=== PATIENT | female | born 1955 | race Caucasian/White ===

== ENCOUNTER 2021-08-26 07:04 | Outpatient (REF) | payer OTHER, SELFPAY ==
[2021-08-26 07:39] LABS: MANUAL DIFF FLAG NO
[2021-08-26 08:10] LABS: Basophils Percent Auto 0.6 % (0-2); Eosinophils Absolute Auto 0.3 X10*3/uL (0.0-0.4); Hematocrit 37.6 % (37.0-47.0); Hemoglobin 12.8 g/dl (12.0-16.0); Imm Gran Abs Auto 0.02 X10*3/uL (0.00-0.03); Imm Gran Pct Auto 0.3 % (0.0-0.4); Immature Retic Fraction 5.6 % (3.0-15.9); Lymphocytes Absolute Auto 1.2 X10*3/uL (1.2-4.9); Mean Corpuscular Hemoglobin 29.7 pg (27.0-33.0); Mean Corpuscular Volume 87.2 fL (80.0-98.0); Mean Platelet Volume 11.1 fL (9.4-12.3); Monocytes Absolute Auto 0.3 X10*3/uL (0.1-1.2); Monocytes Percent Auto 4.6 % (2-11); Neutrophils Absolute Auto 4.4 x10*3/uL (2.0-8.3); Neutrophils Percent Auto 70.5 % (45-73); Platelet Count 201 X10*3/uL (160-400); Red Blood Count 4.31 X10*6/uL (4.20-5.50); Red Cell Distribution Width 12.2 % (11.0-16.0); Retic HGB Equivalent 32.7 pg (30.0-35.0); Reticulocyte Percent 1.5 % (0.5-1.8); Reticulocytes Absolute 0.064 X10*6/uL (0.026-0.095); White Blood Count 6.3 X10*3/uL (4.8-10.8)
[2021-08-26 08:33] LABS: Estimated Average Glucose 114 mg/dL; Hemoglobin A1c % 5.6 %
[2021-08-26 08:38] LABS: Cholesterol 322 mg/dL; HDL Cholesterol 76 mg/dL; LDL Cholesterol Calculated 194 mg/dl; Triglycerides 260 mg/dL
[2021-08-26 08:41] LABS: Alanine Aminotransferase 30 U/L (0-31); Albumin Level 4.7 g/dL (3.5-5.0); Alkaline Phosphatase 90 U/L (39-117); Anion Gap 13 (12-20); Aspartate Amino Transferase 33 U/L (5-31); Blood Urea Nitrogen 13 mg/dL (9-16); Calcium 10.5 mg/dL (8.4-10.2); Carbon Dioxide 35 mmol/L (22-29); Chloride 96 mmol/L (96-108); Estimated Glomerular Filt Rate > 60; Glucose Fasting 130 mg/dL (60-99); Iron 86 mcg/dL (30-160); Percent Iron Saturation 25 % (15-50); Potassium 3.3 mmol/L (3.3-5.1); Sodium 141 mmol/L (135-145); Total Iron Binding Capacity 347 mcg/dL (228-428); Total Protein 7.6 g/dL (6.5-8.0); Unsaturated Iron Binding 261 ug/dL
[2021-08-26 09:01] LABS: TSH reflex Free T4 1.08 uIU/mL (0.32-4.0)
[2021-08-26 09:02] LABS: Ferritin 108 ng/mL (10-250); Free T4 (Free Thyroxine) 1.04 ng/dL (0.71-1.85); Thyroid Stimulating Hormone 1.06 uIU/mL (0.32-4.0); Vitamin D 25-OH Total 27.1 ng/mL (>30)
[2021-08-26 09:08] LABS: Folate 10.9 ng/mL (> or = 4.0); Vitamin B12 504 pg/mL (200-900)
[2021-08-26 14:29] LABS: Appearance Urine CLOUDY; Color Urine YELLOW; Glucose Urine UA NEG (NEG); Leukocyte Esterase Urine TRACE (NEG); Nitrite Urine NEG (NEG); PH 5.5 (5.0-8.0); Specific Gravity - Urine >= 1.030 (1.005-1.025); UACC Culture Trigger YES; Urine Blood 3+ (NEG); Urine Ketones NEG (NEG); Urine Protein 2+ MG/DL (NEG-TRACE)
[2021-08-26 14:48] LABS: RBC Urine 30-49 /HPF (0); Squamous Epithelial Cell Urine 1+ /LPF; WBC Urine 0-2 /HPF (0-4)
[2021-08-26 14:49] LABS: Bacteria Urine 1+ /LPF; Hyaline Casts Urine 0-2 /LPF
[2021-08-26 14:50] LABS: Amorphous Sediment Urine 2+ /LPF
[2021-09-05 17:11] LABS: UACC Culture Trigger NO
== END 2021-08-26 07:05 | disposition home or self-care (01) ==
LOC: HO.LAB 07:04
PROVIDERS: PCP Internal Medicine; Visit Provider Nurse Practitioner Acute Care
DX: K21.9 Gastro-esophageal reflux disease without esophagitis (principal); R73.02 Impaired glucose tolerance (oral); E78.00 Pure hypercholesterolemia, unspecified; R30.0 Dysuria
CPT/HCPCS: 36415; 80053; 80061; 81001; 82306; 82607; 82728; 82746; 83036; 83540; 84439; 84443; 85025; 85045; 87086

== ENCOUNTER 2021-09-02 08:59 | Outpatient (REF) | payer OTHER, SELFPAY ==
--- NOTE | ~2021-09-02 | CT_ITS ---
EXAMINATION: CT ABDOMEN AND PELVIS WITH CONTRAST CLINICAL INFORMATION: Diverticulosis COMPARISON: None TECHNIQUE: Multidetector volumetric images were obtained from the superior aspect of the liver through the pubic symphysis following administration 85 mL of Omnipaque 350 intravenous contrast. Sagittal and coronal reformatted images were obtained on the technologist's workstation. Oral contrast: Yes This CT examination was performed using dose optimization techniques as appropriate, variously including the following: *Automated exposure control *Adjustment of mA and/or kV according to patient size (this includes techniques or standardized protocols for targeted exams where dose is matched to indication/reason for exam; i.e. extremities or head) *Use of iterative reconstruction technique DLP: 410 mGy-cm FINDINGS: LUNG BASES: There is left pleural calcification. The lung bases are otherwise clear. LIVER, GALLBLADDER, AND BILIARY TREE: The liver is low in attenuation suggestive of fatty infiltration. No focal liver lesion. Normal gallbladder. No biliary duct dilatation. PANCREAS: Unremarkable. SPLEEN: Slightly prominent measuring 15 cm in length/AP dimension ADRENAL GLANDS: Unremarkable. KIDNEYS AND URETERS: The kidneys are normal in size, shape, and attenuation. No hydronephrosis, hydroureter, or calculi seen. No perinephric stranding. BLADDER: There is a tiny amount of air in the bladder. Bladder is otherwise unremarkable. GASTROINTESTINAL TRACT: Mild diverticulosis of the colon. No evidence of diverticulitis. Duodenal diverticulum adjacent to the head of the pancreas. The small and large bowel are otherwise unremarkable. The appendix is unremarkable. ABDOMINAL WALL: No significant hernia is appreciated. LYMPH NODES: Normal. VASCULAR: Unremarkable. PELVIC VISCERA: Left ovarian calcification measuring 1 cm. Uterus and adnexa are otherwise normal OSSEOUS STRUCTURES: There are degenerative changes of the spine. CT/CT abdomen pelvis w con IMPRESSION: Mild fatty infiltration of the liver. Prominent spleen. Diverticulosis of the colon. No evidence of diverticulitis. Tiny amount of air seen in the bladder. This may be related to recent catheterization. Clinical correlation is recommended. No evidence of colovesicular fistula is seen. Possible infection should also be considered. Fleischner guidelines were followed.
[2021-09-02] MEDS: iohexoL 350 MG/ML 100 ML INFUS..BTL IV (12:04)
[2021-09-02] MEDS: Barium Sulfate Oral (Mocha) 450 ML ORAL.SUSP 900 ML PO (12:04)
== END 2021-09-02 09:00 | disposition home or self-care (01) ==
LOC: HO.CT 08:59
PROVIDERS: PCP Internal Medicine; Visit Provider Nurse Practitioner Acute Care
DX: R10.12 Left upper quadrant pain (principal); K57.90 Diverticulosis of intestine, part unspecified, without perforation or abscess without bleeding; R19.7 Diarrhea, unspecified
CPT/HCPCS: 74177; Q9967

== ENCOUNTER 2022-01-13 08:48 | Outpatient (REF) | payer OTHER, SELFPAY ==
--- NOTE | ~2022-01-13 | MM_ITS ---
EXAMINATION: BONE DENSITOMETRY CLINICAL INDICATION: Age-related osteoporosis without current pathological fracture. COMPARISON: Previous BD dated 09/27/2018 and baseline BD dated 12/09/2007. TECHNIQUE: Using a [place] [employer] 911 DXA System (software version: 13.1) manufactured by [employer], dual-energy x-ray absorptiometry was performed of the lumbar spine and left hip. The images are of good technical quality. Summary results are attached. FINDINGS: AP SPINE L1-L4: Current: BMD 0.899 g/cm2, Z-score -1.1, T-score -2.3, osteopenia, 0.2% increase from previous, 9.6% decrease from baseline (<5% change is not significant). Prior: BMD 0.897 g/cm2. Baseline: BMD 0.994 g/cm2. LEFT FEMUR, NECK: Current: BMD 0.722 g/cm2, Z-score -1.0, T-score -2.3, osteopenia. Prior: BMD 0.774 g/cm2. Baseline: BMD 0.899 g/cm2. LEFT FEMUR, TOTAL: Current: BMD 0.819 g/cm2, Z-score -0.5, T-score -1.5, osteopenia, 1.9% decrease from previous, 17.8% decrease from baseline (<5% change is not significant). Prior: BMD 0.835 g/cm2. Baseline: BMD 0.996 g/cm2. IDENTIFIED RISK FACTORS: Menopause, history of fracture (adult), osteoporosis, thiazide. HISTORY OF FRACTURE: Elbow. MEDICATIONS: None listed. MM/XR DEXA axial skeleton IMPRESSION: 1. DIAGNOSIS: Osteopenia based on the lowest T-score value of -2.3 in the femoral neck and lumbar spine applying World Health Organization criteria. 2. 10-YEAR FRACTURE RISK PREDICTION, FRAX: Major osteoporotic fracture (clinical spine, forearm, hip or shoulder) 19.4%. Hip fracture 3.7%. 3. Treatment Recommendations: NOF guidelines recommend consideration for treatment in postmenopausal women and men age 50 and older presenting with the following: -A hip or vertebral (clinical or morphometric) fracture. -T-score less than or equal to -2.5 at the femoral neck or spine after appropriate evaluation to exclude secondary causes. -Low bone mass at the hip or spine and a 10-year fracture probability by FRAX of greater than or equal to 3% for hip fracture or greater than or equal to 20% for major osteoporotic fracture based on the [place] adapted WHO algorithm. 4. Other Recommendations: All treatment decisions require clinical judgment and consideration of individual patient factors, including patient preferences, comorbidities, previous drug use, risk factors not captured in the FRAX model (e.g. frailty, falls, vitamin D deficiency, increased bone turnover, interval significant decline in bone density) and possible under or overestimation of fracture risk by FRAX. Additional medical evaluation for secondary cause of low bone mineral density may be appropriate. FUTURE SCAN RECOMMENDATION: People with diagnosed cases of osteoporosis or at high risk for fracture should have regular bone mineral density tests. For patients eligible for Medicare, routine testing is allowed once every 2 years. The testing frequency can be increased to one year for patients who have rapidly progressing disease, those who are receiving or discontinuing medical therapy to restore bone mass, or have additional risk factors.
--- NOTE | ~2022-01-13 | MM_ITS ---
EXAMINATION: MM SCREENING DIGITAL BREAST TOMOSYNTHESIS, BILATERAL CLINICAL INFORMATION: Screening. Asymptomatic. The lifetime risk of breast cancer based on the Tyrer-Cuzick Model is 4%. COMPARISON: Mammography: 09/27/2018, 07/20/2017, 11/12/2015 TECHNIQUE: Digital breast tomosynthesis is performed in both the craniocaudal and mediolateral oblique views along with computer-aided detection (CAD). Synthesized 2D images are generated from the tomosynthesis. FINDINGS: There are scattered areas of fibroglandular density (ACR BI-RADS breast composition Category b). Parenchymal pattern is similar to prior studies. There is fibronodular parenchymal pattern is similar to prior exams. No interval dominant nodularity or significant mass. No developing density or architectural abnormality. No abnormal calcifications. The axilla and skin contours are unremarkable. MM/MM tomosynthesis screening BI IMPRESSION: No mammographic evidence of malignancy. ASSESSMENT: BI-RADS 2: Benign RECOMMENDATION: Routine annual mammography screening. This patient's information was entered into a reminder system with a target due date for their next mammogram.
== END 2022-01-13 08:49 | disposition home or self-care (01) ==
LOC: HO.MAMMO 08:48
PROVIDERS: PCP Internal Medicine; Visit Provider Internal Medicine
DX: Z12.31 Encounter for screening mammogram for malignant neoplasm of breast (principal); Z13.820 Encounter for screening for osteoporosis; M81.0 Age-related osteoporosis without current pathological fracture; Z78.0 Asymptomatic menopausal state
CPT/HCPCS: 77063; 77067; 77080

== ENCOUNTER 2022-03-14 14:15 | Outpatient (REF) | payer OTHER, SELFPAY ==
--- NOTE | ~2022-03-14 | US_ITS ---
EXAMINATION: US ABDOMEN COMPLETE CLINICAL INFORMATION: Splenomegaly. COMPARISON: CT abdomen and pelvis with contrast 09/02/2021. TECHNIQUE: Real-time imaging of the abdominal viscera. FINDINGS: PANCREAS: Normal. No abnormal mass or peripancreatic inflammatory change. ABDOMINAL AORTA: The proximal, mid, and distal segments are normal in caliber. INFERIOR VENA CAVA: Visualized portions are normal. LIVER: The liver is normal in size. The liver contour is normal. There is some homogeneous increased echo texture present consistent with fatty infiltration. No focal hepatic lesion. There is no intrahepatic biliary duct dilatation seen. GALLBLADDER: Normal. The gallbladder is physiologically distended without evidence of stones, sludge, polyps, wall thickening or pericholecystic fluid. COMMON BILE DUCT: Not identified RIGHT KIDNEY: Normal. No hydronephrosis. No renal calculi or focal parenchymal lesions. The kidney measures 10.1 cm in maximum dimension. LEFT KIDNEY: Normal. No hydronephrosis. No renal calculi or focal parenchymal lesions. The kidney measures 9.5 cm in maximum dimension. SPLEEN: Normal. The spleen measures 12.1 cm in maximum dimension. FREE FLUID: None. US/US abdomen complete IMPRESSION: Homogeneously increased echotexture to the liver consistent with fatty infiltration.
== END 2022-03-14 14:16 | disposition home or self-care (01) ==
LOC: HO.HMGCX 14:15
PROVIDERS: PCP Internal Medicine; Visit Provider Internal Medicine Medical Oncology
DX: R16.1 Splenomegaly, not elsewhere classified (principal)
CPT/HCPCS: 76700

== ENCOUNTER 2022-03-22 12:38 | Outpatient (REF) | payer OTHER, SELFPAY ==
[2022-03-22 13:14] LABS: Urine Cytology See Pathology rpt
[2022-03-22 13:45] LABS: Appearance Urine Hazy; Color Urine Yellow; Glucose Urine UA Negative (Negative); Leukocyte Esterase Urine Negative (Negative); Nitrite Urine Negative (Negative); PH 5.5 (5.0-9.0); Specific Gravity - Urine >= 1.030 (1.005-1.025); Urine Blood Negative (Negative); Urine Ketones Negative (Negative); Urine Protein Trace mg/dL (Neg-Trace)
[2022-03-22 13:54] LABS: Alanine Aminotransferase 13 U/L (0-31); Albumin Level 4.7 g/dL (3.5-5.0); Alkaline Phosphatase 84 U/L (39-117); Anion Gap 17 (12-20); Aspartate Amino Transferase 19 U/L (5-31); Bilirubin Total 0.6 mg/dL (0.0-1.0); Blood Urea Nitrogen 13 mg/dL (9-16); Calcium 9.8 mg/dL (8.4-10.2); Carbon Dioxide 29 mmol/L (22-29); Chloride 96 mmol/L (96-108); Estimated Glomerular Filt Rate > 60; Glucose Random 95 mg/dL (60-115); Potassium 3.3 mmol/L (3.3-5.1); Sodium 139 mmol/L (135-145); Total Protein 7.4 g/dL (6.5-8.0)
[2022-03-26 06:57] LABS: Urine Cytology See Pathology rpt
== END 2022-03-22 12:39 | disposition home or self-care (01) ==
LOC: HO.LAB 12:38
PROVIDERS: Visit Provider Internal Medicine
DX: R31.9 Hematuria, unspecified (principal)
CPT/HCPCS: 36415; 80053; 81003; 88112

== ENCOUNTER 2022-05-15 13:03 | Outpatient (REF) | payer OTHER, SELFPAY | END 2022-05-15 13:04 | disposition home or self-care (01) | LOC: HO.LAB 13:03 | PROVIDERS: PCP Internal Medicine; Visit Provider Urology | DX: R31.0 Gross hematuria (principal); Z79.899 Other long term (current) drug therapy | CPT/HCPCS: 51798; 88112 ==

== ENCOUNTER → 2022-06-09 11:14 | Outpatient (BNVA) | payer OTHER, SELFPAY | PROVIDERS: PCP Internal Medicine; Visit Provider Urology | DX: R31.0 Gross hematuria (principal); N30.90 Cystitis, unspecified without hematuria | CPT/HCPCS: 52000 ==

== ENCOUNTER 2023-01-05 08:20 | Outpatient (AMB) | payer MEDICARE, SELFPAY ==
[2023-01-05 08:34] VITALS: BP 140/70; RESP 78; O2SAT 97; BMI 30.7
--- NOTE | 2023-01-05 08:34 | A.OFFPC_ITS ---
Vital Signs 01/05/23 08:34 Height 5 ft 2 in Weight 168 lb BMI 30.7 BP 140/70 H Blood Pressure Location Lt brachial Position Sitting Respiration 78 H Pulse Source Pulse Oximeter Pulse Oximetry (%) 97 Oxygen Delivery Method Room Air Intake Visit Reasons: medication review Allergies bacitracin [From Neosporin ([id number])] Allergy (Unknown, Verified 01/05/23 08:43) Unknown benzocaine Allergy (Unknown, Verified 01/05/23 08:43) Unknown lisinopril Allergy (Unknown, Verified 01/05/23 08:43) Unknown neomycin [From Neosporin ([id number])] Allergy (Unknown, Verified 01/05/23 08:43) Unknown nickel Allergy (Unknown, Verified 01/05/23 08:43) Unknown polymyxin B [From Neosporin ([id number])] Allergy (Unknown, Verified 01/05/23 08:43) Unknown Medication List - Last Reconciled 01/05/23 by LORENZO Arango albuterol sulfate 90 mcg/actuation (ProAir HFA) 2 puffs PO Q4H amlodipine 10 mg PO DAILY clobetasol 0.05% 1 appl topical BID 2 weeks fluticasone furoate-vilanterol 200-25 mcg/dose (Breo Ellipta) 1 inh inhalation Q24H hydrochlorothiazide 25 mg PO DAILY loratadine 10 mg PO DAILY PRN losartan 50 mg PO DAILY omeprazole 20 mg PO DAILY sertraline 150 mg (1.5 x 100 mg) PO DAILY Tobacco use date assessed: 01/05/23 Fall risk assessment: No Falls in past year Last assessed Fall Risk: 01/05/23 Dental Screening Dental Screen Date: 01/05/23 Did you have a dental visit in the last 12 months?: Yes Did you have a dental problem in the last 6 months where you did not have access to dental care?: No Was dental information given to patient?: Patient has dentist HPI HPI Comments History of Present Illness Details 66-year-old obese female with a history of hypertension, asthma, GERD hypercholesterolemia Vela's esophagus with impaired glucose tolerance. Patient of last seen in April. Patient presents today for follow-up. Patient reports her psoriasis is flaring up on her bilateral hands, patient requesting a refill on her clobetasol ointment. Refill sent to patient's pharmacy. Patient denies any need for any other refills. Patient reminded to get previously order lab work completed. Review of the notes patient was seen by Urology in June and underwent cystoscopy which showed cystitis with no suspicious lesions. Patient was treated with antibiotics and Pyridium. Patient reports that her urinary problems have resolved following treatment. Patient reports her breathing has improved since on the Breo inhaler states that she only has to use her albuterol every couple a days versus before when she was using it multiple times per day. [facility] Medical History (Updated 01/05/23 @ 08:47 by LORENZO Arango) Adverse effect of contrast media Allergic rhinitis Anxiety and depression Asthma Vela's esophagus Breast cancer screening by mammogram Diarrhea Diverticulosis GERD (gastroesophageal reflux disease) Hypercholesterolemia Hypertension Impaired glucose tolerance Knee osteoarthritis LUQ abdominal pain Osteoporosis Psoriasis Siriasis Splenomegaly Surgical History History of arthroplasty of left knee History of arthroplasty of right knee History of eye surgery History of tonsillectomy History of tubal ligation Family History Father No problems noted. Mother Ovarian cancer Myocardial infarction Paternal Grandmother Bladder cancer Paternal Aunt Bladder cancer Paternal Uncle Bladder cancer Social History (Updated 05/05/22 @ 13:31 by Clover Jones PLASTIC WELDER) Household Members: Spouse and Children Housing: House Are you a primary care management associate to a significant other at home: No Do you presently have visiting nurse or other home services: No Alcohol intake: current Alcohol intake frequency: a few times a month Patient Tobacco Use Status: Former Tobacco user Tobacco use type: Cigarette e-Cigarette/Vaping Use: Never Used Second Hand Smoke Exposure: No Substance Use Type: Marijuana service: No Current occupational status: employed Cognitive needs: No Hearing needs: No Vision needs: No Questionnaire PHQ-9 Over the last 2 weeks, how often have you been bothered by any of the following problems? 1. Little interest or pleasure in doing things: not at all 2. Feeling down, depressed, or hopeless: not at all 3. Trouble falling or staying asleep, or sleeping too much: not at all 4. Feeling tired or having little energy: not at all 5. Poor appetite or overeating: not at all 6. Feeling bad about yourself - or that you are a failure or have let yourself or your family down: not at all 7. Trouble concentrating on things, such as reading the newspaper or watching television: not at all 8. Moving or speaking so slowly that other people could have noticed. Or the opposite - being so fidgety or restless that you have been moving around a lot more than usual: not at all 9. Thoughts that you would be better off or of hurting yourself in some way: not at all Total score: 0 Depression Screening Interpretation: Negative Source: Developed by Drs. Jorge Luis Peng, Luisa Ko, Scout Hopkins and colleagues, with an educational rosa isela from [employer]. Thrive Questionnaire Date Thrive assessed: 01/05/23 I am a: Patient What is your living situation today?: I have a steady place to live Within the past 12 months, did the food you bought not last and you didn't have the money to get more?: Never true Within the past 12 months, did you worry whether your food would run out before you got money to buy more?: Never true Do you have trouble paying for medicines?: No Do you have trouble getting transportation to medical appointments?: No Do you have trouble paying your heating and electricity bill?: No Do you have trouble taking care of your child, family member or friend?: No Do you have trouble with day-to-day activities such as bathing, preparing meals, shopping, managing finances, etc.?: No Are you currently unemployed and looking for a job?: No Are you interested in more education?: No Currently or been in a relationship where the following occur: no concerns reported AUDIT C Alcohol Use Questionnaire (AUDIT-C) 1. How often do you have a drink containing alcohol?: Never Total Score: 0 Score Reviewed/Action Taken: No LETY-7 AMB Questionnaire LETY-7 Date LETY - 7 assessed: 01/05/23 Feeling nervous, anxious, or on edge: 0 = Not at all Not being able to stop or control worryin = Not at all Worrying too much about different things: 0 = Not at all Trouble relaxin = Not at all Being so restless that it is hard to sit still: 0 = Not at all Becoming easily annoyed or irritable: 0 = Not at all Feeling afraid as if something awful might happen: 0 = Not at all Total LETY-7 score (0-4 normal; 5-9 mild; 10-14 moderate; 15-21 severe): 0 Source: Developed by Drs. Jorge Luis Peng, Luisa Ko, Scout Hopkins and colleagues, with an educational rosa isela from [employer]. Review of Systems Const Denies chills, Denies fatigue, Denies fever(s) and Denies poor appetite Eyes Denies no additional complaints ENT Reports Normal hearing present Card Denies chest pain, Denies syncope, Denies rapid heart rate and Denies dyspnea Resp Denies cough and Denies dyspnea GI Denies change in stool character, Denies constipation, Denies diarrhea, Denies nausea and Denies vomiting Denies urinary frequency, Denies dysuria and Denies urinary urgency Neuro Reports Normal hearing present, Denies confusion and Denies syncope Psych Denies confusion Endo Denies fatigue Physical exam (Primary Care) Vital Signs: Last Vital Signs Resp 78 H 01/05/23 08:34 BP 140/70 H 01/05/23 08:34 Pulse Ox 97 01/05/23 08:34 Oxygen Delivery Method Room Air 01/05/23 08:34 BMI result Body Mass Index 30.7 Tobacco/Smoking Status: Tobacco use Status Tobacco use date assessed 01/05/23 01/05/23 08:39 Patient Tobacco Use Status Former Tobacco user 01/05/23 08:39 Tobacco use type Cigarette 01/05/23 08:39 e-Cigarette/Vaping Use Never Used 01/05/23 08:39 PHQ-9: PHQ-9 Score PHQ-9: Total score 0 01/05/23 08:41 Depression Screening Interpretation: Negative Thrive Assessment: Date of Thrive Assessment Date Thrive assessed 01/05/23 01/05/23 08:39 Currently or been in a relationship where the following occur: no concerns reported Const General: No confusion Orientation/consciousness: No confusion HENMT Head: Yes normocephalic and Yes atraumatic Eyes Conjunctivae: conjunctivae normal Chest Chest palpation & inspection: normal inspection of the chest Resp Effort & Inspection: normal respiratory effort Auscultation: clear to auscultation bilaterally, no crackles, no rhonchi and no wheezes Cardio Rate: regular rate Rhythm: regular rhythm Heart sounds: S1 normal heart sound present and S2 normal heart sound present GI Inspection: Yes normal to inspection Neuro General: No confusion Cranial nerves: Yes Normal hearing present Extrem General: No edema Assessment and Plan Assessment & Plan (1) Hypertension: Code(s): I10 - Essential (primary) hypertension Qualifiers: Hypertension type: primary hypertension Qualified Code(s): I10 - Essential (primary) hypertension Plan: Continue on amlodipine and losartan. Follow low-salt diet and exercise. Blood pressure goal less than 140/90. (2) GERD (gastroesophageal reflux disease): Code(s): K21.9 - Gastro-esophageal reflux disease without esophagitis Plan: Continue on omeprazole. ?Avoid the foods that cause that, usually spicy foods, tomato products, juices, coffee, soda and foods that you're sensitive to.? After eating do not lie down, allow 3-4 hours before lying down. And keep the head of the bed above 30 degrees to avoid the acid from going up. (3) Asthma: Code(s): J45.909 - Unspecified asthma, uncomplicated Qualifiers: Asthma complication type: uncomplicated Asthma persistence: intermittent Asthma severity: mild Qualified Code(s): J45.20 - Mild intermittent asthma, uncomplicated Plan: Continue on Breo inhaler and albuterol p.r.n.. Patient denies any shortness of breath or wheezing. (4) Hypercholesterolemia: Comment: DEcline treatment 04/2022, 01/2022 Code(s): E78.00 - Pure hypercholesterolemia, unspecified Plan: Avoid fried foods, chicken skin, eggs, butter,margarine, pastries and? red meat. (5) Psoriasis: Code(s): L40.9 - Psoriasis, unspecified Plan: Clobetasol ointment sent to patient's pharmacy. Plan Follow-up with PCP in 6 months or sooner needed. Medications: New clobetasol 0.05% 1 appl topical DAILY 30 grams 0RF L40.9 - Psoriasis, unspeci fied Discontinued clobetasol 0.05% Discontinued Reason: Doctor's Order 1 appl topical BID 2 weeks 118 mL 0RF L40.9 - Psoriasis, unspecified Coding Level of Care Code Est Pt Level 4 (75592) Diagnoses Hypertension I10 Hypertension type: primary hypertension GERD (gastroesophageal reflux disease) K21.9 Asthma J45.20 Asthma complication type: uncomplicated Asthma persistence: intermittent Asthma severity: mild Hypercholesterolemia E78.00 Psoriasis L40.9 Additional Codes PHQ-9 - 40055 - PHQ-9 Billing: Y ([id number])
== END 2023-01-05 08:56 | disposition home or self-care (01) ==
PROVIDERS: PCP Internal Medicine; Visit Provider Nurse Practitioner Family
DX: I10 Essential (primary) hypertension (principal); K21.9 Gastro-esophageal reflux disease without esophagitis; J45.20 Mild intermittent asthma, uncomplicated; E78.00 Pure hypercholesterolemia, unspecified; L40.9 Psoriasis, unspecified
CPT/HCPCS: 99214

== ENCOUNTER 2023-01-19 10:03 | Outpatient (REF) | payer MEDICARE, SELFPAY ==
--- NOTE | ~2023-01-19 | MM_ITS ---
EXAMINATION: MM SCREENING DIGITAL BREAST TOMOSYNTHESIS, BILATERAL CLINICAL INFORMATION: Screening. Asymptomatic. COMPARISON: Mammography: This study is compared with prior exams dating back to 2016. TECHNIQUE: Digital breast tomosynthesis is performed in both the craniocaudal and mediolateral oblique views along with computer-aided detection (CAD). Synthesized 2D images are generated from the tomosynthesis. FINDINGS: There are scattered areas of fibroglandular density (ACR BI-RADS breast composition Category b). There is a focal asymmetry of the upper outer quadrant of the right breast at middle depth. Further mammographic imaging of this region is advised. There are no other significant findings in the remainder of the right breast. In the left breast, there are no significant masses, abnormal calcifications, or other abnormalities. MM/MM tomosynthesis screening BI IMPRESSION: Focal asymmetry of the upper outer quadrant of the right breast warrants additional mammographic imaging. ASSESSMENT: BI-RADS BI-RADS 0 - Incomplete: Needs additional Imaging. RECOMMENDATION: 1. Additional views of the right breast. .2. Targeted ultrasound if warranted after review of the additional views. 3. Radiology department staff will contact the patient for additional imaging. Additional Imaging required This examination should not preclude the clinical evaluation of a suspicious palpable abnormality. This patient's information was entered into a reminder system with a target due date for their next mammogram.
== END 2023-01-19 10:04 | disposition home or self-care (01) ==
LOC: HO.MAMMO 10:03
PROVIDERS: Visit Provider Internal Medicine
DX: Z12.31 Encounter for screening mammogram for malignant neoplasm of breast (principal)
CPT/HCPCS: 77063; 77067

== ENCOUNTER → 2023-01-19 10:15 | Outpatient (BNV) | payer MEDICARE, SELFPAY | PROVIDERS: Visit Provider Radiology Diagnostic Radiology | DX: Z12.31 Encounter for screening mammogram for malignant neoplasm of breast (principal) | CPT/HCPCS: 77063; 77067 ==

== ENCOUNTER 2023-02-16 13:47 | Outpatient (REF) | payer MEDICARE, SELFPAY ==
--- NOTE | ~2023-02-16 | MM_ITS ---
EXAMINATION: MM DIAGNOSTIC DIGITAL BREAST TOMOSYNTHESIS, RIGHT US BREAST LIMITED, RIGHT MAMMOGRAPHY: CLINICAL INFORMATION: Follow-up asymmetric density upper outer right breast. COMPARISON: Mammography: 01/19/2023, 01/13/2022, 09/27/2018, 07/20/2017. TECHNIQUE: Digital right breast tomosynthesis is performed utilizing a full-field 3-D digital right mediolateral view, as well as 3-D spot compression views in the right CC and MLO projections, Along with computer-aided detection (CAD). Synthesized 2D images are generated from the tomosynthesis. FINDINGS: There are scattered areas of fibroglandular density (ACR BI-RADS breast composition Category b). There is an intramammary lymph node in the upper outer quadrant of the right breast approximate 9:00 axis. This is unchanged. Otherwise, diagnostic views demonstrate heterogeneously dense breast parenchyma in the upper outer quadrant of the right breast without focal concerning abnormality. This will be evaluated with ultrasound as well. There are no suspicious masses, grouped calcifications, or areas of architectural distortion. ULTRASOUND: CLINICAL INFORMATION: Follow-up asymmetric density upper outer right breast. COMPARISON: 01/19/2023. TECHNIQUE: Targeted sonographic evaluation was performed using a high frequency linear transducer. Attention was focused on the upper outer quadrant right breast. Selected archived documentation. FINDINGS: RIGHT BREAST: There is a mixture of fatty and fibroglandular tissue. No suspicious mass is seen. There is no pathologic acoustic shadowing. There is no cystic abnormality. Only normal heterogeneously dense breast tissue is identified. MM/MM tomosynthesis added views R IMPRESSION: There is no mammographic or ultrasonographic evidence of malignancy in the right breast. No abnormal findings. Recommend the patient return to routine annual screening. OVERALL ASSESSMENT: Mammography: BI-RADS 2 - Benign Findings Ultrasound: BI-RADS 2 - Benign Findings RECOMMENDATION: 1 year F/U This patient's information was entered into a reminder system with a target due date for their next mammogram.
== END 2023-02-16 13:48 | disposition home or self-care (01) ==
LOC: HO.MAMMO 13:47
PROVIDERS: PCP Internal Medicine; Visit Provider Internal Medicine
DX: N64.89 Other specified disorders of breast (principal)
CPT/HCPCS: 76642; 77061; 77065

== ENCOUNTER → 2023-02-16 14:30 | Outpatient (BNV) | payer MEDICARE, SELFPAY | PROVIDERS: PCP Internal Medicine; Visit Provider Radiology Diagnostic Radiology | DX: R92.2 Inconclusive mammogram (principal) | CPT/HCPCS: 76642; 77061; 77065 ==

== ENCOUNTER 2023-02-21 10:40 | Outpatient (REF) | payer MEDICARE, SELFPAY ==
[2023-02-21 11:19] LABS: Appearance Urine Clear; Color Urine Yellow; Glucose Urine UA Negative (Negative); Leukocyte Esterase Urine Moderate (2+) (Negative); Nitrite Urine Negative (Negative); PH 5.5 (5.0-9.0); Specific Gravity - Urine 1.025 (1.005-1.025); UMIC TRIGGER UA YES; Urine Blood Negative (Negative); Urine Ketones Trace mg/dL (Negative); Urine Protein Negative (Neg-Trace)
[2023-02-21 11:29] LABS: Bacteria Urine None Seen (None Seen); Hyaline Casts Urine 0-2 /LPF (0-2); RBC Urine 0-2 /HPF (0-2); WBC Urine 0-5 /HPF (0-5)
== END 2023-02-21 10:41 | disposition home or self-care (01) ==
LOC: HO.LAB 10:40
PROVIDERS: PCP Internal Medicine; Visit Provider Internal Medicine
DX: R31.0 Gross hematuria (principal)
CPT/HCPCS: 81001

== ENCOUNTER 2023-02-26 15:15 | Outpatient (AMB) | payer MEDICARE, SELFPAY ==
[2023-02-26 15:42] VITALS: BP 132/80; PULSE 80; TEMP 36.4; O2SAT 96; BMI 31.1
--- NOTE | 2023-02-26 15:42 | AM.OFFWIN_ITS ---
Intake Vital Signs 02/26/23 15:42 Height 5 ft 2 in Weight 170 lb BMI 31.1 BP 132/80 Blood Pressure Location Rt brachial Position Sitting Pulse 80 Pulse Source Pulse Oximeter Temp 97.6 F Temp Source Temporal Artery Scan Pulse Oximetry (%) 96 Intake Visit Reasons: EP Sore throat, Chest/Head congestion/Headache Intake Note: pt is here for c/o sore throat, chest and head congestion Patient Tobacco Use Status: Former Tobacco user Allergies bacitracin [From Neosporin ([id number])] Allergy (Unknown, Verified 02/26/23 15:42) Unknown benzocaine Allergy (Unknown, Verified 02/26/23 15:42) Unknown lisinopril Allergy (Unknown, Verified 02/26/23 15:42) Unknown neomycin [From Neosporin ([id number])] Allergy (Unknown, Verified 02/26/23 15:42) Unknown nickel Allergy (Unknown, Verified 02/26/23 15:42) Unknown polymyxin B [From Neosporin ([id number])] Allergy (Unknown, Verified 02/26/23 15:42) Unknown Do you need a note to return to daycare/school/sports/work: Yes HPI EP Sore throat, Chest/Head congestion/Headache HPI Details Patient presents for a sick visit. Reporting symptoms of sinus congestion, sore throat and difficulty swallowing. Low-grade fever. No family member is sick. No recent travel. Patient reports symptoms of malaise and fatigue. [facility] Medical History (Updated 02/26/23 @ 16:34 by Kavon Good MD) Breast cancer screening by mammogram Splenomegaly Siriasis Adverse effect of contrast media Diarrhea LUQ abdominal pain Diverticulosis Impaired glucose tolerance Vela's esophagus Anxiety and depression Psoriasis Osteoporosis Hypercholesterolemia GERD (gastroesophageal reflux disease) Asthma Knee osteoarthritis Hypertension Allergic rhinitis Surgical History History of eye surgery History of tubal ligation History of tonsillectomy History of arthroplasty of right knee History of arthroplasty of left knee Family History Father No problems noted. Mother Ovarian cancer Myocardial infarction Paternal Grandmother Bladder cancer Paternal Aunt Bladder cancer Paternal Uncle Bladder cancer Social History (Updated 05/05/22 @ 13:31 by Clover Jones CMA) Household Members: Spouse and Children Housing: House Are you a primary skin care consultant to a significant other at home: No Do you presently have visiting nurse or other home services: No Alcohol intake: current Alcohol intake frequency: a few times a month Patient Tobacco Use Status: Former Tobacco user Tobacco use type: Cigarette e-Cigarette/Vaping Use: Never Used Second Hand Smoke Exposure: No Substance Use Type: Marijuana service: No Current occupational status: employed Cognitive needs: No Hearing needs: No Vision needs: No Physical Exam Vital Signs: Last Vital Signs Temp 97.6 F 02/26/23 15:42 Pulse 80 02/26/23 15:42 BP 132/80 02/26/23 15:42 Pulse Ox 96 02/26/23 15:42 BMI result Body Mass Index 31.1 Const General: cooperative and healthy appearing Nutritional Appearance: well nourished Orientation/consciousness: patient oriented x3 Limitations: no limitations HEENT Head: Yes normal to inspection Eyes General: appearance normal, both eyes and all related structures Neck Neck: Yes normal visual inspection Chest Chest palpation & inspection: normal palpation of entire chest wall Resp Effort & Inspection: normal respiratory effort Neuro General: patient oriented x3 Results AMB Rapid Strep AMB Rapid Strep Negative Last Edit by Jewel France CMA on 02/26/23 15 :56 Results Reviewed Results Reviewed: Laboratory Last Values Strep Scn Rapid Clinic Negative 02/26/23 15:55 Assessment & Plan Assessment & Plan (1) Upper respiratory tract infection: Code(s): J06.9 - Acute upper respiratory infection, unspecified Plan: Antibiotics ordered. Increase fluid intake. Tylenol for aches and pains. If symptoms worsen, follow-up here for a recheck. Orders: Orders AMB Rapid Strep Screen Today Z13.9 - Encounter for screening, unspecified Coding Level of Care Code Est Pt Level 3 (90469) Diagnoses Upper respiratory tract infection J06.9
== END 2023-02-26 16:34 | disposition home or self-care (01) ==
PROVIDERS: PCP Internal Medicine; Visit Provider Internal Medicine
DX: J02.9 Acute pharyngitis, unspecified (principal); J06.9 Acute upper respiratory infection, unspecified
CPT/HCPCS: 87880; 99213

== ENCOUNTER 2023-04-06 07:17 | Outpatient (REF) | payer MEDICARE, SELFPAY ==
[2023-04-06 07:29] LABS: MANUAL DIFF FLAG NO
[2023-04-06 08:11] LABS: Basophils Percent Auto 0.5 % (0-2); Eosinophils Absolute Auto 0.3 X10*3/uL (0.0-0.4); Eosinophils Percent Auto 5.7 % (0-4); Hemoglobin 11.4 g/dl (12.0-16.0); Imm Gran Abs Auto 0.03 X10*3/uL (0.00-0.03); Imm Gran Pct Auto 0.5 % (0.0-0.4); Lymphocytes Absolute Auto 1.1 X10*3/uL (1.2-4.9); Lymphocytes Percent Auto 18.6 % (20-40); Mean Corpuscular HGB Conc 32.6 g/dl (31.0-35.0); Mean Corpuscular Hemoglobin 28.5 pg (27.0-33.0); Mean Corpuscular Volume 87.5 fL (80.0-98.0); Mean Platelet Volume 10.5 fL (9.4-12.3); Monocytes Absolute Auto 0.3 X10*3/uL (0.1-1.2); Monocytes Percent Auto 5.3 % (2-11); Neutrophils Percent Auto 69.4 % (45-73); Platelet Count 245 X10*3/uL (160-400); Red Cell Distribution Width 12.8 % (11.0-16.0); White Blood Count 5.8 X10*3/uL (4.8-10.8)
[2023-04-06 08:39] LABS: Alanine Aminotransferase 15 U/L (0-31); Albumin Level 4.6 g/dL (3.5-5.0); Alkaline Phosphatase 85 U/L (39-117); Anion Gap 12 (12-20); Aspartate Amino Transferase 21 U/L (5-31); Bilirubin Total 0.6 mg/dL (0.0-1.0); Blood Urea Nitrogen 13 mg/dL (9-16); Calcium 9.8 mg/dL (8.4-10.2); Carbon Dioxide 29 mmol/L (22-29); Chloride 103 mmol/L (96-108); Cholesterol 286 mg/dL (<200); Estimated Glomerular Filt Rate > 60; Glucose Random 139 mg/dL (60-115); HDL Cholesterol 63 mg/dL (>40); LDL Cholesterol Calculated 194 mg/dL (<100); Potassium 3.9 mmol/L (3.3-5.1); Sodium 140 mmol/L (135-145); Total Protein 7.5 g/dL (6.5-8.0); Triglycerides 147 mg/dL (<150)
[2023-04-06 09:01] LABS: Free T4 (Free Thyroxine) 0.84 ng/dL (0.71-1.85); Thyroid Stimulating Hormone 2.21 uIU/mL (0.32-4.0)
[2023-04-06 09:02] LABS: Folate 5.6 ng/mL (> or = 4.0); Vitamin B12 528 pg/mL (200-900)
[2023-04-06 09:17] LABS: Appearance Urine Clear; Color Urine Dark Yellow; Glucose Urine UA Negative (Negative); Leukocyte Esterase Urine Small (1+) (Negative); Nitrite Urine Negative (Negative); PH 5.5 (5.0-9.0); UMIC TRIGGER UA YES; Urine Blood Negative (Negative); Urine Ketones Negative (Negative); Urine Protein Trace mg/dL (Neg-Trace)
[2023-04-06 09:45] LABS: Bacteria Urine None Seen (None Seen); RBC Urine 0-2 /HPF (0-2); WBC Urine 0-5 /HPF (0-5)
== END 2023-04-06 07:18 | disposition home or self-care (01) ==
LOC: HO.LAB 07:17
PROVIDERS: PCP Internal Medicine; Visit Provider Internal Medicine
DX: E78.00 Pure hypercholesterolemia, unspecified (principal); M81.0 Age-related osteoporosis without current pathological fracture
CPT/HCPCS: 36415; 80053; 80061; 81001; 81003; 82306; 82607; 82746; 84439; 84443; 85025

== ENCOUNTER 2023-04-09 11:32 | Outpatient (AMB) | payer MEDICARE, SELFPAY ==
--- NOTE | 2023-04-09 11:35 | A.OFFVIS_ITS ---
Intake Intake Visit Reasons: 1 [facility] follow up/ meds review Intake Note: Patient presents today for a follow-up on 1 Month Med Review: Meds- None Allergies to Antibiotic- Bacitracin & Neomycin Blood Thinner- None PVR- 0 mL Patient Transport Officer Required: No Accompanied by: Self / Same As Patient Allergies bacitracin [From Neosporin ([id number])] Allergy (Unknown, Verified 04/09/23 11:38) Unknown benzocaine Allergy (Unknown, Verified 04/09/23 11:38) Unknown lisinopril Allergy (Unknown, Verified 04/09/23 11:38) Unknown neomycin [From Neosporin ([id number])] Allergy (Unknown, Verified 04/09/23 11:38) Unknown nickel Allergy (Unknown, Verified 04/09/23 11:38) Unknown polymyxin B [From Neosporin ([id number])] Allergy (Unknown, Verified 04/09/23 11:38) Unknown HPI HPI Comments History of Present Illness Details Tiffanie is a 67-year-old female who presents today to the office for a follow-up. 04/09/23? Tiffanie has been evaluated for h/o gross hematuria, w/u consistent with cystits, She was treated with a suppressive course of antibiotics. The patient has a history of recurrent urinary tract infections. Prior cigarette use, smoked about 23 years, and discontinued in 1994. Patient states that he had a family hi story of bladder cancer, her paternal and one of her grandparents. Patient had office Cystoscopy in 06/2022 which was consistent with cystitis and no suspicious bladder lesions noted. She states that about in 12/2022 her urine was dark and she received some medications from her PCP. Patient states that she consumed cranberry juice for 2 days and the symptoms resolved. Review of chart: Imaging: CT scan of the abdomen and pelvis with IV contrast in September, --kidneys are within normal limits. Abdominal ultrasound March 2022 04/09/2023: Evaluation today--UA-- leukoc ytes: 1 +; blood: negative. 04/09/23: Plan: Follow-up in 6 months romero al bladder US prior. [facility] Medical History (Updated 04/09/23 @ 12:24 by Edd Farmer MD) Breast cancer screening by mammogram Splenomegaly Siriasis Adverse effect of contrast media Diarrhea LUQ abdominal pain Diverticulosis Impaired glucose tolerance Vela's esophagus Anxiety and depression Psoriasis Osteoporosis Hypercholesterolemia GERD (gastroesophageal reflux disease) Asthma Knee osteoarthritis Hypertension Allergic rhinitis Surgical History History of eye surgery History of tubal ligation History of tonsillectomy History of arthroplasty of right knee History of arthroplasty of left knee Family History Father No problems noted. Mother Ovarian cancer Myocardial infarction Paternal Grandmother Bladder cancer Paternal Aunt Bladder cancer Paternal Uncle Bladder cancer Social History (Updated 05/05/22 @ 13:31 by Clover Jones CMA) Household Members: Spouse and Children Housing: House Are you a primary home care nurse to a significant other at home: No Do you presently have visiting nurse or other home services: No Alcohol intake: current Alcohol intake frequency: a few times a month Patient Tobacco Use Status: Former Tobacco user Tobacco use type: Cigarette e-Cigarette/Vaping Use: Never Used Second Hand Smoke Exposure: No Substance Use Type: Marijuana service: No Current occupational status: employed Cognitive needs: No Hearing needs: No Vision needs: No Review of Systems Const All systems reviewed & are unremarkable except as noted in HPI and below Reports no additional complaints Eyes Reports no additional complaints ENT Reports no additional complaints Card Denies dyspnea Resp Denies cough and Denies dyspnea GI Reports no additional complaints Reports no additional complaints Musc Reports no additional complaints Skin/Breast Denies rash and Denies unusual bruising Neuro Reports no additional complaints Psych Reports no additional complaints Endo Reports no additional complaints David/Lymph Reports no additional complaints Aller/Immun Reports no additional complaints Office Procedures Post Void Residual Post Residual Void Post Void Residual (PVR): 0 [id number] Void Residual by ultrasound Results AMB Urinalysis, Automated UA Leukoctes 70 Emre/uL Last Edit by SEAN Deshpande on 04/09/23 11:55 UA Nitrite Negative Last Edit by Bharathi Zamudio A on 04/09/23 11:55 UA Urobilinogen 0.2 mg/dL Last Edit by Bharathi Zamudio El on 04/09/23 11:5 5 UA Protein 15 mg/dL Last Edit by Bharathi Zamudio, A on 04/09/23 11:55 UA pH 6.0 Last Edit by Bharathi Zamudio A on 04/09/23 11:55 UA Blood 0 Jose/uL Last Edit by Bharathi Zamudio A on 04/09/23 11:55 UA Specific [place] 1.030 Last Edit by Bharathi Zamudio El on 04/09/23 11: 55 UA Ketone Negative Last Edit by Bharathi Zamudio [facility] on 04/09/23 11:55 UA Bilirubin 1 mg/dL Last Edit by Bharathi Zamudio A on 04/09/23 11:55 1+ Bharathi Zamudio 04/09/23 11:55 UA Glucose 0 mg/dL Last Edit by Bharathi Zamudio A on 04/09/23 11:55 Results Reviewed Results Reviewed: Laboratory Last Values Urine pH (Auto) 6.0 04/09/23 11:39 Specific [place] (Auto) 1.030 04/09/23 11:39 Urine Protein (Auto) 15 mg/dL 04/09/23 11:39 Glucose (UA)(Auto) 0 mg/dL 04/09/23 11:39 Urine Ketones (Auto) Negative 04/09/23 11:39 Urine Blood (Auto) 0 Jose/uL 04/09/23 11:39 Urine Nitrite (Auto) Negative 04/09/23 11:39 Urine Bilirubin (Auto) 1 mg/dL 04/09/23 11:39 Urine Urobilinogen (Auto) 0.2 mg/dL 04/09/23 11:39 Leukocyte Esterase (Auto) 70 Emre/uL 04/09/23 11:39 Assessment & Plan Assessment & Plan (1) Cystitis: Code(s): N30.90 - Cystitis, unspecified without hematuria (2) Recurrent UTI (urinary tract infection): Code(s): N39.0 - Urinary tract infection, site not specified Orders: Orders US renal BI 4 Months N30.90 - Cystitis, unspecified without hematuria, N39.0 - Urinary tract infection, site not specified AMB Urinalysis Automated Today Z13.9 - Encounter for screening, unspecified AMB Post Void Residual by ultrasound Today N39.8 - Other specified disorders of urinary system Patient Instructions: The patient had an opportunity to ask questions regarding treatment plan. All questions were answered. Imaging, Laboratory studies and physical exam results were discussed and reviewed in detail. No major barriers to understanding were identified. The patient expressed understanding and agreement with the above treatment plan. The patient is aware they should contact our office by phone for worsening of their current condition or the appearance of new symptoms. Compliance is encouraged with any medications and followup testing that is ordered. It is a privilege to be allowed the opportunity to participate in the urologic care of your patient. If you have any questions or concerns regarding treatment for the above conditions please do not hesitate to contact me. The office telephone contact is [phone]. This note is constructed in part using voice recognition software. While every effort has been made to ensure accuracy walking dragline oiler errors may have been included. Yours sincerely, Edd Farmer MD Coding Level of Care Code Est Pt Level 3 (30385) Diagnoses Cystitis N30.90 Recurrent UTI (urinary tract infection) N39.0 CPT Codes Post Residual Void - PVR CPT Code: [id number] Void Residual by ultrasound ([id number])
== END 2023-04-09 12:13 | disposition home or self-care (01) ==
PROVIDERS: PCP Internal Medicine; Visit Provider Urology
DX: N30.90 Cystitis, unspecified without hematuria (principal); N39.0 Urinary tract infection, site not specified; Z13.9 Encounter for screening, unspecified
CPT/HCPCS: 99213

== ENCOUNTER → 2023-04-09 11:32 | Outpatient (BNVA) | payer MEDICARE, SELFPAY | PROVIDERS: PCP Internal Medicine; Visit Provider Urology | DX: N30.90 Cystitis, unspecified without hematuria (principal); Z87.440 Personal history of urinary (tract) infections | CPT/HCPCS: 51798; 81003; 99212 ==

== ENCOUNTER 2023-04-20 08:46 | Outpatient (AMB) | payer MEDICARE, SELFPAY ==
[2023-04-20 08:51] VITALS: BP 148/78; PULSE 75; O2SAT 94; BMI 32.7
--- NOTE | 2023-04-20 08:51 | A.OFFPC_ITS ---
Vital Signs 04/20/23 08:51 Height 5 ft 2 in Weight 179 lb BMI 32.7 BP 148/78 H Blood Pressure Location Lt brachial Position Sitting Pulse 75 Pulse Source Pulse Oximeter Pulse Oximetry (%) 94 Oxygen Delivery Method Room Air Intake Visit Reasons: Lab results Weigher And Charger Required: No Accompanied by: Self / Same As Patient Allergies bacitracin [From Neosporin ([id number])] Allergy (Unknown, Verified 04/20/23 08:54) Unknown benzocaine Allergy (Unknown, Verified 04/20/23 08:54) Unknown lisinopril Allergy (Unknown, Verified 04/20/23 08:54) Unknown neomycin [From Neosporin ([id number])] Allergy (Unknown, Verified 04/20/23 08:54) Unknown nickel Allergy (Unknown, Verified 04/20/23 08:54) Unknown polymyxin B [From Neosporin ([id number]-ovdya)] Allergy (Unknown, Verified 04/20/23 08:54) Unknown Medication List - Last Reconciled 04/20/23 by Pete Staton MD albuterol sulfate 90 mcg/actuation (ProAir HFA) 2 puffs PO Q4H amlodipine 10 mg PO DAILY clobetasol 0.05% 1 appl topical DAILY fluticasone furoate-vilanterol 200-25 mcg/dose (Breo Ellipta) 1 inh inhalation Q24H hydrochlorothiazide 25 mg PO DAILY loratadine 10 mg PO DAILY PRN losartan 50 mg PO DAILY omeprazole 20 mg PO DAILY sertraline 150 mg (1.5 x 100 mg) PO DAILY Tobacco use date assessed: 01/05/23 Fall risk assessment: No Falls in past year Last assessed Fall Risk: 04/20/23 Dental Screening Dental Screen Date: 04/20/23 Did you have a dental visit in the last 12 months?: Yes Did you have a dental problem in the last 6 months where you did not have access to dental care?: No Was dental information given to patient?: Patient has dentist HPI Lab results HPI Details 67-year-old obese female with hypertensi on GERD asthma hypercholesterolemia psoriasis last seen in January 2023. Patient is up-to-date with colonoscopy mammogram bone density patient has been sent to urology for recurrent UTIs and hematuria diagnosis of cystitis treated with suppressive courses of antibiotics CT scan of the abdomen September 2021 normal workup underway. ran out of HCTZ and hence BP elevated. Patient states has been coughing in the last 3 days with myalgia no fevers prompting for consultation [facility] Medical History (Updated 04/20/23 @ 09:47 by Pete Staton MD) Breast cancer screening by mammogram Splenomegaly Siriasis Adverse effect of contrast media Diarrhea LUQ abdominal pain Diverticulosis Impaired glucose tolerance Vela's esophagus Anxiety and depression Psoriasis Osteoporosis Hypercholesterolemia GERD (gastroesophageal reflux disease) Asthma Knee osteoarthritis Hypertension Allergic rhinitis Surgical History History of eye surgery History of tubal ligation History of tonsillectomy History of arthroplasty of right knee History of arthroplasty of left knee Family History Father No problems noted. Mother Ovarian cancer Myocardial infarction Paternal Grandmother Bladder cancer Paternal Aunt Bladder cancer Paternal Uncle Bladder cancer Social History Household Members: Spouse and Children Housing: House Are you a primary dog day care attendant to a significant other at home: No Do you presently have visiting nurse or other home services: No Alcohol intake: current Alcohol intake frequency: a few times a month Patient Tobacco Use Status: Former Tobacco user Tobacco use type: Cigarette e-Cigarette/Vaping Use: Never Used Second Hand Smoke Exposure: No Substance Use Type: Marijuana service: No Current occupational status: employed Cognitive needs: No Hearing needs: No Vision needs: Yes Questionnaire PHQ-9 Over the last 2 weeks, how often have you been bothered by any of the following problems? 1. Little interest or pleasure in doing things: nearly every day 2. Feeling down, depressed, or hopeless: nearly every day 3. Trouble falling or staying asleep, or sleeping too much: not at all 4. Feeling tired or having little energy: not at all 5. Poor appetite or overeating: not at all 6. Feeling bad about yourself - or that you are a failure or have let yourself or your family down: not at all 7. Trouble concentrating on things, such as reading the newspaper or watching television: not at all 8. Moving or speaking so slowly that other people could have noticed. Or the opposite - being so fidgety or restless that you have been moving around a lot more than usual: not at all 9. Thoughts that you would be better off or of hurting yourself in some way: not at all Total score: 6 Depression Screening Interpretation: Negative Depression Screening Done: Yes Source: Developed by Drs. Jorge Lius Peng, Luisa Ko, Scout Hopkins and colleagues, with an educational rosa isela from [employer]. Thrive Questionnaire Date Thrive assessed: 01/05/23 AUDIT C Alcohol Use Questionnaire (AUDIT-C) 1. How often do you have a drink containing alcohol?: Never Total Score: 0 Score Reviewed/Action Taken: No LETY-7 AMB Questionnaire LETY-7 Date LETY - 7 assessed: 01/05/23 Source: Developed by Drs. Jorge Luis Peng, Luisa Ko, Scout Hopkins and colleagues, with an educational rosa isela from [employer]. Physical exam (Primary Care) Vital Signs: Last Vital Signs Pulse 75 04/20/23 08:51 BP 148/78 H 04/20/23 08:51 Pulse Ox 94 04/20/23 08:51 Oxygen Delivery Method Room Air 04/20/23 08:51 BMI result Body Mass Index 32.7 Tobacco/Smoking Status: Tobacco use Status Tobacco use date assessed 01/05/23 04/20/23 08:54 Patient Tobacco Use Status Former Tobacco user 04/20/23 08:54 Tobacco use type Cigarette 04/20/23 08:54 e-Cigarette/Vaping Use Never Used 04/20/23 08:54 PHQ-9: PHQ-9 Score PHQ-9: Total score 6 04/20/23 09:36 Depression Screening Interpretation: Negative Thrive Assessment: Date of Thrive Assessment Date Thrive assessed 01/05/23 04/20/23 08:54 Const General: alert; No acute distress Eyes Conjunctivae: conjunctivae normal Resp Other: Crackles noted on the bases Auscultation: crackles Cardio Rate: regular rate Rhythm: regular rhythm GI Inspection: Yes normal to inspection Skin Other: Noted scaly mildly erythematous rash in both hand Extrem General: Yes normal to inspection and No edema Results AMB Hemoglobin A1c AMB Hemoglobin A1c 6.0 % Last Edit by Quin Kapadia on 04/20/23 09:50 Assessment and Plan Assessment & Plan (1) Hypertension: Code(s): I10 - Essential (primary) hypertension Qualifiers: Hypertension type: primary hypertension Qualified Code(s): I10 - Essential (primary) hypertension Plan: Continue with blood pressure medication. Decrease salt intake and exercise patient takes amlodipine 10 mg once a day hydrochlorothiazide 25 mg once a day losartan 50 mg once a day patient states has run out of the hydrochlorothiazide. Blood pressures been elevated advised to monitor blood pressure at home and record. Will have patient follow-up in 3 months (2) Asthma: Code(s): J45.909 - Unspecified asthma, uncomplicated Qualifiers: Asthma severity: mild Asthma persistence: intermittent Asthma complication type: uncomplicated Qualified Code(s): J45.20 - Mild intermittent asthma, uncomplicated Plan: Continue with inhaler as needed (3) GERD (gastroesophageal reflux disease): Code(s): K21.9 - Gastro-esophageal reflux disease without esophagitis Plan: Avoid the foods that causes that usually spicy foods, tomato products, juices, coffee, soda and foods that your sensitive to. After eating do not lie down, allow 3-4 hours before in lie down. And keep the head of bed above 30 degrees to avoid the acid from going up. (4) Hypercholesterolemia: Comment: DEcline treatment 04/2022, 01/2022 Code(s): E78.00 - Pure hypercholesterolemia, unspecified Plan: Avoid fried foods, chicken skin, eggs, butter margarine, pastries and meat. Be it pork or beef they have a lot of cholesterol LDL goal of less than 130 and triglyceride of less than 150. Discussed my concerns about the elevated LDL to 194. Discussed about diet will start on cholesterol medication and retest in 3 months (5) Impaired glucose tolerance: Code(s): R73.02 - Impaired glucose tolerance (oral) Plan: Decrease the amount of carbohydrate intake, pasta, bread, rice and potatoes are all sugar and that is aside from all the sweet stuff, remember that fruits are good but they are Sweet also. Hemoglobin A1c 6.0 advised patient to monitor diet (6) Hematuria: Code(s): R31.9 - Hematuria, unspecified Plan: Patient is being followed up by Urology and on surveillance (7) Anemia: Code(s): D64.9 - Anemia, unspecified Plan: Blood work requested for iron and vitamin B12 (8) Pneumonia: Code(s): J18.9 - Pneumonia, unspecified organism Plan: Increase oral fluids, antibiotic prescription sent in Orders: Orders Reticulocyte Count 3 Months D64.9 - Anemia, unspecified Vitamin B12 and Folate 3 Months D64.9 - Anemia, unspecified Comprehensive Met. Panel 3 Months R73.02 - Impaired glucose tolerance (oral) Lipid Panel 3 Months E78.00 - Pure hypercholesterolemia, unspecified AMB Hemoglobin A1c Today R73.09 - Other abnormal glucose Complete Blood Count Auto Diff 3 Months D64.9 - Anemia, unspecified Ferritin 3 Months D64.9 - Anemia, unspecified IRON PROFILE 3 Months D64.9 - Anemia, unspecified Hemoglobin A1c 3 Months R73.02 - Impaired glucose tolerance (oral) Medications: New rosuvastatin 5 mg PO DAILY 30 tabs 3RF E78.00 - Pure hypercholesterolemia, unspecified azithromycin (Zithromax) For 250 mg dose pack: take 500 mg today (day 1), then 250 mg for 4 days (days 2-5) PO 6 tabs 0RF J18.9 - Pneumonia, unspecified organism cholecalciferol (vitamin D3) 50 mcg PO DAILY 90 days 90 caps 3RF E55.9 - Vitamin D deficiency, unspecified, J18.9 - Pneumonia, unspecified organism Refilled hydrochlorothiazide 25 mg PO DAILY 90 tabs 3RF I10 - Essential (primary) hypertension hydrochlorothiazide 25 mg PO DAILY 90 tabs 3RF I10 - Essential (primary) hypertension Coding Level of Care Code Est Pt Level 4 (37383) Diagnoses Primary hypertension I10 Hypertension type: primary hypertension Mild intermittent asthma without complication J45.20 Asthma severity: mild Asthma persistence: intermittent Asthma complication type: uncomplicated GERD (gastroesophageal reflux disease) K21.9 Hypercholesterolemia E78.00 Impaired glucose tolerance R73.02 Hematuria R31.9 Anemia D64.9 Pneumonia J18.9 Additional Codes PHQ-9 - 53629 - PHQ-9 Billing: ([id number])
== END 2023-04-20 09:53 | disposition home or self-care (01) ==
PROVIDERS: PCP Internal Medicine; Visit Provider Internal Medicine
DX: I10 Essential (primary) hypertension (principal); J45.20 Mild intermittent asthma, uncomplicated; K21.9 Gastro-esophageal reflux disease without esophagitis; E78.00 Pure hypercholesterolemia, unspecified; R73.02 Impaired glucose tolerance (oral); R31.9 Hematuria, unspecified; D64.9 Anemia, unspecified; J18.9 Pneumonia, unspecified organism; R73.09 Other abnormal glucose
CPT/HCPCS: 83036; 99214

== ENCOUNTER 2023-06-14 07:46 | Outpatient (AMB) | payer MEDICARE, SELFPAY ==
--- NOTE | 2023-06-14 08:09 | MHC.PC.OV ---
Vital Signs 06/14/23 08:10 Height 5 ft 2 in Weight 175 lb BMI 32.0 BP 158/82 H Blood Pressure Location Lt brachial Position Sitting Pulse 75 Pulse Source Pulse Oximeter Pulse Oximetry (%) 95 Oxygen Delivery Method Room Air Intake Visit Reasons: HTN, IGT,Psoriasis Allergies bacitracin [From Neosporin ([id number])] Allergy (Unknown, Verified 06/14/23 08:10) Unknown benzocaine Allergy (Unknown, Verified 06/14/23 08:10) Unknown lisinopril Allergy (Unknown, Verified 06/14/23 08:10) Unknown neomycin [From Neosporin ([id number])] Allergy (Unknown, Verified 06/14/23 08:10) Unknown nickel Allergy (Unknown, Verified 06/14/23 08:10) Unknown polymyxin B [From Neosporin ([id number])] Allergy (Unknown, Verified 06/14/23 08:10) Unknown Medication List - Last Reconciled 06/14/23 by Pete Branham Po, albuterol sulfate 90 mcg/actuation (ProAir HFA) 2 puffs PO Q4H amlodipine 10 mg PO DAILY cholecalciferol (vitamin D3) 50 mcg PO DAILY 90 days clobetasol 0.05% 1 appl topical DAILY fluticasone furoate-vilanterol 200-25 mcg/dose (Breo Ellipta) 1 inh inhalation Q24H hydrochlorothiazide 25 mg PO DAILY loratadine 10 mg PO DAILY PRN losartan 50 mg PO DAILY montelukast 10 mg PO BEDTIME omeprazole 20 mg PO DAILY rosuvastatin 5 mg PO DAILY sertraline 150 mg (1.5 x 100 mg) PO DAILY Tobacco use date assessed: 06/14/23 Fall risk assessment: No Falls in past year Last assessed Fall Risk: 06/14/23 Dental Screening Dental Screen Date: 06/14/23 Did you have a dental visit in the last 12 months?: Yes Did you have a dental problem in the last 6 months where you did not have access to dental care?: No Was dental information given to patient?: Patient has dentist HPI HTN, IGT,Psoriasis HPI Details 67-year-old obese female with a history of hypertension impaired glucose tolerance hypercholesterolemia GERD coming in for follow-up. Last seen in April 2023. Patient had a colonoscopy in 2013 this is going to be due this year. Bone density is up-to-date mammogram had it in January 2023 and was told incomplete. Repeat testing ultrasound done in February 2023. PAtient recently has been very sob - 05/2023 covid 05/08/2023- still sob but better. declined med for DM. for the anemia - planned blood work next month. [facility] Medical History (Updated 06/14/23 @ 08:50 by Pete Staton MD) Impaired glucose tolerance Breast cancer screening by mammogram Splenomegaly Siriasis Adverse effect of contrast media Diarrhea LUQ abdominal pain Diverticulosis Vela's esophagus Anxiety and depression Psoriasis Osteoporosis Hypercholesterolemia GERD (gastroesophageal reflux disease) Asthma Knee osteoarthritis Hypertension Allergic rhinitis Surgical History History of eye surgery History of tubal ligation History of tonsillectomy History of arthroplasty of right knee History of arthroplasty of left knee Family History Father No problems noted. Mother Ovarian cancer Myocardial infarction Paternal Grandmother Bladder cancer Paternal Aunt Bladder cancer Paternal Uncle Bladder cancer Social History Household Members: Spouse and Children Housing: House Are you a primary overnight caregiver to a significant other at home: No Do you presently have visiting nurse or other home services: No Alcohol intake: current Alcohol intake frequency: a few times a month Patient Tobacco Use Status: Former Tobacco user Tobacco use type: Cigarette e-Cigarette/Vaping Use: Never Used Second Hand Smoke Exposure: No Substance Use Type: Marijuana service: No Current occupational status: employed Cognitive needs: No Hearing needs: No Vision needs: Yes Questionnaire PHQ-9 Over the last 2 weeks, how often have you been bothered by any of the following problems? 1. Little interest or pleasure in doing things: nearly every day 2. Feeling down, depressed, or hopeless: nearly every day 3. Trouble falling or staying asleep, or sleeping too much: not at all 4. Feeling tired or having little energy: not at all 5. Poor appetite or overeating: not at all 6. Feeling bad about yourself - or that you are a failure or have let yourself or your family down: not at all 7. Trouble concentrating on things, such as reading the newspaper or watching television: not at all 8. Moving or speaking so slowly that other people could have noticed. Or the opposite - being so fidgety or restless that you have been moving around a lot more than usual: not at all 9. Thoughts that you would be better off or of hurting yourself in some way: not at all Total score: 6 Depression Screening Interpretation: Negative Depression Screening Done: Yes Source: Developed by Drs. Jorge Luis Peng, Luisa Ko, Scout Hopkins and colleagues, with an educational rosa isela from [employer]. Thrive Questionnaire Date Thrive assessed: 06/14/23 I am a: Patient What is your living situation today?: I have a steady place to live Within the past 12 months, did the food you bought not last and you didn't have the money to get more?: Never true Within the past 12 months, did you worry whether your food would run out before you got money to buy more?: Never true Do you have trouble paying for medicines?: No Do you have trouble getting transportation to medical appointments?: No Do you have trouble paying your heating and electricity bill?: No Do you have trouble taking care of your child, family member or friend?: No Do you have trouble with day-to-day activities such as bathing, preparing meals, shopping, managing finances, etc.?: No Are you currently unemployed and looking for a job?: No Are you interested in more education?: No Currently or been in a relationship where the following occur: no concerns reported AUDIT C Alcohol Use Questionnaire (AUDIT-C) 1. How often do you have a drink containing alcohol?: Never Total Score: 0 Score Reviewed/Action Taken: No LETY-7 AMB Questionnaire LETY-7 Date LETY - 7 assessed: 06/14/23 Feeling nervous, anxious, or on edge: 0 = Not at all Not being able to stop or control worryin = Not at all Worrying too much about different things: 0 = Not at all Trouble relaxin = Not at all Being so restless that it is hard to sit still: 0 = Not at all Becoming easily annoyed or irritable: 0 = Not at all Feeling afraid as if something awful might happen: 0 = Not at all Total LETY-7 score (0-4 normal; 5-9 mild; 10-14 moderate; 15-21 severe): 0 Source: Developed by Drs. Jorge Luis Peng, Luisa Ko, Scout Hopkins and colleagues, with an educational rosa isela from [employer]. Physical exam (Primary Care) Vital Signs: Last Vital Signs Pulse 75 06/14/23 08:10 BP 158/82 H 06/14/23 08:10 Pulse Ox 95 06/14/23 08:10 Oxygen Delivery Method Room Air 06/14/23 08:10 BMI result Body Mass Index 32.0 Tobacco/Smoking Status: Tobacco use Status Tobacco use date assessed 06/14/23 06/14/23 08:15 Patient Tobacco Use Status Former Tobacco user 06/14/23 08:15 Tobacco use type Cigarette 06/14/23 08:15 e-Cigarette/Vaping Use Never Used 06/14/23 08:15 PHQ-9: PHQ-9 Score PHQ-9: Total score 6 06/14/23 08:15 Depression Screening Interpretation: Negative Thrive Assessment: Date of Thrive Assessment Date Thrive assessed 06/14/23 06/14/23 08:15 Currently or been in a relationship where the following occur: no concerns reported Const General: alert; No acute distress Eyes Conjunctivae: conjunctivae normal Resp Auscultation: clear to auscultation bilaterally Cardio Rate: regular rate Rhythm: regular rhythm GI Inspection: Yes normal to inspection Extrem General: Yes normal to inspection and No edema Assessment and Plan Assessment & Plan (1) Type 2 diabetes mellitus with hyperglycemia: Code(s): E11.65 - Type 2 diabetes mellitus with hyperglycemia Plan: Decrease the amount of carbohydrate intake, pasta, bread, rice and potatoes are all sugar and that is aside from all the sweet stuff, remember that fruits are good but they are Sweet also. Hemoglobin A1c goal of less than 6.5. April 2023 last A1c was 6.0 patient on diet control presently (2) Hypercholesterolemia: Comment: DEcline treatment 04/2022, 01/2022 Code(s): E78.00 - Pure hypercholesterolemia, unspecified Plan: Avoid fried foods, chicken skin, eggs, butter margarine, pastries and meat. Be it pork or beef they have a lot of cholesterol LDL goal of less than 100 patient presently on rosuvastatin 5 mg once a day LDL in April was 194 (3) Hypertension: Code(s): I10 - Essential (primary) hypertension Qualifiers: Hypertension type: primary hypertension Qualified Code(s): I10 - Essential (primary) hypertension Plan: Continue with blood pressure medication. Decrease salt intake and exercise patient on amlodipine 10 mg once a day hydrochlorothiazide 25 mg once a day losartan 50 mg once a day (4) GERD (gastroesophageal reflux disease): Code(s): K21.9 - Gastro-esophageal reflux disease without esophagitis Plan: Avoid the foods that causes that usually spicy foods, tomato products, juices, coffee, soda and foods that your sensitive to. After eating do not lie down, allow 3-4 hours before in lie down. And keep the head of bed above 30 degrees to avoid the acid from going up. (5) Anemia: Code(s): D64.9 - Anemia, unspecified Plan: April blood work showing anemia at 11.4 hemoglobin (6) SOB (shortness of breath): Code(s): R06.02 - Shortness of breath Plan: has asthma and has breo and Short acting albuterol - add singulair.did suggest working up cardiac due to high risk DM , Cholesterol , HTN but wants to hold off referral cardiology (7) Asthma: Code(s): J45.909 - Unspecified asthma, uncomplicated Qualifiers: Asthma severity: mild Asthma persistence: intermittent Asthma complication type: uncomplicated Qualified Code(s): J45.20 - Mild intermittent asthma, uncomplicated Plan: continue with the inhaler add montelukast Orders: Orders XR chest 2V Today R06.02 - Shortness of breath Medications: New montelukast 10 mg PO BEDTIME 30 tabs 3RF J45.20 - Mild intermittent asthma, uncomplicated Coding Level of Care Code Est Pt Level 4 (89587) Diagnoses Type 2 diabetes mellitus with hyperglycemia E11.65 Hypercholesterolemia E78.00 Primary hypertension I10 Hypertension type: primary hypertension GERD (gastroesophageal reflux disease) K21.9 Anemia D64.9 SOB (shortness of breath) R06.02 Mild intermittent asthma without complication J45.20 Asthma severity: mild Asthma persistence: intermittent Asthma complication type: uncomplicated Additional Codes PHQ-9 - 87905 - PHQ-9 Billing: ([id number])
[2023-06-14 08:10] VITALS: BP 158/82; PULSE 75; O2SAT 95; BMI 32.0
== END 2023-06-14 09:07 | disposition home or self-care (01) ==
PROVIDERS: PCP Internal Medicine; Visit Provider Internal Medicine
DX: E11.65 Type 2 diabetes mellitus with hyperglycemia (principal); E78.00 Pure hypercholesterolemia, unspecified; I10 Essential (primary) hypertension; K21.9 Gastro-esophageal reflux disease without esophagitis; D64.9 Anemia, unspecified; R06.02 Shortness of breath; J45.20 Mild intermittent asthma, uncomplicated
CPT/HCPCS: 99214

== ENCOUNTER 2023-06-14 09:17 | Outpatient (REF) | payer MEDICARE, SELFPAY ==
--- NOTE | ~2023-06-14 | XR_ITS ---
EXAMINATION: XR CHEST CLINICAL INFORMATION: Shortness of breath COMPARISON: 11/22/2019 TECHNIQUE: 2 views of the chest were obtained. FINDINGS: Lungs are well expanded. No consolidation, pleural effusion or pneumothorax. Chronic stable sheetlike calcification/pleural plaque of the left hemithorax. Cardiac silhouette is normal in size. Pulmonary vascular pattern is normal. Mild multilevel discovertebral change of the thoracic spine. XR/XR chest 2V IMPRESSION: No acute pulmonary disease compared to 11/22/2019.
== END 2023-06-14 09:18 | disposition home or self-care (01) ==
LOC: HO.XRAY 09:17
PROVIDERS: PCP Internal Medicine; Visit Provider Internal Medicine
DX: R06.02 Shortness of breath (principal)
CPT/HCPCS: 71046

== ENCOUNTER 2023-07-30 08:33 | Outpatient (REF) | payer MEDICARE, SELFPAY ==
--- NOTE | ~2023-07-30 | US_ITS ---
EXAMINATION: US RETROPERITONEAL LIMITED (RENAL ONLY) CLINICAL INFORMATION: Cystitis, unspecified without hematuria. Recurrent UTIs. COMPARISON: Ultrasound abdomen complete 03/14/2022. CT abdomen and pelvis 09/02/2021. TECHNIQUE: Real-time imaging of the kidneys. Limited visualization due to bowel gas. FINDINGS: RIGHT KIDNEY: 9.8 x 4.2 x 5 cm (SAG x AP x TRV). No hydronephrosis. No renal calculi. Renal cortical thickness is normal. Limited visualization. LEFT KIDNEY: 10.1 x 5.8 x 5.5 cm (SAG x AP x TRV). No hydronephrosis. No renal calculi. Renal cortical thickness is normal. Limited visualization. US/US renal BI IMPRESSION: No hydronephrosis. No renal calculi.
[2023-07-30 11:45] LABS: Basophils Absolute Auto 0.1 X10*3/uL (0.0-0.2); Basophils Percent Auto 0.9 % (0-2); Eosinophils Absolute Auto 0.4 X10*3/uL (0.0-0.4); Eosinophils Percent Auto 6.3 % (0-4); Hematocrit 35.6 % (37.0-47.0); Hemoglobin 11.8 g/dl (12.0-16.0); Imm Gran Abs Auto 0.03 X10*3/uL (0.00-0.03); Imm Gran Pct Auto 0.5 % (0.0-0.4); Lymphocytes Absolute Auto 1.1 X10*3/uL (1.2-4.9); Lymphocytes Percent Auto 19.8 % (20-40); MANUAL DIFF FLAG NO; Mean Corpuscular HGB Conc 33.1 g/dl (31.0-35.0); Mean Corpuscular Hemoglobin 28.4 pg (27.0-33.0); Mean Corpuscular Volume 85.8 fL (80.0-98.0); Mean Platelet Volume 11.5 fL (9.4-12.3); Monocytes Absolute Auto 0.3 X10*3/uL (0.1-1.2); Monocytes Percent Auto 5.1 % (2-11); Neutrophils Absolute Auto 3.9 x10*3/uL (2.0-8.3); Neutrophils Percent Auto 67.4 % (45-73); Platelet Count 222 X10*3/uL (160-400); Red Blood Count 4.15 X10*6/uL (4.20-5.50); Red Cell Distribution Width 12.6 % (11.0-16.0); Retic HGB Equivalent 32.3 pg (30.0-35.0); Reticulocyte Percent 1.4 % (0.5-1.8); Reticulocytes Absolute 0.057 X10*6/uL (0.026-0.095); White Blood Count 5.7 X10*3/uL (4.8-10.8)
[2023-07-30 11:57] LABS: Estimated Average Glucose 117 mg/dL; Hemoglobin A1c % 5.7 % (<6.0)
[2023-07-30 12:11] LABS: Alanine Aminotransferase 16 U/L (0-31); Albumin Level 4.4 g/dL (3.5-5.0); Alkaline Phosphatase 74 U/L (39-117); Anion Gap 12 (12-20); Aspartate Amino Transferase 17 U/L (5-31); Bilirubin Total 0.5 mg/dL (0.0-1.0); Blood Urea Nitrogen 15 mg/dL (9-16); Calcium 9.7 mg/dL (8.4-10.2); Carbon Dioxide 32 mmol/L (22-29); Chloride 100 mmol/L (96-108); Cholesterol 217 mg/dL (<200); Estimated Glomerular Filt Rate > 60; Glucose Random 122 mg/dL (60-115); HDL Cholesterol 63 mg/dL (>40); Iron 62 mcg/dL (30-160); LDL Cholesterol Calculated 118 mg/dL (<100); Percent Iron Saturation 23 % (15-50); Potassium 3.3 mmol/L (3.3-5.1); Sodium 141 mmol/L (135-145); Total Iron Binding Capacity 267 mcg/dL (228-428); Total Protein 7.2 g/dL (6.5-8.0); Triglycerides 184 mg/dL (<150); Unsaturated Iron Binding 205 ug/dL
[2023-07-30 12:16] LABS: Ferritin 78 ng/mL (10-250)
[2023-07-30 12:38] LABS: Folate 3.2 ng/mL (> or = 4.0); Vitamin B12 369 pg/mL (200-900)
== END 2023-07-30 08:34 | disposition home or self-care (01) ==
LOC: HO.HMGCX 08:33
PROVIDERS: PCP Internal Medicine; Referring Provider Internal Medicine; Visit Provider Urology
DX: N30.90 Cystitis, unspecified without hematuria (principal); R73.02 Impaired glucose tolerance (oral); E78.00 Pure hypercholesterolemia, unspecified; D64.9 Anemia, unspecified
CPT/HCPCS: 36415; 76775; 80053; 80061; 82607; 82728; 82746; 83036; 83540; 85025; 85045

== ENCOUNTER 2023-08-17 09:52 | Outpatient (AMB) | payer MEDICARE, SELFPAY ==
[2023-08-17 09:55] VITALS: BP 138/70; PULSE 70; O2SAT 98; BMI 31.1
--- NOTE | 2023-08-17 09:55 | MHC.PC.OV ---
Vital Signs 08/17/23 09:55 Height 5 ft 2 in Weight 170 lb BMI 31.1 BP 138/70 Blood Pressure Location Lt brachial Position Sitting Pulse 70 Pulse Source Pulse Oximeter Pulse Oximetry (%) 98 Oxygen Delivery Method Room Air Intake Visit Reasons: DM , Asthma, cholesterol , anemia Allergies bacitracin [From Neosporin ([id number])] Allergy (Unknown, Verified 08/17/23 09:55) Unknown benzocaine Allergy (Unknown, Verified 08/17/23 09:55) Unknown lisinopril Allergy (Unknown, Verified 08/17/23 09:55) Unknown neomycin [From Neosporin ([id number])] Allergy (Unknown, Verified 08/17/23 09:55) Unknown nickel Allergy (Unknown, Verified 08/17/23 09:55) Unknown polymyxin B [From Neosporin ([id number])] Allergy (Unknown, Verified 08/17/23 09:55) Unknown hydrochlorothiazide Adverse Reaction (Intermediate, Unverified 08/17/23 10:24) hypokalemia Medication List - Last Reconciled 08/17/23 by Pete Staton MD albuterol sulfate 90 mcg/actuation (ProAir HFA) 2 puffs PO Q4H amlodipine 10 mg PO DAILY cholecalciferol (vitamin D3) 50 mcg PO DAILY 90 days clobetasol 0.05% 1 appl topical DAILY fluticasone furoate-vilanterol 200-25 mcg/dose (Breo Ellipta) 1 inh inhalation Q24H folic acid 1 mg PO DAILY loratadine 10 mg PO DAILY PRN losartan 50 mg PO DAILY montelukast 10 mg PO BEDTIME omeprazole 20 mg PO DAILY rosuvastatin 10 mg PO DAILY sertraline 150 mg (1.5 x 100 mg) PO DAILY Tobacco use date assessed: 08/17/23 Fall risk assessment: No Falls in past year Last assessed Fall Risk: 08/17/23 Dental Screening Dental Screen Date: 08/17/23 Did you have a dental visit in the last 12 months?: Yes Did you have a dental problem in the last 6 months where you did not have access to dental care?: No Was dental information given to patient?: Patient has dentist HPI DM , Asthma, cholesterol , anemia HPI Details 68-year-old obese female with controlled diabetes mellitus hypertension hypercholesterolemia GERD and asthma last seen in June 2023. Patient's last colonoscopy was 2014 mammograms up-to-date bone density is up-to-date. Recently had a renal ultrasound showing no hydronephrosis and no renal calculi July 2023 discussed with the patient the blood work noted to have an elevated cholesterol still but better on the low-dose of rosuvastatin noted also potassium on the low side being that the patient is on hydrochlorothiazide. Blood pressure has been good. Patient also has received a letter regarding her asthma medication not being covered and wants Wixela. [facility] Medical History (Updated 08/17/23 @ 10:18 by Pete Staton MD) Impaired glucose tolerance Breast cancer screening by mammogram Splenomegaly Siriasis Adverse effect of contrast media Diarrhea LUQ abdominal pain Diverticulosis Vela's esophagus Anxiety and depression Psoriasis Osteoporosis Hypercholesterolemia GERD (gastroesophageal reflux disease) Asthma Knee osteoarthritis Hypertension Allergic rhinitis Surgical History History of eye surgery History of tubal ligation History of tonsillectomy History of arthroplasty of right knee History of arthroplasty of left knee Family History Father No problems noted. Mother Ovarian cancer Myocardial infarction Paternal Grandmother Bladder cancer Paternal Aunt Bladder cancer Paternal Uncle Bladder cancer Social History Household Members: Spouse and Children Housing: House Are you a primary home health caregiver to a significant other at home: No Do you presently have visiting nurse or other home services: No Alcohol intake: current Alcohol intake frequency: a few times a month Patient Tobacco Use Status: Former Tobacco user Tobacco use type: Cigarette e-Cigarette/Vaping Use: Never Used Second Hand Smoke Exposure: No Substance Use Type: Marijuana service: No Current occupational status: employed Cognitive needs: No Hearing needs: No Vision needs: Yes Questionnaire PHQ-9 Over the last 2 weeks, how often have you been bothered by any of the following problems? 1. Little interest or pleasure in doing things: nearly every day 2. Feeling down, depressed, or hopeless: nearly every day 3. Trouble falling or staying asleep, or sleeping too much: not at all 4. Feeling tired or having little energy: not at all 5. Poor appetite or overeating: not at all 6. Feeling bad about yourself - or that you are a failure or have let yourself or your family down: not at all 7. Trouble concentrating on things, such as reading the newspaper or watching television: not at all 8. Moving or speaking so slowly that other people could have noticed. Or the opposite - being so fidgety or restless that you have been moving around a lot more than usual: not at all 9. Thoughts that you would be better off or of hurting yourself in some way: not at all Total score: 6 Depression Screening Interpretation: Negative Depression Screening Done: Yes Source: Developed by Drs. Jorge Luis Peng, Luisa Ko, Scout Hopkins and colleagues, with an educational rosa isela from [employer]. Thrive Questionnaire Date Thrive assessed: 08/17/23 I am a: Patient What is your living situation today?: I have a steady place to live Within the past 12 months, did the food you bought not last and you didn't have the money to get more?: Never true Within the past 12 months, did you worry whether your food would run out before you got money to buy more?: Never true Do you have trouble paying for medicines?: No Do you have trouble getting transportation to medical appointments?: No Do you have trouble paying your heating and electricity bill?: No Do you have trouble taking care of your child, family member or friend?: No Do you have trouble with day-to-day activities such as bathing, preparing meals, shopping, managing finances, etc.?: No Are you currently unemployed and looking for a job?: No Are you interested in more education?: No Currently or been in a relationship where the following occur: no concerns reported THRIVE Score: 0 AUDIT C Alcohol Use Questionnaire (AUDIT-C) 1. How often do you have a drink containing alcohol?: Never Total Score: 0 Score Reviewed/Action Taken: No LETY-7 AMB Questionnaire LETY-7 Date LETY - 7 assessed: 08/17/23 Feeling nervous, anxious, or on edge: 0 = Not at all Not being able to stop or control worryin = Not at all Worrying too much about different things: 0 = Not at all Trouble relaxin = Not at all Being so restless that it is hard to sit still: 0 = Not at all Becoming easily annoyed or irritable: 0 = Not at all Feeling afraid as if something awful might happen: 0 = Not at all Total LETY-7 score (0-4 normal; 5-9 mild; 10-14 moderate; 15-21 severe): 0 Source: Developed by Drs. Jorge Luis Peng, Luisa Ko, Scout Hopkins and colleagues, with an educational rosa isela from [employer]. Physical exam (Primary Care) Vital Signs: Last Vital Signs Pulse 70 08/17/23 09:55 BP 138/70 08/17/23 09:55 Pulse Ox 98 08/17/23 09:55 Oxygen Delivery Method Room Air 08/17/23 09:55 BMI result Body Mass Index 31.1 Tobacco/Smoking Status: Tobacco use Status Tobacco use date assessed 08/17/23 08/17/23 10:03 Patient Tobacco Use Status Former Tobacco user 08/17/23 10:03 Tobacco use type Cigarette 08/17/23 10:03 e-Cigarette/Vaping Use Never Used 08/17/23 10:03 PHQ-9: PHQ-9 Score PHQ-9: Total score 6 08/17/23 10:03 Depression Screening Interpretation: Negative Thrive Assessment: Date of Thrive Assessment Date Thrive assessed 08/17/23 08/17/23 10:03 Currently or been in a relationship where the following occur: no concerns reported Const General: alert; No acute distress Eyes Conjunctivae: conjunctivae normal Resp Auscultation: clear to auscultation bilaterally Cardio Rate: regular rate Rhythm: regular rhythm GI Inspection: Yes normal to inspection Extrem General: Yes normal to inspection and No edema Assessment and Plan Assessment & Plan (1) Type 2 diabetes mellitus with hyperglycemia: Code(s): E11.65 - Type 2 diabetes mellitus with hyperglycemia Plan: Decrease the amount of carbohydrate intake, pasta, bread, rice and potatoes are all sugar and that is aside from all the sweet stuff, remember that fruits are good but they are Sweet also. Hemoglobin A1c goal of less than 7.0 Patient presently on diet control (2) Anemia: Comment: Chronic and stable Code(s): D64.9 - Anemia, unspecified Plan: Chronic and stable (3) Vela's esophagus: Code(s): K22.70 - Vela's esophagus without dysplasia Qualifiers: Vela's esophagus type: without dysplasia Qualified Code(s): K22.70 - Vela's esophagus without dysplasia Plan: Avoid the foods that causes that usually spicy foods, tomato products, juices, coffee, soda and foods that your sensitive to. After eating do not lie down, allow 3-4 hours before in lie down. And keep the head of bed above 30 degrees to avoid the acid from going up. (4) Hypercholesterolemia: Comment: DEcline treatment 04/2022, 01/2022 Code(s): E78.00 - Pure hypercholesterolemia, unspecified Plan: Avoid fried foods, chicken skin, eggs, butter margarine, pastries and meat. Be it pork or beef they have a lot of cholesterol LDL goal of less than 100 and triglyceride of less than 150. On rosuvastatin 5 mg once a day (5) Asthma: Code(s): J45.909 - Unspecified asthma, uncomplicated Qualifiers: Asthma severity: mild Asthma persistence: intermittent Asthma complication type: uncomplicated Qualified Code(s): J45.20 - Mild intermittent asthma, uncomplicated Plan: Continue with the albuterol inhaler and Breo and remember to rinse mouth after using Breo (6) Hypertension: Code(s): I10 - Essential (primary) hypertension Qualifiers: Hypertension type: primary hypertension Qualified Code(s): I10 - Essential (primary) hypertension Plan: Continue with blood pressure medication. Decrease salt intake and exercise presently on losartan 50 mg once a day hydrochlorothiazide 25 mg once a day and amlodipine 10 mg once a day. (7) Hypokalemia: Code(s): E87.6 - Hypokalemia Plan: Patient has hydrochlorothiazide and concern about potassium being low. concern about hydrochlorothiazide and so advised to stop and monitor the BP (8) Folic acid deficiency: Code(s): E53.8 - Deficiency of other specified B group vitamins Plan: Replace with folic acid once a day Orders: Orders Vitamin B12 and Folate 3 Months E53.8 - Deficiency of other specified B group vitamins Complete Blood Count Auto Diff 3 Months D64.9 - Anemia, unspecified Lipid Panel Today E78.00 - Pure hypercholesterolemia, unspecified Comprehensive Met. Panel 3 Months E78.00 - Pure hypercholesterolemia, unspecified Medications: New fluticasone propion-salmeterol 250-50 mcg/dose (Wixela Inhub) 1 inh inhalation BID 60 ea 12RF J45.909 - Unspecified asthma, uncomplicated Changed From rosuvastatin 5 mg PO DAILY 90 tabs 1RF E78.00 - Pure hypercholesterolemia, unspecified To rosuvastatin 10 mg PO DAILY 30 tabs 4RF E78.00 - Pure hypercholesterolemia, unspecified Discontinued hydrochlorothiazide Discontinued Reason: Doctor's Order 25 mg PO DAILY 90 tabs 3RF I10 - Essential (primary) hypertension fluticasone furoate-vilanterol 200-25 mcg/dose (Breo Ellipta) Discontinued Reason: Change Referral Type 1 inh inhalation Q24H 60 ea 12RF J45.20 - Mild intermittent asthma, uncomplicated Coding Level of Care Code Est Pt Level 4 (20575) Diagnoses Type 2 diabetes mellitus with hyperglycemia E11.65 Anemia D64.9 Vela's esophagus without dysplasia K22.70 Vela's esophagus type: without dysplasia Hypercholesterolemia E78.00 Mild intermittent asthma without complication J45.20 Asthma severity: mild Asthma persistence: intermittent Asthma complication type: uncomplicated Primary hypertension I10 Hypertension type: primary hypertension Hypokalemia E87.6 Folic acid deficiency E53.8 Additional Codes PHQ-9 - 22900 - PHQ-9 Billing: ([id number])
== END 2023-08-17 10:31 | disposition home or self-care (01) ==
PROVIDERS: PCP Internal Medicine; Visit Provider Internal Medicine
DX: E11.65 Type 2 diabetes mellitus with hyperglycemia (principal); D64.9 Anemia, unspecified; K22.70 Barrett's esophagus without dysplasia; E78.00 Pure hypercholesterolemia, unspecified; J45.20 Mild intermittent asthma, uncomplicated; I10 Essential (primary) hypertension; E87.6 Hypokalemia; E53.8 Deficiency of other specified B group vitamins
CPT/HCPCS: 99214

== ENCOUNTER 2023-10-08 08:29 | Outpatient (AMB) | payer MEDICARE, SELFPAY ==
--- NOTE | 2023-10-08 08:40 | MHC.OFFVIS ---
Intake Visit Reasons: 6m/US Intake Note: Patient presents today for a follow-up on 6 follow-up and US Results: Meds- None Allergies to Antibiotic- Bacitracin & Neomycin Blood Thinner- None Wood Pole Treater Required: No Accompanied by: Self / Same As Patient Allergies bacitracin [From Neosporin ([id number])] Allergy (Unknown, Verified 10/08/23 08:48) Unknown benzocaine Allergy (Unknown, Verified 10/08/23 08:48) Unknown lisinopril Allergy (Unknown, Verified 10/08/23 08:48) Unknown neomycin [From Neosporin ([id number])] Allergy (Unknown, Verified 10/08/23 08:48) Unknown nickel Allergy (Unknown, Verified 10/08/23 08:48) Unknown polymyxin B [From Neosporin ([id number]-[id number])] Allergy (Unknown, Verified 10/08/23 08:48) Unknown hydrochlorothiazide Adverse Reaction (Intermediate, Verified 10/08/23 08:48) hypokalemia Medication List - Last Reconciled 10/08/23 by Edd Farmer MD albuterol sulfate 90 mcg/actuation (ProAir HFA) 2 puffs PO Q4H amlodipine 10 mg PO DAILY cholecalciferol (vitamin D3) 50 mcg PO DAILY 90 days clobetasol 0.05% 1 appl topical DAILY fluticasone propion-salmeterol 250-50 mcg/dose (Wixela Inhub) 1 inh inhalation BID folic acid 1 mg PO DAILY loratadine 10 mg PO DAILY PRN losartan 50 mg PO DAILY montelukast 10 mg PO BEDTIME omeprazole 20 mg PO DAILY rosuvastatin 10 mg PO DAILY sertraline 150 mg (1.5 x 100 mg) PO DAILY HPI Comments Details: 10/08/2023-- Tiffanie is a 67-year-old female who presents today to the office for a follow-up. She states she has been doing well denies any issues with urination. Denies gross hematuria or dysuria. I have reviewed imaging, renal ultrasound 07/30/2023-kidneys within normal limits no hydronephrosis negative for kidney stones. Review of chart: 04/09/23? Tiffanie has been evaluated for h/o gross hematuria, w/u consistent with cystits, She was treated with a suppressive course of antibiotics. The patient has a history of recurrent urinary tract infections. Prior cigarette use, smoked about 23 years, and discontinued in 1994. Patient states that he had a family history of bladder cancer, her paternal and one of her grandparents. Patient had office Cystoscopy in 06/2022 which was consistent with cystitis and no suspicious bladder lesions noted. She states that about in 12/2022 her urine was dark and she received some medications from her PCP. Patient states that she consumed cranberry juice for 2 days and the symptoms resolved. Imaging: CT scan of the abdomen and pelvis with IV contrast in September, --kidneys are within normal limits. Abdominal ultrasound March 2022 10/08/2023 Plan: Follow-up in 9 month [facility] Medical History Impaired glucose tolerance Breast cancer screening by mammogram Splenomegaly Siriasis Adverse effect of contrast media Diarrhea LUQ abdominal pain Diverticulosis Vela's esophagus Anxiety and depression Psoriasis Osteoporosis Hypercholesterolemia GERD (gastroesophageal reflux disease) Asthma Knee osteoarthritis Hypertension Allergic rhinitis Surgical History History of eye surgery History of tubal ligation History of tonsillectomy History of arthroplasty of right knee History of arthroplasty of left knee Family History Father No problems noted. Mother Ovarian cancer Myocardial infarction Paternal Grandmother Bladder cancer Paternal Aunt Bladder cancer Paternal Uncle Bladder cancer Social History Household Members: Spouse and Children Housing: House Are you a primary managed care coordinator to a significant other at home: No Do you presently have visiting nurse or other home services: No Alcohol intake: current Alcohol intake frequency: a few times a month Patient Tobacco Use Status: Former Tobacco user Tobacco use type: Cigarette e-Cigarette/Vaping Use: Never Used Second Hand Smoke Exposure: No Substance Use Type: Marijuana service: No Current occupational status: employed Cognitive needs: No Hearing needs: No Vision needs: Yes Review of Systems Const All systems reviewed & are unremarkable except as noted in HPI and below Reports no additional complaints Eyes Reports no additional complaints ENT Reports no additional complaints Card Reports no additional complaints Resp Reports no additional complaints GI Reports no additional complaints Reports as per HPI Musc Reports no additional complaints Skin/Breast Reports system reviewed and no additional complaints, except as documented Neuro Reports no additional complaints Psych Reports no additional complaints Endo Reports no additional complaints David/Lymph Reports no additional complaints Aller/Immun Reports no additional complaints Results AMB Urinalysis, Automated UA Leukoctes 500 Emre/uL Last Edit by SEAN Deshpande on 10/08/23 08:55 3+ Bharathi Zamudio 10/08/23 08:55 UA Nitrite Negative Last Edit by Bharathi Zamudio El on 10/08/23 08:55 UA Urobilinogen 0.2 mg/dL Last Edit by SEAN Deshpande on 10/08/23 08:55 UA Protein 30 mg/dL Last Edit by Bharathi Zamudio [facility] on 10/08/23 08:55 1+ Bharathi Zamudio 10/08/23 08:55 UA pH 6.0 Last Edit by SEAN Deshpande on 10/08/23 08:55 UA Blood 0 Jose/uL Last Edit by Bharathi Zamudio [facility] on 10/08/23 08:55 UA Specific [place] 1.020 Last Edit by SEAN Deshpande on 10/08/23 08:55 UA Ketone Positive Last Edit by SEAN Deshpande on 10/08/23 08:55 UA Bilirubin 1 mg/dL Last Edit by Bharathi Zamudio [facility] on 10/08/23 08:55 UA Glucose 0 mg/dL Last Edit by Bharathi Zamudio [facility] on 10/08/23 08:55 Results Reviewed Results Reviewed: Date of Service: 07/30/23 US RETROPERITONEAL LIMITED (RENAL ONLY) CLINICAL INFORMATION: Cystitis, unspecified without hematuria. Recurrent UTIs. COMPARISON: Ultrasound abdomen complete 03/14/2022. CT abdomen and pelvis 09/02/2021. TECHNIQUE: Real-time imaging of the kidneys. Limited visualization due to bowel gas. FINDINGS: RIGHT KIDNEY: 9.8 x 4.2 x 5 cm (SAG x AP x TRV). No hydronephrosis. No renal calculi. Renal cortical thickness is normal. Limited visualization. LEFT KIDNEY: 10.1 x 5.8 x 5.5 cm (SAG x AP x TRV). No hydronephrosis. No renal calculi. Renal cortical thickness is normal. Limited visualization. IMPRESSION: No hydronephrosis. No renal calculi. Date of Service: 09/02/21 EXAMINATION: CT ABDOMEN AND PELVIS WITH CONTRAST? CLINICAL INFORMATION: Diverticulosis? COMPARISON: None? FINDINGS: LUNG BASES: There is left pleural calcification. The lung bases are otherwise clear.? LIVER, GALLBLADDER, AND BILIARY TREE: The liver is low in attenuation suggestive of fatty infiltration. No focal liver lesion. Normal gallbladder. No biliary duct dilatation. PANCREAS: Unremarkable.? SPLEEN: Slightly prominent measuring 15 cm in length/AP dimension ADRENAL GLANDS: Unremarkable.? KIDNEYS AND URETERS: The kidneys are normal in size, shape, and attenuation. No hydronephrosis, hydroureter, or calculi seen. No perinephric stranding. ? BLADDER: There is a tiny amount of air in the bladder. Bladder is otherwise unremarkable. GASTROINTESTINAL TRACT: Mild diverticulosis of the colon. No evidence of diverticulitis. Duodenal diverticulum adjacent to the head of the pancreas. The small and large bowel are otherwise unremarkable. The appendix is unremarkable.? ABDOMINAL WALL: No significant hernia is appreciated.? LYMPH NODES: Normal. VASCULAR: Unremarkable. PELVIC VISCERA: Left ovarian calcification measuring 1 cm. Uterus and adnexa are otherwise normal OSSEOUS STRUCTURES: There are degenerative changes of the spine. IMPRESSION: Mild fatty infiltration of the liver. Prominent spleen. Diverticulosis of the colon. No evidence of diverticulitis. Tiny amount of air seen in the bladder. This may be related to recent catheterization. Clinical correlation is recommended. No evidence of colovesicular fistula is seen. Possible infection should also be considered. Assessment & Plan Assessment & Plan (1) Cystitis: Code(s): N30.90 - Cystitis, unspecified without hematuria Category: Medical (2) Recurrent UTI (urinary tract infection): Code(s): N39.0 - Urinary tract infection, site not specified Category: Medical Plan Follow-up in 9 months Orders: Orders AMB Urinalysis Automated Today Z13.9 - Encounter for screening, unspecified Patient Instructions: The patient had an opportunity to ask questions regarding treatment plan. The patient expressed understanding and agreement with the above treatment plan. The patient is aware they should contact our office by phone for worsening of their current condition or the appearance of new symptoms. Compliance is encouraged with any medications and followup testing that is ordered. It is a privilege to be allowed the opportunity to participate in the urologic care of your patient. If you have any questions or concerns regarding treatment for the above conditions please do not hesitate to contact me. The office telephone contact is [phone]. This note is constructed in part using voice recognition software. While every effort has been made to ensure accuracy crusher wet ground mica errors may have been included. Yours sincerely, Edd Farmer MD Coding Level of Care Code Est Pt Level 3 (27692) Diagnoses Cystitis N30.90 Recurrent UTI (urinary tract infection) N39.0
== END 2023-10-08 09:00 | disposition home or self-care (01) ==
PROVIDERS: PCP Internal Medicine; Visit Provider Urology
DX: N30.90 Cystitis, unspecified without hematuria (principal); N39.0 Urinary tract infection, site not specified; Z13.9 Encounter for screening, unspecified
CPT/HCPCS: 99213

== ENCOUNTER → 2023-10-08 08:29 | Outpatient (BNVA) | payer MEDICARE, SELFPAY | PROVIDERS: PCP Internal Medicine; Visit Provider Urology | DX: N39.0 Urinary tract infection, site not specified (principal); N30.90 Cystitis, unspecified without hematuria | CPT/HCPCS: 81003; 99212 ==

== ENCOUNTER 2023-11-19 09:04 | Outpatient (AMB) | payer MEDICARE, SELFPAY ==
[2023-11-19 09:13] VITALS: BP 130/70; PULSE 83; TEMP 36.3; O2SAT 95; BMI 30.4
--- NOTE | 2023-11-19 09:13 | MHC.OFFWIV ---
Intake Vital Signs 11/19/23 09:13 Height 5 ft 2 in Weight 166 lb BMI 30.4 BP 130/70 Blood Pressure Location Lt brachial Position Sitting Pulse 83 Pulse Source Pulse Oximeter Temp 97.4 F Temp Source Temporal Artery Scan Pulse Oximetry (%) 95 Oxygen Delivery Method Room Air Intake Visit Reasons: EP congesiton/tight chest sore thraot cough Intake Note: pti is here today for congestion tight chest sore throat cough started sunday Patient Tobacco Use Status: Former Tobacco user Allergies bacitracin [From Neosporin ([id number])] Allergy (Unknown, Verified 11/19/23 09:30) Unknown benzocaine Allergy (Unknown, Verified 11/19/23 09:30) Unknown lisinopril Allergy (Unknown, Verified 11/19/23 09:30) Unknown neomycin [From Neosporin ([id number]-[id number]-[id number])] Allergy (Unknown, Verified 11/19/23 09:30) Unknown nickel Allergy (Unknown, Verified 11/19/23 09:30) Unknown polymyxin B [From Neosporin ([id number]-tjk-styhu)] Allergy (Unknown, Verified 11/19/23 09:30) Unknown hydrochlorothiazide Adverse Reaction (Intermediate, Verified 11/19/23 09:30) hypokalemia Do you need a note to return to daycare/school/sports/work: Yes PFSH Medical History Impaired glucose tolerance Breast cancer screening by mammogram Splenomegaly Siriasis Adverse effect of contrast media Diarrhea LUQ abdominal pain Diverticulosis Vela's esophagus Anxiety and depression Psoriasis Osteoporosis Hypercholesterolemia GERD (gastroesophageal reflux disease) Asthma Knee osteoarthritis Hypertension Allergic rhinitis Surgical History History of eye surgery History of tubal ligation History of tonsillectomy History of arthroplasty of right knee History of arthroplasty of left knee Family History Father No problems noted. Mother Ovarian cancer Myocardial infarction Paternal Grandmother Bladder cancer Paternal Aunt Bladder cancer Paternal Uncle Bladder cancer Social History Household Members: Spouse and Children Housing: House Are you a primary human services care specialist to a significant other at home: No Do you presently have visiting nurse or other home services: No Alcohol intake: current Alcohol intake frequency: a few times a month Patient Tobacco Use Status: Former Tobacco user Tobacco use type: Cigarette e-Cigarette/Vaping Use: Never Used Second Hand Smoke Exposure: No Substance Use Type: Marijuana service: No Current occupational status: employed Cognitive needs: No Hearing needs: No Vision needs: Yes Physical Exam Vital Signs: Last Vital Signs Temp 97.4 F 11/19/23 09:13 Pulse 83 11/19/23 09:13 BP 130/70 11/19/23 09:13 Pulse Ox 95 11/19/23 09:13 Oxygen Delivery Method Room Air 11/19/23 09:13 BMI result Body Mass Index 30.4 Const General: cooperative, healthy appearing, comfortable and no acute distress Orientation/consciousness: patient oriented x3 Limitations: no limitations HEENT Head: Yes normal to inspection Ears: hearing grossly normal bilaterally, external ears normal and TM's normal bilaterally General nose exam: Normal external nose present, Normal nares present and No nasal discharge present Face and sinus: Yes normal facial exam and Yes sinuses nontender Mouth: Normal oral and palatal mucosa present and moist mucous membranes Throat: Yes posterior oropharynx normal Eyes General: appearance normal, both eyes and all related structures Neck Neck: Yes normal visual inspection Resp Effort & Inspection: normal respiratory effort, not able to speak in complete sentences (Getting short of breath while speaking), Actively coughing, no respiratory distress, not tachypneic, no tripod positioning and no use of accessory muscles Auscultation: wheezes expiratory wheezes and throughout and bronchovesicular breath sounds diffuse Cardio Rate: regular rate Rhythm: regular rhythm Heart sounds: normal S1 and S2 Skin General skin exam: no rashes or lesions noted Neuro General: patient oriented x3 Extrem General: Yes normal to inspection and Yes no clubbing, cyanosis or edema Results AMB Rapid Strep AMB Rapid Strep Negative Last Edit by ETIENNE Delaney on 11/19/23 09:43 Results Reviewed Results Reviewed: Laboratory Last Values Strep Scn Rapid Clinic Negative 11/19/23 09:43 Rapid strep negative Assessment & Plan Assessment & Plan (1) SOB (shortness of breath): Code(s): R06.02 - Shortness of breath Plan We will send prednisone and Z-Tan, may add Augmentin depending on chest x-ray results, chest x-ray is pending. Orders: Orders AMB Rapid Strep Screen Today Z13.9 - Encounter for screening, unspecified XR chest 2V Today R05.9 - Cough, unspecified Medications: New azithromycin take 500 mg today (day 1), then 250 mg for 4 days (days 2-5) PO 6 tabs 0RF prednisone 50 mg PO DAILY 5 tabs 0RF Coding Level of Care Code Est Pt Level 4 (23897) Diagnoses SOB (shortness of breath) R06.02
== END 2023-11-19 09:54 | disposition home or self-care (01) ==
PROVIDERS: PCP Internal Medicine; Visit Provider Physician Assistant
DX: J02.9 Acute pharyngitis, unspecified (principal)
CPT/HCPCS: 87880; 99214

== ENCOUNTER 2023-11-19 10:17 | Outpatient (REF) | payer MEDICARE, SELFPAY ==
--- NOTE | ~2023-11-19 | XR_ITS ---
EXAMINATION: XR CHEST CLINICAL INFORMATION: Cough COMPARISON: 06/14/2023 and 11/22/2019 along with radiographs dating back to a report from 08/15/2013 TECHNIQUE: 2 views of the chest were obtained. FINDINGS: The heart and pulmonary vessels appear normal. Again noted is an opacity in the left midlung unchanged on studies dating back to 11/22/2019. Similar findings were also described in the 08/15/2013 chest radiograph report. Some rounded calcified nodular density seen overlying the left lateral costophrenic angle also likely corresponds to pleural calcification. XR/XR chest 2V IMPRESSION: No acute intrathoracic disease. Chronic changes related to calcified plaque as described above.
== END 2023-11-19 10:18 | disposition home or self-care (01) ==
LOC: HO.HMGCX 10:17
PROVIDERS: PCP Internal Medicine; Visit Provider Physician Assistant
DX: R05.9 Cough, unspecified (principal)
CPT/HCPCS: 71046

== ENCOUNTER 2023-12-07 08:34 | Outpatient (AMB) | payer MEDICARE, SELFPAY ==
[2023-12-07 08:40] VITALS: BP 146/60; PULSE 74; O2SAT 98; BMI 30.2
--- NOTE | 2023-12-07 08:40 | MHC.PC.OV ---
Vital Signs 12/07/23 08:40 Height 5 ft 2 in Weight 165 lb 0.6 oz BMI 30.2 BP 146/60 H Blood Pressure Location Lt brachial Position Sitting Pulse 74 Pulse Source Pulse Oximeter Pulse Oximetry (%) 98 Oxygen Delivery Method Room Air Intake Visit Reasons: hypokalemia and cholesterol Allergies bacitracin [From Neosporin ([id number])] Allergy (Unknown, Verified 12/07/23 08:45) Unknown benzocaine Allergy (Unknown, Verified 12/07/23 08:45) Unknown lisinopril Allergy (Unknown, Verified 12/07/23 08:45) Unknown neomycin [From Neosporin ([id number]-kto-rzpcu)] Allergy (Unknown, Verified 12/07/23 08:45) Unknown nickel Allergy (Unknown, Verified 12/07/23 08:45) Unknown polymyxin B [From Neosporin (sqs-knt-bxtfe)] Allergy (Unknown, Verified 12/07/23 08:45) Unknown hydrochlorothiazide Adverse Reaction (Intermediate, Verified 12/07/23 08:45) hypokalemia Tobacco use date assessed: 08/17/23 Fall risk assessment: No Falls in past year Last assessed Fall Risk: 12/07/23 Dental Screening Dental Screen Date: 08/17/23 HPI hypokalemia and cholesterol HPI Details 68-year-old obese female with controlled diabetes mellitus chronic anemia Barretts esophagus hypercholesterolemia hypertension asthma coming in for follow-up. Last seen in 08/22/2023. Patient had colonoscopy November 2013 and discussed that she is due. Mammogram is up-to-date bone density is up-to-date. Review of the notes was in the Urgent Center in November 19 for a cough and shortness of breath patient was treated with prednisone and Zithromax x-ray was negative. Patient also had a recurrent UTI and was sent to urology now hydronephrosis patient also had a CT scan of the abdomen showing diverticulosis no evidence of diverticulitis question of cystitis [facility] Medical History Impaired glucose tolerance Breast cancer screening by mammogram Splenomegaly Siriasis Adverse effect of contrast media Diarrhea LUQ abdominal pain Diverticulosis Vela's esophagus Anxiety and depression Psoriasis Osteoporosis Hypercholesterolemia GERD (gastroesophageal reflux disease) Asthma Knee osteoarthritis Hypertension Allergic rhinitis Surgical History History of eye surgery History of tubal ligation History of tonsillectomy History of arthroplasty of right knee History of arthroplasty of left knee Family History Father No problems noted. Mother Ovarian cancer Myocardial infarction Paternal Grandmother Bladder cancer Paternal Aunt Bladder cancer Paternal Uncle Bladder cancer Social History Household Members: Spouse and Children Housing: House Are you a primary career orientation teacher to a significant other at home: No Do you presently have visiting nurse or other home services: No Alcohol intake: current Alcohol intake frequency: a few times a month Patient Tobacco Use Status: Former Tobacco user Tobacco use type: Cigarette e-Cigarette/Vaping Use: Never Used Second Hand Smoke Exposure: No Substance Use Type: Marijuana service: No Current occupational status: employed Cognitive needs: No Hearing needs: No Vision needs: Yes Questionnaire Thrive Questionnaire Date Thrive assessed: 08/17/23 AUDIT C Alcohol Use Questionnaire (AUDIT-C) 1. How often do you have a drink containing alcohol?: Never Total Score: 0 Score Reviewed/Action Taken: No LETY-7 AMB Questionnaire LETY-7 Date LETY - 7 assessed: 08/17/23 Source: Developed by Drs. Jorge Luis Peng, Luisa Ko, Scout Hopkins and colleagues, with an educational rosa isela from [employer]. Physical exam (Primary Care) Vital Signs: Last Vital Signs Pulse 74 12/07/23 08:40 BP 146/60 H 12/07/23 08:40 Pulse Ox 98 12/07/23 08:40 Oxygen Delivery Method Room Air 12/07/23 08:40 BMI result Body Mass Index 30.2 Tobacco/Smoking Status: Tobacco use Status Tobacco use date assessed 08/17/23 12/07/23 08:42 Patient Tobacco Use Status Former Tobacco user 12/07/23 08:42 Tobacco use type Cigarette 12/07/23 08:42 e-Cigarette/Vaping Use Never Used 12/07/23 08:42 Thrive Assessment: Date of Thrive Assessment Date Thrive assessed 08/17/23 12/07/23 08:42 Const General: alert; No acute distress Eyes Conjunctivae: conjunctivae normal Resp Auscultation: clear to auscultation bilaterally Cardio Rate: regular rate Rhythm: regular rhythm GI Inspection: Yes normal to inspection Extrem General: Yes normal to inspection and No edema Results AMB Hemoglobin A1c AMB Hemoglobin A1c 5.9 % Last Edit by SEAN Holliday on 12/07/23 09:29 Results Reviewed Results Reviewed: Laboratory Last Values Hgb A1c (Clinic) 5.9 % (4.0-6.0) 12/07/23 09:29 Assessment and Plan Assessment & Plan (1) Type 2 diabetes mellitus with hyperglycemia: Code(s): E11.65 - Type 2 diabetes mellitus with hyperglycemia Plan: Decrease the amount of carbohydrate intake, pasta, bread, rice and potatoes are all sugar and that is aside from all the sweet stuff, remember that fruits are good but they are Sweet also. Hemoglobin A1c goal of less than 7.0 presently on diet control (2) Hypokalemia: Code(s): E87.6 - Hypokalemia Plan: Discussed about having low potassium and did advised patient to repeat the test. (3) Anemia: Comment: Chronic and stable Code(s): D64.9 - Anemia, unspecified Plan: Chronic and stable elbow continue to monitor (4) Recurrent UTI (urinary tract infection): Code(s): N39.0 - Urinary tract infection, site not specified Plan: Patient has seen Urology and continuing to monitor. (5) Vela's esophagus: Code(s): K22.70 - Vela's esophagus without dysplasia Qualifiers: Vela's esophagus type: without dysplasia Qualified Code(s): K22.70 - Vela's esophagus without dysplasia Plan: Avoid the foods that causes that usually spicy foods, tomato products, juices, coffee, soda and foods that your sensitive to. After eating do not lie down, allow 3-4 hours before in lie down. And keep the head of bed above 30 degrees to avoid the acid from going up. (6) Hypercholesterolemia: Comment: DEcline treatment 04/2022, 01/2022 Code(s): E78.00 - Pure hypercholesterolemia, unspecified Plan: Avoid fried foods, chicken skin, eggs, butter margarine, pastries and meat. Be it pork or beef they have a lot of cholesterol LDL goal of less than 100 and triglyceride of less than 150. the patient declined cholesterol medication. (7) Colon cancer screening: Code(s): Z12.11 - Encounter for screening for malignant neoplasm of colon (8) Vision changes: Code(s): H53.9 - Unspecified visual disturbance Orders: Orders Ferritin Today D64.9 - Anemia, unspecified IRON PROFILE Today D64.9 - Anemia, unspecified Reticulocyte Count Today D64.9 - Anemia, unspecified Vitamin B12 and Folate Today D64.9 - Anemia, unspecified AMB Hemoglobin A1c Today E11.65 - Type 2 diabetes mellitus with hyperglycemia Referrals Gastroenterology Referral Z12.11 - Encounter for screening for malignant neoplasm of colon Ophthalmology Referral H53.9 - Unspecified visual disturbance Medications: New olopatadine 0.7% (Pataday Once Daily Relief) 1 drp ophthalmic (eye) DAILY PRN 5 mL 0RF itching H53.9 - Unspecified visual disturbance Changed From losartan 50 mg PO DAILY 90 tabs 1RF I10 - Essential (primary) hypertension To losartan 100 mg PO DAILY 90 tabs 1RF 90 days I10 - Essential (primary) hypertension Coding Level of Care Code Est Pt Level 4 (91701) Diagnoses Type 2 diabetes mellitus with hyperglycemia E11.65 Hypokalemia E87.6 Anemia D64.9 Recurrent UTI (urinary tract infection) N39.0 Vela's esophagus without dysplasia K22.70 Vela's esophagus type: without dysplasia Hypercholesterolemia E78.00 Colon cancer screening Z12.11 Vision changes H53.9
== END 2023-12-07 09:35 | disposition home or self-care (01) ==
PROVIDERS: PCP Internal Medicine; Visit Provider Internal Medicine
DX: E11.65 Type 2 diabetes mellitus with hyperglycemia (principal); E87.6 Hypokalemia; D64.9 Anemia, unspecified; N39.0 Urinary tract infection, site not specified; K22.70 Barrett's esophagus without dysplasia; E78.00 Pure hypercholesterolemia, unspecified; Z12.11 Encounter for screening for malignant neoplasm of colon; H53.9 Unspecified visual disturbance
CPT/HCPCS: 83036; 99214

== ENCOUNTER 2024-03-10 07:16 | Outpatient (REF) | payer MEDICARE, SELFPAY ==
[2024-03-10 07:32] LABS: MANUAL DIFF FLAG NO
[2024-03-10 07:52] LABS: Basophils Percent Auto 0.7 % (0-2); Eosinophils Absolute Auto 0.4 X10*3/uL (0.0-0.4); Hematocrit 35.4 % (37.0-47.0); Hemoglobin 11.8 g/dl (12.0-16.0); Imm Gran Abs Auto 0.01 X10*3/uL (0.00-0.03); Imm Gran Pct Auto 0.2 % (0.0-0.4); Immature Retic Fraction 7.1 % (3.0-15.9); Lymphocytes Absolute Auto 1.3 X10*3/uL (1.2-4.9); Lymphocytes Percent Auto 22.5 % (20-40); Mean Corpuscular HGB Conc 33.3 g/dl (31.0-35.0); Mean Corpuscular Hemoglobin 28.9 pg (27.0-33.0); Mean Corpuscular Volume 86.8 fL (80.0-98.0); Mean Platelet Volume 10.9 fL (9.4-12.3); Monocytes Absolute Auto 0.3 X10*3/uL (0.1-1.2); Monocytes Percent Auto 4.8 % (2-11); Neutrophils Absolute Auto 3.9 x10*3/uL (2.0-8.3); Neutrophils Percent Auto 65.8 % (45-73); Platelet Count 232 X10*3/uL (160-400); Red Blood Count 4.08 X10*6/uL (4.20-5.50); Red Cell Distribution Width 12.6 % (11.0-16.0); Retic HGB Equivalent 32.8 pg (30.0-35.0); Reticulocyte Percent 1.3 % (0.5-1.8); Reticulocytes Absolute 0.054 X10*6/uL (0.026-0.095); White Blood Count 5.9 X10*3/uL (4.8-10.8)
[2024-03-10 07:55] LABS: Appearance Urine Clear; Color Urine Dark Yellow; Glucose Urine UA Negative (Negative); Leukocyte Esterase Urine Moderate (2+) (Negative); Nitrite Urine Negative (Negative); PH 5.5 (5.0-9.0); Specific Gravity - Urine >= 1.030 (1.005-1.025); UMIC TRIGGER UA YES; Urine Blood Negative (Negative); Urine Ketones Trace mg/dL (Negative); Urine Protein 30 (1+) mg/dL (Neg-Trace)
[2024-03-10 08:08] LABS: Bacteria Urine Trace (None Seen); RBC Urine 0-2 /HPF (0-2)
[2024-03-10 08:28] LABS: Alanine Aminotransferase 15 U/L (0-31); Albumin Level 4.6 g/dL (3.5-5.0); Alkaline Phosphatase 80 U/L (39-117); Anion Gap 11 (12-20); Aspartate Amino Transferase 17 U/L (5-31); Bilirubin Total 0.4 mg/dL (0.0-1.0); Blood Urea Nitrogen 15 mg/dL (9-16); Calcium 9.9 mg/dL (8.4-10.2); Carbon Dioxide 30 mmol/L (22-29); Chloride 105 mmol/L (96-108); Cholesterol 316 mg/dL (<200); Estimated Glomerular Filt Rate > 60; Glucose Random 119 mg/dL (60-115); HDL Cholesterol 74 mg/dL (>40); Iron 63 mcg/dL (30-160); LDL Cholesterol Calculated 194 mg/dL (<100); Percent Iron Saturation 24 % (15-50); Potassium 3.7 mmol/L (3.3-5.1); Sodium 142 mmol/L (135-145); Total Iron Binding Capacity 260 mcg/dL (228-428); Total Protein 7.2 g/dL (6.5-8.0); Triglycerides 244 mg/dL (<150); Unsaturated Iron Binding 197 ug/dL
[2024-03-10 08:51] LABS: Ferritin 119 ng/mL (10-250)
[2024-03-10 08:55] LABS: Folate 10.3 ng/mL (> or = 4.0); Vitamin B12 350 pg/mL (200-900)
== END 2024-03-10 07:17 | disposition home or self-care (01) ==
LOC: HO.LAB 07:16
PROVIDERS: PCP Internal Medicine; Visit Provider Internal Medicine
DX: D64.9 Anemia, unspecified (principal); E78.00 Pure hypercholesterolemia, unspecified; E53.8 Deficiency of other specified B group vitamins; R31.29 Other microscopic hematuria
CPT/HCPCS: 36415; 80053; 80061; 81001; 81003; 82607; 82728; 82746; 83540; 85025; 85045

== ENCOUNTER 2024-03-11 08:53 | Outpatient (AMB) | payer MEDICARE, SELFPAY ==
[2024-03-11 08:54] VITALS: BP 156/72; PULSE 77; O2SAT 93; BMI 30.2
--- NOTE | 2024-03-11 08:54 | MHC.PC.OV ---
Vital Signs 03/11/24 08:54 03/11/24 09:18 Height 5 ft 2 in Weight 165 lb BMI 30.2 BP 156/72 H 138/68 Blood Pressure Location Lt brachial Lt brachial Position Sitting Pulse 77 Pulse Source Pulse Oximeter Pulse Oximetry (%) 93 Oxygen Delivery Method Room Air Intake Visit Reasons: HTN, DM Extracorporeal Circulation Specialist Required: No Allergies bacitracin [From Neosporin ([id number])] Allergy (Unknown, Verified 03/11/24 08:59) Unknown benzocaine Allergy (Unknown, Verified 03/11/24 08:59) Unknown lisinopril Allergy (Unknown, Verified 03/11/24 08:59) Unknown neomycin [From Neosporin ([id number])] Allergy (Unknown, Verified 03/11/24 08:59) Unknown nickel Allergy (Unknown, Verified 03/11/24 08:59) Unknown polymyxin B [From Neosporin (lge-wak-sryog)] Allergy (Unknown, Verified 03/11/24 08:59) Unknown hydrochlorothiazide Adverse Reaction (Intermediate, Verified 03/11/24 08:59) hypokalemia Medication List - Last Reconciled 03/11/24 by Tigist Tesfaye PA-C albuterol sulfate 90 mcg/actuation (ProAir HFA) 2 puffs PO Q4H amlodipine 10 mg PO DAILY cholecalciferol (vitamin D3) 50 mcg PO DAILY 90 days clobetasol 0.05% 1 appl topical DAILY fluticasone propion-salmeterol 250-50 mcg/dose (Wixela Inhub) 1 inh inhalation BID folic acid 1 mg PO DAILY loratadine 10 mg PO DAILY PRN losartan 100 mg PO DAILY 90 days montelukast 10 mg PO BEDTIME nitrofurantoin macrocrystal (Macrodantin) 100 mg PO Q12H olopatadine 0.7% (Pataday Once Daily Relief) 1 drp ophthalmic (eye) DAILY PRN omeprazole 20 mg PO DAILY sertraline 150 mg (1.5 x 100 mg) PO DAILY Tobacco use date assessed: 08/17/23 Fall risk assessment: No Falls in past year Last assessed Fall Risk: 03/11/24 Dental Screening Dental Screen Date: 08/17/23 HPI HTN, DM HPI Details 68-year-old female with past medical history of controlled diabetes mellitus, chronic anemia, Barretts esophagus, hypercholesterolemia, hypertension, and asthma last seen by Dr. Staton 12/2023 coming in for follow up. Interview of the notes, patient had blood work and urinalysis completed yesterday found to have urinary tract infection and started on antibiotics. Today she tells us she has been having symptoms of urinary frequency in incomplete emptying of bladder for several weeks. She started the antibiotics last night. She does mentioned she often forgets to use her Wixela twice daily and as a result has occasional shortness of breath. Otherwise has no acute concerns. [facility] Medical History Impaired glucose tolerance Breast cancer screening by mammogram Splenomegaly Siriasis Adverse effect of contrast media Diarrhea LUQ abdominal pain Diverticulosis Vela's esophagus Anxiety and depression Psoriasis Osteoporosis Hypercholesterolemia GERD (gastroesophageal reflux disease) Asthma Knee osteoarthritis Hypertension Allergic rhinitis Surgical History History of eye surgery History of tubal ligation History of tonsillectomy History of arthroplasty of right knee History of arthroplasty of left knee Family History Father No problems noted. Mother Ovarian cancer Myocardial infarction Paternal Grandmother Bladder cancer Paternal Aunt Bladder cancer Paternal Uncle Bladder cancer Social History Household Members: Spouse and Children Housing: House Are you a primary special needs caregiver to a significant other at home: No Do you presently have visiting nurse or other home services: No Alcohol intake: current Alcohol intake frequency: a few times a month Patient Tobacco Use Status: Former Tobacco user Tobacco use type: Cigarette e-Cigarette/Vaping Use: Never Used Second Hand Smoke Exposure: No Substance Use Type: Marijuana service: No Current occupational status: employed Cognitive needs: No Hearing needs: No Vision needs: Yes Questionnaire Thrive Questionnaire Date Thrive assessed: 08/17/23 Are you currently unemployed and looking for a job?: No AUDIT C Alcohol Use Questionnaire (AUDIT-C) 1. How often do you have a drink containing alcohol?: Never 3. How often do you have six or more drinks on one occasion?: Never Total Score: 0 Score Reviewed/Action Taken: No LETY-7 AMB Questionnaire LETY-7 Date LETY - 7 assessed: 08/17/23 Source: Developed by Drs. Jorge Luis Peng, Luisa Ko, Scout Hopkins and colleagues, with an educational rosa isela from [employer]. Review of Systems Const Denies body aches, Denies chills and Denies fever(s) Eyes Details: Blurred vision right eye was told she may need cataract surgery ENT Reports no additional complaints Card Denies chest pain, Denies leg edema, Denies lightheadedness and Denies dyspnea Resp Denies dyspnea GI Denies abdominal pain, Denies nausea and Denies vomiting Reports as per HPI Musc Reports no additional complaints Skin/Breast Reports system reviewed and no additional complaints, except as documented Physical exam (Primary Care) Vital Signs: Last Vital Signs Pulse 77 03/11/24 08:54 BP 156/72 H 03/11/24 08:54 Pulse Ox 93 03/11/24 08:54 Oxygen Delivery Method Room Air 03/11/24 08:54 BMI result Body Mass Index 30.2 Tobacco/Smoking Status: Tobacco use Status Tobacco use date assessed 08/17/23 03/11/24 08:56 Patient Tobacco Use Status Former Tobacco user 03/11/24 08:56 Tobacco use type Cigarette 03/11/24 08:56 e-Cigarette/Vaping Use Never Used 03/11/24 08:56 Thrive Assessment: Date of Thrive Assessment Date Thrive assessed 08/17/23 03/11/24 08:56 Const General: cooperative, healthy appearing, comfortable and no acute distress Orientation/consciousness: patient oriented x3 [facility] Head: Yes normocephalic Ears: hearing grossly normal bilaterally General nose exam: Normal external nose present Eyes General: appearance normal, both eyes and all related structures Conjunctivae: conjunctivae normal Neck Neck: Yes full ROM and Yes no lymphadenopathy Resp Effort & Inspection: normal respiratory effort Auscultation: clear to auscultation bilaterally, no crackles, no rales, no rhonchi and wheezes expiratory wheezes and left upper Cardio Rate: regular rate Rhythm: regular rhythm Skin General skin exam: no rashes or lesions noted Neuro General: patient oriented x3 Gait exam (Neuro): Normal gait present Extrem General: Yes normal to inspection, Yes full ROM and No edema Psych Affect: normal affect Attitude: cooperative Insight: Good insight present (Psych) Judgement: Good judgement present (Psych) Results AMB Hemoglobin A1c AMB Hemoglobin A1c 5.6 % Last Edit by SEAN Holliday on 03/11/24 09:06 Coding Level of Care Code Est Pt Level 4 (96076) Diagnoses Type 2 diabetes mellitus with hyperglycemia E11.65 Anemia D64.9 Hypercholesterolemia E78.00 GERD (gastroesophageal reflux disease) K21.9 Primary hypertension I10 Hypertension type: primary hypertension Mild intermittent asthma without complication J45.20 Asthma severity: mild Asthma persistence: intermittent Asthma complication type: uncomplicated Assessment & Plan Assessment & Plan (1) Type 2 diabetes mellitus with hyperglycemia: Code(s): E11.65 - Type 2 diabetes mellitus with hyperglycemia Category: Medical Plan: Decrease the amount of carbohydrates such as pasta, bread, rice, and potatoes and limit the amount of sweets. Although fruits are generally healthy they should be eaten in moderation as they are still high in sugar. Hemoglobin A1c goal of less than 7%. Not currently on medical management. A1c 5.6% today. (2) Anemia: Comment: Chronic and stable Code(s): D64.9 - Anemia, unspecified Category: Medical Plan: Last labs stable. (3) Hypercholesterolemia: Comment: DEcline treatment 04/2022, 01/2022 Code(s): E78.00 - Pure hypercholesterolemia, unspecified Category: Medical Plan: Avoid foods that are high in cholesterol such as red meat, fried foods, eggs and baked goods. Triglyceride goal of less than 150 and LDL goal of less than 100. Not currently on medical management. Cholesterol elevated on last labs she is declining medication management at this time and would like to work on diet and exercise and follow up in 3 months. Discussed with patient risks of persistently high cholesterol and possible need for medical intervention at three-month follow up. (4) GERD (gastroesophageal reflux disease): Code(s): K21.9 - Gastro-esophageal reflux disease without esophagitis Category: Medical Plan: Avoid trigger foods such as citrus, tomato products, soda, caffeine, spicy foods and other foods that may be irritating to your stomach. Avoid laying flat 3-4 hours after eating and elevate the head of the bed 30 degrees to prevent acid from moving into the esophagus. Continue on omeprazole (5) Hypertension: Code(s): I10 - Essential (primary) hypertension Category: Medical Qualifiers: Hypertension type: primary hypertension Qualified Code(s): I10 - Essential (primary) hypertension Plan: Continue on current blood pressure medication. Avoid salt intake and encourage healthy diet and regular exercise. (6) Asthma: Code(s): J45.909 - Unspecified asthma, uncomplicated Category: Medical Qualifiers: Asthma severity: mild Asthma persistence: intermittent Asthma complication type: uncomplicated Qualified Code(s): J45.20 - Mild intermittent asthma, uncomplicated Plan: Asthma currently controlled on present medications. Continue on albuterol as needed, Wixela, and montelukast.? Avoid triggers such as allergies. Strongly advised patient to use Wixela twice daily instead of once daily. Plan This note was constructed using voice recognition software. While every effort has been made to ensure accuracy and pensionholder information clerk, still areas may have been included sometimes these areas may affect the content or meeting of the given symptoms. Total time spent caring for the patient today was 30 minutes. This includes time spent before the visit reviewing the chart, time spent during the visit, and time spent after the visit and documentation. Orders: Orders Lipid Panel 3 Months E78.00 - Pure hypercholesterolemia, unspecified, Z00.00 - Encounter for general adult medical examination without abnormal findings Hemoglobin A1c 3 Months Z00.00 - Encounter for general adult medical examination without abnormal findings AMB Hemoglobin A1c Today E11.65 - Type 2 diabetes mellitus with hyperglycemia
[2024-03-11 09:18] VITALS: BP 138/68
== END 2024-03-11 09:47 | disposition home or self-care (01) ==
PROVIDERS: PCP Internal Medicine
DX: E11.65 Type 2 diabetes mellitus with hyperglycemia (principal); D64.9 Anemia, unspecified; E78.00 Pure hypercholesterolemia, unspecified; K21.9 Gastro-esophageal reflux disease without esophagitis; I10 Essential (primary) hypertension; J45.20 Mild intermittent asthma, uncomplicated

== ENCOUNTER → 2024-03-11 08:53 | Outpatient (BNVA) | payer MEDICARE, SELFPAY | PROVIDERS: PCP Internal Medicine | DX: E11.65 Type 2 diabetes mellitus with hyperglycemia (principal); D64.9 Anemia, unspecified; E78.00 Pure hypercholesterolemia, unspecified; K21.9 Gastro-esophageal reflux disease without esophagitis; I10 Essential (primary) hypertension; J45.20 Mild intermittent asthma, uncomplicated | CPT/HCPCS: 83036; 99212 ==

== ENCOUNTER 2024-05-19 11:23 | Outpatient (REF) | payer MEDICARE, SELFPAY | END 2024-05-19 11:24 | disposition home or self-care (01) | LOC: HO.MAMMO 11:23 | PROVIDERS: PCP Internal Medicine; Visit Provider Internal Medicine | DX: Z12.31 Encounter for screening mammogram for malignant neoplasm of breast (principal) | CPT/HCPCS: 77063; 77067 ==

== ENCOUNTER → 2024-05-19 11:30 | Outpatient (BNV) | payer MEDICARE, SELFPAY | PROVIDERS: PCP Internal Medicine; Visit Provider Internal Medicine | DX: Z12.31 Encounter for screening mammogram for malignant neoplasm of breast (principal) | CPT/HCPCS: 77063; 77067 ==

== ENCOUNTER 2024-06-09 08:40 | Outpatient (REF) | payer MEDICARE, SELFPAY ==
[2024-06-09 10:44] LABS: Estimated Average Glucose 114 mg/dL; Hemoglobin A1C 113.1114 umol/L; Hemoglobin A1c % 5.6 % (<6.0); Total Hemoglobin (HGBA1C) 2983.3558 umol/L
[2024-06-09 11:31] LABS: Cholesterol 315 mg/dL (<200); HDL Cholesterol 67 mg/dL (>40); LDL Cholesterol Calculated 207 mg/dL (<100); Triglycerides 207 mg/dL (<150)
== END 2024-06-09 08:41 | disposition home or self-care (01) ==
LOC: HO.LAB 08:40
PROVIDERS: PCP Internal Medicine
DX: Z00.00 Encounter for general adult medical examination without abnormal findings (principal); E78.00 Pure hypercholesterolemia, unspecified; Z13.1 Encounter for screening for diabetes mellitus
CPT/HCPCS: 36415; 80061; 83036

== ENCOUNTER 2024-06-17 08:24 | Emergency (ER) | payer OTHER, MEDICARE, SELFPAY ==
--- NOTE | ~2024-06-17 | XR_ITS ---
EXAMINATION: XR FOREARM, RIGHT CLINICAL INFORMATION: fall, elbow pain COMPARISON: None available. TECHNIQUE: AP and lateral views of the right forearm were obtained. FINDINGS: Again visualizes a comminuted fractured distal radius with degenerative for deformity on the lateral view . Ulnar styloid process fracture was noted on the wrist exam. Rest of the right forearm is unremarkable. XR/XR forearm RT 2V IMPRESSION: This is a large solid process and a comminuted distal radial fracture rest of right forearm is unremarkable. Electronically signed by: Pedro Gaona MD 06/17/2024 09:49 AM EST
--- NOTE | ~2024-06-17 | XR_ITS ---
EXAMINATION: XR SHOULDER, RIGHT CLINICAL INFORMATION: fall shoulder pain COMPARISON: None available. TECHNIQUE: Three views of the right shoulder. FINDINGS: There is mild loss of AC joint space with periarticular spurring. The glenohumeral joint spaces narrowed as well. There is no visible acute fracture, dislocation, loose bodies seen. The soft tissues are normal. XR/XR shoulder RT min 2V IMPRESSION: Mild DJD right shoulder joint. No visible acute fracture or dislocation. Electronically signed by: Pedro Gaona MD 06/17/2024 09:46 AM EST
--- NOTE | ~2024-06-17 | XR_ITS ---
EXAMINATION: XR WRIST, RIGHT CLINICAL INFORMATION: fall, wrist deformity COMPARISON: None available. TECHNIQUE: 2 views of the right wrist. FINDINGS: Exam is limited due to only 2 views and inability of patient to move right wrist. There is a comminuted distal radial fracture with intra-articular extension and lateral displacement of distal fragment. Also visualized and ulnar styloid process fracture. However limited there is likely degenerative for deformity with moderate wrist soft tissue swelling. XR/XR wrist RT min 3V IMPRESSION: Comminuted distal radial fracture with intra-articular extension and lateral displacement of distal fragment. Moderate soft tissue swelling. Electronically signed by: Pedro Gaona MD 06/17/2024 09:48 AM [facility]
--- NOTE | ~2024-06-17 | CT_ITS ---
EXAMINATION: CT HEAD WITHOUT CONTRAST CLINICAL INFORMATION: fall, right head strike COMPARISON: None available. TECHNIQUE: Contiguous axial imaging was performed from the skull base to vertex without intravenous administration of contrast. This CT examination was performed using dose optimization techniques as appropriate, variously including the following: *Automated exposure control *Adjustment of mA and/or kV according to patient size (this includes techniques or standardized protocols for targeted exams where dose is matched to indication/reason for exam; i.e. extremities or head) *Use of iterative reconstruction technique DLP: 910 mGy-cm FINDINGS: Bony calvarium is intact. Skull base is intact. Soft tissue contusion, right temporal occipital scalp. No acute intracranial hemorrhage, mass effect, midline shift, hydrocephalus or herniation. Griffith-white matter differentiation is normal. Posterior cranial fossa contents demonstrated no acute intracranial hemorrhage or mass effect. Prominence of the extra-axial CSF spaces cerebral sulci and ventricles. Cavum septum pellucidum and cavum vergae, congenital. Calcified plaques in the V4 segments, vertebral arteries and cavernous supraclinoid segments both ICA. No air-fluid levels in the included paranasal sinuses. For pneumatization of the frontal sinus. Tympanic cavities and mastoid air cells are aerated. Degenerative changes in the left temporomandibular joint. Edentulous, maxilla. CT/CT head/brain wo IV con IMPRESSION: Soft tissue contusion, right temporal occipital soft tissue scalp. No acute fracture, bony calvarium. No acute intracranial hemorrhage. Global cerebral atrophy, mild. Electronically signed by: Hong Leal MD 06/17/2024 10:29 AM [facility]
--- NOTE | ~2024-06-17 | MR_ITS ---
EXAMINATION: MR CERVICAL SPINE WITHOUT CONTRAST CLINICAL INFORMATION: Neck pain. Subluxation versus ligament is injury. COMPARISON: None available. TECHNIQUE: MRI of the cervical spine was obtained using routine sequences without contrast. FINDINGS: There is maintained cervical lordosis. There is grade 1 retrolisthesis C5 over C6 with loss of C4-5 and C5-6 disc heights. Rest of the disc heights and vertebral alignment is maintained normal. The craniovertebral junction and C1-C2 alignment is normal. At C3-4 disc level there is no evidence of disc bulge, herniation or spinal canal stenosis. The neural foramina are patent bilaterally. At C4-5 disc level there is a disc osteophyte/bulge complex flattening the ventral thecal sac without spinal canal stenosis. The neural foramina are mildly narrowed bilaterally slightly greater on the left. There is mild AP canal stenosis seen posterior to mid C5 vertebra. At C5-6 disc level there is a disc bulge/osteophyte complex flattening the ventral thecal sac and mildly flattening the cord resulting in moderate AP canal stenosis. The neural foramina are bilaterally narrowed from uncovertebral hypertrophic changes. At C6-7 disc levels there is no significant disc bulge, herniation or spinal canal stenosis. The neural foramina are patent bilaterally. The C7-T1 disc level there is no significant disc bulge, herniation or spinal canal stenosis. The bone marrow signal cord signal and cord caliber is normal. The paravertebral soft tissues are normal. MR/MR cervical spine wo con IMPRESSION: Grade 1 retrolisthesis C5 over C6 with degenerative disc changes C4-5 and C5-6 disc level. Disc bulge/osteophyte complex at C4-5 and C5-6 disc levels. There is moderate canal stenosis at the C5-6. There is bilateral narrowing of neural foramina at both these levels slightly greater at the C5-6 disc level. Electronically signed by: Pedro Gaona MD 06/17/2024 03:52 PM EST
--- NOTE | ~2024-06-17 | XR_ITS ---
EXAMINATION: XR HAND/WRIST, RIGHT CLINICAL INFORMATION: post reduction COMPARISON: Right wrist and forearm radiographs earlier same day. TECHNIQUE: PA and lateral views of the right hand and wrist. FINDINGS: Casting/blunting material now overlies the right wrist, obscuring fine bone detail. Previously seen displaced, impacted, comminuted and dorsally angulated distal radial fracture has been reduced. There is vastly improved alignment in the sagittal plane with resolution of angulation and displacement. There is persistent impaction measuring approximately 9 mm. There is persistent radial displacement of the distal fracture fragment by 5 mm. No intra-articular step-off is present. Cannot exclude intra-articular extension. Redemonstration of ulnar styloid fracture, nondisplaced. Soft tissue swelling is unchanged. XR/XR hand wrist RT IMPRESSION: 1. Significantly improved alignment of a displaced, impacted, and angulated distal radial metaphyseal fracture. No articular step-off seen. 2. Ulnar styloid fracture. Electronically signed by: Osmar Moulton MD 06/17/2024 12:58 PM [facility]
--- NOTE | ~2024-06-17 | CT_ITS ---
EXAMINATION: CT CERVICAL SPINE WITHOUT CONTRAST CLINICAL INFORMATION: Status post fall. COMPARISON: None available. TECHNIQUE: Contiguous axial images through the cervical spine using 3 mm collimation with bone and soft tissue algorithm. Sagittal and coronal reformatted images acquired. This CT examination was performed using dose optimization techniques as appropriate, variously including the following: *Automated exposure control *Adjustment of mA and/or kV according to patient size (this includes techniques or standardized protocols for targeted exams where dose is matched to indication/reason for exam; i.e. extremities or head) *Use of iterative reconstruction technique. DLP: 910 mGy centimeter. FINDINGS: Limited by patient's motion artifact. Craniocervical junction is intact. Degenerative changes in the periodontal C1 region. C1 is intact. C2 is intact. C3 is intact. C4 is intact. C5 is intact. C6 is intact. C7 is intact. Multilevel marginal osteophyte formation and endplate sclerosis, subchondral cyst formation and decreased intervertebral disc height, C5-6 and to a lesser extent C4-5, C6-7 and C3-4 levels. Calcified density in the anterior intervertebral disc C5-6 and C6-7 levels. There is anterior widening of the intervertebral disc space, C6-7. Grade 1 retrolisthesis C5-6 with a reverse curvature. No gross prevertebral compartment hematoma. Retropharyngeal trajectory of the carotid arteries. Calcified plaques in the carotid arteries and main branches of the thoracic aortic arch. Degenerative changes in the left temporomandibular joint. CT/CT cervical spine wo IV con IMPRESSION: Multilevel cervical spondylosis more conspicuous at C5-6. Anterior widening of the intervertebral disc C6-7 ligamentous injury cannot be entirely excluded. Recommend non-IV contrast MRI cervical spine. Discussed with the emergency fragment physician promotional advertising assistant, Cherise Posadas at 10:21 AM. Fleischner guidelines were followed. Electronically signed by: Hong Leal MD 06/17/2024 10:30 AM [facility]
[2024-06-17 08:40] VITALS: BP 126/74; BP 159/76; PULSE 75; PULSE 90; RESP 16; TEMP 36.3; O2SAT 95; O2SAT 97; BMI 31.6
--- NOTE | 2024-06-17 08:42 | PC.NURSE ---
ring removed from right ring finger and placed in patient's purse.
--- NOTE | 2024-06-17 08:54 | ED.FALL ---
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 She states her co-worker walked in through a door which spooked her, causing her to jump to the side. Reports falling onto her right side and striking the right side of her head on a table. Denies LOC. Denies anticoagulation. Denies any preceding symptoms. She reports primarily landing on her RUE and endorses right hand/wrist and elbow pain. Admits to difficulty moving her wrist/ lifting her RUE. Reports history of right elbow fracture >20 yrs ago. She is 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. On EMS arrival, patient declined neck pain along w/ cervical collar. Denies headache, dizziness, vision changes, chest pain, palpitations, abd pain, back or neck pain, LE pain/hip pain. Related Data Previous Rx's ?Medication ?Instructions ?Recorded clobetasol 0.05 % topical ointment 1 appl topical DAILY #30 grams 01/05/23 fluticasone 250 mcg-salmeterol 50 1 inh inhalation BID #60 ea 08/17/23 mcg/dose blistr powdr for inhalation (Wixela Inhub) montelukast 10 mg tablet 10 mg PO BEDTIME #30 tabs 09/10/23 omeprazole 20 mg capsule,delayed 20 mg PO DAILY #90 caps 10/04/23 release albuterol sulfate 90 mcg/actuation 2 puff PO Q4H #8.5 grams 11/23/23 aerosol inhaler (ProAir HFA) amlodipine 10 mg tablet 10 mg PO DAILY #90 tabs 12/07/23 nitrofurantoin macrocrystal 100 mg 100 mg PO Q12H #14 caps 03/10/24 capsule (Macrodantin) loratadine 10 mg tablet 10 mg PO DAILY PRN allergy 03/27/24 symptoms #90 tabs folic acid 1 mg tablet 1 mg PO DAILY #90 tabs 04/01/24 cholecalciferol (vitamin D3) 50 50 mcg PO DAILY 90 days #90 caps 04/18/24 mcg (2,000 unit) capsule olopatadine 0.7 % eye drops 1 drp ophthalmic (eye) DAILY PRN 04/18/24 (Pataday Once Daily Relief) itching #5 mL sertraline 100 mg tablet 150 mg (1.5 x 100 mg) PO DAILY 05/14/24 #135 tabs losartan 100 mg tablet 100 mg PO DAILY 90 days #90 tabs 06/05/24 oxycodone 5 mg tablet 5 mg PO Q8H PRN pain (scale score 06/17/24 7-10) #9 tabs Allergies Allergy/AdvReac Type Severity Reaction Status Date / Time bacitracin Allergy Unknown Unknown Verified 06/17/24 08:41 [From Neosporin ([id number])] benzocaine Allergy Unknown Unknown Verified 06/17/24 08:41 lisinopril Allergy Unknown Unknown Verified 06/17/24 08:41 neomycin Allergy Unknown Unknown Verified 06/17/24 08:41 [From Neosporin ([id number])] nickel Allergy Unknown Unknown Verified 06/17/24 08:41 polymyxin B Allergy Unknown Unknown Verified 06/17/24 08:41 [From Neosporin ([id number])] hydrochlorothiazide AdvReac Intermediate hypokalemia Verified 06/17/24 08:41 Review of Systems Review of Systems: Constitutional: No fever, chills, fatigue, night sweats, weight changes ENT/Mouth: No ear pain, hearing loss, nasal congestion, sinus pain, rhinorrhea, sore throat Eyes: No eye pain, swelling, redness, vision changes, discharge Cardio: No chest pain, palpitations, FIGUEROA, orthopnea, peripheral edema Pulm: No SOB, cough, sputum, wheezing, dyspnea, hemoptysis GI: No nausea, vomiting, hematemesis, abdominal pain, diarrhea, constipation, hematochezia, melena : No irregular bleeding, dysuria, frequency, urgency, hesitancy, hematuria, flank pain, urinary flow changes, urinary incontinence or retention MSK: No back pain, neck pain, joint pain, myalgias, +right wrist/elbow/shoulder pain Skin: No lesions, rashes Neuro: No weakness, numbness, paresthesias, LOC, dizziness, headache Psych: No anxiety/panic, depression, SI/HI, AH/VH All other systems reviewed and are negative. [facility] Past Medical History Attestation statement: The following information was validated with the patient. Source: old records reviewed and nursing notes reviewed Medical History Impaired glucose tolerance Breast cancer screening by mammogram Splenomegaly Siriasis Adverse effect of contrast media Diarrhea LUQ abdominal pain Diverticulosis Vela's esophagus Anxiety and depression Psoriasis Osteoporosis Hypercholesterolemia GERD (gastroesophageal reflux disease) Asthma Knee osteoarthritis Hypertension Allergic rhinitis Surgical History History of eye surgery History of tubal ligation History of tonsillectomy History of arthroplasty of right knee History of arthroplasty of left knee Family History Family History Father No problems noted. Mother Ovarian cancer Myocardial infarction Paternal Grandmother Bladder cancer Paternal Aunt Bladder cancer Paternal Uncle Bladder cancer Social History Social History Household Members: Spouse and Children Housing: House Are you a primary primary care sales representative to a significant other at home: No Do you presently have visiting nurse or other home services: No Alcohol intake: current Alcohol intake frequency: a few times a month Patient Tobacco Use Status: Former Tobacco user Tobacco use type: Cigarette e-Cigarette/Vaping Use: Never Used Second Hand Smoke Exposure: No Substance Use Type: Marijuana service: No Current occupational status: employed Cognitive needs: No Hearing needs: No Vision needs: Yes Physical Exam Vital Signs: Vital Signs: Last Vital Signs Temp 97.7 F 06/17/24 16:45 Pulse 77 06/17/24 16:45 Resp 16 06/17/24 16:45 BP 144/69 H 06/17/24 16:45 Pulse Ox 100 06/17/24 16:45 O2 Del Method Room Air 06/17/24 16:45 BMI result Body Mass Index 31.6 hypertensive, vitals otherwise wnl General: Well appearing, in no acute distress. Skin: Warm, dry, intact. No rashes or lesions. Head: + small palpable hematoma to right parietal region without palpable skull fracture. No raccoon sign. No ann sign. EENT: Hearing is intact b/l. Conjunctiva clear. PERRLA. EOM intact. Moist mucous membranes.? Neck: FROM, no midline cervical tenderness. Cardiac: Chest wall symmetric. RRR Lungs: Normal respiratory effort without accessory muscle use. CTA bilaterally Abdomen: Soft, non-tender, non-distended. No rebound tenderness or guarding Back: No midline spinous or paraspinal tenderness. No step off deformity. Ext: +noted deformity/ swelling to right wrist, limited ROM. ttp over entire right wrist. Slightly tender to palpation over olecranon, without palpable deformity. Full ROM intact to right elbow. cap refill <2 seconds. 2+radial pulse intact. Neuro: AOx3. Normal speech. Ambulating with steady gait. Psych: Appropriate mood and affect. Responds appropriately to questions. NIH Stroke Scale Internal: Initial- Upon Arrival Time: 09:00 Level of Consciousness: Alert Level of Consciousness Questions: Answers both questions correctly Level of Consciousness Commands: Performs both tasks correctly Best Gaze: Normal Visual: No visual loss Facial Palsy: Normal Motor Arm (Right): No drift Motor Arm (Left): No drift Motor Leg (Right): No drift Motor Leg (Left): No drift Limb Ataxia: Absent Sensory: Normal Best Language: No aphasia Dysarthia: Normal Extinction and Inattention: No abnormality Score: 0 Course Course Course Narrative: 1021 -- CBC without leukocytosis. normocytic anemia, H&H appears to be around patient's baseline when compared to priors. Chemistry without acute electrolyte abnormality requiring intervention. Random glucose 118. Liver function WNL. > x-ray right wrist showing comminuted distal radial fracture with intra-articular extension and lateral displacement of distal fragment. Moderate soft tissue swelling. There is also ulnar styloid fracture. discussed case with ortho pa santy who recommends attempting reduction of distal radius fracture prior to splint placement. > received call from radiologist Dr. Leal regarding patient's cervical imaging. He notes concern for anterior widening of the intervertebral disc at C6/C7 suspicious for ligamentous injury. After discussion w/ my attending dr. pittman, will reach out to [facility] trauma regarding potential transfer. patient immediately placed in cervical collar. 1100 -- spoke with Dr. Mackey from [facility] trauma. She plans to review imaging and speak to neurosurgery w/ call back. 1128 -- Spoke again w/ Dr. Mackey. After discussing w/ [facility] neurology, recommending cervical MRI (down to T1/T2) at our facility. neurosurgery/ trauma will review images/ make their recommendation. MRI c spine ordered. MRI screening form completed. 1224 -- hematoma block performed, assisted by my attending Dr. Gupta. Reduction performed. sugar tong splint placed. see procedural notes. will obtain post-reduction films. CMS intact post reduction. 1340 -- post reduction films demonstrating significantly improved alignment of a displaced impacted and angulated distal radius fracture. No articular step-off visualized. Continued ulnar styloid fracture. on re-eval, CMS still intact. 1528 -- Dr. Jose M meyers [facility] neurology reviewed MRI. after review, he states there is no emergent/ urgent intervention warranted on their part that this time. not recommending trauma transfer as there is no concern for acute cervical injury. recommending placing patient in cervical aspen collar with outpatient neuro follow up. will await official MRI read. 1610 -- MRI cervical spine showing grade 1 retrolisthesis C5 over C6 with degenerative disc changes C4-C5 and C5-C6 disc levels. There is disc bulge/osteophyte complex at C4/5 and C5/6 disc levels with moderate canal stenosis at the C5/6. There is bilateral narrowing of neural foramina at the tooth of these levels, slightly greater at the C5/6 disc level. - I did reach out to Vamsi Hall, neurosurgery PA, who agrees w/ outpatient follow up this week. - patient placed in Orrum collar - advised to wear at all times until f/u w/ neurosurgery outpatient. Given cervical collar and right wrist splint, we discussed PT/CM consultations for possible rehab. patient declining at this time and would like to be discharged home. she has both her and her son to care for her there. I feel this is reasonable. Patient has remained stable throughout ED visit today. Discussed worrisome signs and symptoms and when to return to the ED. All questions answered at this time. Patient is agreeable with disposition and stable for discharge. Medications Administered Discontinued Medications Generic Name Dose Route Start Last Admin Trade Name Freq PRN Reason Stop Dose Admin Bupivacaine HCl 10 ml 06/17/24 11:25 06/17/24 11:49 Bupivacaine Mpf 0.25 % 10 Ml Vial INFILTRATI 06/17/24 11:26 10 ml ONCE ONE Administration Hydromorphone HCl 0.5 mg 06/17/24 11:45 06/17/24 11:48 Hydromorphone Hcl 0.5 Mg/0.5 Ml Syringe IVPUSH 06/17/24 11:46 0.5 mg ONCE ONE Administration Protocol Hydromorphone HCl 0.5 mg 06/17/24 12:20 06/17/24 12:25 Hydromorphone Hcl 0.5 Mg/0.5 Ml Syringe IVPUSH 06/17/24 12:21 0.5 mg ONCE ONE Administration Protocol Lidocaine HCl 5 ml 06/17/24 11:25 06/17/24 11:49 Lidocaine Hcl 1 % Mpf 5 Ml Vial INFILTRATI 06/17/24 11:26 5 ml ONCE ONE Administration Lidocaine HCl 5 ml 06/17/24 11:26 06/17/24 11:49 Lidocaine Hcl 1 % Mpf 5 Ml Vial INFILTRATI 06/17/24 11:27 5 ml ONCE ONE Administration Oxycodone HCl 5 mg 06/17/24 09:07 06/17/24 09:17 Oxycodone Hcl Immed Release 5 Mg Tablet PO 06/17/24 09:08 5 mg ONCE ONE Administration Procedures Nerve Block Nerve Block 1: Time out performed: Yes Local Anesthetic: lidocaine 1% and bupivacaine 0.25% Amount of anesthesia used (mL): 10 Side: right Nerve Blocks: hematoma block Procedure Successful: Yes Patient Tolerated Procedure: well Complications: none Orthopedic Fracture Reduction Fracture #1: Time Out Performed: Yes Side: right Fracture Reduction Location: radius and ulna Analgesia: hematoma block Technique: direct manipulation Post Reduction X-rays Demonstrate: acceptable reduction Post-reduction neuro exam: intact Post-reduction vascular exam: intact Splint Applied: Yes Patient Tolerated Procedure: well Orthopedic Splinting/Casting Injury #1: Side: right Upper Extremity Injury Location: wrist Upper Extremity Immobilizer: sling/shoulder immobilizer and sugar tong splint Medical Decision Making Medical Decision Making MDM Narrative: 68 year old female with pmhx significant for HTN, HDL, anxiety, depression, GERD, Vela's esophagus, diverticulosis, allergic rhinitis, asthma presents to the ED today via EMS for evaluation 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 Hypertensive on arrival. Vitals are otherwise wnl. She is nontoxic appearing in no acute distress however is in obvious discomfort. Her exam is nonfocal, AOX3. Palpable hematoma to right parietal region, no palpable skull fracture. No ann sign or raccoon eyes. No midline spinous tenderness or step-off deformity. Full ROM intact to C-spine. noted deformity/ swelling to right wrist, limited ROM. ttp over entire right wrist. Slightly tender to palpation over olecranon, without palpable deformity. Full ROM intact to right elbow. cap refill <2 seconds. 2+radial pulse intact. Differential diagnosis includes wrist/ elbow fracture, contusion, msk sprain/ strain, scalp hematoma, ICH, CVA/TIA, other intracranial bleed. NIH 0. Plan for basic labs, imaging, pain control, re-evaluation. Differential Diagnosis Differential Diagnoses: The differential diagnosis associated with the presentation includes As above Admission/Observation Consideration of admission/observation: Escalation of care including admission/observation considered Admission considered. Consult Healthcare Provider Management of the patient was discussed with: [facility] pa - [facility] trauma - dr. mackey [facility] neurosurgery - dr. hatch Lab Data MDM Lab Attestation statement: I reviewed the patient's lab results. As above 06/17/24 10:17 06/17/24 10:17 Labs: Lab Results 06/17/24 Range/Units 10:17 WBC 7.8 (4.8-10.8) X10*3/uL RBC 3.96 L (4.20-5.50) X10*6/uL Hgb 11.4 L (12.0-16.0) g/dl Hct 32.7 L (37.0-47.0) % MCV 82.6 (80.0-98.0) fL MCH 28.8 (27.0-33.0) pg MCHC 34.9 (31.0-35.0) g/dl RDW 12.3 (11.0-16.0) % Plt Count 189 (160-400) X10*3/uL MPV 10.4 (9.4-12.3) fL Immature Gran % (Auto) 0.3 (0.0-0.4) % Neut % (Auto) 81.6 H (45-73) % Lymph % (Auto) 10.6 L (20-40) % Douglas % (Auto) 3.6 (2-11) % Eos % (Auto) 3.3 (0-4) % Baso % (Auto) 0.6 (0-2) % Lymph # (Auto) 0.8 L (1.2-4.9) X10*3/uL Douglas # (Auto) 0.3 (0.1-1.2) X10*3/uL Eos # (Auto) 0.3 (0.0-0.4) X10*3/uL Baso # (Auto) 0.1 (0.0-0.2) X10*3/uL Abs Immat Gran (auto) 0.02 (0.00-0.03) X10*3/uL Absolute Neuts (auto) 6.4 (2.0-8.3) x10*3/uL Absolute Nucleated RBC 0.000 (0.0-0.012) X10*3/uL Nucleated RBC % (auto) 0.0 (0.0-0.2) /100WBC PT 10.3 L (10.9-12.4) SEC INR 0.9 (0.9-1.1) Sodium 140 (135-145) mmol/L Potassium 3.5 (3.3-5.1) mmol/L Chloride 104 (96-108) mmol/L Carbon Dioxide 30 H (22-29) mmol/L Anion Gap 10 L (12-20) BUN 17 H (9-16) mg/dL Creatinine 0.83 (0.5-1.4) mg/dL Estim Creat Clear Calc 67.8 Estimated GFR > 60 Random Glucose 118 H (60-115) mg/dL Calcium 9.4 (8.4-10.2) mg/dL Total Bilirubin 0.6 (0.0-1.0) mg/dL AST 23 (5-31) U/L ALT 16 (0-31) U/L Alkaline Phosphatase 80 (39-117) U/L Total Protein 7.3 (6.5-8.0) g/dL Albumin 4.6 (3.5-5.0) g/dL Independent Interpretation I performed an independent interpretation of an: Plain X-Ray and CT Scan Interpretation: X-ray right wrist/forearm showing distal radius and ulnar styloid fracture X-ray right shoulder without fracture CT head/brain without intracranial bleed or skull fracture CT cervical spine without obvious fracture MRI cervical spine w/o fracture Radiology Impression Discussion of test interpretation with radiology: I have reviewed the radiologist's reading. Radiologist Impression: EXAMINATION: XR SHOULDER, RIGHT CLINICAL INFORMATION: fall shoulder pain COMPARISON: None available. TECHNIQUE: Three views of the right shoulder. FINDINGS: There is mild loss of AC joint space with periarticular spurring. The glenohumeral joint spaces narrowed as well. There is no visible acute fracture, dislocation, loose bodies seen. The soft tissues are normal. XR/XR shoulder RT min 2V IMPRESSION: Mild DJD right shoulder joint. No visible acute fracture or dislocation. Electronically signed by: Pedro Gaona MD 06/17/2024 09:46 AM EST RP EXAMINATION: XR WRIST, RIGHT CLINICAL INFORMATION: fall, wrist deformity COMPARISON: None available. TECHNIQUE: 2 views of the right wrist. FINDINGS: Exam is limited due to only 2 views and inability of patient to move right wrist. There is a comminuted distal radial fracture with intra-articular extension and lateral displacement of distal fragment. Also visualized and ulnar styloid process fracture. However limited there is likely degenerative for deformity with moderate wrist soft tissue swelling. XR/XR wrist RT min 3V IMPRESSION: Comminuted distal radial fracture with intra-articular extension and lateral displacement of distal fragment. Moderate soft tissue swelling. Electronically signed by: Pedro Gaona MD 06/17/2024 09:48 AM EST RP EXAMINATION: XR FOREARM, RIGHT CLINICAL INFORMATION: fall, elbow pain COMPARISON: None available. TECHNIQUE: AP and lateral views of the right forearm were obtained. FINDINGS: Again visualizes a comminuted fractured distal radius with degenerative for deformity on the lateral view . Ulnar styloid process fracture was noted on the wrist exam. Rest of the right forearm is unremarkable. XR/XR forearm RT 2V IMPRESSION: This is a large solid process and a comminuted distal radial fracture rest of right forearm is unremarkable. Electronically signed by: Pedro Gaona MD 06/17/2024 09:49 AM EST RP EXAMINATION: CT HEAD WITHOUT CONTRAST CLINICAL INFORMATION: fall, right head strike COMPARISON: None available. TECHNIQUE: Contiguous axial imaging was performed from the skull base to vertex without intravenous administration of contrast. This CT examination was performed using dose optimization techniques as appropriate, variously including the following: *Automated exposure control *Adjustment of mA and/or kV according to patient size (this includes techniques or standardized protocols for targeted exams where dose is matched to indication/reason for exam; i.e. extremities or head) *Use of iterative reconstruction technique DLP: 910 mGy-cm FINDINGS: Bony calvarium is intact. Skull base is intact. Soft tissue contusion, right temporal occipital scalp. No acute intracranial hemorrhage, mass effect, midline shift, hydrocephalus or herniation. Griffith-white matter differentiation is normal. Posterior cranial fossa contents demonstrated no acute intracranial hemorrhage or mass effect. Prominence of the extra-axial CSF spaces cerebral sulci and ventricles. Cavum septum pellucidum and cavum vergae, congenital. Calcified plaques in the V4 segments, vertebral arteries and cavernous supraclinoid segments both ICA. No air-fluid levels in the included paranasal sinuses. For pneumatization of the frontal sinus. Tympanic cavities and mastoid air cells are aerated. Degenerative changes in the left temporomandibular joint. Edentulous, maxilla. CT/CT head/brain wo IV con IMPRESSION: Soft tissue contusion, right temporal occipital soft tissue scalp. No acute fracture, bony calvarium. No acute intracranial hemorrhage. Global cerebral atrophy, mild. Electronically signed by: Hong Leal MD 06/17/2024 10:29 AM [facility] EXAMINATION: CT CERVICAL SPINE WITHOUT CONTRAST CLINICAL INFORMATION: Status post fall. COMPARISON: None available. TECHNIQUE: Contiguous axial images through the cervical spine using 3 mm collimation with bone and soft tissue algorithm. Sagittal and coronal reformatted images acquired. This CT examination was performed using dose optimization techniques as appropriate, variously including the following: *Automated exposure control *Adjustment of mA and/or kV according to patient size (this includes techniques or standardized protocols for targeted exams where dose is matched to indication/reason for exam; i.e. extremities or head) *Use of iterative reconstruction technique. DLP: 910 mGy centimeter. FINDINGS: Limited by patient's motion artifact. Craniocervical junction is intact. Degenerative changes in the periodontal C1 region. C1 is intact. C2 is intact. C3 is intact. C4 is intact. C5 is intact. C6 is intact. C7 is intact. Multilevel marginal osteophyte formation and endplate sclerosis, subchondral cyst formation and decreased intervertebral disc height, C5-6 and to a lesser extent C4-5, C6-7 and C3-4 levels. Calcified density in the anterior intervertebral disc C5-6 and C6-7 levels. There is anterior widening of the intervertebral disc space, C6-7. Grade 1 retrolisthesis C5-6 with a reverse curvature. No gross prevertebral compartment hematoma. Retropharyngeal trajectory of the carotid arteries. Calcified plaques in the carotid arteries and main branches of the thoracic aortic arch. Degenerative changes in the left temporomandibular joint. CT/CT cervical spine wo IV con IMPRESSION: Multilevel cervical spondylosis more conspicuous at C5-6. Anterior widening of the intervertebral disc C6-7 ligamentous injury cannot be entirely excluded. Recommend non-IV contrast MRI cervical spine. Discussed with the emergency fragment physician operating room assistant, Cherise Posadas at 10:21 AM. Fleischner guidelines were followed. Electronically signed by: Hong Leal MD 06/17/2024 10:30 AM [facility] EXAMINATION: MR CERVICAL SPINE WITHOUT CONTRAST CLINICAL INFORMATION: Neck pain. Subluxation versus ligament is injury. COMPARISON: None available. TECHNIQUE: MRI of the cervical spine was obtained using routine sequences without contrast. FINDINGS: There is maintained cervical lordosis. There is grade 1 retrolisthesis C5 over C6 with loss of C4-5 and C5-6 disc heights. Rest of the disc heights and vertebral alignment is maintained normal. The craniovertebral junction and C1-C2 alignment is normal. At C3-4 disc level there is no evidence of disc bulge, herniation or spinal canal stenosis. The neural foramina are patent bilaterally. At C4-5 disc level there is a disc osteophyte/bulge complex flattening the ventral thecal sac without spinal canal stenosis. The neural foramina are mildly narrowed bilaterally slightly greater on the left. There is mild AP canal stenosis seen posterior to mid C5 vertebra. At C5-6 disc level there is a disc bulge/osteophyte complex flattening the ventral thecal sac and mildly flattening the cord resulting in moderate AP canal stenosis. The neural foramina are bilaterally narrowed from uncovertebral hypertrophic changes. At C6-7 disc levels there is no significant disc bulge, herniation or spinal canal stenosis. The neural foramina are patent bilaterally. The C7-T1 disc level there is no significant disc bulge, herniation or spinal canal stenosis. The bone marrow signal cord signal and cord caliber is normal. The paravertebral soft tissues are normal. MR/MR cervical spine wo con IMPRESSION: Grade 1 retrolisthesis C5 over C6 with degenerative disc changes C4-5 and C5-6 disc level. Disc bulge/osteophyte complex at C4-5 and C5-6 disc levels. There is moderate canal stenosis at the C5-6. There is bilateral narrowing of neural foramina at both these levels slightly greater at the C5-6 disc level. Electronically signed by: Pedro Gaona MD 06/17/2024 03:52 PM [facility] Independent Historian Clinical information obtained from an independent historian. History obtained from or confirmed by: EMS External Record Review External record reviewed: Inpatient record, Office record, Outpatient record, Prior outpatient labs, Prior outpatient radiology, Primary care record and Outside ED record Prescription Management I considered prescription management with: Pain Medication Social Determinants Patient?s care significantly limited by Social Determinants of Health including: Other Social Determinant of Health Critical Care Time Critical Care Time Critical Care Time: Yes Total Critical Care Time: 35 Attestation: Critical care time in the amount of 35 minutes has been provided to the patient in terms of direct patient care, frequent reevaluation on IV dilaudid, consultation with [facility] trauma/ neurosurgery, review and interpretation of medical data and results, and management of potentially life-threatening conditions. This is all outside of any medical procedures. Discharge Plan Discharge Clinical Impression: Distal radius fracture, right, Fracture of right ulnar styloid, Bulging of cervical intervertebral disc Patient Disposition: Home, Self-Care Instructions: Wrist Fracture in Adults (ED), Cervical Disc Herniation (ED) Additional Instructions: You have been evaluated in the Emergency Department today after a fall. Your evaluation showed a fracture of your right wrist. I have placed your wrist in a splint today. Avoid getting the splint wet. I have provided a sling for you to use while your ankle heals. Please rest and elevate your wrist. I recommend you take 600mg ibuprofen every 6 hours or tylenol 650mg every 6 hours as needed for pain. If needed, you can alternate these medications so that you take one medication every 3 hours. For example, at noon take ibuprofen, then at 3pm take tylenol, then at 6pm take ibuprofen.? Please take Oxycodone as directed as necessary for breakthrough pain. Please follow-up with an orthopedic surgeon in 1 week. You have been provided with a referral. Call them to make an appointment, they will not call you. You have also been placed in a cervical collar for cervical disc herniation. DO NOT REMOVE THIS COLLAR UNDER ANY CIRCUMSTANCES. THIS NEEDS TO STAY ON AND IN PLACE UNTIL YOU FOLLOW UP WITH NEUROSURGERY OUTPATIENT. YOU HAVE BEEN GIVEN THEIR CONTACT INFORMATION (IVAN BENAVIDES PA-C). CALL THEM TOMORROW MORNING TO MAKE AN APPOINTMENT THIS WEEK. THEY WILL NOT CALL YOU. Return to the Emergency Department if you experience worsening pain, numbness, tingling, change of color in your fingers, or any other concerning symptoms. Prescriptions: New oxycodone 5 mg tablet 5 mg PO Q8H PRN (Reason: pain (scale score 7-10)) Qty: 9 0RF Rx Instructions: Partial Fill upon patient request. No Action montelukast 10 mg tablet 10 mg PO BEDTIME Qty: 30 1RF omeprazole 20 mg capsule,delayed release(DR/EC) 20 mg PO DAILY Qty: 90 2RF albuterol sulfate [ProAir HFA] 90 mcg/actuation HFA aerosol inhaler 2 puff PO Q4H Qty: 8.5 3RF amlodipine 10 mg tablet 10 mg PO DAILY Qty: 90 3RF nitrofurantoin macrocrystal [Macrodantin] 100 mg capsule 100 mg PO Q12H Qty: 14 0RF Rx Instructions: must administer with a meal/food loratadine 10 mg tablet 10 mg PO DAILY PRN (Reason: allergy symptoms) Qty: 90 3RF folic acid 1 mg tablet 1 mg PO DAILY Qty: 90 1RF cholecalciferol (vitamin D3) 50 mcg (2,000 unit) capsule 50 mcg PO DAILY 90 Days Qty: 90 3RF Pataday Once Daily Relief 0.7 % drops 1 drp ophthalmic (eye) DAILY PRN (Reason: itching) Qty: 5 0RF sertraline 100 mg tablet 150 mg PO DAILY Qty: 135 1RF losartan 100 mg tablet 100 mg PO DAILY 90 Days Qty: 90 1RF clobetasol 0.05 % ointment 1 appl topical DAILY Qty: 30 0RF fluticasone propion-salmeterol [Wixela Inhub] 250-50 mcg/dose blister with device 1 inh inhalation BID Qty: 60 12RF lidocaine HCl 2 % jelly in applicator 20 ml intra-urethral ONCE Qty: 10 0RF Referrals: [facility] [place] Primary Care,Ant [Provider Group] [facility] [place] Orthopedic Surgeons [Provider Group] - 3 days (distal radius/ ulna fractures) Vamsi Hall PA [Physician Equal Opportunity Director] - 3 days (Grade 1 retrolisthesis C5 over C6 with degenerative disc changes C4-5 and C5-6 disc level. Disc bulge/osteophyte complex at C4-5 and C5-6 disc levels. There is moderate canal stenosis at the C5-6. There is bilateral narrowing of neural foramina at both these levels slightly greater at the C5-6 disc level. ) Yonis Burns MD, PhD [Physician] - 2 days Ivan Benavides PA [Physician Equal Opportunity Director] - 3 days (Grade 1 retrolisthesis C5 over C6 with degenerative disc changes C4-5 and C5-6 disc level. Disc bulge/osteophyte complex at C4-5 and C5-6 disc levels. There is moderate canal stenosis at the C5-6. There is bilateral narrowing of neural foramina at both these levels slightly greater at the C5-6 disc level. ) Pete Staton MD [Primary Care Provider] - Stand Alone Forms: Work/School Release Interventions: ED Discharge Assessment Last Done: 06/17/24 16:45 Discharge Date/Time: 06/17/24 17:01 Print Language: Palauan
[2024-06-17] MEDS: oxyCODONE HCl Immed Release 5 MG TABLET PO (09:17)
[2024-06-17 10:21] LABS: MANUAL DIFF FLAG NO
[2024-06-17 10:23] LABS: Basophils Absolute Auto 0.1 X10*3/uL (0.0-0.2); Basophils Percent Auto 0.6 % (0-2); Eosinophils Absolute Auto 0.3 X10*3/uL (0.0-0.4); Eosinophils Percent Auto 3.3 % (0-4); Hematocrit 32.7 % (37.0-47.0); Hemoglobin 11.4 g/dl (12.0-16.0); Imm Gran Abs Auto 0.02 X10*3/uL (0.00-0.03); Imm Gran Pct Auto 0.3 % (0.0-0.4); Lymphocytes Absolute Auto 0.8 X10*3/uL (1.2-4.9); Lymphocytes Percent Auto 10.6 % (20-40); Mean Corpuscular HGB Conc 34.9 g/dl (31.0-35.0); Mean Corpuscular Hemoglobin 28.8 pg (27.0-33.0); Mean Corpuscular Volume 82.6 fL (80.0-98.0); Mean Platelet Volume 10.4 fL (9.4-12.3); Monocytes Absolute Auto 0.3 X10*3/uL (0.1-1.2); Monocytes Percent Auto 3.6 % (2-11); Neutrophils Absolute Auto 6.4 x10*3/uL (2.0-8.3); Neutrophils Percent Auto 81.6 % (45-73); Platelet Count 189 X10*3/uL (160-400); Red Blood Count 3.96 X10*6/uL (4.20-5.50); Red Cell Distribution Width 12.3 % (11.0-16.0); White Blood Count 7.8 X10*3/uL (4.8-10.8)
[2024-06-17 10:29] LABS: INTERNATIONAL NORM RATIO 0.9 (0.9-1.1); Prothrombin Time 10.3 SEC (10.9-12.4)
[2024-06-17 10:45] LABS: Alanine Aminotransferase 16 U/L (0-31); Albumin Level 4.6 g/dL (3.5-5.0); Alkaline Phosphatase 80 U/L (39-117); Anion Gap 10 (12-20); Aspartate Amino Transferase 23 U/L (5-31); Bilirubin Total 0.6 mg/dL (0.0-1.0); Blood Urea Nitrogen 17 mg/dL (9-16); Calcium 9.4 mg/dL (8.4-10.2); Carbon Dioxide 30 mmol/L (22-29); Chloride 104 mmol/L (96-108); Creatinine Clr Calc Pharmacy 67.8; Estimated Glomerular Filt Rate > 60; Glucose Random 118 mg/dL (60-115); Potassium 3.5 mmol/L (3.3-5.1); Sodium 140 mmol/L (135-145); Total Protein 7.3 g/dL (6.5-8.0)
[2024-06-17 10:50] VITALS: BP 156/60; PULSE 75; RESP 16; TEMP 36.4; O2SAT 96
--- NOTE | 2024-06-17 11:26 | PC.NURSE ---
c-collar placed by provider. iv established
[2024-06-17] MEDS: HYDROmorphone HCl 0.5 MG/0.5 ML SYRINGE IVPUSH ×2 (11:48→12:25)
[2024-06-17] MEDS: Lidocaine HCl 1 % MPF 5 ML VIAL INFILTRATI ×2 (11:49)
[2024-06-17] MEDS: BUPivacaine MPF 0.25 % 10 ML VIAL INFILTRATI (11:49)
--- NOTE | 2024-06-17 12:47 | PC.NURSE ---
provider previous reduced right wrist, splint applied. medicated per the MAR for pain, repeat xray obtained. off unit in MRI at this time
[2024-06-17 13:53] VITALS: BP 154/75; PULSE 77; RESP 16; TEMP 36.6; O2SAT 93
--- NOTE | 2024-06-17 16:20 | PC.NURSE ---
sling applied to pt's RUE. aspen collar now in place. pt tolerated well.
[2024-06-17 16:44] VITALS: BP 144/69; PULSE 77; RESP 16; TEMP 36.5; O2SAT 100
[2024-06-17 16:45] VITALS: BP 144/69; PULSE 77; RESP 16; TEMP 36.5; O2SAT 100
== END 2024-06-17 17:01 | disposition home or self-care (01) ==
PROVIDERS: Physician Assistant Medical; Emergency Provider Emergency Medicine; PCP Internal Medicine
DX: S52.571A Other intraarticular fracture of lower end of right radius, initial encounter for closed fracture (principal); S52.611A Displaced fracture of right ulna styloid process, initial encounter for closed fracture; W17.89XA Other fall from one level to another, initial encounter; M50.321 Other cervical disc degeneration at C4-C5 level; M48.02 Spinal stenosis, cervical region; R29.700 NIHSS score 0; Y93.9 Activity, unspecified; Y92.513 Shop (commercial) as the place of occurrence of the external cause; Y99.0 Civilian activity done for income or pay
CPT/HCPCS: 25605; 36415; 70450; 72125; 72141; 73030; 73090; 73110; 73130; 80053; 85025; 85610; 96374; 96376; 99284; 99285; J0665; J1171; J2003

== ENCOUNTER → 2024-06-17 09:04 | Outpatient (BNV) | payer OTHER, MEDICARE, SELFPAY | PROVIDERS: Emergency Provider Emergency Medicine; PCP Internal Medicine; Visit Provider Radiology Diagnostic Radiology | DX: M50.221 Other cervical disc displacement at C4-C5 level (principal); M50.222 Other cervical disc displacement at C5-C6 level; S19.9XXA Unspecified injury of neck, initial encounter; S00.83XA Contusion of other part of head, initial encounter; M25.511 Pain in right shoulder; S52.341 Displaced spiral fracture of shaft of radius, right arm | CPT/HCPCS: 72141; 73030; 73090; 73110; 73130 ==

== ENCOUNTER 2024-06-18 14:58 | Outpatient (REF) | payer MEDICARE, SELFPAY ==
--- NOTE | ~2024-06-18 | XR_ITS ---
CLINICAL HISTORY: M25.531 - Pain in right wrist 3 view right wrist Comparison: None Findings: Portions of the exam is obscured by overlying material. There is comminuted distal radial fracture. There is ulnar styloid process fracture. No dislocations. No significant loss of joint space, osteophyte, or erosions. No radiopaque foreign body. IMPRESSION: 1. Comminuted distal radial fracture. 2. Ulnar styloid process fracture This document has been electronically signed by: Valentin Alcala MD on 06/20/2024 07:30:10
== END 2024-06-18 14:59 | disposition home or self-care (01) ==
LOC: HO.HOSX 14:58
DX: S52.511A Displaced fracture of right radial styloid process, initial encounter for closed fracture (principal); S52.501A Unspecified fracture of the lower end of right radius, initial encounter for closed fracture; M25.531 Pain in right wrist
CPT/HCPCS: 73110; 99202

== ENCOUNTER 2024-06-18 15:08 | Outpatient (AMB) | payer OTHER, MEDICARE, SELFPAY ==
--- NOTE | 2024-06-18 15:11 | MHC.OFFVIS ---
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 She states her co-worker walked in through a door which spooked her, causing her to jump to the side. Reports falling onto her right side and striking the right side of her head on a table. Currently she has constant pain in her wrist that radiates up her arm. Also complains of constant numbness and tingling in her fingers. Finds very little relief with Tylenol. Allergies bacitracin [From Neosporin ([id number])] Allergy (Unknown, Verified 06/18/24 15:13) Unknown benzocaine Allergy (Unknown, Verified 06/18/24 15:13) Unknown lisinopril Allergy (Unknown, Verified 06/18/24 15:13) Unknown neomycin [From Neosporin ([id number])] Allergy (Unknown, Verified 06/18/24 15:13) Unknown nickel Allergy (Unknown, Verified 06/18/24 15:13) Unknown polymyxin B [From Neosporin ([id number])] Allergy (Unknown, Verified 06/18/24 15:13) Unknown hydrochlorothiazide Adverse Reaction (Intermediate, Verified 06/18/24 15:13) hypokalemia HPI HPI PATIENT CARE DIRECTOR- ED f/u WC RT wrist distal radius fx: Details: Tiffanie is a 68 year old 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 female who presents today for a evaluation of her right distal radius fx, DOI 06/17/24. She states her co-worker walked in through a door which spooked her, causing her to jump to the side. Reports falling onto her right side and striking the right side of her head on a table. Currently she has constant pain in her wrist that radiates up her arm. Also complains of constant numbness and tingling in her fingers. Finds very little relief with Tylenol. [facility] Medical History Impaired glucose tolerance Breast cancer screening by mammogram Splenomegaly Siriasis Adverse effect of contrast media Diarrhea LUQ abdominal pain Diverticulosis Vela's esophagus Anxiety and depression Psoriasis Osteoporosis Hypercholesterolemia GERD (gastroesophageal reflux disease) Asthma Knee osteoarthritis Hypertension Allergic rhinitis Surgical History History of eye surgery History of tubal ligation History of tonsillectomy History of arthroplasty of right knee History of arthroplasty of left knee Family History Father No problems noted. Mother Ovarian cancer Myocardial infarction Paternal Grandmother Bladder cancer Paternal Aunt Bladder cancer Paternal Uncle Bladder cancer Social History (Updated 06/18/24 @ 15:41 by SEAN Johnson) Household Members: Spouse and Children Housing: House Are you a primary pet care assistant to a significant other at home: No Do you presently have visiting nurse or other home services: No Alcohol intake: current Alcohol intake frequency: a few times a month Patient Tobacco Use Status: Former Tobacco user Tobacco use type: Cigarette e-Cigarette/Vaping Use: Never Used Second Hand Smoke Exposure: No Substance Use Type: Marijuana service: No Current occupational status: employed 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 Patient is in splint as she is status post reduction in the emergency Neuro: Normal sensation of the tips of all digits of the R hand at this time Vascular: Cap refill brisk Pain: Patient was significant pain throughout duration of the examination in the right wrist and forearm ROM: Patient is able to flex and extend digits of the right hand without difficulty Skin: No lacerations or abrasions. General: No ecchymosis, erythema, or evidence of infection. Psych: Appears grossly normal Affect normal Attitude cooperative Results Reviewed Results Reviewed: X-rays obtained in the office today and independently reviewed by , Germán Montiel PA-C, demonstrate displaced fracture of the right distal radius with radial translocation and approximately 5-10 degrees of dorsal angulation Assessment & Plan Assessment & Plan (1) Distal radius fracture, right: Code(s): S52.501A - Unspecified fracture of the lower end of right radius, initial encounter for closed fracture Category: Medical Plan 1. Right distal radius fracture, displaced Date of injury 06/17/2024 I educated the patient about the condition. I discussed both operative and nonoperative treatment options. The patient would like to proceed with surgery. The risks and benefits of operative treatment were discussed with the patient and the patient wishes to proceed with surgery. These risks include, but are not limited to, risk of damage to blood vessels, nerves, tendons, infection, recurrence, incomplete relief of preoperative symptoms, persistent pain, possible need for further surgery, and the risks associated with regional blocks and/or anesthesia. Plan is to take the patient to the operating room at some point in the next few weeks for the following procedures: 1. Right distal radius ORIF under general All of the preoperative paperwork including the consent was discussed today. All of the patient's questions were answered in the clinic today. The patient understands that they will be in contact with our office coordinator receptionist to discuss scheduling their procedure. Patient denies diabetes, blood thinners, asthma, heart issues, lung issues, kidney issues, or current smoking. Orders: Orders XR wrist RT min 3V Today M25.531 - Pain in right wrist Coding Level of Care Code New Pt Level 4 (96099) Diagnoses Distal radius fracture, right S52.501A
[2024-06-18 15:43] VITALS: BMI 30.5
== END 2024-06-18 16:03 | disposition home or self-care (01) ==
PROVIDERS: PCP Internal Medicine
DX: S52.501A Unspecified fracture of the lower end of right radius, initial encounter for closed fracture (principal)
CPT/HCPCS: 99204

== ENCOUNTER 2024-06-19 12:46 | Emergency (ER) | payer OTHER, MEDICARE, SELFPAY ==
[2024-06-19 12:59] VITALS: BP 181/79; PULSE 94; RESP 20; TEMP 36.8; O2SAT 99; BMI 30.5
--- NOTE | 2024-06-19 12:59 | ED_ITS ---
HPI - Extremity Injury (Upper) General Chief Complaint: Extremity Injury, Upper Stated Complaint: seen sunday, hand swelling Time Seen by Provider: 06/19/24 13:12 Source: patient and RN notes reviewed Mode of arrival: ambulatory Limitations: no limitations History of Present Illness ED Provider: Danae Taylor PA-C HPI narrative: 68 year old female with pmhx significant for HTN, HDL, anxiety, depression, GERD, Vela's esophagus, diverticulosis, allergic rhinitis, asthma presents to the ED today With concerns for right hand swelling. Patient was seen here in the emergency room on June 17, 2023, after a mechanical fall. She was diagnosed with a distal radius fx, ulnar styloid fracutre, and bulging cervical intervertebral disc. Pt was placed in a aspen collar and advised to f/u with seo specialist - she has called this distally multiple times without any appointment. She states that over the last several days she has had increased swelling in her arm, and pain. She was seen by the obstetrics specialist yesterday and had the splint slightly loosened to help with her pain. She states that the pain is too severe, in continues to have increased swelling in her fingers. Denies any new injury or trauma to the arm. No other complaints or concerns at this time. complaint: injury to: right and hand Onset (ago): day(s) Other injuries: none Related Data Previous Rx's ?Medication ?Instructions ?Recorded clobetasol 0.05 % topical ointment 1 appl topical DAILY #30 grams 01/05/23 fluticasone 250 mcg-salmeterol 50 1 inh inhalation BID #60 ea 08/17/23 mcg/dose blistr powdr for inhalation (Wixela Inhub) omeprazole 20 mg capsule,delayed 20 mg PO DAILY #90 caps 10/04/23 release albuterol sulfate 90 mcg/actuation 2 puff PO Q4H #8.5 grams 11/23/23 aerosol inhaler (ProAir HFA) amlodipine 10 mg tablet 10 mg PO DAILY #90 tabs 12/07/23 loratadine 10 mg tablet 10 mg PO DAILY PRN allergy 03/27/24 symptoms #90 tabs folic acid 1 mg tablet 1 mg PO DAILY #90 tabs 04/01/24 cholecalciferol (vitamin D3) 50 50 mcg PO DAILY 90 days #90 caps 04/18/24 mcg (2,000 unit) capsule olopatadine 0.7 % eye drops 1 drp ophthalmic (eye) DAILY PRN 04/18/24 (Pataday Once Daily Relief) itching #5 mL sertraline 100 mg tablet 150 mg (1.5 x 100 mg) PO DAILY 05/14/24 #135 tabs losartan 100 mg tablet 100 mg PO DAILY 90 days #90 tabs 06/05/24 oxycodone 5 mg tablet 5 mg PO Q8H PRN pain (scale score 06/17/24 7-10) #9 tabs Allergies Allergy/AdvReac Type Severity Reaction Status Date / Time bacitracin Allergy Unknown Unknown Verified 06/19/24 13:04 [From Neosporin ([id number])] benzocaine Allergy Unknown Unknown Verified 06/19/24 13:04 lisinopril Allergy Unknown Unknown Verified 06/19/24 13:04 neomycin Allergy Unknown Unknown Verified 06/19/24 13:04 [From Neosporin ([id number])] nickel Allergy Unknown Unknown Verified 06/19/24 13:04 polymyxin B Allergy Unknown Unknown Verified 06/19/24 13:04 [From Neosporin ([id number])] hydrochlorothiazide AdvReac Intermediate hypokalemia Verified 06/19/24 13:04 Review of Systems Review of Systems: Yes all other systems are reviewed and are negative Constitutional: Constitutional: Reports as per [facility] Past Medical History Attestation statement: The following information was validated with the patient. Medical History Impaired glucose tolerance Breast cancer screening by mammogram Splenomegaly Siriasis Adverse effect of contrast media Diarrhea LUQ abdominal pain Diverticulosis Vela's esophagus Anxiety and depression Psoriasis Osteoporosis Hypercholesterolemia GERD (gastroesophageal reflux disease) Asthma Knee osteoarthritis Hypertension Allergic rhinitis Surgical History History of eye surgery History of tubal ligation History of tonsillectomy History of arthroplasty of right knee History of arthroplasty of left knee Family History Family History Father No problems noted. Mother Ovarian cancer Myocardial infarction Paternal Grandmother Bladder cancer Paternal Aunt Bladder cancer Paternal Uncle Bladder cancer Social History Social History Household Members: Spouse and Children Housing: House Are you a primary health care specialist to a significant other at home: No Do you presently have visiting nurse or other home services: No Alcohol intake: current Alcohol intake frequency: a few times a month Patient Tobacco Use Status: Former Tobacco user Tobacco use type: Cigarette e-Cigarette/Vaping Use: Never Used Second Hand Smoke Exposure: No Use of substances other than those prescribed or required for medical reasons: Yes Substance Use Type: Marijuana Substance Use Type Other:: last used 06/22 Substance Use Frequency: Daily Are you DNR?: No Advance Directives: No Advance Directives Information Provided: Yes service: No Current occupational status: employed 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, 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 Cognitive needs: No Hearing needs: No Vision needs: Yes Physical Exam Vital Signs: Vital Signs: Last Vital Signs Temp 97.2 F 06/19/24 15:47 Pulse 81 06/19/24 15:47 Resp 16 06/19/24 15:47 BP 178/70 H 06/19/24 15:47 Pulse Ox 94 06/19/24 15:47 O2 Del Method Room Air 06/19/24 15:47 BMI result Body Mass Index 30.5 Const: General: cooperative, comfortable and no acute distress Orientation/consciousness: patient oriented x3 Limitations: no limitations HEENT: Head: Yes normal to inspection, Yes normocephalic and Yes atraumatic Ears: hearing grossly normal bilaterally General nose exam: Normal external nose present Face and sinus: Yes normal facial exam Mouth: Normal oral and palatal mucosa present, oropharynx normal and moist mucous membranes Throat: Yes posterior oropharynx normal Eyes: General: appearance normal, both eyes and all related structures Eyelids: Yes eyelids normal Conjunctivae: conjunctivae normal Sclerae: sclerae normal Pupils: Equal, round and reactive pupils present EOM: EOMs intact bilaterally Neck: Other: Cervical collar in place. Neck: Yes normal visual inspection, Yes full ROM and Yes no lymphadenopathy Lymphatic: no lymphadenopathy noted Chest: Chest palpation & inspection: normal inspection of the chest Resp: Effort & Inspection: normal respiratory effort and able to speak in complete sentences Auscultation: clear to auscultation bilaterally, no crackles, no rales, no rhonchi and no wheezes Cardio: Rate: regular rate Rhythm: regular rhythm Heart sounds: S1 normal heart sound present and S2 normal heart sound present GI: Inspection: Yes normal to inspection Skin: General skin exam: no rashes or lesions noted Trauma: no lacerations or abrasions Wounds: no wounds Neuro: General: patient oriented x3 and moves all extremities Cranial nerves: Yes Equal, round and reactive pupils present Extrem: Other: Arm in sugar tong splint. Right hand with edema and ecchymosis seen extending into the fingers where the splint stops; splint removed. Bonoy deformity noted at the distal radius and ulnar region. Pt with strong radial pulse. able to move digits. compartments are soft. No open wounds. General: Yes normal to inspection Left upper extremity: normal to inspection Right lower extremity: normal to inspection Left lower extremity: normal to inspection Medications Administered Discontinued Medications Generic Name Dose Route Start Last Admin Trade Name Freq PRN Reason Stop Dose Admin Oxycodone HCl 5 mg 06/19/24 13:57 06/19/24 14:04 Oxycodone Hcl Immed Release 5 Mg Tablet PO 06/19/24 13:58 5 mg ONCE ONE Administration Medical Decision Making Medical Decision Making MDM Narrative: This is a [id number] who presents to the ER with complaints of right wrist pain and swelling. No new injury or trauma. Patient has a known right distal radius fracture. Called neurosurgery to follow up without any follow up. She presents with aspen collar in place. Splint was loosened in triage. I resplinted patient in a sugar tong splint after arm and wrist were elevated to decreased swelling. She toleated procedure well. I contacted Osmar Benavides PA-C neurosurgeon and made appt for , Jun 26 at 10:30AM. [place] collar was readjusted as patient loosened it. Stressed the importance of keeping on until seen by them. She was medicated with oxycodone today. Pt d/c with strict return precautions. Differential Diagnosis Differential Diagnoses: The differential diagnosis associated with the presentation includes fracture, compartment syndrome - unlikely, skin breakdown, dislocation, re- injury Procedures Orthopedic Splinting/Casting Injury #1: Side: right Upper Extremity Injury Location: wrist Upper Extremity Immobilizer: sling/shoulder immobilizer and sugar tong splint Discharge Plan Discharge Clinical Impression: Distal radial fracture, Displaced fracture of right ulna styloid process, sequela, Bulging of cervical intervertebral disc Patient Disposition: Home, Self-Care Instructions: Wrist Fracture in Adults (ED), Cervical Disc Herniation (ED) Additional Instructions: You were seen in the emergency department due to your splint being too tight. This was replaced with a new splint. Please continue taking Tylenol and your previously prescribed oxycodone. Follow-up with the obstetrics specialist as scheduled. You also need to follow-up with the neurosurgeon office. You have an appointment on June 26 at 10:30AM. DO NOT REMOVE THIS COLLAR UNDER ANY CIRCUMSTANCES. THIS NEEDS TO STAY ON AND IN PLACE UNTIL YOU FOLLOW UP WITH NEUROSURGERY OUTPATIENT. Prescriptions: No Action omeprazole 20 mg capsule,delayed release(DR/EC) 20 mg PO DAILY Qty: 90 2RF albuterol sulfate [ProAir HFA] 90 mcg/actuation HFA aerosol inhaler 2 puff PO Q4H Qty: 8.5 3RF amlodipine 10 mg tablet 10 mg PO DAILY Qty: 90 3RF loratadine 10 mg tablet 10 mg PO DAILY PRN (Reason: allergy symptoms) Qty: 90 3RF folic acid 1 mg tablet 1 mg PO DAILY Qty: 90 1RF cholecalciferol (vitamin D3) 50 mcg (2,000 unit) capsule 50 mcg PO DAILY 90 Days Qty: 90 3RF Pataday Once Daily Relief 0.7 % drops 1 drp ophthalmic (eye) DAILY PRN (Reason: itching) Qty: 5 0RF sertraline 100 mg tablet 150 mg PO DAILY Qty: 135 1RF losartan 100 mg tablet 100 mg PO DAILY 90 Days Qty: 90 1RF oxycodone 5 mg tablet 5 mg PO Q8H PRN (Reason: pain (scale score 7-10)) Qty: 9 0RF Rx Instructions: Partial Fill upon patient request. clobetasol 0.05 % ointment 1 appl topical DAILY Qty: 30 0RF fluticasone propion-salmeterol [Wixela Inhub] 250-50 mcg/dose blister with device 1 inh inhalation BID Qty: 60 12RF Interventions: ED Discharge Assessment Last Done: 06/19/24 15:47 Discharge Date/Time: 06/19/24 15:48 Print Language: Jordanian
[2024-06-19] MEDS: oxyCODONE HCl Immed Release 5 MG TABLET PO (14:04)
[2024-06-19 15:20] VITALS: BP 178/70; PULSE 81; RESP 16; TEMP 36.2; O2SAT 94
[2024-06-19 15:47] VITALS: BP 178/70; PULSE 81; RESP 16; TEMP 36.2; O2SAT 94
== END 2024-06-19 15:48 | disposition home or self-care (01) ==
PROVIDERS: Emergency Provider Student in an Organized Health Care Education/Training Program; PCP Internal Medicine
DX: S52.501A Unspecified fracture of the lower end of right radius, initial encounter for closed fracture (principal); S52.611A Displaced fracture of right ulna styloid process, initial encounter for closed fracture; W19.XXXA Unspecified fall, initial encounter; Y93.89 Activity, other specified; Y92.89 Other specified places as the place of occurrence of the external cause; Y99.8 Other external cause status; Z87.891 Personal history of nicotine dependence
CPT/HCPCS: 29125; 99283; 99284

== ENCOUNTER 2024-06-24 11:54 | Day surgery (SDC) | payer OTHER, MEDICARE, SELFPAY ==
--- NOTE | 2024-06-23 11:05 | HO.ANESPROP2 ---
Documented by User: Maki Howell NP 06/23/24 11:44 HPI - Anesthesia Eval Consult details Narrative: 68yo F for Right Radius Distal Fracture ORIF Pt with fall causing UE fx and head strike. [place] collar in place since ER visit 06/17/24 - concerns for cervical disc bulging on imaging. Pending outpatient neurosurg visit 06/26/24. Per workload messages from neurosurg PA no acute injury and patient can come out of collar Dr Case aware and plan for block. [facility] Active Problems Active Problems: All Active Problems Distal radius fracture, right (Acute) Vision changes (Acute) Colon cancer screening (Acute) Folic acid deficiency (Acute) Hypokalemia (Acute) SOB (shortness of breath) (Acute) Type 2 diabetes mellitus with hyperglycemia (Acute) Pneumonia (Acute) Anemia (Acute) Recurrent UTI (urinary tract infection) (Acute) Upper respiratory tract infection (Acute) Psoriasis (Acute) Cystitis (Acute) Gross hematuria (Acute) Asthmatic bronchitis (Acute) Hematuria (Acute) Alcohol abuse (Acute) Urinary tract infection (Acute) Splenomegaly (Acute) Psoriasis (Acute) Diverticulosis (Acute) Vela's esophagus (Acute) Anxiety and depression (Acute) Osteoporosis (Acute) Hypercholesterolemia (Acute) GERD (gastroesophageal reflux disease) (Acute) Asthma (Acute) Knee osteoarthritis (Acute) Hypertension (Acute) Allergic rhinitis (Acute) Past Medical History Medical History Impaired glucose tolerance Breast cancer screening by mammogram Splenomegaly Siriasis Adverse effect of contrast media Diarrhea LUQ abdominal pain Diverticulosis Vela's esophagus Anxiety and depression Psoriasis Osteoporosis Hypercholesterolemia GERD (gastroesophageal reflux disease) Asthma Knee osteoarthritis Hypertension Allergic rhinitis Family History Family History Father No problems noted. Mother Ovarian cancer Myocardial infarction Paternal Grandmother Bladder cancer Paternal Aunt Bladder cancer Paternal Uncle Bladder cancer Surgical History Surgical History History of eye surgery History of tubal ligation History of tonsillectomy History of arthroplasty of right knee History of arthroplasty of left knee Social History Social History Household Members: Spouse and Children Housing: House Are you a primary child care sitter to a significant other at home: No Do you presently have visiting nurse or other home services: No Alcohol intake: current Alcohol intake frequency: a few times a month Patient Tobacco Use Status: Former Tobacco user Tobacco use type: Cigarette e-Cigarette/Vaping Use: Never Used Second Hand Smoke Exposure: No Use of substances other than those prescribed or required for medical reasons: Yes Substance Use Type: Marijuana Substance Use Type Other:: last used 06/22 Substance Use Frequency: Daily Are you DNR?: No Advance Directives: No Advance Directives Information Provided: Yes service: No Current occupational status: employed 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, 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 Cognitive needs: No Hearing needs: No Vision needs: Yes Meds Allergies Allergy/AdvReac Type Severity Reaction Status Date / Time bacitracin Allergy Unknown Unknown Verified 06/19/24 13:04 [From Neosporin ([id number])] benzocaine Allergy Unknown Unknown Verified 06/19/24 13:04 lisinopril Allergy Unknown Unknown Verified 06/19/24 13:04 neomycin Allergy Unknown Unknown Verified 06/19/24 13:04 [From Neosporin ([id number])] nickel Allergy Unknown Unknown Verified 06/19/24 13:04 polymyxin B Allergy Unknown Unknown Verified 06/19/24 13:04 [From Neosporin ([id number])] hydrochlorothiazide AdvReac Intermediate hypokalemia Verified 06/19/24 13:04 Exam Pertinent Lab Results Pertinent Lab Results: Laboratory Tests 06/17/24 10:17 WBC 7.8 Hgb 11.4 L Hct 32.7 L Plt Count 189 Sodium 140 Potassium 3.5 Chloride 104 Carbon Dioxide 30 H BUN 17 H Creatinine 0.83 Assessment and Plan Assessment Anesthesia Assessment: Chart Reviewed Documented by User: Michael Uriostegui MD 06/24/24 15:41 PMFSH Past Medical History Medical History Impaired glucose tolerance Breast cancer screening by mammogram Splenomegaly Siriasis Adverse effect of contrast media Diarrhea LUQ abdominal pain Diverticulosis Vela's esophagus Anxiety and depression Psoriasis Osteoporosis Hypercholesterolemia GERD (gastroesophageal reflux disease) Asthma Knee osteoarthritis Hypertension Allergic rhinitis Family History Family History Father No problems noted. Mother Ovarian cancer Myocardial infarction Paternal Grandmother Bladder cancer Paternal Aunt Bladder cancer Paternal Uncle Bladder cancer Family history of problems with anesthesia: No Surgical History Surgical History History of eye surgery History of tubal ligation History of tonsillectomy History of arthroplasty of right knee History of arthroplasty of left knee History of Problems with Anesthesia: No Social History Social History Household Members: Spouse and Children Housing: House Are you a primary child care sitter to a significant other at home: No Do you presently have visiting nurse or other home services: No Alcohol intake: current Alcohol intake frequency: a few times a month Patient Tobacco Use Status: Former Tobacco user Tobacco use type: Cigarette e-Cigarette/Vaping Use: Never Used Second Hand Smoke Exposure: No Use of substances other than those prescribed or required for medical reasons: Yes Substance Use Type: Marijuana Substance Use Type Other:: last used 06/22 Substance Use Frequency: Daily Are you DNR?: No Advance Directives: No Advance Directives Information Provided: Yes service: No Current occupational status: employed 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, 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 Cognitive needs: No Hearing needs: No Vision needs: Yes Meds Allergies Allergy/AdvReac Type Severity Reaction Status Date / Time bacitracin Allergy Unknown Unknown Verified 06/19/24 13:04 [From Neosporin ([id number])] benzocaine Allergy Unknown Unknown Verified 06/19/24 13:04 lisinopril Allergy Unknown Unknown Verified 06/19/24 13:04 neomycin Allergy Unknown Unknown Verified 06/19/24 13:04 [From Neosporin ([id number])] nickel Allergy Unknown Unknown Verified 06/19/24 13:04 polymyxin B Allergy Unknown Unknown Verified 06/19/24 13:04 [From Neosporin ([id number])] hydrochlorothiazide AdvReac Intermediate hypokalemia Verified 06/19/24 13:04 Exam Airway Denture: Upper and Lower Assessment and Plan Assessment Anesthesia Assessment: Anesthesia Plan Discussed Final Anesthetic Review Family History of Problems with Anesthesia: No History of Problems with Anesthesia: No NPO: Yes ASA Class: III Final Preanesthetic Review: No Changes in Pt Med Stat, Meds/Allgs Chart Reviewed, Consent Obtained/Reviewed and Anes Risks/Benef Reviewed Patient Risk: Intermediate Procedure Risk: Low Anesthetic Plan Anesthetic Plan: GA and Regional Block Disposition: Standard PACU
[2024-06-24] VITALS (8 sets, daily range): BP systolic 145–175; BP diastolic 56–79; PULSE 76–95; RESP 16–18; TEMP 36.6–37.1; O2SAT 94–98
--- NOTE | ~2024-06-24 | FL_ITS ---
EXAMINATION: FL GUIDANCE ONLY HISTORY: ORIF RIGHT DISTAL RADIUS COMPARISON: None available. TECHNIQUE: Fluoroscopy time: 38.64 seconds. Cumulative Dose: 1.2108 mGy. DAP: 0.0732 uGy-m2 (microgray-meter squared). Images: 3. FINDINGS: Images demonstrate placement of a sideplate and multiple orthopedic screws at the site of a radial metaphyseal fracture. FL/FL guidance in OR IMPRESSION: Fluoroscopy during procedure. Please see procedure report for additional information. Electronically signed by: Jorge Luis Lin MD 06/26/2024 02:15 PM ALISON
[2024-06-24] MEDS: Lactated Ringers 1,000 ML 100 ML IVCONT (12:46)
[2024-06-24] MEDS: Albuterol Sulfate (0.083%) 2.5 MG/3 ML VIAL.NEB INHALE (12:50)
--- NOTE | 2024-06-24 13:30 | MHC.SHP ---
Pre-Procedural Eval Section A - 24 Hr Update-Section A only Date of Service: 06/24/24 The patient is an INPATIENT: No Changes since office visit: No Cold of Flu in the past 2 weeks, No New Medical Problems, No Changes in Medication and No Patient answered all questions The patient has been examined within 24 hours of the surgical procedure. The History & Physical has been completed within 30 days and I have reviewed it.: Yes Section B - Complete if H&P > 30 days Chief Complaint: Unspecified fracture of the lower end of right rad Allergies: Allergies Allergy/AdvReac Type Severity Reaction Status Date / Time bacitracin Allergy Unknown Unknown Verified 06/19/24 13:04 [From Neosporin ([id number])] benzocaine Allergy Unknown Unknown Verified 06/19/24 13:04 lisinopril Allergy Unknown Unknown Verified 06/19/24 13:04 neomycin Allergy Unknown Unknown Verified 06/19/24 13:04 [From Neosporin ([id number])] nickel Allergy Unknown Unknown Verified 06/19/24 13:04 polymyxin B Allergy Unknown Unknown Verified 06/19/24 13:04 [From Neosporin ([id number])] hydrochlorothiazide AdvReac Intermediate hypokalemia Verified 06/19/24 13:04 Exam Exam Comment: Patient was alert oriented and in no acute distress She has a right sugar-tong splint in place. She had some numbness in the right thumb that has been present since her fall. Decreased sensation in the index and middle fingers as well Radiographs consistent with a right displaced distal radius fracture Plan Diagnosis/Plan: Unchanged I have reviewed the history and physical and performed a pertinent physical examination on my patient. No changes have occurred unless specified. Assessment and plan: 1. Right distal radius fracture 2. Right acute carpal tunnel syndrome The risks and benefits of operative treatment were discussed with the patient and the patient wishes to proceed with surgery. These risks include, but are not limited to risk of damage to blood vessels, nerves, tendons, infection, recurrence, incomplete relief of preoperative symptoms, persistent pain, possible need for further surgery and the risks associated with regional blocks and anesthesia. The plan is to take the patient to the operating room today for the following procedures: 1. Right distal radius ORIF 2. Right carpal tunnel release All of the preoperative paperwork including the consent was filled out today and signed. All the patient's questions were answered. Time Spent With Patient Time: Total time managing care of this patient today ____ minutes.
--- NOTE | 2024-06-24 13:32 | P.OP_ITS ---
Operative Note Operative Note Date of Service: 06/24/24 Narrative: Operative Note Narrative: Preop diagnosis: 1. Right Distal radius fracture 2. Right acute carpal tunnel syndrome Postop diagnosis: Same Procedure: 1. Right Distal radius fracture open reduction internal fixation, extra- articular 2. Right carpal tunnel release Surgeon: Susi Verdin MD Angle Dozer Operator: None Anesthesia: General anesthesia plus regional block Findings: Implants: A 3 hole narrow Accu Med volar locking plate, with 4 X 2.3 mm locking pegs/screws, and 3 3.5 mm cortical screws Tourniquet time: 68 minutes EBL: 5.0 ml Specimen: None Drains: None Complications: None Disposition: Brought to the recovery room in stable condition Plan: Follow-up in 10-14 days for wound check, suture removal and postop radiographs The patient will be placed in either a short-arm cast or a volar wrist splint. Encouraged no lifting of anything heavier than a cell phone. Please encourage active and passive range of motion of the digits. Follow-up at 4-5 weeks postop for repeat radiographs. Indications: The patient is a 68 year old woman with right distal radius fracture, and some numbness in the median nerve distribution since her injury . The risks and benefits of operative treatment, including but not limited to risk of damage to blood vessels, nerves, tendons, infection, recurrence, persistent pain or numbness, incomplete resolution of preoperative symptoms, or need for further surgery were discussed with the patient and they wished to proceed with surgery. Procedure: Once consent was obtained patient was brought back to the operating suite and placed in the operating table in a supine position. A regional block was performed by the anesthesia team. Perioperative antibiotics and anesthesia was administered by the anesthesia team. A tourniquet was applied to the proximal aspect of the right upper extremity and the limb was prepped and draped in a standard surgical fashion. The limb was elevated exsanguinated with Esmarch bandage and the tourniquet inflated to 250 mm of mercury for a total tourniquet time of 68 minutes. The FluoroScan was used throughout the case to assess our reduction, and facilitate implant placement. A gentle closed reduction was 1st performed on the patient's right distal radius fracture. Was assessed radiographically before proceeding with the reduction internal fixation. I then made an 8 cm longitudinal incision over the distal aspect of the flexor carpi radialis tendon. The incision was made through the skin to the subcutaneous tissue using a 15. Blade. Then carefully dissected down to flexor carpi radialis tendon she tenotomy scissors. The FCR tendon sheath was then incised longitudinally using tenotomy scissors under direct visualization. The FCR tendon was then retracted ulnarly. I then made a longitudinal incision in the volar forearm fascia through the floor of FCR tendon sheath using tenotomy scissors under direct visualization. I identified the interval between the radial artery and the flexor tendons. This interval was developed further with my index finger, releasing some of the muscular fibers of the flexor pollicis longus. A dull weatlander retractor was then placed. I then created an ulnarly based flap of the pronator quadratus by releasing the radial and distal edges using a 15. Blade. A Byrd elevator was used to elevate the pronator quadratus from the volar surface of the distal radius. This then revealed to us our distal radius fracture. An open reduction was then performed on our distal radius fracture. The reduction was held provisionally with a 0.062 K-wire that I passed through the radial styloid, across the fracture site and into the ulnar side of the shaft. I then placed a short narrow 3 hole Accu Med volar locking plate on the volar surface of the distal radius. I placed a single K-wire through the distal aspect of the plate and into the distal radius. This was assessed using fluoroscopic images. I was satisfied with the placement of our plate. I then placed for X 2.3 mm locking screws/pegs in the distal aspect of the plate and distal radius by 1st drilling bicortically with a 1.8 mm drill bit, measuring with a depth gauge, and placing the appropriate length locking screws/pegs. The placement of our plate and screws was then assessed again using fluoroscopic images. The once satisfied with the placement of the volar locking plate and s crews on the distal aspect of the distal radius, the plate was then reduced to the shaft of the radius. The provisionally placed oblique K-wire was removed as I was reducing the proximal limb of the plate to the shaft. I then placed 3 3.5 mm cortical screws to the proximal aspect of the plate and into the shaft of the radius. This was done by 1st drilling bicortically with a 2.8 mm drill bit, measuring with a depth gauge, and placing the appropriate length screw. Final radiographs were then obtained. The DRUJ was assessed and found to be stable on exam. I was satisfied with our reduction and placement of all implants. At this point the wound was irrigated with normal saline. The pronator quadratus was reduced back over the volar locking plate using some 3-0 Vicryl suture material. The tourniquet was then deflated and hemostasis was obtained with a brief period of local pressure and bipolar monopolar electrocautery. The subcutaneous layer was then reapproximated using some 4-0 Vicryl suture, and the skin edges were reapproximated using some 5 0 Prolene suture. The wound was then infiltrated with some 1% lidocaine with epinephrine postop pain control. A sterile dressing and a short dorsal splint allowing for active flexion and extension of the digits was applied. The patient appears to have tolerated the procedure well and with no complications. All digits were well vascularized conclusion of the case.
--- OUTSIDE RECORDS SUMMARY | 2024-06-24 13:40 | XMS_ITS | Patient Health Record ---
Author Organization [facility] Address [address] [place] [address] Care Team Providers Care Public Information Director Name Role Phone Pete Staton MD Primary Care Provider Jorge Luis Sweet [phone] ALLERGIES Allergen (clinical drug ingredient) Drug/Non Drug Allergy documented on EMR Reaction Allergy Type Onset Date Status Perfume Perfume Unknown Allergy Active nickel Nickel Unknown Allergy Active Benzocaine Unknown Drug Allergy Active animals (uncoded) Unknown Allergy Ac tive REASON FOR REFERRAL No Information MEDICATIONS Medication SIG (Take, Route, Frequency, Duration) Notes Start Date End Date Status amLODIPine Besylate 10mg Active Sertraline HCl 150mg Active Vitamin D3 50 MCG (1999 UT) TAKE 1 CAPSU LE BY MOUTH EVERY DAY Oral for 90 Active Iron Active Magnesium Active Vitamin B Complex Ac tive Glucosamine 1000mg A ctive ProAir HFA Active Loratadine 10 MG TAKE 1 TABLET BY GABRIELA TH DAILY NEEDED FOR ALLERGY SYMPTOMS Oral for 90 Active Wixela Inhub 250-50 MCG/ACT USE 1 INHALA TION TWICE A DAY Inhalation for 30 Active Omeprazole 20mg Acti ve Claritin Active IMMUNIZATIONS Vaccine Route Administration Date Status Comme nts Influenza Unknown 02/02/2021 Administered SOCIAL HISTORY Sex Assigned At : Social History Observation Description Sex Assigned At Unknown PROBLEMS Problem Type ICD Code Onset Dates Problem Status W/U Status Risk SNOMED Code Notes Problem Encounter for screening for malignant neoplasm of colon (Z12.11) Active confirmed Screening for malignant neoplasm of colon (728409665) Problem Hiatal hernia (K44.9) Active confirmed Hiatal hernia (58971100) Problem GERD without esophagitis (K21.9) Active confirmed Gastroesophagea l reflux disease (952739535) Problem LUQ abdominal pain (R10.12) Active confirmed Left upper neil drant pain (173633624) VITAL SIGNS Blood pressure diastolic 00 mm Hg 04/22/2024 Height 62 in 04/22/2024 Blood pressure systolic 00 mm Hg 04/22/2024 Weight 166 lbs 04/22/2024 BMI 30.36 kg/m2 04/22/2024 Encounters Encounter Location Date Provider Diagnosis [facility] [address] [place] [address] 04/22/2024 Jorge Luis Galvan GERD without esophagitis K21.9 ; Encounter for screening for malignant neoplasm of colon Z12.11 and Hiatal hernia K44.9 ASSESSMENTS Encounter Date Diagnosis Assessment Notes Treatment Notes Treatment Clinical Notes 04/22/2024 Encounter for screening for malignant neoplasm of colon (ICD-10 - Z12.11) 04/22/2024 GERD without esophagitis (ICD-10 - K21.9) 04/22/2024 Hiatal hernia (ICD-10 - K44.9) PLAN OF TREATMENT Future Test Test Name Order Date UPPER GI ENDOSCOPY 09/02/2013 COLONOSCOPY 09/02/2013 UPPER GI ENDOSCOPY 04/22/2024 COLONOSCOPY 04/22/2024 Next Appt Details Provider Name:Jorge Luis Galvan , 08/06/2024 12:40:00 PM, [address] [place] [address] , [place], [place], [phone], Insurance Providers Payer Name Payer Address Payer Phone Subscriber Number Group Number Insured Name Patient Relationship to Insured Coverage Start Date Coverage End Date [facility] [address] [place] [address] [id number] KRISHNA SMITH Self - patient is the insured MEDICAL (GENERAL) HISTORY Medical History History ICD Code Colonoscopy in 2002 neg except for a hyp erplastic polyp, and hemorrhoids GERD/Vela's Esophagus--EG D's in 2003 and 2006-bx neg for Vela's--EGD in 2001 showed a tiny area of Vela's-no dysplasia---small to moderate-sized HH; EGD in 11/2013 was negative for Vela's again; small to moderate-sized HH Asthma Denies [place],DM,CVA,renal disease 08/2013-[place] [facility] [place]neg [place]--saw Dr. Sweet--has been told of need for an ETT HTN On Sertraline-originally for hot flashes , but now for depression/anxiety Borderline anemia on August 022013 with a hemoglobin of 11.0 and MCV of 81--laboratories on August 21 showed a hemoglobin of 12.2, MCV of 86, iron of 89, iron saturation 30%, ferritin of 122, and normal B12 and folate levels Splenomegaly--seen by Dr. Sae farfan in 09/2021---fatty liver--felt to be due to EtOH Negative colonoscopy in 11/2013 Cataracts Surgical History Surgery Date(Month/Year) Tonsillectomy Tubal ligation Bilateral knee replacements in 2020 Right eye surgery due to an injury
--- OUTSIDE RECORDS SUMMARY | 2024-06-24 13:40 | XMS_ITS ---
Author Organization [facility] Address [address] [place] [address] Care Team Providers Care Track Surfacing Machine Operator Name Role Phone Pete Staton MD Primary Care Provider Jorge Luis Sweet [phone] ALLERGIES Allergen (clinical drug ingredient) Drug/Non Drug Allergy documented on EMR Reaction Allergy Type Onset Date Status Perfume Perfume Unknown Allergy Active nickel Nickel Unknown Allergy Active Benzocaine Unknown Drug Allergy Active animals (uncoded) Unknown Allergy Ac tive REASON FOR VISIT Patient presents today for a COLON SCREENING MEDICATIONS Medication SIG (Take, Route, Frequency, Duration) Notes Start Date End Date Status Magnesium Active Vitamin B Complex Ac tive Glucosamine 1000mg A ctive ProAir HFA Active Claritin Active amLODIPine Besylate 10mg Active Sertraline HCl 150mg Active Iron Active Vitamin D3 50 MCG (1999 UT) TAKE 1 CAPSU LE BY MOUTH EVERY DAY Oral for 90 Active Loratadine 10 MG TAKE 1 TABLET BY GABRIELA TH DAILY NEEDED FOR ALLERGY SYMPTOMS Oral for 90 Active Wixela Inhub 250-50 MCG/ACT USE 1 INHALA TION TWICE A DAY Inhalation for 30 Active Omeprazole 20mg Acti ve PROBLEMS Problem Type ICD Code Onset Dates Problem Status W/U Status Risk SNOMED Code Notes Problem Hiatal hernia (K44.9) Active confirmed Hiatal hernia (19359489) VITAL SIGNS BMI 30.36 kg/m2 04/22/2024 Blood pressure systolic 00 mm Hg 04/22/20 24 Blood pressure diastolic 00 mm Hg 024 Height 62 in 04/22/2024 Weight 166 lbs 04/22/2024 Encounters Encounter Location Date Provider Diagnosis [facility] [address] [place] [address] 04/22/2024 Jorge Luis Galvan GERD without esophagitis K21.9 ; Encounter for screening for malignant neoplasm of colon Z12.11 and Hiatal hernia K44.9 ASSESSMENTS Encounter Date Diagnosis Assessment Notes Treatment Notes Treatment Clinical Notes 04/22/2024 GERD without esophagitis (ICD-10 - K21.9) 04/22/2024 Encounter for screening for malignant neoplasm of colon (ICD-10 - Z12.11) 04/22/2024 Hiatal hernia (ICD-10 - K44.9) PLAN OF TREATMENT Future Test Test Name Order Date UPPER GI ENDOSCOPY 04/22/2024 COLONOSCOPY 04/22/2024 Next Appt Details Follow Up: prn, Reason: Provider Name:Jorge Luis Galvan , 08/06/2024 12:40:00 PM, [address] [place] [address] , [place], [place], [phone], Progress Notes * Examination Category Sub-Category Detail Notes General Examination GENERAL APPEARANCE: pleasant , well nourished, well developed, in no acute distress EYES: sclera non-icteric NECK/THYROID: no cervical lymphade nopathy, neck supple HEART: S1, S2 normal LUNGS: clear to auscultatio n bilaterally ABDOMEN: normal bowel sounds, no guarding or rigidity, no hepatosplenomegaly, no masses palpable, soft, nontender, nondistended. NEUROLOGIC: alert and oriented SKIN: nonjaundiced, no spi nikolay angiomata. EXTREMITIES: no edema ORAL CAVITY: mucosa moist
== END 2024-06-24 17:30 | disposition home or self-care (01) ==
PROVIDERS: PCP Internal Medicine; Visit Provider Orthopaedic Surgery
PROC: (CPT 25607; principal; 2024-06-24 13:30)
PROC: (CPT 64721; 2024-06-24 13:30)
DX: S52.501A Unspecified fracture of the lower end of right radius, initial encounter for closed fracture (principal); G56.01 Carpal tunnel syndrome, right upper limb; M25.531 Pain in right wrist; R20.0 Anesthesia of skin; R20.2 Paresthesia of skin; W18.39XA Other fall on same level, initial encounter; Y93.89 Activity, other specified; Y92.63 Factory as the place of occurrence of the external cause; Y99.0 Civilian activity done for income or pay; L40.9 Psoriasis, unspecified; M17.0 Bilateral primary osteoarthritis of knee; R73.02 Impaired glucose tolerance (oral); E78.00 Pure hypercholesterolemia, unspecified; J45.909 Unspecified asthma, uncomplicated; I10 Essential (primary) hypertension; M81.0 Age-related osteoporosis without current pathological fracture; F41.8 Other specified anxiety disorders; Z79.1 Long term (current) use of non-steroidal anti-inflammatories (NSAID); Z79.51 Long term (current) use of inhaled steroids; Z79.899 Other long term (current) drug therapy; Z88.1 Allergy status to other antibiotic agents; Z88.8 Allergy status to other drugs, medicaments and biological substances; Z98.890 Other specified postprocedural states; Z87.891 Personal history of nicotine dependence
CPT/HCPCS: 25607; 64721; C1713; J0131; J0690; J1171; J2003; J2004; J2704; J2795; J3010

== ENCOUNTER → 2024-06-24 11:54 | Outpatient (BNV) | payer OTHER, MEDICARE, SELFPAY | PROVIDERS: PCP Internal Medicine; Visit Provider Orthopaedic Surgery | DX: S52.551A Other extraarticular fracture of lower end of right radius, initial encounter for closed fracture (principal); G56.01 Carpal tunnel syndrome, right upper limb | CPT/HCPCS: 25607 ==

== ENCOUNTER 2024-07-09 09:27 | Outpatient (REF) | payer OTHER, MEDICARE, SELFPAY ==
--- NOTE | ~2024-07-09 | XR_ITS ---
CLINICAL HISTORY: M25.531 - Pain in right wrist 3 view right wrist Comparison: 06/18/2024 Findings: Iatrogenic findings with surgical hardware and minimal healing of distal radial fracture noted. There is no significant change in alignment of ulnar styloid process fracture Bones otherwise intact. No dislocations. No significant loss of joint space, osteophyte, or erosions. No either radiopaque foreign body. IMPRESSION: 1. Healing distal radial fracture. 2. Ulnar styloid process fracture, unchanged. This document has been electronically signed by: Valentin Alcala MD on 07/11/2024 08:28:00
--- OUTSIDE RECORDS SUMMARY | 2024-07-11 10:00 | XMS_ITS | Patient Health Record ---
Author Organization [facility] Address [address] [place] [address] Care Team Providers Care Baggage Smasher Name Role Phone Pete Staton MD Primary Care Provider Jorge Luis Sweet [phone] ALLERGIES Allergen (clinical drug ingredient) Drug/Non Drug [...] confirmed Screening for malignant neoplasm of colon (446192077) Problem Hiatal hernia (K44.9) Active confirmed Hiatal hernia (76448797) Problem GERD without esophagitis (K21.9) Active confirmed Gastroesophagea l reflux disease (863336192) Problem LUQ abdominal pain (R10.12) Active confirmed Left upper neil drant pain (273468847) VITAL SIGNS Blood pressure diastolic 00 mm Hg 04/22/2024 Height 62 in 04/22/2024 Blood pressure systolic 00 mm Hg 04/22/2024 Weight 166 lbs 04/22/2024 BMI 30.36 kg/m2 04/22/2024 Encounters Encounter Location Date Provider Diagnosis [facility] [address] [place] [address] 04/22/2024 Jorg eLuis Galvan GERD without esophagitis K21.9 ; Encounter [...] 04/22/2024 Next Appt Details Provider Name:Jorge Luis Galavn , 08/06/2024 12:40:00 PM, [address] [place] [address] , [place], [place], [phone], Insurance Providers Payer Name Payer Address Payer Phone Subscriber Number Group Number Insured Name Patient Relationship to Insured Coverage Start Date Coverage End Date [facility] [address] [place] [address] [id number] KRISHNA SMITH Self - patient is the [...] again; small to moderate-sized HH Asthma Denies [place],DM,CVA,renal disease 08/2013-hospitalized at [facility] [place] f or CP--neg [place]--saw Dr. Sweet--has been told of need for [...]
--- OUTSIDE RECORDS SUMMARY | 2024-07-11 10:00 | XMS_ITS ---
Author Organization [facility] Address [address] [place] [address] Care Team Providers Care Senior Planning Analyst Name Role Phone Pete Staton MD Primary Care Provider Jorge Luis Sweet [phone] ALLERGIES Allergen (clinical drug ingredient) Drug/Non Drug [...] Hiatal hernia (K44.9) Active confirmed Hiatal hernia (48388116) VITAL SIGNS BMI 30.36 kg/m2 04/22/2024 Blood pressure systolic 00 mm Hg 04/22/20 24 Blood pressure diastolic 00 mm Hg 024 Height 62 in 04/22/2024 Weight 166 lbs 04/22/2024 Encounters Encounter Location Date Provider Diagnosis [facility] [address] [place] [address] 04/22/2024 Jorge Luis Galvan GERD without esophagitis [...] Name:Jorge Luis Galvan , 08/06/2024 12:40:00 PM, [address] [place] [address] , [place], [place], [phone], Progress Notes * Examination Category Sub-Category Detail [...]
== END 2024-07-09 09:28 | disposition home or self-care (01) ==
LOC: HO.HOSX 09:27
PROVIDERS: Visit Provider Orthopaedic Surgery
DX: M25.531 Pain in right wrist (principal); S52.501A Unspecified fracture of the lower end of right radius, initial encounter for closed fracture; X58.XXXA Exposure to other specified factors, initial encounter; Y93.9 Activity, unspecified; Y92.9 Unspecified place or not applicable; Y99.9 Unspecified external cause status; G56.01 Carpal tunnel syndrome, right upper limb; E11.65 Type 2 diabetes mellitus with hyperglycemia
CPT/HCPCS: 73110; 99212

== ENCOUNTER 2024-07-09 11:59 | Outpatient (AMB) | payer OTHER, MEDICARE, SELFPAY ==
--- NOTE | 2024-07-09 12:19 | MHC.OFFVIS ---
Intake Visit Reasons: PO RT distal radius ORIF 06/24/24 AR Allergies bacitracin [From Neosporin ([id number])] Allergy (Unknown, Verified 07/07/24 08:39) Unknown benzocaine Allergy (Unknown, Verified 07/07/24 08:39) Unknown lisinopril Allergy (Unknown, Verified 07/07/24 08:39) Unknown neomycin [From Neosporin ([id number]-[id number])] Allergy (Unknown, Verified 07/07/24 08:39) Unknown nickel Allergy (Unknown, Verified 07/07/24 08:39) Unknown polymyxin B [From Neosporin ([id number]-gaf-[id number])] Allergy (Unknown, Verified 07/07/24 08:39) Unknown hydrochlorothiazide Adverse Reaction (Intermediate, Verified 07/07/24 08:39) hypokalemia HPI HPI PO RT distal radius ORIF 06/24/24 AR: Details: Tiffanie is a 68 year old 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 woman who returns S/P right distal radius ORIF & carpal tunnel release, DOS: 06/24/24. She says she is doing okay . She continues to have some pain in her wrist, and she says she still has numbness in her thumb. She says her sensation in her index & middle fingers are now normal. [facility] Medical History Impaired glucose tolerance Breast cancer screening by mammogram Splenomegaly Siriasis Adverse effect of contrast media Diarrhea LUQ abdominal pain Diverticulosis Vela's esophagus Anxiety and depression Psoriasis Osteoporosis Hypercholesterolemia GERD (gastroesophageal reflux disease) Asthma Knee osteoarthritis Hypertension Allergic rhinitis Surgical History History of eye surgery History of tubal ligation History of tonsillectomy History of arthroplasty of right knee History of arthroplasty of left knee Family History Father No problems noted. Mother Ovarian cancer Myocardial infarction Paternal Grandmother Bladder cancer Paternal Aunt Bladder cancer Paternal Uncle Bladder cancer Social History Household Members: Spouse and Children Housing: House Are you a primary urgent care physician assistant to a significant other at home: No Do you presently have visiting nurse or other home services: No Alcohol intake: current Alcohol intake frequency: a few times a month Patient Tobacco Use Status: Former Tobacco user Tobacco use type: Cigarette e-Cigarette/Vaping Use: Never Used Second Hand Smoke Exposure: No Substance Use Type: Marijuana service: No Current occupational status: employed 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 Sutures removed and Steri-Strips applied With encouragement she can make a fist and extend all her digits Numbness in the thumb, normal sensation to all other digits Cap refill is brisk Radiographs: 3 views of the right wrist were taken and viewed by me today in clinic. they show a distal radius fracture with satisfactory fracture alignment and position of all implants. Psych Appearance: grossly normal Affect: normal affect Attitude: cooperative Assessment & Plan Assessment & Plan (1) Distal radius fracture, right: Code(s): S52.501A - Unspecified fracture of the lower end of right radius, initial encounter for closed fracture Category: Medical (2) Type 2 diabetes mellitus with hyperglycemia: Code(s): E11.65 - Type 2 diabetes mellitus with hyperglycemia Category: Medical (3) Carpal tunnel syndrome of right wrist: Code(s): G56.01 - Carpal tunnel syndrome, right upper limb Category: Medical Plan Assessment & Plan: 1. Right distal radius fracture, S/P ORIF DOI: 06/17/24 DOS: 06/24/24 2. Right carpal tunnel syndrome, S/P release DOS: 06/24/24 Now with numbness in the thumb and normal sensation to the index & middle fingers The patient appears to be doing well post-operatively I educated her about the post-operative course She was fitted for a velcro wrist splint, to be worn like a cast except for showering, for the next 4 weeks I explained the signs and symptoms of infection. 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 She was given a note for work to remain out of work until her next appointment She will follow up in 3 weeks, with X-rays, 3V R wrist, OOP Scribed for Susi Verdin MD by Dariel Bergeron, medical billing supervisor, on 07/09/24 at 12:20 PM, EST. Orders: Orders XR wrist RT min 3V Today M25.531 - Pain in right wrist Coding Level of Care Code Global (57649) Diagnoses Distal radius fracture, right S52.501A Type 2 diabetes mellitus with hyperglycemia E11.65 Carpal tunnel syndrome of right wrist G56.01
== END 2024-07-09 12:55 | disposition home or self-care (01) ==
PROVIDERS: PCP Internal Medicine; Visit Provider Orthopaedic Surgery
DX: S52.501A Unspecified fracture of the lower end of right radius, initial encounter for closed fracture (principal); E11.65 Type 2 diabetes mellitus with hyperglycemia; G56.01 Carpal tunnel syndrome, right upper limb
CPT/HCPCS: 99024

== ENCOUNTER → 2024-07-09 12:01 | Outpatient (BNV) | payer OTHER, MEDICARE, SELFPAY | PROVIDERS: Visit Provider Specialist | DX: S52.611A Displaced fracture of right ulna styloid process, initial encounter for closed fracture (principal); S52.501D Unspecified fracture of the lower end of right radius, subsequent encounter for closed fracture with routine healing | CPT/HCPCS: 73110 ==

== ENCOUNTER 2024-07-30 09:51 | Outpatient (REF) | payer OTHER, MEDICARE, SELFPAY ==
--- NOTE | ~2024-07-30 | XR_ITS ---
EXAMINATION: XR WRIST, RIGHT CLINICAL INFORMATION: M25.531 - Pain in right wrist COMPARISON: 07/09/2024. TECHNIQUE: PA, lateral, and oblique views of the right wrist. FINDINGS: There is mild disuse osteopenia. Stable volar plate and screw fixation of comminuted distal radial fracture. Hardware intact, normally aligned, with no periprosthetic abnormality. There is gross anatomic alignment of the fracture. Fracture margins are blunted, with periostitis and subtle new bone formation present, indicating continued healing. There is a unchanged appearance of the ulnar styloid fracture. Moderate osteoarthrosis in the first CMC joint and STT joints. Improving soft tissue swelling. XR/XR wrist RT min 3V IMPRESSION: 1. Healing fixated distal radial fracture in anatomic alignment. No complications. 2. No significant change in appearance of ulnar styloid fracture. 3. Disuse osteopenia. Electronically signed by: Osmar Moulton MD 07/30/2024 04:07 PM ALISON
--- OUTSIDE RECORDS SUMMARY | 2024-07-30 11:38 | XMS_ITS | Patient Health Record ---
Author Organization [facility] Address [address] [place] [address] Care Team Providers Care Staff Counselor Name Role Phone Pete Staton MD Primary Care Provider Jorge Luis Sweet [phone] ALLERGIES Allergen (clinical drug ingredient) Drug/Non Drug [...] confirmed Screening for malignant neoplasm of colon (843227516) Problem Hiatal hernia (K44.9) Active confirmed Hiatal hernia (61652299) Problem GERD without esophagitis (K21.9) Active confirmed Gastroesophagea l reflux disease (874995009) Problem LUQ abdominal pain (R10.12) Active confirmed Left upper neil drant pain (250794957) VITAL SIGNS Blood pressure diastolic 00 mm Hg 04/22/2024 Height 62 in 04/22/2024 Blood pressure systolic 00 mm Hg 04/22/2024 Weight 166 lbs 04/22/2024 BMI 30.36 kg/m2 04/22/2024 Encounters Encounter Location Date Provider Diagnosis [facility] [address] [place] [address] 04/22/2024 Jorge Luis Galvan GERD without esophagitis [...] Name:Jorge Luis Galvan , 08/06/2024 11:50:00 AM, [address] [place] [address] , [place], [place], [phone], Insurance Providers Payer Name Payer Address Payer Phone Subscriber Number Group Number Insured Name Patient Relationship to Insured Coverage Start Date Coverage End Date [facility] [address] [place] [address] [phone] [id number] KRISHNA SMITH Self - patient is the [...] again; small to moderate-sized HH Asthma Denies [place],DM,CVA,renal disease 08/2013-hospitalized at [facility] [place]--neg [place]--saw Dr. Sweet--has been told of need for [...]
--- OUTSIDE RECORDS SUMMARY | 2024-07-30 11:38 | XMS_ITS ---
Author Organization [facility] Address [address] [place] [address] Care Team Providers Care Submarine Diver Name Role Phone Pete Staton MD Primary Care Provider Jorge Luis Sweet [phone] ALLERGIES Allergen (clinical drug ingredient) Drug/Non Drug [...] Hiatal hernia (K44.9) Active confirmed Hiatal hernia (39709705) VITAL SIGNS Blood pressure systolic 00 mm Hg 04/22/20 24 Blood pressure diastolic 00 mm Hg 024 Height 62 in 04/22/2024 Weight 166 lbs 04/22/2024 BMI 30.36 kg/m2 04/22/2024 Encounters Encounter Location Date Provider Diagnosis [facility] [address] [place] [address] 04/22/2024 Jorge Luis Galvan GERD without esophagitis [...] Name:Jorge Luis Galvan , 08/06/2024 11:50:00 AM, [address] [place] [address] , [place], [place], [phone], Progress Notes * Examination Category Sub-Category Detail [...]
== END 2024-07-30 09:52 | disposition home or self-care (01) ==
LOC: HO.HOSX 09:51
PROVIDERS: Visit Provider Orthopaedic Surgery
DX: M25.531 Pain in right wrist (principal); S52.501D Unspecified fracture of the lower end of right radius, subsequent encounter for closed fracture with routine healing; E11.65 Type 2 diabetes mellitus with hyperglycemia; G56.01 Carpal tunnel syndrome, right upper limb; Z98.890 Other specified postprocedural states
CPT/HCPCS: 73110; 99212

== ENCOUNTER 2024-07-30 12:19 | Outpatient (AMB) | payer OTHER, MEDICARE, SELFPAY ==
--- NOTE | 2024-07-30 12:35 | A.OFFVIS_ITS ---
Intake Visit Reasons: PO RT distal radius ORIF 06/24/24 AR Intake Note: Tiffanie is a 68 year old female who presents today for a post op appointment s/p right distal radius ORIF 06/24/24 AR. Patient reports she is feeling better every day. She notices a tender spot on her ulnar aspect of the elbow. Allergies bacitracin [From Neosporin (avf-pmz-baaca)] Allergy (Unknown, Verified 07/30/24 12:46) Unknown benzocaine Allergy (Unknown, Verified 07/30/24 12:46) Unknown lisinopril Allergy (Unknown, Verified 07/30/24 12:46) Unknown neomycin [From Neosporin (ily-xmp-yvinn)] Allergy (Unknown, Verified 07/30/24 12:46) Unknown nickel Allergy (Unknown, Verified 07/30/24 12:46) Unknown polymyxin B [From Neosporin (qjt-vso-rplun)] Allergy (Unknown, Verified 07/30/24 12:46) Unknown hydrochlorothiazide Adverse Reaction (Intermediate, Verified 07/30/24 12:46) hypokalemia HPI HPI PO RT distal radius ORIF 06/24/24 AR: Details: Tiffanie is a 68 year old 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 woman who returns S/P right distal radius ORIF & carpal tunnel release, DOS: 06/24/24. She says she hit her head when she fell. She says this occurred at her workplace, while she was not on the clock She says she is doing better than before and feels she continues to improve. She does complain of a tender spot on her elbow. She says she has just started to improve her finger ROM and work on making a fist. She continues to have numbness in her thumb, and improving but not yet normal sensation in the index & middle fingers. She says with certain motions or positions of her arm she feels numbness which radiates from her shoulder down into her fingers. She does say this is improving somewhat. [facility] Medical History Impaired glucose tolerance Breast cancer screening by mammogram Splenomegaly Siriasis Adverse effect of contrast media Diarrhea LUQ abdominal pain Diverticulosis Vela's esophagus Anxiety and depression Psoriasis Osteoporosis Hypercholesterolemia GERD (gastroesophageal reflux disease) Asthma Knee osteoarthritis Hypertension Allergic rhinitis Surgical History History of eye surgery History of tubal ligation History of tonsillectomy History of arthroplasty of right knee History of arthroplasty of left knee Family History Father No problems noted. Mother Ovarian cancer Myocardial infarction Paternal Grandmother Bladder cancer Paternal Aunt Bladder cancer Paternal Uncle Bladder cancer Social History Household Members: Spouse and Children Housing: House Are you a primary healthcare management to a significant other at home: No Do you presently have visiting nurse or other home services: No Alcohol intake: current Alcohol intake frequency: a few times a month Patient Tobacco Use Status: Former Tobacco user Tobacco use type: Cigarette e-Cigarette/Vaping Use: Never Used Second Hand Smoke Exposure: No Substance Use Type: Marijuana service: No Current occupational status: employed 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 She can make a fist an extend all her digits Wrist ROM: Full wrist pronation Supination ~65 degrees Flexion ~45 degrees Extension ~40 degrees Dense numbness in the thumb, improving but not yet normal sensation to the index & middle fingers. Normal sensation to the ring & small fingers. Cap refill is brisk Radiographs: 3 views of the right wrist were taken and viewed by me today in clinic. they show a distal radius fracture with satisfactory fracture alignment, position of all implants, and early evidence of interval bony healing. Psych Appearance: grossly normal Affect: normal affect Attitude: cooperative Assessment & Plan Assessment & Plan (1) Distal radius fracture, right: Code(s): S52.501A - Unspecified fracture of the lower end of right radius, initial encounter for closed fracture Category: Medical (2) Type 2 diabetes mellitus with hyperglycemia: Code(s): E11.65 - Type 2 diabetes mellitus with hyperglycemia Category: Medical (3) Carpal tunnel syndrome of right wrist: Code(s): G56.01 - Carpal tunnel syndrome, right upper limb Category: Medical Plan Assessment & Plan: 1. Right distal radius fracture, S/P ORIF After a fall, DOI: 06/17/24 DOS: 06/24/24 She says this occurred at her workplace, while she was not on the clock 2. Right carpal tunnel syndrome, S/P release DOS: 06/24/24 Now with numbness in the thumb and normal sensation to the index & middle fingers The patient appears to be doing well post-operatively I educated her about the post-operative course She will discontinue her splint at this time. She will continue to wear this out of the house with daily activities for the next 2 weeks I discussed activity modifications, she is able to use her wrist for lightweight activities. She is still to avoid any heavy impact activities for the next 6 weeks She will perform finger & wrist ROM exercises at home. 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 She was given a note for work to return to light duty, with a 3lb weight limit with her RUE and time off for OT hand therapy, effective 08/07/24, until her next appointment She will follow up in 4-5 weeks for a ROM check Scribed for Susi Verdin MD by Dariel Bergeron, medical staff specialist, on 07/29/24 at 1:05 PM, EST. Orders: Orders XR wrist RT min 3V Today M25.531 - Pain in right wrist OT Evaluation and Treatment Today G56.01 - Carpal tunnel syndrome, right upper limb, S52.501A - Unspecified fracture of the lower end of right radius, initial encounter for closed fracture Coding Level of Care Code Global (58708) Diagnoses Distal radius fracture, right S52.501A Type 2 diabetes mellitus with hyperglycemia E11.65 Carpal tunnel syndrome of right wrist G56.01
== END 2024-07-30 13:21 | disposition home or self-care (01) ==
PROVIDERS: PCP Internal Medicine; Visit Provider Orthopaedic Surgery
DX: S52.501A Unspecified fracture of the lower end of right radius, initial encounter for closed fracture (principal); E11.65 Type 2 diabetes mellitus with hyperglycemia; G56.01 Carpal tunnel syndrome, right upper limb
CPT/HCPCS: 99024

== ENCOUNTER → 2024-07-30 12:26 | Outpatient (BNV) | payer OTHER, MEDICARE, SELFPAY | PROVIDERS: Visit Provider Radiology Diagnostic Radiology | DX: S52.501D Unspecified fracture of the lower end of right radius, subsequent encounter for closed fracture with routine healing (principal); M85.80 Other specified disorders of bone density and structure, unspecified site | CPT/HCPCS: 73110 ==

== ENCOUNTER 2024-08-06 10:22 | Day surgery (SDC) | payer OTHER, MEDICARE, SELFPAY ==
--- OUTSIDE RECORDS SUMMARY | 2024-07-29 16:49 | XMS_ITS | Patient Health Record ---
Author Organization [facility] Address [address] [place] [address] Care Team Providers Care Orthotist Or Prosthetist Name Role Phone Pete Staton MD Primary Care Provider Jorge Luis Sweet [phone] ALLERGIES Allergen (clinical drug ingredient) Drug/Non Drug Allergy documented on EMR Reaction Allergy Type Onset Date Status nickel Nickel Unknown Allergy Active Benzocaine Unknown Drug Allergy Active animals (uncoded) Unknown Allergy Ac tive Perfume Perfume Unknown Allergy Active REASON FOR REFERRAL No Information MEDICATIONS Medication [...] confirmed Screening for malignant neoplasm of colon (745626448) Problem Hiatal hernia (K44.9) Active confirmed Hiatal hernia (03348345) Problem GERD without esophagitis (K21.9) Active confirmed Gastroesophagea l reflux disease (973536818) Problem LUQ abdominal pain (R10.12) Active confirmed Left upper neil drant pain (361886928) VITAL SIGNS Blood pressure diastolic 00 mm Hg 04/22/2024 Height 62 in 04/22/2024 Blood pressure systolic 00 mm Hg 04/22/2024 Weight 166 lbs 04/22/2024 BMI 30.36 kg/m2 04/22/2024 Encounters Encounter Location Date Provider Diagnosis [facility] [address] [place] [address] 04/22/2024 Jorge Luis Galvan GERD without esophagitis [...] Details Provider Name:Jorge Luis Galvan , 08/06/2024 11:50:00 AM, [address] [place] [address] , [place], [place], [phone], Insurance Providers Payer Name Payer Address Payer Phone Subscriber Number Group Number Insured Name Patient Relationship to Insured Coverage Start Date Coverage End Date [facility] [address] [place] [address] [phone] [id number] KRISHNA SMITH Self - patient is the [...] again; small to moderate-sized HH Asthma Denies [place],DM,CVA,renal disease 08/2013-hospitalized at [facility] [place] f or [place]--neg [place]--saw Dr. Sweet--has been told of need for [...]
--- OUTSIDE RECORDS SUMMARY | 2024-07-29 16:49 | XMS_ITS ---
Author Organization [facility] Address [address] [place] [address] Care Team Providers Care Internet Project Manager Name Role Phone Pete Staton MD Primary Care Provider Jorge Luis Sweet [phone] ALLERGIES Allergen (clinical drug ingredient) Drug/Non Drug [...] Hiatal hernia (K44.9) Active confirmed Hiatal hernia (47956163) VITAL SIGNS Blood pressure systolic 00 mm Hg 04/22/20 24 Blood pressure diastolic 00 mm Hg 024 Height 62 in 04/22/2024 Weight 166 lbs 04/22/2024 BMI 30.36 kg/m2 04/22/2024 Encounters Encounter Location Date Provider Diagnosis [facility] [address] [place] [address] 04/22/2024 Jorge Luis Galvan GERD without esophagitis [...] Reason: Provider Name:Jorge Luis Galvan , 08/06/2024 11:50:00 AM, [address] [place] [address] , [place], [place], [phone], Progress Notes * Examination Category Sub-Category Detail [...]
[2024-08-04 13:48] VITALS: BMI 30.4
--- NOTE | 2024-08-05 12:48 | P.CONAN_ITS ---
Documented by User: Maki Howell NP 08/05/24 12:50 HPI - Anesthesia Eval Consult details Narrative: 69yo F for Upper Endoscopy and Colonoscopy s/p radius ORIF 06/2024 with LMA 4, nerve block PMFSH Active Problems Active Problems: All Active Problems Carpal tunnel syndrome of right wrist (Acute) Distal radius fracture, right (Acute) Vision changes (Acute) Colon cancer screening (Acute) Folic acid deficiency (Acute) Hypokalemia (Acute) SOB (shortness of breath) (Acute) Type 2 diabetes mellitus with hyperglycemia (Acute) Pneumonia (Acute) Anemia (Acute) Recurrent UTI (urinary tract infection) (Acute) Upper respiratory tract infection (Acute) Cystitis (Acute) Gross hematuria (Acute) Asthmatic bronchitis (Acute) Hematuria (Acute) Alcohol abuse (Acute) Urinary tract infection (Acute) Splenomegaly (Acute) Psoriasis (Acute) Psoriasis (Acute) Diverticulosis (Acute) Vela's esophagus (Acute) Anxiety and depression (Acute) Osteoporosis (Acute) Hypercholesterolemia (Acute) GERD (gastroesophageal reflux disease) (Acute) Asthma (Acute) Knee osteoarthritis (Acute) Hypertension (Acute) Allergic rhinitis (Acute) Past Medical History Medical History Alcohol dependence Anemia Breast cancer screening by mammogram Splenomegaly Diarrhea LUQ abdominal pain Diverticulosis Impaired glucose tolerance Vela's esophagus Anxiety and depression Psoriasis Osteoporosis Hypercholesterolemia GERD (gastroesophageal reflux disease) Asthma Knee osteoarthritis Hypertension Allergic rhinitis Family History Family History Father No problems noted. Mother Ovarian cancer Myocardial infarction Paternal Grandmother Bladder cancer Paternal Aunt Bladder cancer Paternal Uncle Bladder cancer Family history of problems with anesthesia: No Surgical History Surgical History History of open reduction and internal fixation (ORIF) procedure History of eye surgery History of tubal ligation History of tonsillectomy History of arthroplasty of right knee History of arthroplasty of left knee History of Problems with Anesthesia: No Social History Social History Household Members: Spouse and Children Housing: House Are you a primary care professional to a significant other at home: No Do you presently have visiting nurse or other home services: No Alcohol intake: current Alcohol intake frequency: holidays/special occasions only Patient Tobacco Use Status: Former Tobacco user Tobacco use type: Cigarette e-Cigarette/Vaping Use: Never Used Second Hand Smoke Exposure: No Use of substances other than those prescribed or required for medical reasons: No Substance Use Type: Marijuana Substance Use Frequency: Daily Have you been hit, kicked, punched, or otherwise hurt by someone within the past year? If so, by whom?: No Are you DNR?: No Advance Directives: No Advance Directives Information Provided: Yes Recently lost weight without trying: No Nutrition Risks: No Nutritional Risk Patient : No service: No Current occupational status: employed Current occupation: [employer], 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 Cognitive needs: No Hearing needs: No Vision needs: Yes Meds Allergies Allergy/AdvReac Type Severity Reaction Status Date / Time bacitracin Allergy Unknown Unknown Verified 08/06/24 10:42 [From Neosporin ([id number]-rks-duxlv)] benzocaine Allergy Unknown Unknown Verified 08/06/24 10:42 Iodinated Contrast Media Allergy Unknown Unknown Verified 08/06/24 10:42 [IV Contrast Dye] lisinopril Allergy Unknown Unknown Verified 08/06/24 10:42 neomycin Allergy Unknown Unknown Verified 08/06/24 10:42 [From Neosporin (aka-ghd-pynmk)] nickel Allergy Unknown Unknown Verified 08/06/24 10:42 polymyxin B Allergy Unknown Unknown Verified 08/06/24 10:42 [From Neosporin (drz-lws-bjspi)] hydrochlorothiazide AdvReac Intermediate hypokalemia Verified 08/06/24 10:42 Exam Height,Weight and Vital Signs: Height 5 ft 2 in Weight 75.296 kg Pertinent Lab Results Pertinent Lab Results: Laboratory Tests 06/17/24 10:17 WBC 7.8 Hgb 11.4 L Hct 32.7 L Plt Count 189 Sodium 140 Potassium 3.5 Chloride 104 Carbon Dioxide 30 H BUN 17 H Creatinine 0.83 Assessment and Plan Assessment Anesthesia Assessment: Chart Reviewed Final Anesthetic Review Family History of Problems with Anesthesia: No History of Problems with Anesthesia: No Documented by User: Lakshmi Case MD 08/06/24 11:12 [facility] Past Medical History Medical History Alcohol dependence Anemia Breast cancer screening by mammogram Splenomegaly Diarrhea LUQ abdominal pain Diverticulosis Impaired glucose tolerance Vela's esophagus Anxiety and depression Psoriasis Osteoporosis Hypercholesterolemia GERD (gastroesophageal reflux disease) Asthma Knee osteoarthritis Hypertension Allergic rhinitis Family History Family History Father No problems noted. Mother Ovarian cancer Myocardial infarction Paternal Grandmother Bladder cancer Paternal Aunt Bladder cancer Paternal Uncle Bladder cancer Surgical History Surgical History History of open reduction and internal fixation (ORIF) procedure History of eye surgery History of tubal ligation History of tonsillectomy History of arthroplasty of right knee History of arthroplasty of left knee Social History Social History Household Members: Spouse and Children Housing: House Are you a primary care professional to a significant other at home: No Do you presently have visiting nurse or other home services: No Alcohol intake: current Alcohol intake frequency: holidays/special occasions only Patient Tobacco Use Status: Former Tobacco user Tobacco use type: Cigarette e-Cigarette/Vaping Use: Never Used Second Hand Smoke Exposure: No Use of substances other than those prescribed or required for medical reasons: No Substance Use Type: Marijuana Substance Use Frequency: Daily Have you been hit, kicked, punched, or otherwise hurt by someone within the past year? 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 Cognitive needs: No Hearing needs: No Vision needs: Yes Meds Allergies Allergy/AdvReac Type Severity Reaction Status Date / Time bacitracin Allergy Unknown Unknown Verified 08/06/24 10:42 [From Neosporin (rin-eqq-ymgst)] benzocaine Allergy Unknown Unknown Verified 08/06/24 10:42 Iodinated Contrast Media Allergy Unknown Unknown Verified 08/06/24 10:42 [IV Contrast Dye] lisinopril Allergy Unknown Unknown Verified 08/06/24 10:42 neomycin Allergy Unknown Unknown Verified 08/06/24 10:42 [From Neosporin (foo-rnj-twjcy)] nickel Allergy Unknown Unknown Verified 08/06/24 10:42 polymyxin B Allergy Unknown Unknown Verified 08/06/24 10:42 [From Neosporin (mml-rgy-koooc)] hydrochlorothiazide AdvReac Intermediate hypokalemia Verified 08/06/24 10:42 Exam Airway Mallampati Class: II TM Dist: >3cm Neck ROM: Full Heart: rrr Lungs: cta Assessment and Plan Assessment Anesthesia Assessment: Anesthesia Plan Discussed Final Anesthetic Review NPO: Yes ASA Class: III Final Preanesthetic Review: No Changes in Pt Med Stat, Meds/Allgs Chart Reviewed, Consent Obtained/Reviewed and Anes Risks/Benef Reviewed Patient Risk: Intermediate Procedure Risk: Low Anesthetic Plan Anesthetic Plan: MAC: Disposition: Standard PACU
[2024-08-06 10:43] VITALS: BP 136/65; PULSE 81; RESP 16; TEMP 37.1; O2SAT 94; BMI 29.8
[2024-08-06] MEDS: Lactated Ringers 1,000 ML 100 ML IVCONT (11:03)
[2024-08-06 12:45] VITALS: BP 133/62; PULSE 73; RESP 18; TEMP 36.6; O2SAT 96
--- NOTE | 2024-08-06 12:50 | P.BOP_ITS ---
Brief Operative Note Date of Service: 08/06/24 Pre-op diagnosis: GERD, Screening Post-op diagnosis: other (Hiatal hernia, GERD, Colon polyp) Procedure: EGD with biopsies, Colonoscopy to the cecum and TI with bx/removal of polyp Surgeon: Jorge Luis Galvan MD Anesthesia: MAC Was an Order Builder Loader used for this Procedure?: No Estimated blood loss (mL): 2.0 Pathology: other (A. EG Junction at 36cm B. Cecal polyp) Condition: stable Disposition: PACU
[2024-08-06 13:00] VITALS: BP 141/61; PULSE 69; RESP 18; TEMP 37.4; O2SAT 95
--- NOTE | 2024-08-06 13:21 | OP_ITS ---
DATE OF SERVICE: 08/06/2024 SURGEON: Jorge Luis Galvan MD INDICATIONS: The patient presents for evaluation of chronic gastroesophageal reflux with a previous history of Vela esophagus, and for colorectal cancer screening. Full consent has been obtained from her for this, including risks of bleeding and perforation. PREOPERATIVE DIAGNOSIS: POSTOPERATIVE DIAGNOSIS: Gastroesophageal reflux with history of Vela esophagus, colorectal cancer screening, hiatal hernia, colon polyp, diverticulosis, and internal hemorrhoids. PROCEDURE PERFORMED: Esophagogastroduodenoscopy with biopsies, and colonoscopy to the cecum and terminal ileum with biopsy and removal of polyp. ESTIMATED BLOOD LOSS: COMPLICATIONS: ANESTHESIA: Medication used, monitored anesthesia care. ASSISTANTS: SPECIMENS: PREOPERATIVE DIAGNOSES: Gastroesophageal reflux with history of Vela esophagus, colorectal cancer screening. DESCRIPTION OF PROCEDURE: The patient was placed in the left lateral decubitus position. The Olympus video gastroscope was passed in the posterior oropharynx and upper esophagus under direct vision. The scope was passed slowly into the distal esophagus. The gastroesophageal junction appeared at 36 cm. There was some very minimal irregularity consistent with reflux but no definitive evidence of Vela esophagus, and there was no esophagitis. The scope entered the stomach. There was a small to moderate-sized hiatal hernia. The hiatal hernia mucosa appeared normal. The scope was advanced to the pylorus, and the duodenum was cannulated to the descending portion. The duodenum including the bulb appeared normal without mass or ulceration. The scope was withdrawn back to the stomach. The gastric antrum and body appeared normal with good peristalsis. The scope was retroflexed visualizing the proximal stomach carefully, which appeared normal, other than less than 5 mm hyperplastic appearing gastric polyps. There was no mass or ulceration. The scope was straightened and withdrawn back to the esophagus. Biopsies were obtained at the EG junction at 36 cm. Proximal to that, the esophageal mucosa appeared normal. The scope was withdrawn from the patient. She was turned around for the colonoscopy. The digital rectal exam revealed no abnormalities. The Olympus video pediatric colonoscope was entered into the rectum and advanced easily to the cecum. Once in the cecum, I did identify cecal pouch with appendiceal orifice and a normal-appearing ileocecal valve. The terminal ileum was cannulated and appeared normal. The scope withdrawn back in the colon. The entire cecum was well visualized. In the cecum was a flat, approximately 4 mm polyp, which was biopsied and completely removed with a cold biopsy forceps. The scope was slowly withdrawn assessing all mucosal surfaces carefully. Preparation was excellent. I did not visualize any other polyps, colitis, nor angiodysplasia. There was a mild amount of sigmoid diverticulosis. In the rectum, scope was retroflexed visualizing internal hemorrhoids but no other pathology. The rectal mucosa appeared normal. Scope was straightened and withdrawn from the patient. She tolerated the procedure well and was returned to the recovery area in stable condition. IMPRESSION: 1. Hiatal hernia, gastroesophageal reflux, history of Vela esophagus. 2. Colon polyp. 3. Diverticulosis. 4. Internal hemorrhoids. PLAN: The results of the biopsy will be checked. She has been advised to continue her daily omeprazole for symptomatic relief of reflux. She was advised not to use any aspirin and NSAIDs for 1 week. Given the minimal findings on today's colonoscopy, a negative colonoscopy in 2002, and a negative colonoscopy in 2013, I do not think she would need any further screening colonoscopies even if the tiny cecal polyp is a tubular adenoma. As such, she will see me again on a p.r.n. basis. This has been discussed with her . MD JONAS Cox/KEYLA / [id number]
== END 2024-08-06 13:32 | disposition home or self-care (01) ==
PROVIDERS: PCP Internal Medicine; Visit Provider Internal Medicine
PROC: (CPT 45380; principal; 2024-08-06 11:50)
DX: Z12.11 Encounter for screening for malignant neoplasm of colon (principal); D12.0 Benign neoplasm of cecum; K57.30 Diverticulosis of large intestine without perforation or abscess without bleeding; K64.8 Other hemorrhoids; K21.9 Gastro-esophageal reflux disease without esophagitis; K31.7 Polyp of stomach and duodenum; K44.9 Diaphragmatic hernia without obstruction or gangrene; Z87.19 Personal history of other diseases of the digestive system; I10 Essential (primary) hypertension; D64.9 Anemia, unspecified; J45.909 Unspecified asthma, uncomplicated; R16.1 Splenomegaly, not elsewhere classified; K76.0 Fatty (change of) liver, not elsewhere classified; F10.20 Alcohol dependence, uncomplicated; F41.8 Other specified anxiety disorders; Z79.51 Long term (current) use of inhaled steroids; Z79.899 Other long term (current) drug therapy; Z98.890 Other specified postprocedural states; Z87.891 Personal history of nicotine dependence
CPT/HCPCS: 45380; 43239; 88305; 88313; 88342; J2003; J2704; J3010

== ENCOUNTER 2024-09-03 08:35 | Outpatient (AMB) | payer OTHER, MEDICARE, SELFPAY ==
[2024-09-03 08:38] VITALS: BMI 29.8
--- NOTE | 2024-09-03 08:38 | A.OFFVIS_ITS ---
Vital Signs 09/03/24 08:38 Height 5 ft 2 in Weight 163 lb BMI 29.8 Intake Visit Reasons: OV RT distal radius ORIF 06/24/24 AR Intake Note: Tiffanie is a 68 year old female who presents today for a post op appointment s/p right distal radius ORIF 06/24/[address] Verdin. States she has been working on her ROM and and is attending O.T with good improvements however states her index finger wont close all the way when making a fist. Allergies bacitracin [From Neosporin ([id number])] Allergy (Unknown, Verified 09/03/24 08:42) Unknown benzocaine Allergy (Unknown, Verified 09/03/24 08:42) Unknown Iodinated Contrast Media [IV Contrast Dye] Allergy (Unknown, Verified 09/03/24 08:42) Unknown lisinopril Allergy (Unknown, Verified 09/03/24 08:42) Unknown neomycin [From Neosporin ([id number])] Allergy (Unknown, Verified 09/03/24 08:42) Unknown nickel Allergy (Unknown, Verified 09/03/24 08:42) Unknown polymyxin B [From Neosporin ([id number])] Allergy (Unknown, Verified 09/03/24 08:42) Unknown hydrochlorothiazide Adverse Reaction (Intermediate, Verified 09/03/24 08:42) hypokalemia HPI HPI OV RT distal radius ORIF 06/24/24 AR: Details: Tiffanie is a 68 year old 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 woman who returns for a ROM check, S/P right distal radius ORIF & carpal tunnel release, DOS: 06/24/24. She says she hit her head when she fell. She says this occurred at her workplace, while she was not on the clock She says she is doing better than before and feels she continues to improve. She has been attending OT hand therapy and working on ROM at home. She says she is not able to make a full fist with her index finger. She continues to have numbness in her thumb, and improving but not yet normal sensation in the index & middle fingers. She says with certain motions or positions of her arm she feels numbness which radiates from her shoulder down into her fingers. [facility] Medical History Alcohol dependence Anemia Breast cancer screening by mammogram Splenomegaly Diarrhea LUQ abdominal pain Diverticulosis Impaired glucose tolerance Vela's esophagus Anxiety and depression Psoriasis Osteoporosis Hypercholesterolemia GERD (gastroesophageal reflux disease) Asthma Knee osteoarthritis Hypertension Allergic rhinitis Surgical History History of open reduction and internal fixation (ORIF) procedure History of eye surgery History of tubal ligation History of tonsillectomy History of arthroplasty of right knee History of arthroplasty of left knee Family History Father No problems noted. Mother Ovarian cancer Myocardial infarction Paternal Grandmother Bladder cancer Paternal Aunt Bladder cancer Paternal Uncle Bladder cancer Social History Household Members: Spouse and Children Housing: House Are you a primary home health care coordinator to a significant other at home: No Do you presently have visiting nurse or other home services: No Alcohol intake: current Alcohol intake frequency: holidays/special occasions only Patient Tobacco Use Status: Former Tobacco user Tobacco use type: Cigarette e-Cigarette/Vaping Use: Never Used Second Hand Smoke Exposure: No Substance Use Type: Marijuana service: No Current occupational status: employed 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 Normal sensation to the ring & small fi ngers. Vascular: Cap refill brisk ROM: Wrist ROM: Full wrist pronation Supination ~70 degrees Flexion ~65 degrees Extension ~60 degrees Psych Appearance: grossly normal Affect: normal affect Attitude: cooperative Assessment & Plan Assessment & Plan (1) Distal radius fracture, right: Code(s): S52.501A - Unspecified fracture of the lower end of right radius, initial encounter for closed fracture Category: Medical (2) Type 2 diabetes mellitus with hyperglycemia: Code(s): E11.65 - Type 2 diabetes mellitus with hyperglycemia Category: Medical (3) Carpal tunnel syndrome of right wrist: Code(s): G56.01 - Carpal tunnel syndrome, right upper limb Category: Medical Plan Assessment & Plan: 1. Right distal radius fracture, S/P ORIF After a fall, DOI: 06/17/24 DOS: 06/24/24 She says this occurred at her workplace, while she was not on the clock 2. Right carpal tunnel syndrome, S/P release DOS: 06/24/24 Now with numbness in the thumb and normal sensation to the index & middle fingers The patient appears to be doing well She will continue to work on ROM exercises at home She will continue to attend OT hand therapy to work on ROM & normalizing function. She is able to return to all normal daily activities at this time. She should be careful to slowly increase her weight limit as tolerated over the next few weeks. 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 She has returned to normal duties at work at this time. She will follow up prn 3. Right shoulder discomfort and occasional arm numbness Radiating from the shoulder into the hand After a fall, DOI: 06/17/24 I recommend she pay attention to how often her ring & small fingers go numb. Right now this is occasional. If it gets worse we might consider a nerve conduction study. If she continues to have difficulty with pain related to her shoulder, she may benefit from being seen by one of our PAs. It does not sound like she wants to make an appointment with them just yet. Scribed for Susi Verdin MD by Dariel Bergeron, medical director of hospice, on 09/03/24 at 9:00 AM, EST. Coding Level of Care Code Global (94358) Diagnoses Distal radius fracture, right S52.501A Type 2 diabetes mellitus with hyperglycemia E11.65 Carpal tunnel syndrome of right wrist G56.01
--- OUTSIDE RECORDS SUMMARY | 2024-09-03 08:58 | XMS_ITS | Patient Health Record ---
Author Organization [facility] Address [address] [place] [address] Care Team Providers Care Painter Bottom Name Role Phone Pete Staton MD Primary Care Provider Jorge Luis Sweet [phone] Allergies Allergen (clinical drug ingredient) Drug/Non Drug Allergy documented on EMR Reaction Allergy Type Onset Date Status Perfume Perfume Unknown Allergy Active nickel Nickel Unknown Allergy Active Benzocaine Unknown Drug Allergy Active animals (uncoded) Unknown Allergy Ac tive Results Component Value Reference Range Notes Pathology (Not yet reviewed by provider) Interpretation: Performing Lab:[facility], [address] [place] [address] Notes/Report: Name: Samantha Colonvijay Gallegos Age/Sex: 69/F : 1955 Unit#: [id number] Attend Dr: Jorge Luis Galvan MD Re08/06/24 Status : [facility] Location: [facility] Disch: SPEC : [id number] RECD : 08/06/24 STATUS: ALBINA BUCIO NUM: [id number] JESSICA: 08/06/24-[address] [facility] [address]: Jorge Luis Galvan MD ENTERED: 08/06/24 31 SP TYPE: Surgical OTHR DR: Pete Staton MD ORDERED: HE Stain/6, Gross Micro L4/2, IHC, Special st. 2, H. pylori, AB/PAS Diagnosis A. EG junction, 36 cm, biopsy: - Cardiofundic-type mucosa with moderate chronic inactive inflammation; no intestinal metaplasia seen. - Negative for H. pylori. - Active esophagitis (maximum eosinophil count 1 per high powered field). B. Cecum, polypectom y: Fragments of tubular adenoma; negative for high-grade dysplasia or carcinoma. Clinical History Pre-Op Dx: Reflux, screening Post-Op Dx: Reflux, hiatal hernia, colon polyp, hemorrhoids, diverticulosis Microscopic Description A, B. Microscopic se ctions examined. No metaplastic changes are seen, supported by AB/PAS stains (A); no Helic obacter organisms are seen, supported by H. pylori immunostain (A). Material Received A. EG junction bx's at 36 B. Cecal polyp Gross Description Received in two parts. Part A: Received in formalin labeled ?EG junction bx's at 36? are 3 dye-pink irregular tissue fragments ran ging from 0.2-0.35 cm, submitted in toto in a cassette labeled A. Part B: Received in formalin labeled ?cecal polyp? are 2 dye irregular tissue fragments measuring 0.15 and 0 .2 cm, submitted in toto in a cassette labeled B.CEDS Special studies orde red and performed: Immunostain for H. pylori on A; AB/PAS stains on A Copies To: Pete Staton MD [facility] Primary Care,[address] [place] [id number] CONTINUED ON NEXT PAGE Name: Tiffanie Colon Age/Sex: 69/F : 1955 Unit#: [id number] Attend Dr: Jorge Luis Galvan MD Re08/06/24 Status : [facility] Location: [facility] Disch: SPEC : [id number] RECD : 08/06/24-1325 STATUS: ANDERSONLennox FORT[place]ATO NUM: [id number] JESSICA: 08/06/24-[address] [facility] [address]: Jorge Luis Galvan MD ENTERED: 08/06/24-13 31 SP TYPE: Surgical OTHR DR: Pete Staton MD ORDERED: HE Stain/6, Gross Micro L4/2, IHC, Special st. 2, H. pylori, AB/PAS Copies To: (Continued) Jorge Luis Galvan MD [address] [place], [place] [id number] Signed (si gnature on file) Santosh Patiño MD 08/08/24 0857 END OF REPORT Reason For Referral No Information Medications Medication SIG (Take, Route, Frequency, Duration) Notes Start Date End Date Status amLODIPine Besylate 10mg Active Sertraline HCl 150mg Active Vitamin D3 50 MCG (1999) TAKE 1 CAPSU LE BY MOUTH EVERY DAY Oral for 90 Active Iron Active Magnesium Active Vitamin B Complex Ac tive Glucosamine 1000mg A ctive ProAir HFA Active Loratadine 10 MG TAKE 1 TABLET BY DAILY NEEDED FOR ALLERGY SYMPTOMS Oral for 90 Active Wixela Inhub 250-50 MCG/ACT USE 1 INHALA TION TWICE A DAY Inhalation for 30 Active Omeprazole 20mg Acti ve Claritin Active Immunizations Vaccine Route Administration Date Status Comme nts Influenza Unknown 02/02/2021 Administered Problems Problem Type SNOMED Code ICD Code Onset Dates Problem Status W/U Status Risk Notes Problem Screening for malignant neoplasm of colon (601178934) Encounter for screening for malignant neoplasm of colon (Z12.11) Active confirmed Problem Hiatal hernia (03050543) Hiatal hernia (K44.9) Active confirmed Problem Gastroesophageal reflux disease (672303891) GERD without esophagitis (K21.9) Active confirmed Problem Left upper quadrant pain (435412261) LUQ abdominal pain (R10.12) Active confirmed Vital Signs Blood pressure diastolic 00 mm Hg 04/22/2024 Height 62 in 04/22/2024 Blood pressure systolic 00 mm Hg 04/22/2024 Weight 166 lbs 04/22/2024 BMI 30.36 kg/m2 04/22/2024 Encounters Encounter Location Date Provider Diagnosis [facility] [place] [address] [place] [phone] 08/06/2024 Jorge Luis Galvan Colon cancer screeni ng Z12.11 ; Colon polyps K63.5 ; Diverticulosis of colon K57.30 ; Chronic GERD K21.9 and Hiatal hernia K44.9 [facility] [address] [place] [address] 04/22/2024 Jorge Luis Galvan GERD without esophagitis K21.9 ; Encounter for screening for malignant neoplasm of colon Z12.11 and Hiatal hernia K44.9 Assessments Encounter Date Diagnosis (ICD Code) Assessment Notes Treatment Notes Treatment Clinical Notes Section Notes 08/06/2024 Colon cancer screening (ICD-10 - Z12.11) 08/06/2024 Colon polyps (ICD-10 - K63.5) 04/22/2024 Encounter for screening for malignant neoplasm of colon (ICD-10 - Z12.11) Overall, Tiffanie appears well. Her reflux seems stable on current daily omeprazole. I did advise her to continue that. Given her long-standing history of reflux, known moderate size hiatal hernia, and some early satiety, I did recommend an upper endoscopy for further evaluation. I also recommended a followup screening colonoscopy for further evaluation given her last exam being 10 years ago. We did review the rationale for that regard to colorectal cancer prevention and/or early detection. Full consent is obtained for this, including risks of bleeding and perforation. Tiffanie was comfortable with this plan. Thank you again for allowing me to participate in Tiffanie's care. I shall continue to keep you advised of her progress. 04/22/2024 GERD without esophagitis (ICD-10 - K21.9) Overall, Tiffanie appears well. Her reflux seems stable on current daily omeprazole. I did advise her to continue that. Given her long-standing history of reflux, known moderate size hiatal hernia, and some early satiety, I did recommend an upper endoscopy for further evaluation. I also recommended a followup screening colonoscopy for further evaluation given her last exam being 10 years ago. We did review the rationale for that regard to colorectal cancer prevention and/or early detection. Full consent is obtained for this, including risks of bleeding and perforation. Tiffanie was comfortable with this plan. Thank you again for allowing me to participate in Tiffanie's care. I shall continue to keep you advised of her progress. 08/06/2024 Diverticulosis of colon (ICD-10 - K57.30) 04/22/2024 Hiatal hernia (ICD-10 - K44.9) Overall, Tiffanie appears well. Her reflux seems stable on current daily omeprazole. I did advise her to continue that. Given her long-standing history of reflux, known moderate size hiatal hernia, and some early satiety, I did recommend an upper endoscopy for further evaluation. I also recommended a followup screening colonoscopy for further evaluation given her last exam being 10 years ago. We did review the rationale for that regard to colorectal cancer prevention and/or early detection. Full consent is obtained for this, including risks of bleeding and perforation. Tiffanie was comfortable with this plan. Thank you again for allowing me to participate in Tiffanie's care. I shall continue to keep you advised of her progress. 08/06/2024 Chronic GERD (ICD-10 - K21.9) 08/06/2024 Hiatal hernia (ICD-10 - K44.9) Plan Of Treatment Pending Test Test Name Order Date Pathology 08/06/2024 Future Test Test Name Order Date UPPER GI ENDOSCOPY 09/02/2013 COLONOSCOPY 09/02/2013 UPPER GI ENDOSCOPY 04/22/2024 COLONOSCOPY 04/22/2024 Insurance Providers Payer Name Payer Address Payer Phone Subscriber Number Group Number Insured Name Patient Relationship to Insured Coverage Start Date Coverage End Date [facility] [address] [place] [address] [phone] [id number] TIFFANIE COLON Self - patient is the insured Medical (General) History Medical History History ICD Code Colonoscopy in 2002 neg except for a hyp erplastic polyp, and hemorrhoids GERD/Vela's Esophagus--EG D's in 2003 and 2006-bx neg for Vela's--EGD in 2001 showed a tiny area of Vela's-no dysplasia---small to moderate-sized HH; EGD in 11/2013 was negative for Vela's again; small to moderate-sized HH Asthma Denies VT,DM,CVA,renal disease 08/2013-hospitalized at [facility] f or CP--neg VT--saw Dr. Sweet--has been told of need for [...]
--- OUTSIDE RECORDS SUMMARY | 2024-09-03 08:58 | XMS_ITS ---
Author Organization [facility] Address [address] [place] [address] Care Team Providers Care Medication Assistant Name Role Phone Pete Staton MD Primary Care Provider Jorge Luis Sweet [phone] Allergies Allergen (clinical drug ingredient) Drug/Non Drug Allergy documented on EMR Reaction Allergy Type Onset Date Status Perfume Perfume Unknown Allergy Active nickel Nickel Unknown Allergy Active Benzocaine Unknown Drug Allergy Active animals (uncoded) Unknown Allergy Ac tive REASON FOR VISIT Patient presents today for a COLON SCREENING Medications Medication SIG (Take, Route, Frequency, Duration) [...] for 30 Active Omeprazole 20mg Acti ve Problems Problem Type SNOMED Code ICD Code Onset Dates Problem Status W/U Status Risk Notes Problem Hiatal hernia (26849009) Hiatal hernia (K44.9) Active confirmed Vital Signs Blood pressure systolic 00 mm Hg 04/22/20 24 Blood pressure diastolic 00 mm Hg 024 Height 62 in 04/22/2024 Weight 166 lbs 04/22/2024 BMI 30.36 kg/m2 04/22/2024 Encounters Encounter Location Date Provider Diagnosis [facility] [address] [place] [address] 04/22/2024 Jorge Luis Galvan GERD without esophagitis K21.9 ; Encounter for screening for malignant neoplasm of colon Z12.11 and Hiatal hernia K44.9 Assessments Encounter Date Diagnosis (ICD Code) Assessment Notes Treatment Notes Treatment Clinical Notes Section Notes 04/22/2024 GERD without esophagitis (ICD-10 - [...] keep you advised of her progress. 04/22/2024 Encounter for screening for malignant neoplasm [...] keep you advised of her progress. 04/22/2024 Hiatal hernia (ICD-10 - K44.9) Overall, [...] to keep you advised of her progress. Plan Of Treatment Future Test Test Name Order Date UPPER GI ENDOSCOPY 04/22/2024 COLONOSCOPY 04/22/2024 Next Appt Details Follow Up: prn, Reason: Progress Notes * TIFFANIE SMITH ADOB: [birth year] (68 yo F)Acc No.[id number]:04/22/2024 Progress Notes Patient:?TIFFANIE SMITH Provider:?Jorge Luis Galvan MD :1955???Age:68 Y???Sex:Female D ate:04/22/2024 Address:[address] [place], [place] [phone] Pcp:Pete Staton MD Subjective: * Chief Complaints: * ???Patient presents today fo r a COLON SCREENING * HPI: ???incontinence:? I saw Tiffanie in followup today in regard to her chronic gastroesophageal reflux, known hiatal hernia, and need for colorectal cancer screening. ?I last saw Tiffanie in 2021 at which time we reviewed her reflux and hiatal hernia. She describes that since that time she has been feeling well from a GI standpoint. She does describe some sensation of early satiety but has not lost any weight. She denies any significant heartburn on her daily omeprazole. She denies any dysphagia, anorexia, nausea, or vomiting. She does have some chronic left upper quadrant discomfort but no other abdominal pains, jaundice, nor fevers. She describes her bowel movements have been regular and without any melena nor hematochezia. ?She does have a history of long-standing reflux with an upper endoscopy many years ago showing a tiny area of Vela's esophagus. However, 3 subsequent upper endoscopy were negative for that and therefore she has not had an upper endoscopy since 2013. Her last colonoscopy was in 2013 as well. She denies any known family history of colon cancer. ?Laboratories in March revealed a stable anemia with a hemoglobin of 11.8 and normal MCV. * ROS:?General/Constitutional:?Change in appetite?denies.?Chills?denies.?Fatigue?denies.?Ophthalmologic:?Patient denies? Negative..?ENT:?Patient denies?Negative..?Respiratory:?Patient denies?No coughing/hemoptysis..?Cardiovascular:?Comments?Per HPI and PMH.?Gastrointestinal:?Comments?See HPI for details.?Genitourinary:?Patient denies? No dysuria/hematuria..?Musculoskeletal:?Patient denies? No specific arthralgias/myalgias..?Skin:?Patient denies?No rash/pruritus..?Neurologic:?Patient denies? No headaches/seizures..?Psychiatric:?Patient denies?Negative..? * Medical History:? * Surgical History:?Tonsillect tk Tubal ligation Bilateral knee replacements in 2020 Right eye surgery due to an injury * Hospitalization/Major Diagno stic Procedure:?No Hospitalization History. * Family History:?Mother: unkn own, The patients mother did have ovarian cancer., diagnosed with HTN (hypertension), Diabetes, Heart disease.? There is no family history of colorectal cancer. * Social History:?Tobacco Use:?Tobacco Use/Smoking?Are you a: former smoker , How long has it been since you last smoked?: > 10 years.?Drugs/Alcohol:?Alcohol Screen?Points: 4, Interpretation: Positive.?Miscellaneous:?Marital status: . 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 ???Nonsmoker >10 yrs; reports 1/2 pint of Vodka every Sunday. * Medications:?TakingSertralin e HCl 150mg amLODIPine Besylate 10mg Iron ProAir HFA Glucosamine 1000mg Vitamin B Complex Magnesium Claritin Omeprazole 20mg Wixela Inhub 250-50 MCG/ACT Aerosol Powder Breath Activated USE 1 INHALATION TWICE A DAY Inhalation Loratadine 10 MG Tablet TAKE 1 TABLET BY MOUTH DAILY NEEDED FOR ALLERGY SYMPTOMS Oral Vitamin D3 50 MCG (1999 UT) Capsule TAKE 1 CAPSULE BY MOUTH EVERY DAY Oral Taking Sertraline HCl 150mg Taking amLODIPine Besylate 10mg Taking Iron Taking ProAir HFA Taking Glucosamine 1000mg Taking Vitamin B Complex Taking Magnesium Taking Claritin Taking Omeprazole 20mg Taking Wixela Inhub 250-50 MCG/ACT Aerosol Powder Breath Activated USE 1 INHALATION TWICE A DAY Inhalation Taking Loratadine 10 MG Tablet TAKE 1 TABLET BY MOUTH DAILY NEEDED FOR ALLERGY SYMPTOMS Oral Taking Vitamin D3 50 MCG (1999 UT) Capsule TAKE 1 CAPSULE BY MOUTH EVERY DAY Oral DiscontinuedAdvair HFA hydroCHLOROthiazide 25 MG Tablet TAKE 1 TABLET BY MOUTH EVERY DAY Oral Calcium 750mg Medication List reviewed and reconciled with the patientDiscontinued Advair HFA Discontinued hydroCHLOROthiazide 25 MG Tablet TAKE 1 TABLET BY MOUTH EVERY DAY Oral Discontinued Calcium 750mg Medication List reviewed and reconciled with the patient * Allergies:?BenzocaineNickelP erfumeanimalsyes[Allergies Verified] Objective: * Vitals:?Wt: 166 lbs, Ht: 62 in, BMI:30.36 Index, BP: 00/00 mm Hg. * Examination: ???General Examination: ?GENERAL APPEARANCE:?pleasant, well nourished, well developed, in no acute distress.?EYES:?sclera non-icteric.?ORAL CAVITY:?mucosa moist.?NECK/THYROID:?no cervical lymphadenopathy, neck supple.?SKIN:?nonjaundiced, no spider angiomata..?HEART:?S1, S2 normal.?LUNGS:?clear to auscultation bilaterally.?ABDOMEN:?normal bowel sounds, no guarding or rigidity, no hepatosplenomegaly, no masses palpable, soft, nontender, nondistended..?EXTREMITIES:?no edema.?NEUROLOGIC:?alert and oriented.? Assessment: * Assessment: 1.?GERD without esophagitis - K21.9 (Primary)?2.?Encounter for screening for malignant neoplasm of colon - Z12.11?3.?Hiatal hernia - K44.9? Overall, Tiffanie appears we ll. Her reflux seems stable on current daily [...] to keep you advised of her progress. Plan: * Treatment: 2.?Encounter for screening for malignant neoplasm of colon?Procedure: COLONOSCOPY (Ordered for 04/22/2024)* with MACsched for 08/06/24 at 12:50 pmmiralax 3.?Hiatal hernia?Procedure: UPPER GI ENDOSCOPY (Ordered for 04/22/2024)* with MACsched for 08/06/24 at 12:50 pm * Procedure Codes:?3017F COLOR ECTAL CA SCREEN DOC [id number] TOBACCO [id number] BP SCR NOT PRFRM REC REASON NOS * Preventive Medicine:? ??Counseling:?Care goal follow-up plan:?Above Normal BMI Follow-up?Giving encouragement to exercise,?BMI management provided?Yes.? ??Urinary Incontinence:?Urinary Incontinence?Assessment:?Absent,?Plan of care documented:?No, reason not specified.? ??Screenings:?Fall Risk Screening?Fall Risk Assessment:?No falls in the past year,?Screening:?No falls in the past year,?Assessment:?Not performed, no reason specified,?Plan of Care:?Not documented, no reason specified.? * Follow Up:?prn * * Sign off status: Completed true * Provider:?Jorge Luis Galvan MD Date:? 024 Generated for Demetrius grimes/Mario/Jack on:?09/03/2024 08:58 AM EDT History and Physical Notes * HPI (History of Present Illness) Category Sub-Category Detail Notes Category Not es incontinence I saw Tiffanie in followup today in regard to her chronic gastroesophageal reflux, known hiatal hernia, and need for colorectal cancer screening. I last saw Tiffanie in 2021 at which time we reviewed her reflux and hiatal hernia. She describes that since that time she has been feeling well from a GI standpoint. She does describe some sensation of early satiety but has not lost any weight. She denies any significant heartburn on her daily omeprazole. She denies any dysphagia, anorexia, nausea, or vomiting. She does have some chronic left upper quadrant discomfort but no other abdominal pains, jaundice, nor fevers. She describes her bowel movements have been regular and without any melena nor hematochezia. She does have a history of long-standing reflux with an upper endoscopy many years ago showing a tiny area of Vela's esophagus. However, 3 subsequent upper endoscopy were negative for that and therefore she has not had an upper endoscopy since 2013. Her last colonoscopy was in 2013 as well. She denies any known family history of colon cancer. Laboratories in March revealed a stable anemia with a hemoglobin of 11.8 and normal MCV. Examination Category Sub-Category Detail Notes Category Not es General Examination GENERAL APPEARANCE: pleasant , well [...]
--- OUTSIDE RECORDS SUMMARY | 2024-09-03 08:58 | XMS_ITS ---
Author Organization [facility] Address [address] [place] [address] Care Team Providers Care Medication Reconciliation Technician Name Role Phone Pete Staton MD Primary Care Provider Jorge Luis Sweet [phone] REASON FOR VISIT gerd,hiatal hrenia,screening Encounters Encounter Location Date Provider Diagnosis [facility] Outpatient [address] [place] [phone] 08/06/2024 Jorge Luis Galvan Colon cancer scree [...] KRISHNA SMITH ADOB: [birth year] (69 yo F)Acc No.[id number]:08/06/2024 EGD and COL/MAC Patient:?KRISHNA SMITH Provider:?Jorge Luis Galvan MD :1955???Age:69 Y???Sex:Female D ate:08/06/2024 Address:[address] [place] [address] [place], [id number] Pcp:Pete Staton MD Subjective: * Chief Complaints: * ???1. Gerd,hiatal hrenia,scr eening. * Medical History:? Objective: * Vitals:? Assessment: * Assessment: 1.?Colon cancer screening - Z12.11 (Primary)???2.?Colon polyps - K63.5???3.?Diverticulosis of colon - K57.30???4.?Chronic GERD - K21.9???5.?Hiatal hernia - K44.9??? Plan: * Treatment: * Procedure Codes:?91839 COLON OSCOPY AND BIOPSY, 0529F INTRVL 3+YRS PTS CLNSCP DOCD, 0528F RCMND FLW-UP 10 YRS DOCD, 42072 UPPER GI ENDOSCOPY, BIOPSY * * The named appointment provid er may or may not be the originator of this progress note, and it is not deemed complete until electronically signed by the appointment provider. Sign off status: Pending * Provider:?Jorge Luis Galvan MD Date:? 025 Generated for Demetrius grimes/Mario/eTransmitting on:?09/03/2024 08:58 AM EDT
== END 2024-09-03 09:09 | disposition home or self-care (01) ==
LOC: HO.HOS 08:35
PROVIDERS: PCP Internal Medicine; Visit Provider Orthopaedic Surgery
DX: S52.501A Unspecified fracture of the lower end of right radius, initial encounter for closed fracture (principal); E11.65 Type 2 diabetes mellitus with hyperglycemia; G56.01 Carpal tunnel syndrome, right upper limb
CPT/HCPCS: 99024

== ENCOUNTER → 2024-09-03 08:35 | Outpatient (BNVA) | payer OTHER, MEDICARE, SELFPAY | PROVIDERS: PCP Internal Medicine; Visit Provider Orthopaedic Surgery | DX: S52.501D Unspecified fracture of the lower end of right radius, subsequent encounter for closed fracture with routine healing (principal); E11.65 Type 2 diabetes mellitus with hyperglycemia; G56.01 Carpal tunnel syndrome, right upper limb | CPT/HCPCS: 99212 ==

== ENCOUNTER 2024-09-05 11:02 | Outpatient (AMB) | payer MEDICARE, SELFPAY ==
--- NOTE | 2024-09-05 11:04 | MHC.PC.OV ---
Vital Signs 09/05/24 11:05 Height 5 ft 2 in Weight 167 lb 2 oz BMI 30.6 BP 160/70 H Blood Pressure Location Lt brachial Position Sitting Pulse 78 Pulse Source Pulse Oximeter Temp 97.3 F Temp Source Temporal Artery Scan Pulse Oximetry (%) 97 Oxygen Delivery Method Room Air Intake Visit Reasons: PE Legal Recovery Specialist Required: No Accompanied by: Self / Same As Patient Allergies bacitracin [From Neosporin ([id number])] Allergy (Unknown, Verified 09/05/24 11:10) Unknown benzocaine Allergy (Unknown, Verified 09/05/24 11:10) Unknown Iodinated Contrast Media [IV Contrast Dye] Allergy (Unknown, Verified 09/05/24 11:10) Unknown lisinopril Allergy (Unknown, Verified 09/05/24 11:10) Unknown neomycin [From Neosporin ([id number])] Allergy (Unknown, Verified 09/05/24 11:10) Unknown nickel Allergy (Unknown, Verified 09/05/24 11:10) Unknown polymyxin B [From Neosporin ([id number])] Allergy (Unknown, Verified 09/05/24 11:10) Unknown hydrochlorothiazide Adverse Reaction (Intermediate, Verified 09/05/24 11:10) hypokalemia Medication List - Last Reconciled 09/05/24 by Pete Staton MD albuterol sulfate 90 mcg/actuation 2 puffs PO Q4H amlodipine 10 mg PO DAILY cholecalciferol (vitamin D3) 50 mcg PO DAILY 90 days clobetasol 0.05% 1 appl topical DAILY fluticasone furoate-vilanterol 100-25 mcg/dose (Breo Ellipta) 1 inh inhalation DAILY folic acid 1 mg PO DAILY loratadine 10 mg PO DAILY PRN losartan 100 mg PO DAILY 90 days omeprazole 20 mg PO DAILY sertraline 150 mg (1.5 x 100 mg) PO DAILY Tobacco use date assessed: 09/05/24 Fall risk assessment: 1 Fall in past year Last assessed Fall Risk: 09/05/24 Dental Screening Dental Screen Date: 09/05/24 Did you have a dental visit in the last 12 months?: Yes Did you have a dental problem in the last 6 months where you did not have access to dental care?: No Was dental information given to patient?: Patient has dentist HPI PE HPI Details R neck pain with tingling non the R arm. cervical MRI 06/202425Grade 1 retrolisthesis C5 over C6 with degenerative disc changes C4-5 and C5-6 disc level. Disc bulge/osteophyte complex at C4-5 and C5-6 disc levels. There is moderate canal stenosis at the C5-6. There is bilateral narrowing of neural foramina at both these levels slightly greater at the C5-6 disc level. waking up sob PFSH Medical History Alcohol dependence Anemia Breast cancer screening by mammogram Splenomegaly Diarrhea LUQ abdominal pain Diverticulosis Impaired glucose tolerance Vela's esophagus Anxiety and depression Psoriasis Osteoporosis Hypercholesterolemia GERD (gastroesophageal reflux disease) Asthma Knee osteoarthritis Hypertension Allergic rhinitis Surgical History History of open reduction and internal fixation (ORIF) procedure History of eye surgery History of tubal ligation History of tonsillectomy History of arthroplasty of right knee History of arthroplasty of left knee Family History Father No problems noted. Mother Ovarian cancer Myocardial infarction Paternal Grandmother Bladder cancer Paternal Aunt Bladder cancer Paternal Uncle Bladder cancer Social History Household Members: Spouse and Children Housing: House Are you a primary primary care coordinator to a significant other at home: No Do you presently have visiting nurse or other home services: No Alcohol intake: current Alcohol intake frequency: holidays/special occasions only Patient Tobacco Use Status: Former Tobacco user Tobacco use type: Cigarette e-Cigarette/Vaping Use: Never Used Second Hand Smoke Exposure: No Substance Use Type: Marijuana service: No Current occupational status: employed 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 1. Little interest or pleasure in doing things: not at all 2. Feeling down, depressed, or hopeless: not at all 3. Trouble falling or staying asleep, or sleeping too much: not at all 4. Feeling tired or having little energy: not at all 5. Poor appetite or overeating: not at all 6. Feeling bad about yourself - or that you are a failure or have let yourself or your family down: not at all 7. Trouble concentrating on things, such as reading the newspaper or watching television: not at all 8. Moving or speaking so slowly that other people could have noticed. Or the opposite - being so fidgety or restless that you have been moving around a lot more than usual: not at all 9. Thoughts that you would be better off or of hurting yourself in some way: not at all Total score: 0 Depression Screening Interpretation: Negative Depression Screening Done: Yes 73892 - PHQ-9 Billing: Yes Source: Developed by Drs. Jorge Luis Peng, Luisa Ko, Scout Hopkins and colleagues, with an educational rosa isela from [employer]. Thrive Questionnaire Date Thrive assessed: 09/05/24 I am a: Patient What is your living situation today?: I have a steady place to live Within the past 12 months, did the food you bought not last and you didn't have the money to get more?: Never true Within the past 12 months, did you worry whether your food would run out before you got money to buy more?: Never true Do you have trouble paying for medicines?: No Do you have trouble getting transportation to medical appointments?: No Do you have trouble paying your heating and electricity bill?: No Do you have trouble taking care of your child, family member or friend?: No Do you have trouble with day-to-day activities such as bathing, preparing meals, shopping, managing finances, etc.?: No Are you currently unemployed and looking for a job?: No Are you interested in more education?: No Please select the resources that you would like help with: None Currently or been in a relationship where the following occur: No concerns reported THRIVE Score: 0 AUDIT C Alcohol Use Questionnaire (AUDIT-C) 1. How often do you have a drink containing alcohol?: Never 3. How often do you have six or more drinks on one occasion?: Never Total Score: 0 Score Reviewed/Action Taken: No LETY-7 AMB Questionnaire LETY-7 Date LETY - 7 assessed: 09/05/24 Feeling nervous, anxious, or on edge: 0 = Not at all Not being able to stop or control worryin = Not at all Worrying too much about different things: 0 = Not at all Trouble relaxin = Not at all Being so restless that it is hard to sit still: 0 = Not at all Becoming easily annoyed or irritable: 0 = Not at all Feeling afraid as if something awful might happen: 0 = Not at all Total LETY-7 score (0-4 normal; 5-9 mild; 10-14 moderate; 15-21 severe): 0 Source: Developed by Drs. Jorge Luis Peng, Luisa Ko, Scout Hopkins and colleagues, with an educational rosa isela from [employer]. LETY-7 Assessment Billing LETY-7 Assessment Tool: LETY-7 Assessment 58496 Review of Systems Const Denies poor appetite and Denies weakness Eyes Denies no additional complaints ENT Reports Normal hearing present, Denies dizziness, Denies nasal congestion, Denies tinnitus and Denies sore throat Card Denies chest pain, Denies syncope, Denies rapid heart rate and Denies dyspnea Resp Denies cough and Denies dyspnea GI Denies change in stool character, Reports constipation, Denies diarrhea, Denies nausea and Denies vomiting Denies urinary frequency, Denies difficulty voiding and Denies dysuria Neuro Reports Normal hearing present, Denies confusion, Denies dizziness, Denies syncope and Denies weakness Psych Denies confusion Physical exam (Primary Care) Vital Signs: Last Vital Signs Temp 97.3 F 09/05/24 11:05 Pulse 78 09/05/24 11:05 BP 160/70 H 09/05/24 11:05 Pulse Ox 97 09/05/24 11:05 Oxygen Delivery Method Room Air 09/05/24 11:05 BMI result Body Mass Index 30.6 Tobacco/Smoking Status: Tobacco use Status Tobacco use date assessed 09/05/24 09/05/24 11:12 Patient Tobacco Use Status Former Tobacco user 09/05/24 11:08 Tobacco use type Cigarette 09/05/24 11:08 e-Cigarette/Vaping Use Never Used 09/05/24 11:08 PHQ-9: PHQ-9 Score PHQ-9: Total score 0 09/05/24 11:39 Depression Screening Interpretation: Negative Thrive Assessment: Date of Thrive Assessment Date Thrive assessed 09/05/24 09/05/24 11:08 Currently or been in a relationship where the following occur: No concerns reported Const General: No confusion Orientation/consciousness: No confusion HENMT Head: Yes normocephalic Ears: external ears normal and TM's normal bilaterally Face and sinus: Yes normal facial exam Mouth: moist mucous membranes Throat: Yes tonsils normal Eyes Conjunctivae: conjunctivae normal Pupils: Equal, round and reactive pupils present and Pupil accommodation reflex normal Direct Ophthalmoscopy: normal light reflex Neck Neck: No lymphadenopathy Thyroid: Thyroid normal Chest Chest palpation & inspection: normal inspection of the chest Resp Effort & Inspection: normal respiratory effort and no audible wheezes Auscultation: clear to auscultation bilaterally, no crackles, no wheezes and lung sounds not diminished Cardio Rate: regular rate Rhythm: regular rhythm Peripheral pulses: radial pulses present and dorsalis pedis present GI Palpation (GI): no masses Auscultation: normal bowel sounds and normoactive bowel sounds Rectal Exam - Female: deferred Skin General skin exam: no rashes or lesions noted Rashes: no rashes Neuro General: No confusion Cranial nerves: Yes Equal, round and reactive pupils present and Yes Normal hearing present Cognition (Neuro): normal cognition Gait exam (Neuro): Normal gait present Motor exam (neuro): 5/5 motor strength present throughout Deep tendon reflexes (DTR's): Right brachioradialis reflex intensity grade: 2+, Left brachioradialis reflex intensity grade: 2+, Right patellar reflex intensity grade: 2+ and Left patellar reflex intensity grade: 2+ Extrem General: No edema Immunizations pneumoc 20-jolanta conj-dip cr(PF) 0.5 mL IM syringe Performing Provider: Pete Staton MD [place] [facility] [place] [facility] Administered by: ETIENNE Shi on 09/05/24 12:06 Dose Route Admin Location Dispensed Lot Number Expiration Date [facility] [employer] 0.5 mL IM Left Deltoid 0.5 mL [id number] 11/02/25 2482-0018-48 [employer] VIS Given Date VIS Provided VIS Publication Date 09/05/24 Single Vaccine 21 Eligibility Eligibility Date Funding Source Not [facility] Eligible 09/05/24 Private Coding Level of Care Code Est Pt Prev Care >65y(89354) Diagnoses Annual physical exam Z00.00 Primary hypertension I10 Hypertension type: primary hypertension GERD (gastroesophageal reflux disease) K21.9 Hypercholesterolemia E78.00 Osteoporosis M81.0 Type 2 diabetes mellitus with hyperglycemia E11.65 Distal radius fracture, right S52.501A Cervical spinal stenosis M48.02 Mild intermittent asthma without complication J45.20 Asthma severity: mild Asthma persistence: intermittent Asthma complication type: uncomplicated Cataract H26.9 Additional Codes LETY-7 Assessment Billing - LETY-7 Assessment Tool: LETY-7 Assessment 12090 ([id number]) PHQ-9 - 42320 - PHQ-9 Billing: Yes ([id number]) Assessment & Plan Assessment & Plan (1) Annual physical exam: Code(s): Z00.00 - Encounter for general adult medical examination without abnormal findings Category: Medical Plan: Patient is advised to eat healthy, keep well hydrated, keep active and have adequate sleep. (2) Hypertension: Code(s): I10 - Essential (primary) hypertension Category: Medical Qualifiers: Hypertension type: primary hypertension Qualified Code(s): I10 - Essential (primary) hypertension Plan: Continue with blood pressure medication. Decrease salt intake and exercise patient on amlodipine 10 mg once a day losartan 100 mg once a day advised to monitor BP (3) GERD (gastroesophageal reflux disease): Code(s): K21.9 - Gastro-esophageal reflux disease without esophagitis Category: Medical Plan: Avoid the foods that causes that usually spicy foods, tomato products, juices, coffee, soda and foods that your sensitive to. After eating do not lie down, allow 3-4 hours before in lie down. And keep the head of bed above 30 degrees to avoid the acid from going up. (4) Hypercholesterolemia: Comment: DEcline treatment 04/2022, 01/2022 Code(s): E78.00 - Pure hypercholesterolemia, unspecified Category: Medical Plan: Avoid fried foods, chicken skin, eggs, butter margarine, pastries and meat. Be it pork or beef they have a lot of cholesterol LDL goal of less than 130 and triglyceride of less than 150 (5) Osteoporosis: Code(s): M81.0 - Age-related osteoporosis without current pathological fracture Category: Medical Plan: Patient is due for bone density (6) Type 2 diabetes mellitus with hyperglycemia: Code(s): E11.65 - Type 2 diabetes mellitus with hyperglycemia Category: Medical Plan: Decrease the amount of carbohydrate intake, pasta, bread, rice and potatoes are all sugar and that is aside from all the sweet stuff, remember that fruits are good but they are Sweet also. Hemoglobin A1c goal of less than 7.0. (7) Distal radius fracture, right: Comment: Status post ORIF June 2024 Code(s): S52.501A - Unspecified fracture of the lower end of right radius, initial encounter for closed fracture Category: Medical Plan: Patient continues to follow-up with orthopedics (8) Cervical spinal stenosis: Code(s): M48.02 - Spinal stenosis, cervical region Category: Medical (9) Asthma: Code(s): J45.909 - Unspecified asthma, uncomplicated Category: Medical Qualifiers: Asthma severity: mild Asthma persistence: intermittent Asthma complication type: uncomplicated Qualified Code(s): J45.20 - Mild intermittent asthma, uncomplicated (10) Cataract: Comment: R > L Code(s): H26.9 - Unspecified cataract Category: Medical Plan History of Present Illness The patient is a 69-year-old female presenting with a wellness visit for management of various chronic conditions. Her medical history is notable for multiple conditions including essential hypertension, asthma, GERD, hypercholesterolemia, Vela's esophagus, anxiety disorder, and psoriasis. She has a history of alcohol abuse and is diabetic. The patient reports a recent weight gain of 4 pounds. She experienced a distal radial fracture in June 2024, treated with ORIF, and is currently undergoing physical therapy. The patient had a colonoscopy in August 2024, showing colon polyps with a tubular adenoma; additional screenings were deemed unnecessary. Anemia was noted with stable hemoglobin levels, and her cholesterol remains severely elevated. MRI findings indicate degenerative disc disease and bulging discs at C4-C5 and C5-C6. Her medication regimen includes amlodipine, losartan, and sertraline for her conditions. Recent symptoms include episodic dizziness, arm tingling, and swelling in her feet and fingers. Health Maintenance - Colonoscopy in August 2024 showing tubular adenoma; no further screenings required at this time - Mammogram up to date as of May 2024 - Bone density screening is due - Recent cholesterol levels recorded on June 09, 2024, with high LDL of 207 mg/dL - Anemia noted with hemoglobin at 11.4 g/dL as of June - LDL goal is less than 130 mg/dL; triglycerides goal less than 150 mg/dL - Diabetes management with a hemoglobin A1c goal of less than 7.0% - Discussed dietary modifications emphasizing plant-based proteins over animal proteins - Scheduled bone density test recommended due to fracture history Social History - History of alcohol abuse - Reports maintaining a diet including more fruits like oranges and bananas, moderate cottage cheese intake, and limited green leafy vegetables as family is not favorable towards them - Currently undergoing physical therapy for distal radial fracture rehabilitation - Experiences household challenges, with recollections of falls and accidents causing bodily soreness Review of Systems - Neurological: Reports episodic dizziness and balance issues. - Musculoskeletal: Reports tingling and numbness, particularly in the thumb and associated with neck motion. Swelling in fingers and whole hand numbness after lying on one side. - Respiratory: Reports shortness of breath requiring frequent use of inhaler. - Cardiovascular: Reports non-specific chest discomfort when bending. - Eyes: Reports history of cataract evaluation. Physical Exam General: Cooperative, healthy appearing, comfortable, no acute distress and well developed Orientation: Patient oriented x3 Limitations: No limitations Head: Normal to inspection Ears: Hearing grossly normal bilaterally Nose: Normal external nose present Face and sinus: Normal facial exam Eyes: Appearance normal, both eyes and all related structures Neck: Normal visual inspection, but patient reports pain and tingling down the arm when moving the neck. MRI shows C5-C6 malalignment, degenerative disc changes at C4-C5 and C5-C6, disc bulge at C4-C5 and C5-C6, and moderate canal stenosis. Respiratory: Normal respiratory effort and able to speak in complete sentences. Clear to auscultation bilaterally. Patient reports waking up short of breath and uses inhaler frequently. Cardiovascular: Regular rate and rhythm. Normal S1 and S2. Blood pressure noted to be a little high at 150 systolic. GI: Normal to inspection. Soft to palpation and nontender. Patient has history of GERD and esophagitis. Skin: No rashes or lesions noted Neuro: Patient oriented x3. Reports tingling sensation in arm related to neck movement. Extremities: Normal to inspection. Reports swelling in feet, possibly related to medication. Results - Labs: Anemia with hemoglobin of 11.4 g/dL as of June; elevated LDL at 207 mg/dL. - Tests: Recent MRI with findings of cervical degenerative disc disease, including bulging discs at C4-C5 and C5-C6, and moderate cervical canal stenosis. - Diagnostics: Colonoscopy in August 2024 revealing tubular adenoma; no further screenings recommended. Plan Hypertension management will continue with current medications, and due to elevated cholesterol levels, dietary changes are advised with a goal of LDL reduction. Diabetes management targets will be pursued with careful monitoring of glucose levels. Past fractures necessitate bone density evaluation, which has been ordered. The neurosurgeon referral will assess the cervical spine concerns, potentially leading to additional therapy. Asthma will involve a switch to Breo to enhance breathing control against shortness of breath episodes. Nutritional intake should focus on cholesterol-friendly choices. Proactively monitor blood pressure at home to evaluate regimen effectiveness. Patient was informed and verbally consented to the use of an ambient scribe for clinic note documentation during this visit. Discussion Notes I discussed with the patient the importance of continuing her medications for managing hypertension and cholesterol. We reviewed the benefits of dietary changes to lower LDL cholesterol, emphasizing the transition to a diet richer in plant-based proteins. The potential need for cervical spine evaluation by a neurosurgeon and the implications of findings from her recent MRI were discussed. We outlined her diabetes management strategy with specific goals for glycemic control. The patient was informed about future anemia and cholesterol evaluations and their role in ongoing management. Preventive care measures, such as pneumococcal vaccination and scheduled bone density scans, were outlined. I described how lifestyle modifications, including monitoring blood pressure adequately at home, are crucial. Patient Instructions - Continue with current medications including amlodipine, losartan, and sertraline. - Reduce animal protein intake and increase fruits and vegetables, focusing on plant-based proteins. - Scheduled follow-ups with a neurosurgeon for cervical spine evaluation. - Monitor blood pressure at home at least two or three times a week and report any significant high readings. - Ensure fast for eight hours prior to upcoming blood tests. - Use Breo inhaler as prescribed to manage asthma symptoms and prevent shortness of breath. - Schedule and complete the bone density scan. - Proceed with the pneumococcal vaccination as discussed. - Re-evaluate eye condition at the next ophthalmology appointment and maintain follow-ups for cataracts. - Report any worsening symptoms or if new symptoms develop. Orders: Orders Complete Blood Count Auto Diff Today E78.00 - Pure hypercholesterolemia, unspecified Ferritin Today E78.00 - Pure hypercholesterolemia, unspecified Reticulocyte Count Today E78.00 - Pure hypercholesterolemia, unspecified XR DEXA axial skeleton Today M81.0 - Age-related osteoporosis without current pathological fracture Comprehensive Met. Panel Today E78.00 - Pure hypercholesterolemia, unspecified Free T4 (Free Thyroxine) Today E78.00 - Pure hypercholesterolemia, unspecified Thyroid Stimulating Hormone Today E78.00 - Pure hypercholesterolemia, unspecified Lipid Panel Today E78.00 - Pure hypercholesterolemia, unspecified Vitamin B12 and Folate Today E78.00 - Pure hypercholesterolemia, unspecified Vitamin D 25-OH Total Today E78.00 - Pure hypercholesterolemia, unspecified IRON PROFILE Today E78.00 - Pure hypercholesterolemia, unspecified Uric Acid Today E78.00 - Pure hypercholesterolemia, unspecified Referrals Neurosurgery Referral M48.02 - Spinal stenosis, cervical region Medications: New fluticasone furoate-vilanterol 100-25 mcg/dose (Breo Ellipta) 1 inh inhalation DAILY 60 ea 3RF J45.20 - Mild intermittent asthma, uncomplicated Discontinued fluticasone propion-salmeterol 250-50 mcg/dose (Wixela Inhub) Discontinued Reason: Patient Refused 1 inh inhalation BID 60 ea 12RF J45.909 - Unspecified asthma, uncomplicated
[2024-09-05 11:05] VITALS: BP 160/70; PULSE 78; TEMP 36.3; O2SAT 97; BMI 30.6
--- OUTSIDE RECORDS SUMMARY | 2024-09-05 12:49 | XMS_ITS | Patient Health Record ---
Author Organization [facility] Address [address] [place] [address] Care Team Providers Care Engraver Tire Mold Name Role Phone Pete Staton MD Primary Care Provider Jorge Luis Sweet [phone] Allergies Allergen (clinical drug ingredient) Drug/Non Drug Allergy documented on EMR Reaction Allergy Type Onset Date Status Perfume Perfume Unknown Allergy Active nickel Nickel Unknown Allergy Active Benzocaine Unknown Drug Allergy Active animals (uncoded) Unknown Allergy Ac tive Results Component Value Reference Range Notes Pathology (Not yet reviewed by provider) Interpretation: Performing Lab:[facility], [address] [place] [address] Notes/Report: Name: Samantha Colonvijay Gallegos Age/Sex: 69/F : 1955 Unit#: [id number] Attend Dr: Jorge Luis Galvan MD Re08/06/24 Status : [facility] Location: [facility] Disch: SPEC : [id number] RECD : 08/06/24 STATUS: ALBINA BUCIO NUM: [id number] JESSICA: 08/06/24-[address] [facility] [address]: Jorge Luis Galvan MD ENTERED: [...] on A Copies To: Pete Staton MD [facility] Primary Care,[address] [place] [address] CONTINUED ON NEXT PAGE Name: Tiffanie Colon Age/Sex: 69/F : 1955 Unit#: [id number] Attend Dr: Jorge Luis Galvan MD Re08/06/24 Status : [facility] Location: [facility] Disch: SPEC : [id number] RECD : 08/06/24-1325 STATUS: ANDERSONLennox FORTUNATO NUM: [id number] JESSICA: 08/06/24-[address] [facility] [address]: Jorge Luis Galvan MD ENTERED: 08/06/24-13 31 SP TYPE: Surgical OTHR DR: Pete Staton MD ORDERED: HE Stain/6, Gross Micro L4/2, IHC, Special st. 2, H. pylori, AB/PAS Copies To: (Continued) Jorge Luis Galvan MD [address] [place], [place] [id number] Signed (si gnature on file) Santosh Patiño [...] Problem Screening for malignant neoplasm of colon (120435834) Encounter for screening for malignant neoplasm of colon (Z12.11) Active confirmed Problem Hiatal hernia (83794822) Hiatal hernia (K44.9) Active confirmed Problem Gastroesophageal reflux disease (788807438) GERD without esophagitis (K21.9) Active confirmed Problem Left upper quadrant pain (855025101) LUQ abdominal pain (R10.12) Active confirmed Vital Signs Blood pressure diastolic 00 mm Hg 04/22/2024 Height 62 in 04/22/2024 Blood pressure systolic 00 mm Hg 04/22/2024 Weight 166 lbs 04/22/2024 BMI 30.36 kg/m2 04/22/2024 Encounters Encounter Location Date Provider Diagnosis [facility] [place] [address] [place] [phone] 08/06/2024 Jorge Luis Galvan Colon cancer screeni ng Z12.11 ; Colon polyps K63.5 ; Diverticulosis of colon K57.30 ; Chronic GERD K21.9 and Hiatal hernia K44.9 [facility] [address] [place] [address] 04/22/2024 Jorge Luis Galvan GERD without esophagitis [...] Insured Coverage Start Date Coverage End Date [facility] [address] [place] [address] [id number] TIFFANIE COLON Self - patient is the [...] again; small to moderate-sized HH Asthma Denies [place],DM,CVA,renal disease 08/2013-hospitalized at [facility] f or CP--neg [place]--saw Dr. Sweet--has been told of need for [...]
--- OUTSIDE RECORDS SUMMARY | 2024-09-05 12:49 | XMS_ITS ---
Author Organization [facility] Address [address] [place] [address] Care Team Providers Care Esthetician And Manager Medical Spa Name Role Phone Pete Staton MD Primary Care Provider Jorge Luis Sweet [phone] Allergies Allergen (clinical drug ingredient) Drug/Non Drug [...] W/U Status Risk Notes Problem Hiatal hernia (86040691) Hiatal hernia (K44.9) Active confirmed Vital Signs Blood pressure systolic 00 mm Hg 04/22/20 24 Blood pressure diastolic 00 mm Hg 024 Height 62 in 04/22/2024 Weight 166 lbs 04/22/2024 BMI 30.36 kg/m2 04/22/2024 Encounters Encounter Location Date Provider Diagnosis [facility] [address] [place] [address] 04/22/2024 Jorge Luis Galvan GERD without esophagitis [...] TIFFANIE SMITH ADOB: [birth year] (68 yo F)Acc No.[id number]:04/22/2024 Progress Notes Patient:?TIFFANIE SMITH Provider:?Jorge Luis Galvan MD :1955???Age:68 Y???Sex:Female D ate:04/22/2024 Address:[address] [place], [place] [phone] Pcp:Pete Staton MD Subjective: * Chief Complaints: [...] Screen?Points: 4, Interpretation: Positive.?Miscellaneous:?Marital status: . 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 ???Nonsmoker >10 yrs; [...] this, including risks of bleeding and perforation. Tiffaine was comfortable with this plan. Thank you [...] Procedure Codes:?3017F COLOR ECTAL CA SCREEN DOC [id number] TOBACCO NON-QYIYS9122 BP SCR NOT PRFRM REC REASON NOS [...] MD Date:? 024 Generated for Demetrius grimes/Mario/Jack on:?09/05/2024 12:49 PM EDT History and Physical Notes * HPI [...]
--- OUTSIDE RECORDS SUMMARY | 2024-09-05 12:50 | XMS_ITS ---
Author Organization [facility] Address [address] [place] [address] Care Team Providers Care Packaging Machine Operator Name Role Phone Pete Staton MD Primary Care Provider Jorge Luis Sweet [phone] REASON FOR VISIT gerd,hiatal hrenia,screening Encounters Encounter Location Date Provider Diagnosis [facility] [place] [address] [place] [phone] 08/06/2024 Jorge Luis Galvan Colon cancer scree [...] KRISHNA SMITH ADOB: [birth year] (69 yo F)Acc No.[id number]:08/06/2024 EGD and COL/MAC Patient:?KRISHNA SMITH Provider:?Jorge Luis Galvan MD :1955???Age:69 Y???Sex:Female D ate:08/06/2024 Address:[address] [place] [address] [id number] Pcp:Pete Staton MD Subjective: * Chief Complaints: * ???1. Gerd,hiatal hrenia,scr eening. * Medical History:? Objective: * Vitals:? Assessment: * Assessment: 1.?Colon cancer screening - Z12.11 (Primary)???2.?Colon polyps - K63.5???3.?Diverticulosis of colon - K57.30???4.?Chronic GERD - K21.9???5.?Hiatal hernia - K44.9??? Plan: * Treatment: * Procedure Codes:?52584 COLON OSCOPY AND BIOPSY, 0529F INTRVL 3+YRS PTS CLNSCP DOCD, 0528F RCMND FLW-UP 10 YRS DOCD, [address] UPPER GI ENDOSCOPY, BIOPSY * * The named appointment provid er may or may not be the originator of this progress note, and it is not deemed complete until electronically signed by the appointment provider. Sign off status: Pending * Provider:?Jorge Luis Galvan MD Date:? 025 Generated for Demetrius grimes/Mario/eTransmitting on:?09/05/2024 12:49 PM EDT
== END 2024-09-05 12:05 | disposition home or self-care (01) ==
LOC: HO.HMCH 11:03
PROVIDERS: PCP Internal Medicine; Visit Provider Internal Medicine
DX: Z00.00 Encounter for general adult medical examination without abnormal findings (principal); I10 Essential (primary) hypertension; K21.9 Gastro-esophageal reflux disease without esophagitis; E78.00 Pure hypercholesterolemia, unspecified; M81.0 Age-related osteoporosis without current pathological fracture; E11.65 Type 2 diabetes mellitus with hyperglycemia; S52.501A Unspecified fracture of the lower end of right radius, initial encounter for closed fracture; M48.02 Spinal stenosis, cervical region; J45.20 Mild intermittent asthma, uncomplicated; H26.9 Unspecified cataract; Z23 Encounter for immunization

== ENCOUNTER → 2024-09-05 11:02 | Outpatient (BNVA) | payer MEDICARE, SELFPAY | PROVIDERS: PCP Internal Medicine; Visit Provider Internal Medicine | DX: Z00.01 Encounter for general adult medical examination with abnormal findings (principal); K21.9 Gastro-esophageal reflux disease without esophagitis; E78.00 Pure hypercholesterolemia, unspecified; M81.0 Age-related osteoporosis without current pathological fracture; E11.65 Type 2 diabetes mellitus with hyperglycemia; J45.20 Mild intermittent asthma, uncomplicated; H26.9 Unspecified cataract; S52.501D Unspecified fracture of the lower end of right radius, subsequent encounter for closed fracture with routine healing; X58.XXXD Exposure to other specified factors, subsequent encounter; Z23 Encounter for immunization; Z98.890 Other specified postprocedural states | CPT/HCPCS: 90471; 90677; 96127; 99397 ==

== ENCOUNTER 2024-09-11 09:07 | Outpatient (REF) | payer MEDICARE, SELFPAY ==
[2024-09-11 09:23] LABS: MANUAL DIFF FLAG NO
--- OUTSIDE RECORDS SUMMARY | 2024-09-11 09:43 | XMS_ITS | Patient Health Record ---
Author Organization [facility] Address [address] [place] [address] Care Team Providers Care Nanotechnologist Name Role Phone Pete Staton MD Primary Care Provider Jorge Luis Sweet [phone] Allergies Allergen (clinical drug ingredient) Drug/Non Drug Allergy documented on EMR Reaction Allergy Type Onset Date Status Perfume Perfume Unknown Allergy Active nickel Nickel Unknown Allergy Active Benzocaine Unknown Drug Allergy Active animals (uncoded) Unknown Allergy Ac tive Results Component Value Reference Range Notes Pathology (Not yet reviewed by provider) Interpretation: Performing Lab:[facility], [address] [place] [address] Notes/Report: Name: Samantha Colonvijay Gallegos Age/Sex: 69/F : 1955 Unit#: [id number] Attend Dr: Jorge Luis Galvan MD Re08/06/24 Status : [facility] Location: [facility] Disch: SPEC : [id number] RECD : 08/06/24 STATUS: ALBINA BUCIO NUM: [id number] JESSICA: 08/06/24-[address] [facility] [address]: Jorge Luis Galvan MD ENTERED: 08/06/24 [...] A; AB/PAS stains on A Copies To: ePte Staton MD [facility] Primary Care,[address] [place] [address] CONTINUED ON NEXT PAGE Name: Tiffanie Colon Age/Sex: 69/F : 1955 Unit#: [id number] Attend Dr: Jorge Luis Galvan MD Re08/06/24 Status : [facility] Location: [facility] Disch: SPEC : [id number] RECD : 08/06/24-1325 STATUS: ANDERSONLennox FORTUNATO NUM: [id number] JESSICA: 08/06/24-[address] [facility] [address]: Jorge Luis Galvan MD ENTERED: 08/06/24-13 31 SP TYPE: Surgical OTHR DR: Pete Staton MD ORDERED: HE Stain/6, Gross Micro L4/2, IHC, Special st. 2, H. pylori, AB/PAS Copies To: (Continued) Jorge Luis aGlvan MD [address] [place], [place] [phone] Signed (si gnature on file) Santosh Patiño [...] Problem Screening for malignant neoplasm of colon (213603086) Encounter for screening for malignant neoplasm of colon (Z12.11) Active confirmed Problem Hiatal hernia (29435928) Hiatal hernia (K44.9) Active confirmed Problem Gastroesophageal reflux disease (907567761) GERD without esophagitis (K21.9) Active confirmed Problem Left upper quadrant pain (548690160) LUQ abdominal pain (R10.12) Active confirmed Vital Signs Blood pressure diastolic 00 mm Hg 04/22/2024 Height 62 in 04/22/2024 Blood pressure systolic 00 mm Hg 04/22/2024 Weight 166 lbs 04/22/2024 BMI 30.36 kg/m2 04/22/2024 Encounters Encounter Location Date Provider Diagnosis [facility] [place] [address] [place] [phone] 08/06/2024 Jorge Luis Galvan Colon cancer screeni ng Z12.11 ; Colon polyps K63.5 ; Diverticulosis of colon K57.30 ; Chronic GERD K21.9 and Hiatal hernia K44.9 [facility] [address] [place] [address] 04/22/2024 Jorge Luis Galvan GERD without esophagitis [...] Insured Coverage Start Date Coverage End Date [facility] [address] [place] [address] [phone] [id number] TIFFANIE COLON Self - patient is the [...] HH Asthma Denies [place],DM,CVA,renal disease 08/2013-hospitalized at [facility] f or CP--neg [place]--saw Dr. Sweet--has been [...]
--- OUTSIDE RECORDS SUMMARY | 2024-09-11 09:44 | XMS_ITS ---
Author Organization [facility] Address [address] [place] [address] Care Team Providers Care Software Writer Name Role Phone Pete Staton MD Primary Care Provider Jorge Luis Sweet [phone] Allergies Allergen (clinical drug ingredient) Drug/Non Drug [...] W/U Status Risk Notes Problem Hiatal hernia (87686329) Hiatal hernia (K44.9) Active confirmed Vital Signs Blood pressure systolic 00 mm Hg 04/22/20 24 Blood pressure diastolic 00 mm Hg 024 Height 62 in 04/22/2024 Weight 166 lbs 04/22/2024 BMI 30.36 kg/m2 04/22/2024 Encounters Encounter Location Date Provider Diagnosis [facility] [address] [place] [address] 04/22/2024 Jorge Luis Galvan GERD without esophagitis [...] TIFFANIE SMITH ADOB: [birth year] (68 yo F)Acc No.[id number]:04/22/2024 Progress Notes Patient:?TIFFANIE SMITH Provider:?Jorge Luis Galvan MD :1955???Age:68 Y???Sex:Female D ate:04/22/2024 Address:[address] [place], [place] [phone] Pcp:Pete Staton MD Subjective: * Chief Complaints: [...] Screen?Points: 4, Interpretation: Positive.?Miscellaneous:?Marital status: . 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 024 Generated for Demetrius grimes/Mario/Jack on:?09/11/2024 09:43 AM EDT History and Physical Notes * [...]
--- OUTSIDE RECORDS SUMMARY | 2024-09-11 09:44 | XMS_ITS ---
Author Organization [facility] Address [address] [place] [address] Care Team Providers Care Audio Visual Specialist Name Role Phone Pete Staton MD Primary Care Provider Jorge Luis Sweet [phone] REASON FOR VISIT gerd,hiatal hrenia,screening Encounters Encounter Location Date Provider Diagnosis [facility] Outpatient [address] [place] [phone] 08/06/2024 Jorge Luis Galvan Colon cancer scree [...] KRISHNA SMITH ADOB: [birth year] (69 yo F)Acc No.[id number]:08/06/2024 EGD and COL/MAC Patient:?KRISHNA SMITH Provider:?Jorge Luis Galvan MD :1955???Age:69 Y???Sex:Female D ate:08/06/2024 Address:[address] [place] [address] [id number] Pcp:Pete Staton MD Subjective: * Chief Complaints: * ???1. Gerd,hiatal hrenia,scr eening. * Medical History:? Objective: * Vitals:? Assessment: * Assessment: 1.?Colon cancer screening - Z12.11 (Primary)???2.?Colon polyps - K63.5???3.?Diverticulosis of colon - K57.30???4.?Chronic GERD - K21.9???5.?Hiatal hernia - K44.9??? Plan: * Treatment: * Procedure Codes:?67086 COLON OSCOPY AND BIOPSY, 0529F INTRVL 3+YRS PTS CLNSCP DOCD, 0528F RCMND FLW-UP 10 YRS DOCD, [address] UPPER GI ENDOSCOPY, BIOPSY * * The named appointment provid er may or may not be the originator of this progress note, and it is not deemed complete until electronically signed by the appointment provider. Sign off status: Pending * Provider:?Jorge Luis Galvan MD Date:? 025 Generated for Demetrius grimes/Mario/eTransmitting on:?09/11/2024 09:44 AM EDT
[2024-09-11 10:24] LABS: Basophils Percent Auto 0.5 % (0-2); Eosinophils Absolute Auto 0.2 X10*3/uL (0.0-0.4); Eosinophils Percent Auto 4.1 % (0-4); Hematocrit 33.5 % (37.0-47.0); Hemoglobin 11.2 g/dl (12.0-16.0); Imm Gran Abs Auto 0.02 X10*3/uL (0.00-0.03); Imm Gran Pct Auto 0.3 % (0.0-0.4); Immature Retic Fraction 7.6 % (3.0-15.9); Lymphocytes Absolute Auto 1.1 X10*3/uL (1.2-4.9); Mean Corpuscular HGB Conc 33.4 g/dl (31.0-35.0); Mean Corpuscular Hemoglobin 28.4 pg (27.0-33.0); Monocytes Absolute Auto 0.2 X10*3/uL (0.1-1.2); Monocytes Percent Auto 4.1 % (2-11); Neutrophils Absolute Auto 4.3 x10*3/uL (2.0-8.3); Platelet Count 211 X10*3/uL (160-400); Red Blood Count 3.94 X10*6/uL (4.20-5.50); Red Cell Distribution Width 12.7 % (11.0-16.0); Retic HGB Equivalent 32.5 pg (30.0-35.0); Reticulocyte Percent 1.1 % (0.5-1.8); Reticulocytes Absolute 0.043 X10*6/uL (0.026-0.095); White Blood Count 5.9 X10*3/uL (4.8-10.8)
[2024-09-11 10:38] LABS: Appearance Urine Clear; Color Urine Yellow; Glucose Urine UA Negative (Negative); Leukocyte Esterase Urine Large (3+) (Negative); Nitrite Urine Negative (Negative); UMIC TRIGGER UA YES; Urine Blood Negative (Negative); Urine Ketones Negative (Negative); Urine Protein Negative (Neg-Trace)
[2024-09-11 10:45] LABS: Bacteria Urine None Seen (None Seen); Hyaline Casts Urine 0-2 /LPF (0-2); RBC Urine 0-2 /HPF (0-2)
[2024-09-11 11:23] LABS: Alanine Aminotransferase 15 U/L (0-31); Albumin Level 4.6 g/dL (3.5-5.0); Alkaline Phosphatase 83 U/L (39-117); Anion Gap 14 (12-20); Aspartate Amino Transferase 24 U/L (5-31); Bilirubin Total 0.6 mg/dL (0.0-1.0); Blood Urea Nitrogen 18 mg/dL (9-16); Carbon Dioxide 30 mmol/L (22-29); Chloride 104 mmol/L (96-108); Cholesterol 271 mg/dL (<200); Estimated Glomerular Filt Rate > 60; Glucose Random 117 mg/dL (60-115); HDL Cholesterol 65 mg/dL (>40); Iron 52 mcg/dL (30-160); LDL Cholesterol Calculated 170 mg/dL (<100); Percent Iron Saturation 20 % (15-50); Potassium 4.5 mmol/L (3.3-5.1); Sodium 143 mmol/L (135-145); Total Iron Binding Capacity 265 mcg/dL (228-428); Total Protein 7.2 g/dL (6.5-8.0); Triglycerides 182 mg/dL (<150); Unsaturated Iron Binding 213 ug/dL; Uric Acid 4.3 mg/dL (2.4-5.7)
[2024-09-11 11:31] LABS: Ferritin 105 ng/mL (10-250); Free T4 (Free Thyroxine) 0.93 ng/dL (0.71-1.85); Thyroid Stimulating Hormone 1.18 uIU/mL (0.32-4.0); Vitamin D 25-OH Total 42.2 ng/mL (>30)
[2024-09-11 11:47] LABS: Folate > 20.0 ng/mL (> or = 4.0); Vitamin B12 371 pg/mL (200-900)
== END 2024-09-11 09:08 | disposition home or self-care (01) ==
LOC: HO.LAB 09:07
PROVIDERS: PCP Internal Medicine; Visit Provider Internal Medicine
DX: E78.00 Pure hypercholesterolemia, unspecified (principal)
CPT/HCPCS: 36415; 80053; 80061; 81001; 82306; 82607; 82728; 82746; 83540; 84439; 84443; 84550; 85025; 85045

== ENCOUNTER 2024-09-26 11:11 | Outpatient (AMB) | payer MEDICARE, SELFPAY ==
[2024-09-26 11:16] VITALS: BP 138/58; PULSE 75; O2SAT 93; BMI 30.4
--- NOTE | 2024-09-26 11:16 | A.OFFPC_ITS ---
Vital Signs 09/26/24 11:16 Height 5 ft 2 in Weight 166 lb BMI 30.4 BP 138/58 L Blood Pressure Location Lt brachial Position Sitting Pulse 75 Pulse Source Pulse Oximeter Pulse Oximetry (%) 93 Oxygen Delivery Method Room Air Intake Visit Reasons: Neurosurgeon referral Allergies bacitracin [From Neosporin (jlm-kdd-tdnbl)] Allergy (Unknown, Verified 09/26/24 11:16) Unknown benzocaine Allergy (Unknown, Verified 09/26/24 11:16) Unknown Iodinated Contrast Media [IV Contrast Dye] Allergy (Unknown, Verified 09/26/24 11:16) Unknown lisinopril Allergy (Unknown, Verified 09/26/24 11:16) Unknown neomycin [From Neosporin (rvw-rxq-shtus)] Allergy (Unknown, Verified 09/26/24 11:16) Unknown nickel Allergy (Unknown, Verified 09/26/24 11:16) Unknown polymyxin B [From Neosporin (inq-pdm-renny)] Allergy (Unknown, Verified 09/26/24 11:16) Unknown hydrochlorothiazide Adverse Reaction (Intermediate, Verified 09/26/24 11:16) hypokalemia rosuvastatin Adverse Reaction (Intermediate, Verified 09/26/24 11:16) Nausea Medication List - Last Reconciled 09/26/24 by Pete Staton MD albuterol sulfate 90 mcg/actuation 2 puffs PO Q4H amlodipine 10 mg PO DAILY atorvastatin 10 mg PO BEDTIME cholecalciferol (vitamin D3) 50 mcg PO DAILY 90 days clobetasol 0.05% 1 appl topical DAILY fluticasone furoate-vilanterol 100-25 mcg/dose (Breo Ellipta) 1 inh inhalation DAILY folic acid 1 mg PO DAILY loratadine 10 mg PO DAILY PRN losartan 100 mg PO DAILY 90 days omeprazole 20 mg PO DAILY sertraline 150 mg (1.5 x 100 mg) PO DAILY Tobacco use date assessed: 09/05/24 Fall risk assessment: No Falls in past year Last assessed Fall Risk: 09/26/24 Dental Screening Dental Screen Date: 09/05/24 [facility] Medical History Alcohol dependence Anemia Breast cancer screening by mammogram Splenomegaly Diarrhea LUQ abdominal pain Diverticulosis Impaired glucose tolerance Vela's esophagus Anxiety and depression Psoriasis Osteoporosis Hypercholesterolemia GERD (gastroesophageal reflux disease) Asthma Knee osteoarthritis Hypertension Allergic rhinitis Surgical History History of open reduction and internal fixation (ORIF) procedure History of eye surgery History of tubal ligation History of tonsillectomy History of arthroplasty of right knee History of arthroplasty of left knee Family History Father No problems noted. Mother Ovarian cancer Myocardial infarction Paternal Grandmother Bladder cancer Paternal Aunt Bladder cancer Paternal Uncle Bladder cancer Social History Household Members: Spouse and Children Housing: House Are you a primary home care physical therapist to a significant other at home: No Do you presently have visiting nurse or other home services: No Alcohol intake: current Alcohol intake frequency: holidays/special occasions only Patient Tobacco Use Status: Former Tobacco user Tobacco use type: Cigarette e-Cigarette/Vaping Use: Never Used Second Hand Smoke Exposure: No Substance Use Type: Marijuana service: No Current occupational status: employed 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 1. Little interest or pleasure in doing things: more than half the days Source: Developed by Drs. Jorge Luis Peng, Luisa Ko, Scout Hopkins and colleagues, with an educational rosa isela from [employer]. Thrive Questionnaire Date Thrive assessed: 09/05/24 LETY-7 AMB Questionnaire LETY-7 Date LETY - 7 assessed: 09/05/24 Source: Developed by Drs. Jorge Luis Peng, Luisa Ko, Scout Hopkins and colleagues, with an educational rosa isela from [employer]. Physical exam (Primary Care) Vital Signs: Last Vital Signs Pulse 75 09/26/24 11:16 BP 138/58 L 09/26/24 11:16 Pulse Ox 93 09/26/24 11:16 Oxygen Delivery Method Room Air 09/26/24 11:16 BMI result Body Mass Index 30.4 Tobacco/Smoking Status: Tobacco use Status Tobacco use date assessed 09/05/24 09/26/24 11:17 Patient Tobacco Use Status Former Tobacco user 09/26/24 11:17 Tobacco use type Cigarette 09/26/24 11:17 e-Cigarette/Vaping Use Never Used 09/26/24 11:17 Thrive Assessment: Date of Thrive Assessment Date Thrive assessed 09/05/24 09/26/24 11:17 Const General: alert; No acute distress HENMT Other: complains of numbness of the R thumb area and complains of neck pain Eyes Conjunctivae: conjunctivae normal Resp Auscultation: clear to auscultation bilaterally Cardio Rate: regular rate Rhythm: regular rhythm GI Inspection: Yes normal to inspection Extrem General: Yes normal to inspection and No edema Coding Level of Care Code Est Pt Level 4 (70425) Complex EM visit Add On G2211 Diagnoses Type 2 diabetes mellitus with hyperglycemia E11.65 Hypercholesterolemia E78.00 Primary hypertension I10 Hypertension type: primary hypertension 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 Hemoglobin A1c goal of less than 7.0 (2) Hypercholesterolemia: Comment: DEcline treatment 04/2022, 01/2022 Code(s): E78.00 - Pure hypercholesterolemia, unspecified Category: Medical Plan: Avoid fried foods, chicken skin, eggs, butter margarine, pastries and meat. Be it pork or beef they have a lot of cholesterol LDL goal of less than 100 triglyceride of less than 150. Patient on atorvastatin 10 mg at bedtime (3) Hypertension: Code(s): I10 - Essential (primary) hypertension Category: Medical Qualifiers: Hypertension type: primary hypertension Qualified Code(s): I10 - Essential (primary) hypertension Plan: Continue with blood pressure medication. Decrease salt intake and exercise on amlodipine 10 mg once a day losartan 100 mg once a day (4) Vela's esophagus: Code(s): K22.70 - Vela's esophagus without dysplasia Category: Medical Qualifiers: Vela's esophagus type: without dysplasia Qualified Code(s): K22.70 - Vela's esophagus without dysplasia Plan: Avoid the foods that causes that usually spicy foods, tomato products, juices, c offee, soda and foods that your sensitive to. After eating do not lie down, allow 3-4 hours before in lie down. And keep the head of bed above 30 degrees to avoid the acid from going up. (5) Cervical spinal stenosis: Code(s): M48.02 - Spinal stenosis, cervical region Category: Medical Plan: Patient complains of numbness of the right thumb area and thought that with the carpal tunnel release that this was solved the problem. Patient is concern about the fall that happened in June that the nerve problem came from the cervical neck area causing the numbness. And patient would want the neurosurgeon consult. Discussed with the patient that even if they try to solve the problem on the cervical neck area that it might not solve the thumb numbness. Patient want to do the referral for the neurosurgeon Plan History of Present Illness The patient is a 69-year-old female presenting with numbness and pain in the right hand, along with cervical spine issues. Following a fall on June 17, where she struck her head, she experienced progressive numbness in the right thumb. Initially, symptoms were attributed to carpal tunnel syndrome, leading to treatment attempts with physical therapy, yet the numbness persisted. An MRI performed in June revealed cervical spine degenerative disc changes and a C4- C5 and C5-C6 disc bulge, accompanied by moderate canal stenosis and foraminal na rrowing at the C5-C6 level. The patient expresses concern over possible cervical radiculopathy arising from these MRI findings, linking these features to symptom persistence. She previously had an unsuccessful neurosurgery referral due to insurance coverage complications. Health Maintenance - Last physical examination was on September 05. - Last colonoscopy occurred in August 2024. - Last mammogram was in May (year unspecified). - Bone density scan was last performed in January 2022. - Blood sugar control aimed at maintaining Hemoglobin A1c below 7.0%. - Cholesterol management targeting LDL below 100 mg/dL and triglycerides below 150 mg/dL. - Hypertension managed with amlodipine 10 mg and losartan 100 mg daily. - Hypercholesterolemia managed with atorvastatin, target LDL below 100 mg/dL. Social History - History of alcohol abuse. - Difficulty with medical insurance affecting specialist referrals and treatment access. - Physical activity currently limited by symptoms and medical conditions. - Faced challenges with her insurance since June and is dealing with complex coverage issues. Review of Systems - Musculoskeletal: Reports numbness in the right hand and shoulder pain. - Neurological: Reports cervical pain and numbness radiating from the neck to the thumb, exacerbated since a fall. - Cardiovascular: Reports hypertension, managed with medication. - Respiratory: Reports asthma, managed with Breo inhaler. - Gastrointestinal: Reports GERD with ongoing management plans. - Dermatological: Reports psoriasis. Physical Exam Results - Labs: Hemoglobin A1c in June was 5.6%. LDL cholesterol at 170 mg/dL, triglyceride level at 182 mg/dL, chronic anemia. - Imaging: June MRI showed degenerative disc changes at C4-C5, C5-C6 with a disc bulge, moderate central canal stenosis at C5-C6, bilateral foraminal narrowing, more pronounced on the left. Plan The patient's management involves further pursuit of neurosurgical consultation to address suspected cervical radiculopathy causing hand numbness. Continual use of prescribed medications such as atorvastatin, amlodipine, and losartan for chronic condition management is advised. Ensuring consistent adherence to keri atment protocols and re-evaluation following neurosurgical input is emphasized. Addressing any ongoing health issues, including adjustment of treatment plans based on evolving symptomatology, remains prioritized. Patient was informed and verbally consented to the use of an ambient scribe for clinic note documentation during this visit. Discussion Notes I discussed with the patient the nature of her cervical spine issues, including the degenerative changes identified on her MRI. I explained the connection between these changes and the numbness she is experiencing in her right hand. Options regarding further neurosurgical evaluations were outlined considering insurance coverage barriers. The discussion also included the importance of managing her chronic conditions and adhering to her medication regimen. Future imaging and testing, such as nerve conduction studies, were mentioned as components of ongoing evaluation, depending on the neurosurgeon's recommendations. Follow-up in December was reinforced, and the necessity of fasting cholesterol tests three months hence was confirmed to monitor her lipid profile. The patient was advised to obtain necessary blood work before the next visit. Patient Instructions - Continue taking all prescribed medications as directed. - Monitor symptoms and report any new or worsening symptoms. - Attend referral appointments with the neurosurgeon and follow through with assessments. - Complete fasting cholesterol and other lab tests as instructed within three months. - Ensure appropriate follow-up in December and prior completion of necessary tests. - Continue medication for asthma management and report any changes in breathing. - Contact medical care if experiencing acute pain or significant changes in symptoms. - Maintain a healthy lifestyle focusing on diet and exercise to manage chronic conditions. Orders: Orders Comprehensive Met. Panel 3 Months E78.00 - Pure hypercholesterolemia, unspecified Hemoglobin A1c 3 Months E78.00 - Pure hypercholesterolemia, unspecified Lipid Panel 3 Months E78.00 - Pure hypercholesterolemia, unspecified Referrals Neurosurgery Referral M48.02 - Spinal stenosis, cervical region
== END 2024-09-26 11:37 | disposition home or self-care (01) ==
LOC: HO.HMCH 11:12
PROVIDERS: PCP Internal Medicine; Visit Provider Internal Medicine
DX: E11.65 Type 2 diabetes mellitus with hyperglycemia (principal); E78.00 Pure hypercholesterolemia, unspecified; I10 Essential (primary) hypertension; K22.70 Barrett's esophagus without dysplasia; M48.02 Spinal stenosis, cervical region

== ENCOUNTER → 2024-09-26 11:11 | Outpatient (BNVA) | payer MEDICARE, SELFPAY | PROVIDERS: PCP Internal Medicine; Visit Provider Internal Medicine | DX: E11.65 Type 2 diabetes mellitus with hyperglycemia (principal); E78.00 Pure hypercholesterolemia, unspecified; I10 Essential (primary) hypertension; K22.70 Barrett's esophagus without dysplasia; M48.02 Spinal stenosis, cervical region; Z79.899 Other long term (current) drug therapy | CPT/HCPCS: 99212 ==

== ENCOUNTER 2024-10-02 08:53 | Outpatient (RCR) | payer OTHER, MEDICARE, SELFPAY ==
--- NOTE | 2024-08-12 12:40 | MHC.OT.OEV ---
[address] [phone] F: [phone] Occupational Therapy Evaluation Patient Name: Tiffanie Colon Diagnosis: (R)distal radius ORIF and carpal tunnel release Date of Onset: 06/17/24 Date of Surgery: 06/24/24 Attending Provider: Susi Verdin Prescribed Treatment: Follow Up Appointment: History of Current Condition: Patient is a silvano 69 y/o (R)hand dominate female with PMHx significant for but not limited to DM II who was referred to skilled OT after sustaining a fall while at work when a co-worker was trying to scare her by hiding behind her and yelling, Norman! which resulted in a distal radius fx on 06/17/2024. On 06/24/2024 patient had surgery for an ORIF and carpal tunnel release. 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 She lives with her and adult son. She returned to work on light duty. She reports difficulty with clasping bra, opening medicine, cutting, and lifting. She stated a 0/10 pain at rest but has numbness/tingling in thumb and 2nd finger constantly. The pain is a constant ache but at times can go up to a 5/10. She enjoys needle point, alena, and sewing. 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 Needle point, sewing Living Situation, Family and/or Social Support: Lives with and son Current Level of Function and Occupation Self Care, Employment, Leisure: mod (A) ADLs/IADLs On light duty unable to participate in leisure activities at this time Sleep: Able to sleep at night Driving: drives Vision: Balance: Pain Assessment Pain Score: 5 Pain Scale Used: Numeric (0 - 10) Pain Location and Description: 0/10 at rest 5/10 during movement dull ache Aggravating Factors: Alleviating Factors: Not taking anything Skin and Soft Tissue Assessment Skin and Soft Tissue: Comments: Scar intact- soft, moveable, some noted bruising edema present Nerve assessment Ulnar Nerve: Median Nerve: Radial Nerve: Comments: Sensory Assessment Temperature: Light Touch: Proprioception: Vibration: Comments: Edema Assessment Upper Extremity: Right Impaired Lower Extremity: Comments: MCP: 19.5 (R), 18.1cm (L) wrist: 18.2cm (R), 16.2cm (L) total: (R)37.7; (L)34.3 difference of 3.4cms Dexterity Assessment Dexterity: Comments: Finer opposition WFL can touch the base of the 5th finger Special Tests Comments: AROM(PROM) Strength Cervical Cervical Flexion: Cervical Extension: Cervical Lateral Flexion: Cervical Rotation: Comments: Shoulder Flexion: Extension: Abduction: Internal Rotation: External Rotation: Comments: WFL Flexion: Extension: Abduction: Internal Rotation: External Rotation: Comments: WFL Elbow Flexion: Extension: Pronation: Supination: Comments: WFL Flexion: Extension: Pronation: Supination: Comments: WFL Wrist Flexion: 55 Extension: 50 Ulnar Deviation: 35 Radial Deviation: 25 Comments: Flexion: Extension: Ulnar Deviation: Radial Deviation: Comments: Thumb Thumb CMC Flexion: Thumb MCP Flexion: Thumb IP Flexion: 66 Radial Abduction: Palmar Abduction: Washburn (Kapandji 0-10): Comments: Digits Index MCP: PIP: DIP: Long MCP: PIP: DIP: Ring MCP: PIP: DIP: Small MCP: PIP: DIP: Comments: WFL; can make a composite fist Gross Grasp: (L)30lbs. Lateral Pinch: Two-Point Pinch: Three-Jaw Anatoliy: Comments: Right not assessed at this time Patient Education Primary Language: Romansh Rural Carrier Associate Required: No Current Knowledge: Understands information with skills for self-management Teaching Method: Handouts Verbal Education Needs Identified on Evaluation: ADL's Exercise Pain How did patient/family demonstrate learning? Patient demonstrates Patient verbalizes Barriers to Learning: None Readiness for Learning: Accepting Who was educated? Patient Comments: Plan of Care Assessment: Patient is 7 weeks s/p (R) distal radius ORIF and carpal tunnel release presenting with impaired ROM, impaired strength, pain, edema, bruising and impaired performance during self care tasks. Quick DASH= 81.8% indicating patient's perceived impairment during performance of self care tasks. At this time patients CLOF is mod (A) ADLs/IADLs due to the documented impairments. It is recommended that patient receive skilled OT intervention in order for patient to return to her PLOF of (I) and to return to work on full duty. It is anticipated that patient will achieve her goals as she is motivated to return to her PLOF. Thank you for your referral. STG Duration: 2 weeks Short Term Goals: Patient will report decreased pain in the (R)wrist during self care tasks patient will increase wrist extension by at least 10* for improved ADL performance Patient will increase IP flexion by at least 10* for improved ADL performance Patient will increase aircraft engine mechanic strength to at least 25* Patient will be (I) with scar mobilization techniques LTG Duration: 4 weeks Dispensing Lead Goals: Patient will report 0/10 pain in (R) wrist Patient will decrease Quick Dash score to at least 50% indicating overall UE improvement during self care tasks Patient will be (I) with HEP Frequency and Duration: The patient will be seen 2x a week for 4 weeks Treatment Plan: Therapeutic Exercise Therapeutic Activity Home Exercise Program Splinting Patient Education Edema Control ADL Training Ultrasound NMES Iontophoresis Paraffin Fluidotherapy MHP Cold Packs Joint Mobilization Soft Tissue Mobilization Kinesiotaping Other (see comments) Skilled OT eval and treat Electronically Signed By: RUDOLPH Yuan/Chelsi, CLLennox Reviewed/agree with student documentation: Therapist: Please sign and return to therapist, Thank you for your referral.
--- NOTE | 2024-09-25 09:48 | MHC.OT.OP ---
[address] [phone] F: [phone] Occupational Therapy Progress Note Patient Name: Tiffanie Colon Diagnosis: (R)distal radius ORIF and carpal tunnel release Date of Surgery: 06/24/24 Date of Evaluation: 08/12/24 Treatments to Date: 11 Cancellations to Date: No Shows to Date: Subjective: They are finally going to look at this shoulder. Pain Score: 3 Pain Location: (R)wrist Objective Measures: Biology Professor strength 26lbs. wrist ROM = WFL Quick DASH= 18.2% Status: Progressing Assessment: Patient continues to make progress towards her goals as she achieved an 18.2% on the Quick DASH and increasing her motor pool driver strength. She and therapist discussed d/c plan; she will finish the remainder or her appointments and then she will be d/c from skilled OT. Patient was in agreement with plan. Short Term Goals: Patient will report decreased pain in the (R)wrist during self care tasks - GOAL MET patient will increase wrist extension by at least 10* for improved ADL performance - GOAL MET Patient will increase IP flexion by at least 10* for improved ADL performance - 74* GOAL MET Patient will increase motor pool driver strength to at least 25* - PROGRESSING (23lbs.) Patient will be (I) with scar mobilization techniques- GOAL MET Snf Goals: Patient will report 0/10 pain in (R) wrist - GOAL MET Patient will decrease Quick Dash score to at least 50% indicating overall UE improvement during self care tasks- GOAL MET Patient will be (I) with HEP Frequency and Duration: The patient will be seen 2 x a week for 1 week Treatment Plan: Therapeutic Exercise Therapeutic Activity Home Exercise Program Splinting Patient Education Edema Control ADL Training Ultrasound NMES Iontophoresis Paraffin Fluidotherapy MHP Cold Packs Joint Mobilization Soft Tissue Mobilization Kinesiotaping Other (see comments) Skilled OT eval and treat Electronically Signed By: Maki Nelson OTChristiana/L, CLT Reviewed/agree with student documentation: Therapist:
--- NOTE | 2024-10-02 09:16 | MHC.OT.DC ---
[address] [phone] F: [phone] Occupational Therapy Discharge Note Patient Name: Tiffanie Colon Provider: Susi Verdin Diagnosis: (R)distal radius ORIF and carpal tunnel release Date of Surgery: 06/24/24 Date of Evaluation: 08/12/24 Date of Discharge: Treatments to Date: 14 Cancellations to Date: No Shows to Date: Discharge Status: Discharge Summary: Patient is d/c from skilled OT as patient has achieved all of her STG/ LTGs, has decreased her Quick DASH to a 4.5%, and reports 0/10 pain. As patient has achieved her PLOF she is d/c from skilled services. She was a pleasure to work with, thank you for referral. Electronically Signed By: RUDOLPH Yuan/Chelsi, CLT Reviewed/agree with student documentation: Therapist: Please Sign and return to therapist, thank you for your referral.
== END 2024-10-02 09:17 | disposition home or self-care (01) ==
LOC: HO.OT 08:53
PROVIDERS: PCP Internal Medicine; Visit Provider Orthopaedic Surgery
DX: G56.01 Carpal tunnel syndrome, right upper limb (principal); S52.501D Unspecified fracture of the lower end of right radius, subsequent encounter for closed fracture with routine healing
CPT/HCPCS: 97110; 97140; 97165; 97530; 97535

== ENCOUNTER 2024-10-09 09:55 | Outpatient (REF) | payer MEDICARE, SELFPAY ==
--- NOTE | ~2024-10-09 | MM_ITS ---
EXAMINATION: DXA BONE DENSITY AXIAL HISTORY: M81.0 - Age-related osteoporosis without current pathological fracture TECHNIQUE: TunePatrol Dual energy absorptiometry (DEXA) of the lumbar spine, total left hip, and femoral neck was performed. COMPARISON: Comparison is made with the prior examination dated 01/13/2022. FINDINGS: The bone mineral density of the lumbar spine is 0.920 with a T-score of -2.2, and a Z-score of -0.9. This is indicative of osteopenia. This represents a BMD change of 2.3% compared to the prior exam. This is not statistically significant. The bone mineral density of the left total hip is 0.824 with a T-score of -1.5, and a Z-score of -0.3. This is indicative of osteopenia. This represents a BMD change of 0.6% compared to the prior exam. This is not statistically significant. The bone mineral density of the left femoral neck is 0.743 with a T-score of -2.1, and a Z-score of -0.7. This is indicative of osteopenia. This represents a BMD change of 2.9% compared to the prior exam. FRACTURE RISK: The FRAX index suggests a ten year probability of major osteoporotic fracture of 19.0%, and of hip fracture 3.6%. MM/XR DEXA axial skeleton IMPRESSION: Based on bone mineral density, and according to World Health Organization (WHO) criteria, the diagnosis is consistent with osteopenia. All bone density values are in grams per centimeter squared (g/cm2). Statistically, 68% of repeat scans fall within 1 SD (+/- 0.010 g/cm2 for AP spine L1-L4) and 1 SD (+/- 0.012 g/cm2 for femur total) FRAX is a trademark of the [employer]'s [employer] Metabolic Bone Disease, a World Health Organization (WHO) Collaborating Center. Electronically signed by: Jorge Luis Lin MD 10/09/2024 10:40 AM EDT
--- OUTSIDE RECORDS SUMMARY | 2024-10-09 10:51 | XMS_ITS | Patient Health Record ---
Author Organization [facility] Address [address] [place] [address] Care Team Providers Care Transit Mechanic Name Role Phone Pete Staton MD Primary Care Provider Jorge Luis Sweet [phone] Allergies Allergen (clinical drug ingredient) Drug/Non Drug Allergy documented on EMR Reaction Allergy Type Onset Date Status Perfume Perfume Unknown Allergy Active nickel Nickel Unknown Allergy Active Benzocaine Unknown Drug Allergy Active animals (uncoded) Unknown Allergy Ac tive Results Component Value Reference Range Notes Pathology (Not yet reviewed by provider) Interpretation: Performing Lab:[facility], [address] [place] [address] Notes/Report: Name: Samantha Colonvijay Gallegos Age/Sex: 69/F : 1955 Unit#: [id number] Attend Dr: Jorge Luis Galvan MD Re08/06/24 Status : [facility] Location: [facility] Disch: SPEC : [id number] RECD : 08/06/24 STATUS: ALBINA BUCIO NUM: [id number] JESSICA: 08/06/24-1207 [facility] [place] DR: Jorge Luis Galvan MD ENTERED: 08/06/24 [...] on A Copies To: Pete Staton MD [facility] [place] [place] [address] CONTINUED ON NEXT PAGE Name: Tiffanie Colon Age/Sex: 69/F : 1955 Unit#: [id number] Attend Dr: Jorge Luis Galvan MD Re08/06/24 Status : [facility] Location: [facility] Disch: SPEC : [id number] RECD : 08/06/24-1325 STATUS: ANDERSONLennox FORTUNATO NUM: [id number] JESSICA: 08/06/24-1207 [facility] [place] DR: Jorge Luis Galvan MD ENTERED: 08/06/24-13 31 SP TYPE: Surgical OTHR DR: Pete Staton MD ORDERED: HE Stain/6, Gross Micro L4/2, IHC, Special st. 2, H. pylori, AB/PAS Copies To: (Continued) Jorge Luis Galvan MD [address] [place], [place] [phone] Signed (si gnature on file) Santosh Patiño [...] Problem Screening for malignant neoplasm of colon (806733566) Encounter for screening for malignant neoplasm of colon (Z12.11) Active confirmed Problem Hiatal hernia (06837489) Hiatal hernia (K44.9) Active confirmed Problem Gastroesophageal reflux disease (651435343) GERD without esophagitis (K21.9) Active confirmed Problem Left upper quadrant pain (146652133) LUQ abdominal pain (R10.12) Active confirmed Vital Signs Blood pressure diastolic 00 mm Hg 04/22/2024 Height 62 in 04/22/2024 Blood pressure systolic 00 mm Hg 04/22/2024 Weight 166 lbs 04/22/2024 BMI 30.36 kg/m2 04/22/2024 Encounters Encounter Location Date Provider Diagnosis [facility] Outpatient [address] [place] [phone] 08/06/2024 Jorge Luis Galvan Colon cancer screeni ng Z12.11 ; Colon polyps K63.5 ; Diverticulosis of colon K57.30 ; Chronic GERD K21.9 and Hiatal hernia K44.9 [facility] [address] [place] [address] 04/22/2024 Jorge Luis Galvan GERD without esophagitis [...] this, including risks of bleeding and perforation. Tfifanie was comfortable with this plan. Thank you [...] End Date [facility] [address] [place] [address] [id number] TIFFANIE COLON Self - patient is the [...] again; small to moderate-sized HH Asthma Denies [place],DM,CVA,renal disease 08/2013-hospitalized at [facility] f or CP--neg [place]--saw Dr. Sweet--has been told of need for [...]
--- OUTSIDE RECORDS SUMMARY | 2024-10-09 10:51 | XMS_ITS ---
Author Organization [facility] Address [address] [place] [address] Care Team Providers Care Environment Artist Name Role Phone Pete Staton MD Primary Care Provider Jorge Luis Sweet [phone] REASON FOR VISIT gerd,hiatal hrenia,screening Encounters Encounter Location Date Provider Diagnosis [facility] Outpatient [address] [place] [phone] 08/06/2024 Jorge Luis Galvan Colon cancer scree [...] KRISHNA SMITH ADOB: [birth year] (69 yo F)Acc No.[id number]:08/06/2024 EGD and COL/MAC Patient:?KRISHNA SMITH Provider:?Jorge Luis Galvan MD :1955???Age:69 Y???Sex:Female D ate:08/06/2024 Address:[address] [place] [address] [id number] Pcp:Pete Staton MD Subjective: * Chief Complaints: * ???1. Gerd,hiatal hrenia,scr eening. * Medical History:? Objective: * Vitals:? Assessment: * Assessment: 1.?Colon cancer screening - Z12.11 (Primary)???2.?Colon polyps - K63.5???3.?Diverticulosis of colon - K57.30???4.?Chronic GERD - K21.9???5.?Hiatal hernia - K44.9??? Plan: * Treatment: * Procedure Codes:?50977 COLON OSCOPY AND BIOPSY, 0529F INTRVL 3+YRS PTS CLNSCP DOCD, 0528F RCMND FLW-UP 10 YRS DOCD, 34237 UPPER GI ENDOSCOPY, BIOPSY * * The named appointment provid er may or may not be the originator of this progress note, and it is not deemed complete until electronically signed by the appointment provider. Sign off status: Pending * Provider:?Jorge Luis Galvan MD Date:? 025 Generated for Demetrius grimes/Mario/eTransmitting on:?10/09/2024 10:51 AM EDT
--- OUTSIDE RECORDS SUMMARY | 2024-10-09 10:51 | XMS_ITS ---
Author Organization [facility] Address [address] [place] [address] Care Team Providers Care Re Examiner Name Role Phone Pete Staton MD Primary Care Provider Jorge Luis Sweet [phone] Allergies Allergen (clinical drug ingredient) Drug/Non Drug [...] W/U Status Risk Notes Problem Hiatal hernia (39764180) Hiatal hernia (K44.9) Active confirmed Vital Signs Blood pressure systolic 00 mm Hg 04/22/20 24 Blood pressure diastolic 00 mm Hg 024 Height 62 in 04/22/2024 Weight 166 lbs 04/22/2024 BMI 30.36 kg/m2 04/22/2024 Encounters Encounter Location Date Provider Diagnosis [facility] [address] [place] [address] 04/22/2024 Jorge Luis Galvan GERD without esophagitis [...] TIFFANIE SMITH ADOB: [birth year] (68 yo F)Acc No.[id number]:04/22/2024 Progress Notes Patient:?TIFFANIE SMITH Provider:?Jorge Luis Galvan MD :1955???Age:68 Y???Sex:Female D ate:04/22/2024 Address:[address] [place], [place] [phone] Pcp:Pete Staton MD Subjective: * Chief Complaints: [...] Screen?Points: 4, Interpretation: Positive.?Miscellaneous:?Marital status: . 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 ???Nonsmoker >10 [...] Procedure Codes:?3017F COLOR ECTAL CA SCREEN DOC PCB4608Z TOBACCO NON-LXJDP6047 BP SCR NOT PRFRM REC REASON NOS [...] MD Date:? 024 Generated for Demetrius grimes/Mario/Jack on:?10/09/2024 10:51 AM EDT History and Physical Notes * [...]
== END 2024-10-09 09:56 | disposition home or self-care (01) ==
LOC: HO.MAMMO 09:55
PROVIDERS: PCP Internal Medicine; Visit Provider Internal Medicine
DX: M81.0 Age-related osteoporosis without current pathological fracture (principal)
CPT/HCPCS: 77080

== ENCOUNTER → 2024-10-09 10:00 | Outpatient (BNV) | payer MEDICARE, SELFPAY | PROVIDERS: PCP Internal Medicine; Visit Provider Radiology Diagnostic Radiology | DX: E28.39 Other primary ovarian failure (principal) | CPT/HCPCS: 77080 ==

== ENCOUNTER 2024-12-09 13:36 | Outpatient (REF) | payer MEDICARE, SELFPAY ==
--- OUTSIDE RECORDS SUMMARY | 2024-12-09 14:20 | XMS_ITS | Patient Health Record ---
Author Organization [facility] Address [address] [place] [address] Care Team Providers Care Sound Installation Worker Name Role Phone Pete Staton MD Primary Care Provider Jorge Luis Sweet [phone] Allergies Allergen (clinical drug ingredient) Drug/Non Drug Allergy documented on EMR Reaction Allergy Type Onset Date Status Perfume Perfume Unknown Allergy Active nickel Nickel Unknown Allergy Active Benzocaine Unknown Drug Allergy Active animals (uncoded) Unknown Allergy Ac tive Results Component Value Reference Range Notes Pathology (Not yet reviewed by provider) Interpretation: Performing Lab:[facility], [address] [place] [id number] Notes/Report: Reason For Referral No Information Medications Medication [...] Problem Screening for malignant neoplasm of colon (861725651) Encounter for screening for malignant neoplasm of colon (Z12.11) Active confirmed Problem Hiatal hernia (29895899) Hiatal hernia (K44.9) Active confirmed Problem Gastroesophageal reflux disease (055213043) GERD without esophagitis (K21.9) Active confirmed Problem Left upper quadrant pain (747079479) LUQ abdominal pain (R10.12) Active confirmed Vital Signs Blood pressure diastolic 00 mm Hg 04/22/2024 Height 62 in 04/22/2024 Blood pressure systolic 00 mm Hg 04/22/2024 Weight 166 lbs 04/22/2024 BMI 30.36 kg/m2 04/22/2024 Encounters Encounter Location Date Provider Diagnosis [facility] Outpatient [address] [place], [place] [phone] 08/06/2024 Jorge Luis Galvan Colon cancer screeni ng Z12.11 ; Colon polyps K63.5 ; Diverticulosis of colon K57.30 ; Chronic GERD K21.9 and Hiatal hernia K44.9 [facility] [address] [place] [address] 04/22/2024 Jorge Luis Galvan GERD without esophagitis [...] Insured Coverage Start Date Coverage End Date [facility] [address] [place] [address] [id number] TIFFANIE SMITH Self - patient is the insured Medical [...] HH Asthma Denies [place],DM,CVA,renal disease 08/2013-hospitalized at [facility] f or CP--neg [place]--saw Dr. Sweet--has been [...]
[2024-12-09 17:25] LABS: Appearance Urine Turbid; Glucose Urine UA Negative (Negative); PH 5.5 (5.0-9.0); Specific Gravity - Urine >= 1.030 (1.005-1.025); UMIC TRIGGER UACC YES
[2024-12-09 17:41] LABS: Hemoglobin A1C 105.8318 umol/L; Total Hemoglobin (HGBA1C) 2712.2936 umol/L
[2024-12-09 17:44] LABS: UACC Culture Trigger YES
[2024-12-09 17:46] LABS: Alanine Aminotransferase 21 U/L (0-31); Albumin Level 4.7 g/dL (3.5-5.0); Alkaline Phosphatase 79 U/L (39-117); Anion Gap 15 (12-20); Aspartate Amino Transferase 32 U/L (5-31); Blood Urea Nitrogen 25 mg/dL (9-16); Calcium 9.8 mg/dL (8.4-10.2); Carbon Dioxide 24 mmol/L (22-29); Chloride 100 mmol/L (96-108); Cholesterol 235 mg/dL (<200); Estimated Glomerular Filt Rate 54; HDL Cholesterol 51 mg/dL (>40); Potassium 4.0 mmol/L (3.3-5.1); Sodium 135 mmol/L (135-145); Total Protein 7.0 g/dL (6.5-8.0); Triglycerides 195 mg/dL (<150)
== END 2024-12-09 13:37 | disposition home or self-care (01) ==
LOC: HO.HMGCLDS 13:36
PROVIDERS: PCP Internal Medicine; Visit Provider Internal Medicine
DX: E78.00 Pure hypercholesterolemia, unspecified (principal)
CPT/HCPCS: 36415; 80053; 80061; 81001; 83036; 87086

== ENCOUNTER 2024-12-31 09:46 | Outpatient (AMB) | payer MEDICARE, SELFPAY ==
[2024-12-31 09:53] VITALS: BP 154/62; PULSE 78; RESP 18; TEMP 36.1; O2SAT 93; BMI 29.8
--- NOTE | 2024-12-31 09:53 | MHC.PC.OV ---
Vital Signs 12/31/24 09:53 Height 5 ft 2 in Weight 163 lb 2 oz BMI 29.8 BP 154/62 H Blood Pressure Location Lt brachial Position Sitting Respiration 18 Pulse 78 Pulse Source Pulse Oximeter Temp 97.0 F Temp Source Temporal Artery Scan Pulse Oximetry (%) 93 Oxygen Delivery Method Room Air Intake Visit Reasons: cervical spinal stenosis, hypercholesterol Allergies bacitracin (From Neosporin ([id number])) Allergy (Unknown, Verified 12/31/24 09:56) Unknown benzocaine Allergy (Unknown, Verified 12/31/24 09:56) Unknown Iodinated Contrast Media (IV Contrast Dye) Allergy (Unknown, Verified 12/31/24 09:56) Unknown lisinopril Allergy (Unknown, Verified 12/31/24 09:56) Unknown neomycin (From Neosporin ([id number])) Allergy (Unknown, Verified 12/31/24 09:56) Unknown nickel Allergy (Unknown, Verified 12/31/24 09:56) Unknown polymyxin B (From Neosporin ([id number])) Allergy (Unknown, Verified 12/31/24 09:56) Unknown amlodipine Adverse Reaction (Intermediate, Unverified 12/31/24 10:37) leg swelling rosuvastatin Adverse Reaction (Intermediate, Verified 12/31/24 09:56) Nausea Tobacco use date assessed: 12/31/24 Fall risk assessment: 2 + Falls in past year Last assessed Fall Risk: 12/31/24 Dental Screening Dental Screen Date: 12/31/24 Did you have a dental visit in the last 12 months?: Yes Did you have a dental problem in the last 6 months where you did not have access to dental care?: No Was dental information given to patient?: Patient has dentist HPI cervical spinal stenosis, hypercholesterol HPI Details for cervical spine seen Dr. Andrews and had injection done and slept better and hip is better PFSH Medical History Alcohol dependence Anemia Breast cancer screening by mammogram Splenomegaly Diarrhea LUQ abdominal pain Diverticulosis Impaired glucose tolerance Vela's esophagus Anxiety and depression Psoriasis Osteoporosis Hypercholesterolemia GERD (gastroesophageal reflux disease) Asthma Knee osteoarthritis Hypertension Allergic rhinitis Surgical History History of open reduction and internal fixation (ORIF) procedure History of eye surgery History of tubal ligation History of tonsillectomy History of arthroplasty of right knee History of arthroplasty of left knee Family History Father No problems noted. Mother Ovarian cancer Myocardial infarction Paternal Grandmother Bladder cancer Paternal Aunt Bladder cancer Paternal Uncle Bladder cancer Social History Household Members: Spouse and Children Housing: House Are you a primary point of care specialist to a significant other at home: No Do you presently have visiting nurse or other home services: No Alcohol intake: current Alcohol intake frequency: holidays/special occasions only Patient Tobacco Use Status: Former Tobacco user Tobacco use type: Cigarette e-Cigarette/Vaping Use: Never Used Second Hand Smoke Exposure: No Substance Use Type: Marijuana service: No Current occupational status: employed Current occupation: [employer], 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 1. Little interest or pleasure in doing things: more than half the days 2. Feeling down, depressed, or hopeless: more than half the days 3. Trouble falling or staying asleep, or sleeping too much: several days 4. Feeling tired or having little energy: nearly every day 5. Poor appetite or overeating: not at all 6. Feeling bad about yourself - or that you are a failure or have let yourself or your family down: several days 7. Trouble concentrating on things, such as reading the newspaper or watching television: not at all 8. Moving or speaking so slowly that other people could have noticed. Or the opposite - being so fidgety or restless that you have been moving around a lot more than usual: not at all 9. Thoughts that you would be better off or of hurting yourself in some way: not at all Total score: 9 Source: Developed by Drs. Jorge Luis Peng, Luisa Ko, Scout Hopkins and colleagues, with an educational rosa isela from [employer]. Thrive Questionnaire Date Thrive assessed: 09/05/24 I am a: Patient What is your living situation today?: I have a steady place to live Within the past 12 months, did the food you bought not last and you didn't have the money to get more?: Never true Within the past 12 months, did you worry whether your food would run out before you got money to buy more?: Never true Do you have trouble paying for medicines?: No Do you have trouble getting transportation to medical appointments?: No Do you have trouble paying your heating and electricity bill?: No Do you have trouble taking care of your child, family member or friend?: No Do you have trouble with day-to-day activities such as bathing, preparing meals, shopping, managing finances, etc.?: No Are you currently unemployed and looking for a job?: Yes Are you interested in more education?: No Please select the resources that you would like help with: None Currently or been in a relationship where the following occur: No concerns reported THRIVE Score: 0 AUDIT C Alcohol Use Questionnaire (AUDIT-C) 1. How often do you have a drink containing alcohol?: Monthly or less 2. How many drinks containing alcohol do you have on a typical day when you are drinking?: 3 or 4 3. How often do you have six or more drinks on one occasion?: Never Total Score: 2 LETY-7 AMB Questionnaire LETY-7 Date LETY - 7 assessed: 09/05/24 Feeling nervous, anxious, or on edge: 1 = Several days Not being able to stop or control worryin = More than half the days Worrying too much about different things: 2 = More than half the days Trouble relaxin = Not at all Being so restless that it is hard to sit still: 0 = Not at all Becoming easily annoyed or irritable: 1 = Several days Feeling afraid as if something awful might happen: 0 = Not at all Total LETY-7 score (0-4 normal; 5-9 mild; 10-14 moderate; 15-21 severe): 6 Source: Developed by Drs. Jorge Luis Peng, Luisa Ko, Scout Hopkins and colleagues, with an educational rosa isela from [employer]. Physical exam (Primary Care) Vital Signs: Last Vital Signs Temp 97.0 F 12/31/24 09:53 Pulse 78 12/31/24 09:53 Resp 18 12/31/24 09:53 BP 154/62 H 12/31/24 09:53 Pulse Ox 93 12/31/24 09:53 Oxygen Delivery Method Room Air 12/31/24 09:53 BMI result Body Mass Index 29.8 Tobacco/Smoking Status: Tobacco use Status Tobacco use date assessed 12/31/24 12/31/24 09:58 Patient Tobacco Use Status Former Tobacco user 12/31/24 09:58 Tobacco use type Cigarette 12/31/24 09:58 e-Cigarette/Vaping Use Never Used 12/31/24 09:58 PHQ-9: PHQ-9 Score PHQ-9: Total score 9 12/31/24 10:36 Thrive Assessment: Date of Thrive Assessment Date Thrive assessed 09/05/24 12/31/24 09:58 Currently or been in a relationship where the following occur: No concerns reported Const General: alert; No acute distress Eyes Conjunctivae: conjunctivae normal Resp Auscultation: clear to auscultation bilaterally Cardio Rate: regular rate Rhythm: regular rhythm GI Inspection: Yes normal to inspection Extrem General: Yes normal to inspection and No edema Coding Level of Care Code Est Pt Level 4 (47792) Complex EM visit Add On G2211 Diagnoses Hypercholesterolemia E78.00 Primary hypertension I10 Hypertension type: primary hypertension Type 2 diabetes mellitus with hyperglycemia E11.65 GERD (gastroesophageal reflux disease) K21.9 Anxiety and depression F41.9; F32.9 Cervical spinal stenosis M48.02 Assessment & Plan Assessment & Plan (1) Hypercholesterolemia: Comment: DEcline treatment 04/2022, 01/2022 Code(s): E78.00 - Pure hypercholesterolemia, unspecified Category: Medical Plan: Avoid fried foods, chicken skin, eggs, butter margarine, pastries and meat. Be it pork or beef they have a lot of cholesterol LDL goal of less than 100 and triglyceride of less than 150 on atorvastatin 10 mg at bedtime (2) Hypertension: Code(s): I10 - Essential (primary) hypertension Category: Medical Qualifiers: Hypertension type: primary hypertension Qualified Code(s): I10 - Essential (primary) hypertension Plan: Continue with blood pressure medication. Decrease salt intake and exercise patient on losartan 100 mg once a day amlodipine 10 mg once a day (3) Type 2 diabetes mellitus with hyperglycemia: Code(s): E11.65 - Type 2 diabetes mellitus with hyperglycemia Category: Medical Plan: Decrease the amount of carbohydrate intake, pasta, bread, rice and potatoes are all sugar and that is aside from all the sweet stuff, remember that fruits are good but they are Sweet also. Hemoglobin A1c goal of less than 7.0 patient is diet controlled (4) GERD (gastroesophageal reflux disease): Code(s): K21.9 - Gastro-esophageal reflux disease without esophagitis Category: Medical Plan: Avoid the foods that causes that usually spicy foods, tomato products, juices, coffee, soda and foods that your sensitive to. After eating do not lie down, allow 3-4 hours before in lie down. And keep the head of bed above 30 degrees to avoid the acid from going up. (5) Anxiety and depression: Code(s): F41.9 - Anxiety disorder, unspecified; F32.9 - Major depressive disorder, single episode, unspecified Category: Medical Plan: Continue with sertraline. (6) Cervical spinal stenosis: Comment: seeing Dr. Darryl iraheta Code(s): M48.02 - Spinal stenosis, cervical region Category: Medical Plan: seeing Dr. Darryl jansen mgmt, Plan History of Present Illness The patient is a 69-year-old female presenting for a follow-up visit. She has a history of diabetes mellitus, hypertension, hypercholesterolemia, gastroesophageal reflux disease, asthma, anxiety disorder, Vela's esophagus, and psoriasis. Her diabetes is diet-controlled with a hemoglobin A1c of 5.7, and she is on atorvastatin for hypercholesterolemia with a goal LDL of less than 100 mg/dL. The patient reports peripheral edema and dyspnea, which have been attributed to amlodipine, a medication she is currently taking for hypertension. She has been experiencing swelling in her hands and feet, particularly around the ankles, and shortness of breath, which worsens with the medication. The patient was previously on hydrochlorothiazide, which was discontinued due to low potassium levels, but she is willing to restart it while maintaining potassium intake through bananas. The patient also reports a pinched nerve, for which she received a cervical injection recently. She has experienced numbness in her legs and arms, but noted improvement in sleep and reduced hip pain following the injection. Health Maintenance - Colonoscopy: Up to date - Mammogram: Up to date - Bone density screening: Up to date - Blood work: Scheduled for cholesterol re-evaluation in three months Social History Review of Systems - Cardiovascular: Reports peripheral edema and dyspnea. Denies chest pain. - Musculoskeletal: Reports numbness in legs and arms. Denies constant leg cramps. Physical Exam - Integumentary: No abnormalities at the injection site Results - Labs: Hemoglobin A1c 5.7, renal function 1.02, high cholesterol noted Plan The patient's hypertension management will be adjusted by discontinuing amlodipine due to its side effects of peripheral edema and dyspnea. Hydrochlorothiazide will be reintroduced with dietary potassium supplementation to manage blood pressure without causing hypokalemia. The patient will continue atorvastatin for hypercholesterolemia, with a follow-up cholesterol test scheduled in three months to assess efficacy. For diabetes management, the patient will maintain her current diet-controlled regimen, as her hemoglobin A1c is within target range. The patient will follow up in three months to reassess her overall condition and adjust treatment plans as necessary. Patient was informed and verbally consented to the use of an ambient scribe for clinic note documentation during this visit. Discussion Notes During the visit, I discussed with the patient the need to discontinue amlodipine due to its side effects and reintroduce hydrochlorothiazide with dietary potassium supplementation. We also reviewed her cholesterol management plan, emphasizing the importance of atorvastatin adherence and scheduled a follow-up cholesterol test in three months. I advised her to maintain her current diabetes management plan, as her hemoglobin A1c is within the target range. Patient Instructions - Stop taking amlodipine and start hydrochlorothiazide as directed. - Eat a banana daily to maintain potassium levels. - Continue taking atorvastatin and have a cholesterol test in three months. - Follow your current diet plan to manage diabetes. - Schedule a follow-up appointment in three months. Orders: Orders Lipid Panel 3 Months E78.00 - Pure hypercholesterolemia, unspecified Comprehensive Met. Panel 3 Months E78.00 - Pure hypercholesterolemia, unspecified Medications: New hydrochlorothiazide 25 mg PO DAILY 90 tabs 1RF I10 - Essential (primary) hypertension Discontinued amlodipine Discontinued Reason: Doctor's Order 10 mg PO DAILY 90 tabs 3RF I10 - Essential (primary) hypertension
--- OUTSIDE RECORDS SUMMARY | 2024-12-31 10:25 | XMS_ITS | Patient Health Record ---
Author Organization [facility] Address [address] [place] [address] Care Team Providers Care Heat Treat Technician Name Role Phone Pete Staton MD Primary Care Provider Jorge Luis Sweet [phone] Allergies Allergen (clinical drug ingredient) Drug/Non Drug Allergy documented on EMR Reaction Allergy Type Onset Date Status Perfume Perfume Unknown Allergy Active nickel Nickel Unknown Allergy Active Benzocaine Unknown Drug Allergy Active animals (uncoded) Unknown Allergy Ac tive Results Component Value Reference Range Notes Pathology (Not yet reviewed by provider) Interpretation: Performing Lab:[facility], [address] [place] [address] Notes/Report: Reason For Referral No Information Medications [...] Problem Screening for malignant neoplasm of colon (627380582) Encounter for screening for malignant neoplasm of colon (Z12.11) Active confirmed Problem Hiatal hernia (43862355) Hiatal hernia (K44.9) Active confirmed Problem Gastroesophageal reflux disease (004059558) GERD without esophagitis (K21.9) Active confirmed Problem Left upper quadrant pain (802934860) LUQ abdominal pain (R10.12) Active confirmed Vital Signs Blood pressure diastolic 00 mm Hg 04/22/2024 Height 62 in 04/22/2024 Blood pressure systolic 00 mm Hg 04/22/2024 Weight 166 lbs 04/22/2024 BMI 30.36 kg/m2 04/22/2024 Encounters Encounter Location Date Provider Diagnosis [facility] [address] [place], [place] [id number] 08/06/2024 Jorge Luis Galvan Colon cancer screeni ng Z12.11 ; Colon polyps K63.5 ; Diverticulosis of colon K57.30 ; Chronic GERD K21.9 and Hiatal hernia K44.9 [facility] [address] [place] [address] 04/22/2024 Jorge Luis Galvan GERD without esophagitis [...] GERD without esophagitis (ICD-10 - K21.9) Overall, Tifafnie appears well. Her reflux seems stable on [...] Insured Coverage Start Date Coverage End Date [facility] [id number] [place] [address] [id number] TIFFANIE SMITH Self - patient is the [...] again; small to moderate-sized HH Asthma Denies [place],DM,CVA,renal disease 08/2013-hospitalized at [facility] f or CP--neg [place]--saw Dr. Sweet--has been told of need for [...]
== END 2024-12-31 10:49 | disposition home or self-care (01) ==
LOC: HO.HMCH 09:48
PROVIDERS: PCP Internal Medicine; Visit Provider Internal Medicine
DX: E78.00 Pure hypercholesterolemia, unspecified (principal); I10 Essential (primary) hypertension; E11.65 Type 2 diabetes mellitus with hyperglycemia; K21.9 Gastro-esophageal reflux disease without esophagitis; F41.9 Anxiety disorder, unspecified; F32.9 Major depressive disorder, single episode, unspecified; M48.02 Spinal stenosis, cervical region

== ENCOUNTER → 2024-12-31 09:46 | Outpatient (BNVA) | payer MEDICARE, SELFPAY | PROVIDERS: PCP Internal Medicine; Visit Provider Internal Medicine | DX: I10 Essential (primary) hypertension (principal); E78.00 Pure hypercholesterolemia, unspecified; E11.65 Type 2 diabetes mellitus with hyperglycemia; K21.9 Gastro-esophageal reflux disease without esophagitis; F41.9 Anxiety disorder, unspecified; F32.9 Major depressive disorder, single episode, unspecified; M48.02 Spinal stenosis, cervical region | CPT/HCPCS: 96127; 99212 ==

== ENCOUNTER 2025-03-31 08:25 | Outpatient (AMB) | payer MEDICARE, SELFPAY ==
--- OUTSIDE RECORDS SUMMARY | 2024-08-06 07:50 | XMS_ITS ---
Author Organization [facility] Address [address] [place] [address] Care Team Providers Care Rn Testing Name Role Phone Pete Staton MD Primary Care Provider Jorge Luis Sweet [phone] REASON FOR VISIT gerd,hiatal hrenia,screening Encounters Encounter Location Date Provider Diagnosis [facility] [place] [address] [place] [phone] 08/06/2024 Jorge Luis Galvan Colon cancer scree [...] KRISHNA SMITH ADOB: [birth year] (69 yo F)Acc No.[id number]:08/06/2024 EGD and COL/MAC Patient: Sadaf PARIKH KRISHNA Gallegos Provider: Christiana Galvan MD :1955 A ge:69 Y S ex:Female Date:08/06/2024 Address:[address] [place] [address] [place], [id number] Pcp:Pete Staton MD Subjective: * Chief Complaints: [...] DOCD, 0528F RCMND FLW-UP 10 YRS DOCD, [address] UPPER GI ENDOSCOPY, BIOPSY * * The named appointment provid er may or may not be the originator of this progress note, and it is not deemed complete until electronically signed by the appointment provider. Sign off status: Pending * Provider: Christiana Galvan MD Date: 0 08/06/2024 Generated for Demetrius grimes/Mario/Arasmitting on: 09:02 AM EDT
--- NOTE | 2025-03-31 08:43 | A.OFFPC_ITS ---
Vital Signs 03/31/25 08:44 Height 5 ft 2 in Weight 164 lb 2 oz BMI 30.0 BP 150/66 H Blood Pressure Location Lt brachial Position Sitting Pulse 84 Pulse Source Pulse Oximeter Temp 97.0 F Temp Source Temporal Artery Scan Pulse Oximetry (%) 97 Oxygen Delivery Method Room Air Intake Visit Reasons: [facility] 04/09 rt & 04/21 lt Allergies bacitracin (From Neosporin ([id number])) Allergy (Unknown, Verified 03/31/25 08:51) Unknown benzocaine Allergy (Unknown, Verified 03/31/25 08:51) Unknown Iodinated Contrast Media (IV Contrast Dye) Allergy (Unknown, Verified 03/31/25 08:51) Unknown lisinopril Allergy (Unknown, Verified 03/31/25 08:51) Unknown neomycin (From Neosporin ([id number])) Allergy (Unknown, Verified 03/31/25 08:51) Unknown nickel Allergy (Unknown, Verified 03/31/25 08:51) Unknown polymyxin B (From Neosporin ([id number])) Allergy (Unknown, Verified 03/31/25 08:51) Unknown amlodipine Adverse Reaction (Intermediate, Unverified 03/31/25 08:51) leg swelling rosuvastatin Adverse Reaction (Intermediate, Verified 03/31/25 08:51) Nausea Tobacco use date assessed: 03/31/25 Fall risk assessment: 2 + Falls in past year Last assessed Fall Risk: 03/31/25 Dental Screening Dental Screen Date: 03/31/25 Did you have a dental visit in the last 12 months?: No Did you have a dental problem in the last 6 months where you did not have access to dental care?: No Was dental information given to patient?: Patient has dentist HPI [facility] 04/09 rt & 04/21 lt HPI Details The patient is a 69-year-old female presenting with shortness of breath and for preoperative clearance for upcoming eye cataract surgery. She reports intermittent shortness of breath on exertion, such as walking or climbing stairs, and sometimes even while talking. Symptoms have been occurring off and on, but worsened yesterday when she began to feel generally unwell. The patient has a history of asthma and believes her current symptoms are related to it. She reports that her asthma is not well-controlled, requiring use of her fast-acting inhaler twice this morning. Her asthma medication was changed from Advair, which was effective, to Breo due to insurance coverage, and she feels the Breo is less effective. She reports new onset generalized muscle aches, weakness, and a productive cough with thick, yellowish sputum. The patient has known allergies to mold and seasonal allergens. She suspects a mold trigger from a leak under her sink and has had clear nasal discharge for the last few days. She denies smoking. Past surgical history is significant for a recent wrist surgery with plate inser tion for a fracture, bilateral knee replacements, a tubal ligation, and eye surgery at age [age]. She had no issues with anesthesia in the past. She has a history of hypertension with a blood pressure that usually runs around 140 mmHg at home. She takes her blood pressure medication daily. The patient denies any post surgery hypothermia or clotting disorder and she is not on any blood thinners. Medical history is significant for a type 2 diabetes mellitus, asthma, GERD, cervical spinal stenosis, recurrent asthmatic bronchitis, HTN, splenomegaly, osteoporosis [facility] Medical History Alcohol dependence Anemia Breast cancer screening by mammogram Splenomegaly Diarrhea LUQ abdominal pain Diverticulosis Impaired glucose tolerance Vela's esophagus Anxiety and depression Psoriasis Osteoporosis Hypercholesterolemia GERD (gastroesophageal reflux disease) Asthma Knee osteoarthritis Hypertension Allergic rhinitis Surgical History History of open reduction and internal fixation (ORIF) procedure History of eye surgery History of tubal ligation History of tonsillectomy History of arthroplasty of right knee History of arthroplasty of left knee Family History Father No problems noted. Mother Ovarian cancer Myocardial infarction Paternal Grandmother Bladder cancer Paternal Aunt Bladder cancer Paternal Uncle Bladder cancer Social History Household Members: Spouse and Children Housing: House Are you a primary youth care worker to a significant other at home: No Do you presently have visiting nurse or other home services: No Alcohol intake: current Alcohol intake frequency: holidays/special occasions only Patient Tobacco Use Status: Former Tobacco user Tobacco use type: Cigarette e-Cigarette/Vaping Use: Never Used Second Hand Smoke Exposure: No Substance Use Type: Marijuana service: No Current occupational status: employed 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 1. Little interest or pleasure in doing things: more than half the days 2. Feeling down, depressed, or hopeless: more than half the days 3. Trouble falling or staying asleep, or sleeping too much: several days 4. Feeling tired or having little energy: nearly every day 5. Poor appetite or overeating: not at all 6. Feeling bad about yourself - or that you are a failure or have let yourself or your family down: several days 7. Trouble concentrating on things, such as reading the newspaper or watching television: not at all 8. Moving or speaking so slowly that other people could have noticed. Or the opposite - being so fidgety or restless that you have been moving around a lot more than usual: not at all 9. Thoughts that you would be better off or of hurting yourself in some way: not at all Total score: 9 Source: Developed by Drs. Jorge Luis Peng, Luisa Ko, Scout Hopkins and colleagues, with an educational rosa isela from [employer]. Thrive Questionnaire Date Thrive assessed: 12/31/24 I am a: Patient What is your living situation today?: I have a steady place to live Within the past 12 months, did the food you bought not last and you didn't have the money to get more?: Never true Within the past 12 months, did you worry whether your food would run out before you got money to buy more?: Never true Do you have trouble paying for medicines?: No Do you have trouble getting transportation to medical appointments?: No Do you have trouble paying your heating and electricity bill?: No Do you have trouble taking care of your child, family member or friend?: No Do you have trouble with day-to-day activities such as bathing, preparing meals, shopping, managing finances, etc.?: No Are you currently unemployed and looking for a job?: Yes Are you interested in more education?: No Please select the resources that you would like help with: None Currently or been in a relationship where the following occur: No concerns reported THRIVE Score: 0 AUDIT C Alcohol Use Questionnaire (AUDIT-C) 1. How often do you have a drink containing alcohol?: Monthly or less 2. How many drinks containing alcohol do you have on a typical day when you are drinking?: 3 or 4 3. How often do you have six or more drinks on one occasion?: Never Total Score: 2 LETY-7 AMB Questionnaire LETY-7 Date LETY - 7 assessed: 09/05/24 Feeling nervous, anxious, or on edge: 1 = Several days Not being able to stop or control worryin = More than half the days Worrying too much about different things: 2 = More than half the days Trouble relaxin = Not at all Being so restless that it is hard to sit still: 0 = Not at all Becoming easily annoyed or irritable: 1 = Several days Feeling afraid as if something awful might happen: 0 = Not at all Total LETY-7 score (0-4 normal; 5-9 mild; 10-14 moderate; 15-21 severe): 6 Source: Developed by Drs. Jorge Luis Peng, Luisa Ko, Scout Hopkins and colleagues, with an educational rosa isela from [employer]. Review of Systems Const Denies body aches, Denies chills, Denies fever(s), Denies headache(s), Reports malaise and Denies poor appetite Eyes Reports blurry vision and Reports change in vision (decrease in vision) ENT Denies dysphagia, Denies dizziness, Denies headache(s) and Denies odynophagia Card Denies chest pain, Denies syncope, Denies edema, Denies irregular heart rhythm, Denies lightheadedness and Reports dyspnea Resp Reports cough (production yellowish secretion), Reports dyspnea and Denies wheezing GI Denies abdominal pain, Denies constipation, Denies dysphagia, Denies diarrhea, Denies nausea, Denies odynophagia and Denies vomiting Reports no additional complaints Musc Reports no additional complaints, Denies abnormal gait and Reports myalgias Skin/Breast Reports system reviewed and no additional complaints, except as documented Neuro Denies Abnormal speech present, Denies abnormal gait, Denies dizziness, Denies syncope and Denies headache(s) Psych Reports no additional complaints David/Lymph Denies easy bleeding and Denies easy bruising Aller/Immun Denies wheezing Physical exam (Primary Care) Vital Signs: Last Vital Signs Temp 97.0 F 03/31/25 08:44 Pulse 84 03/31/25 08:44 BP 150/66 H 03/31/25 08:44 Pulse Ox 97 03/31/25 08:44 Oxygen Delivery Method Room Air 03/31/25 08:44 BMI result Body Mass Index 30.0 Tobacco/Smoking Status: Tobacco use Status Tobacco use date assessed 03/31/25 03/31/25 08:48 Patient Tobacco Use Status Former Tobacco user 03/31/25 08:43 Tobacco use type Cigarette 03/31/25 08:43 e-Cigarette/Vaping Use Never Used 03/31/25 08:43 PHQ-9: PHQ-9 Score PHQ-9: Total score 9 03/31/25 15:19 Thrive Assessment: Date of Thrive Assessment Date Thrive assessed 12/31/24 03/31/25 08:43 Currently or been in a relationship where the following occur: No concerns reported Const General: healthy appearing, no acute distress, alert and awake Nutritional Appearance: well nourished Orientation/consciousness: oriented to person, oriented to place and oriented to time HENMT Ears: TM's normal bilaterally General nose exam: Normal nasal mucous membranes and turbinates present Eyes Conjunctivae: conjunctivae normal Sclerae: sclerae normal Pupils: Equal, round and reactive pupils present Neck Neck: Yes no lymphadenopathy and Yes no JVD Thyroid: Thyroid normal Carotids: no bruits Resp Effort & Inspection: abnormal respiratory pattern, labored (Mildly) and not tachypneic Auscultation: no crackles, no rales, no rhonchi and wheezes expiratory wheezes, inspiratory wheezes, lower bilaterally, upper bilaterally and posterior Cardio Rate: regular rate Rhythm: regular rhythm Heart sounds: S1 normal heart sound present, S2 normal heart sound present, no murmurs and normal S1 and S2 GI Palpation (GI): Soft to palpation, nontender, no hepatomegaly and no splenomegaly Auscultation: normal bowel sounds General: Yes no CVA tenderness Back/Spine/Pelvis Back: no CVA tenderness Skin General skin exam: no rashes or lesions noted and dry skin Neuro General: oriented to person, oriented to place and oriented to time Cranial nerves: Yes Equal, round and reactive pupils present Speech: No Abnormal speech present Gait exam (Neuro): Normal gait present Motor exam (neuro): no tremor noted Extrem Right upper extremity: full ROM Left upper extremity: full ROM Right lower extremity: full ROM; no edema Left lower extremity: full ROM; no edema Psych Mental Status: mental status grossly normal Speech and movement: Normal speech and movement present Affect: normal affect Attitude: cooperative Thought process: Normal thought process present Results AMB Hemoglobin A1c AMB Hemoglobin A1c 5.8 % Last Edit by Raquel Garza CMA on 03/31/25 09:08 Results Reviewed Results Reviewed: Laboratory Last Values Hgb A1c (Clinic) 5.8 % (4.0-6.0) 03/31/25 08:48 Coding Level of Care Code Est Pt Level 4 (69655) Diagnoses Upper respiratory tract infection, unspecified type J06.9 URI type: unspecified URI Mild intermittent asthma without complication J45.20 Asthma complication type: uncomplicated Asthma persistence: intermittent Asthma severity: mild Preoperative clearance Z01.818 Primary hypertension I10 Hypertension type: primary hypertension Allergic rhinitis, unspecified seasonality, unspecified trigger J30.9 Allergic rhinitis seasonality: unspecified Allergic rhinitis trigger: unspecified Time Spent (min) 36 Assessment & Plan Assessment & Plan (1) Upper respiratory tract infection: Code(s): J06.9 - Acute upper respiratory infection, unspecified Category: Medical Qualifiers: URI type: unspecified URI Qualified Code(s): J06.9 - Acute upper respiratory infection, unspecified Plan: c/o body aches, denies sore throat, earache, ongoing sob that reportedly has increased. Respiratory panel ordered to further evaluate for any viral respiratory pathogens. (2) Asthma: Code(s): J45.909 - Unspecified asthma, uncomplicated Category: Medical Qualifiers: Asthma complication type: uncomplicated Asthma persistence: intermittent Asthma severity: mild Qualified Code(s): J45.20 - Mild intermittent asthma, uncomplicated Plan: The patient's uncontrolled asthma and new onset symptoms of productive cough with yellowish sputum, weakness, and muscle aches are concerning for an acute respiratory infection, possibly exacerbating her underlying asthma. The plan includes a nebulizer treatment administered in office for immediate relief. A Z- Tan and a three-day course of prednisone 20 mg daily have been prescribed. Orders have been placed for a chest x-ray, blood work including a CBC, and a respiratory swab for COVID-19 to further evaluate for pneumonia or other infections. A decision on whether to increase her maintenance inhaler will be deferred until after the acute illness resolves. The patient was counseled that a pulmonology referral may be necessary if her breathing does not improve. (3) Preoperative clearance: Code(s): Z01.818 - Encounter for other preprocedural examination Category: Medical Plan: The patient presents for preoperative evaluation for upcoming cataract surgeries. Due to the current acute illness, it was strongly recommended to postpone the surgery, as being sick can impaire healing. As part of the clearance, an EKG and blood work have been ordered. Surgical clearance will be provided once the patient has recovered from her respiratory illness. (4) Hypertension: Code(s): I10 - Essential (primary) hypertension Category: Medical Qualifiers: Hypertension type: primary hypertension Qualified Code(s): I10 - Essential (primary) hypertension Plan: The patient's blood pressure was elevated at 150/66 mmHg, despite taking her medication this morning. Her A1c is reportedly good, ruling out hyperglycemia as a cause for her symptoms. The current focus is on managing her acute respiratory condition, and her blood pressure will continue to be monitored. (5) Allergic rhinitis: Code(s): J30.9 - Allergic rhinitis, unspecified Category: Medical Qualifiers: Allergic rhinitis seasonality: unspecified Allergic rhinitis trigger: unspecified Qualified Code(s): J30.9 - Allergic rhinitis, unspecified Plan: The patient has a known allergy to mold and seasonal allergens which may be contributing to her respiratory symptoms. She was advised to investigate and remediate the suspected mold source from a leak under her sink.Limit exposure to allergens Air purifiers and dust filters Air conditioner in house, especially where sleeping Orders: Orders SARS-CoV2/FLU/RSV 03/31/25 R05.9 - Cough, unspecified, R06.02 - Shortness of breath, R06.2 - Wheezing XR chest 2V 03/31/25 R05.9 - Cough, unspecified, R06.02 - Shortness of breath, R06.2 - Wheezing Complete Blood Count Auto Diff 03/31/25 Z01.818 - Encounter for other preprocedural examination Comprehensive Met. Panel 10/28/25 Z01.818 - Encounter for other preprocedural examination TSH reflex Free T4 03/31/25 Z01.818 - Encounter for other preprocedural examination ECG 12 lead EKG 03/31/25 Z01.818 - Encounter for other preprocedural examination AMB Hemoglobin A1c 03/31/25 Z13.9 - Encounter for screening, unspecified Medications: New azithromycin For 250 mg dose pack: take 500 mg today (day 1), then 250 mg for 4 days (days 2-5) PO 6 tabs 0RF prednisone 20 mg PO DAILY 3 tabs 0RF 3 days
[2025-03-31 08:44] VITALS: BP 150/66; PULSE 84; TEMP 36.1; O2SAT 97
--- OUTSIDE RECORDS SUMMARY | 2025-03-31 09:03 | XMS_ITS | Patient Health Record ---
Author Organization [facility] Address [address] [place] [address] Care Team Providers Care Training Developer Name Role Phone Pete Staton MD Primary Care Provider Jorge Luis Sweet [phone] Allergies Allergen (clinical drug ingredient) Drug/Non Drug Allergy documented on EMR Reaction Allergy Type Onset Date Status Perfume Perfume Unknown Allergy Active nickel Nickel Unknown Allergy Active Benzocaine Unknown Drug Allergy Active animals (uncoded) Unknown Allergy Ac tive Results Component Value Reference Range Notes Pathology (Not yet reviewed by provider) Interpretation: Performing Lab:[facility], [address] [place] [id number] Notes/Report: Reason For Referral No Information Medications Medication SIG (Take, Route, Frequency, Duration) Notes Start Date End Date Status amLODIPine Besylate 10mg Active Sertraline HCl 150mg Active Vitamin D3 50 MCG (1999 UT) TAKE 1 CAPSU LE BY MOUTH EVERY DAY Oral; Duration: 90 Active Iron Active Magnesium Active Vitamin B Complex Ac tive Glucosamine 1000mg A ctive ProAir HFA Active Loratadine 10 MG TAKE 1 TABLET BY GABRIELA TH DAILY NEEDED FOR ALLERGY SYMPTOMS Oral; Duration: 90 Active Wixela Inhub 250-50 MCG/ACT USE 1 INHALA TION TWICE A DAY Inhalation; Duration: 30 Active Omeprazole 20mg Acti ve Claritin Active Immunizations Vaccine Route Administration Date Status Comme nts Influenza Unknown 02/02/2021 Administered Problems Problem Type SNOMED Code ICD Code Onset Dates Problem Status W/U Status Risk Notes Problem Screening for malignant neoplasm of colon (277784062) Encounter for screening for malignant neoplasm of colon (Z12.11) Active confirmed Problem Hiatal hernia (60969771) Hiatal hernia (K44.9) Active confirmed Problem Gastroesophageal reflux disease (187646188) GERD without esophagitis (K21.9) Active confirmed Problem Left upper quadrant pain (538872335) LUQ abdominal pain (R10.12) Active confirmed Vital Signs Blood pressure diastolic 00 mm Hg 04/22/2024 Height 62 in 04/22/2024 Blood pressure systolic 00 mm Hg 04/22/2024 Weight 166 lbs 04/22/2024 BMI 30.36 kg/m2 04/22/2024 Encounters Encounter Location Date Provider Diagnosis [facility] Out[facility] [address], [place] [id number] 08/06/2024 Jorge Luis Galvan Colon cancer screeni ng Z12.11 ; Colon polyps K63.5 ; Diverticulosis of colon K57.30 ; Chronic GERD K21.9 and Hiatal hernia K44.9 [facility] [address] [place] [address] 04/22/2024 Jorge Luis Galvan GERD without esophagitis [...] Insured Coverage Start Date Coverage End Date [facility] [address] [place] [address] [id number] LUIS TIFFANIE Self - patient is the insured Medical (General) History Medical History History ICD Code Colonoscopy in 2002 neg except for a hyp erplastic polyp, and hemorrhoids GERD/Vela's Esophagus--EG D's in 2003 and 2006-bx neg for Vela's--EGD in 2001 showed a tiny area of Vela's-no dysplasia---small to moderate-sized HH; EGD in 11/2013 was negative for Vela's again; small to moderate-sized HH Asthma Denies ME,DM,CVA,renal disease 08/2013-hospitalized at [facility] f or --neg ME--saw Dr. Sweet--has been told of need for [...]
== END 2025-03-31 09:25 | disposition home or self-care (01) ==
LOC: HO.HMCH 08:26
PROVIDERS: PCP Internal Medicine
DX: J06.9 Acute upper respiratory infection, unspecified (principal); J45.20 Mild intermittent asthma, uncomplicated; Z01.818 Encounter for other preprocedural examination; I10 Essential (primary) hypertension; J30.9 Allergic rhinitis, unspecified

== ENCOUNTER 2025-03-31 08:25 | Outpatient (REF) | payer MEDICARE, SELFPAY ==
--- OUTSIDE RECORDS SUMMARY | 2025-03-26 23:59 | XMS_ITS | Continuity of Care Document ---
Author Organization [facility] Address [address] [place] [address] [address], [address] [place] [address]- Care Team Providers Care Canvas Cutter Machine Name Role Phone Pete Staton MD Primary Care Physician Encounter [facility] Date(s): 02/24/25 - 03/26/25 [facility] [address] [place] [address] Drive [address] [place], [place] [address] Encounter Type: Triage Allergies, Adverse Reactions, Alerts Substance Criticality Severity Reaction Reaction Severity Status Neosporin Active Nickel Active Medications acetaminophen 325 mg oral tablet 650 mg, By Mouth, Every 6 hours, May take OTC, follow directions on bottle, not to exceed 4000 mg/day, Refills 0, Maintenance, 05/27/20 7:21:00 AM EST, Partial fill upon patient request if the prescription is for a schedule II opioid drug. Start Date: 05/27/20 Status: Ordered Medication Dispense Status: Completed Total Allowed Fills: 1 Fills Dispensed: 0 Albuterol (Eqv-ProAir HFA) = 180 mcg, Inhalation, Every 6 hours, 0 Refills, Maintenance, 10/15/24 1:12:00 PM EDT, Partial fill upon patient request if the prescription is for a schedule II opioid drug. Start Date: 10/15/24 Status: Ordered Medication Dispense Status: Completed Total Allowed Fills: 1 Fills Dispensed: 0 Amlodipine = 10 mg, By Mouth, Daily in AM, 0 Refills, Maintenance, 04/13/20 6:21:00 PM EST Start Date: 04/13/20 Status: Ordered Medication Dispense Status: Completed Total Allowed Fills: 1 Fills Dispensed: 0 atorvastatin 10 mg oral tablet 1 tablet = 10 mg, By Mouth, Daily, 0 Refills, Maintenance, 10/15/24 1:12:00 PM EDT, Partial fill upon patient request if the prescription is for a schedule II opioid drug. Start Date: 10/15/24 Status: Ordered Medication Dispense Status: Completed Total Allowed Fills: 1 Fills Dispensed: 0 Breo Ellipta Inhalation, Daily, 0 Refills, Maintenance, 10/15/24 1:13:00 PM EDT, Partial fill upon patient request if the prescription is for a schedule II opioid drug. Start Date: 10/15/24 Status: Ordered Medication Dispense Status: Completed Total Allowed Fills: 1 Fills Dispensed: 0 celecoxib 200 mg oral capsule 1 capsule = 200 mg, By Mouth, Daily in AM, 0 Refills, Maintenance, 04/14/20 9:19:00 AM EST, Capsule Start Date: 04/14/20 Status: Ordered Medication Dispense Status: Completed Total Allowed Fills: 1 Fills Dispensed: 0 clobetasol 0.05% topical foam Topically, 2 times a day, 0 Refills, Maintenance, 10/15/24 1:14:00 PM EDT, Partial fill upon patientrequest if the prescription is for a schedule II opioid drug. Start Date: 10/15/24 Status: Ordered Medication Dispense Status: Completed Total Allowed Fills: 1 Fills Dispensed: 0 Colace Capsule 100 mg, 1, capsule, By Mouth, 2 times a day, hold fpor loose stool, Refills 0, Maintenance, 05/27/20 7:22:00 AM EST, Partial fill upon patient request if the prescription is for a schedule II opioid drug. Start Date: 05/27/20 Status: Ordered Medication Dispense Status: Completed Total Allowed Fills: 1 Fills Dispensed: 0 Folic Acid Daily, 0 Refills, Maintenance, 10/15/24 1:14:00 PM EDT, Partial fill upon patient request if the prescription is for a schedule II opioid drug. Start Date: 10/15/24 Status: Ordered Medication Dispense Status: Completed Total Allowed Fills: 1 Fills Dispensed: 0 ketorolac 0.5% ophthalmic solution 0 Refills, Maintenance, 03/02/25 11:11:00 AM EDT, Partial fill upon patient request if the prescription is for a schedule II opioid drug. Start Date: 03/02/25 Status: Ordered Medication Dispense Status: Completed Total Allowed Fills: 1 Fills Dispensed: 0 Loratadine 10 mg, By Mouth, Daily in AM, Refills 0, Maintenance, 04/13/20 1:14:00 PM EST Start Date: 04/13/20 Status: Ordered Medication Dispense Status: Completed Total Allowed Fills: 1 Fills Dispensed: 0 losartan 100 mg oral tablet 0 Refills, Maintenance, 03/02/25 11:11:00 AM EDT, Partial fill upon patient request if the prescription is for a schedule II opioid drug. Start Date: 03/02/25 Status: Ordered Medication Dispense Status: Completed Total Allowed Fills: 1 Fills Dispensed: 0 Maalox Plus Liquid 30 mL, By Mouth, Every 4 hours, PRN Other, Heartburn, 0 Refills, Maintenance, 05/27/20 7:22:00 AM EST, Suspension, Partial fill upon patient request if the prescription is for a schedule II opioid drug. Start Date: 05/27/20 Status: Ordered Medication Dispense Status: Completed Total Allowed Fills: 1 Fills Dispensed: 0 Milk of Magnesia Liquid 30 mL, By Mouth, Daily, PRN Constipation, 0 Refills, Maintenance, 05/27/20 7:23:00 AM EST, Suspension, Partial fill upon patient request if the prescription is for a schedule II opioid drug. Start Date: 05/27/20 Status: Ordered Medication Dispense Status: Completed Total Allowed Fills: 1 Fills Dispensed: 0 MiraLax Powder 1 pack/packet = 17 Gm, By Mouth, Daily, May take OTC, follow directions on bottle, dissolve in water or juice, 0 Refills, Maintenance, 05/27/20 7:23:00 AM EST, Powder, Partial fill upon patient request if the prescription is for a schedule II opioid drug. Start Date: 05/27/20 Status: Ordered Medication Dispense Status: Completed Total Allowed Fills: 1 Fills Dispensed: 0 Omeprazole = 20 mg, By Mouth, Daily, 0 Refills, Maintenance, 04/13/20 1:12:00 PM EST Start Date: 04/13/20 Status: Ordered Medication Dispense Status: Completed Total Allowed Fills: 1 Fills Dispensed: 0 senna 187 mg oral tablet 1 tablet = 8.6 mg, By Mouth, Daily at bedtime, May take OTC, follow directions on bottle, with plenty of water, 0 Refills, Maintenance, 05/27/20 7:24:00 AM EST, Tablet, Partial fill upon patient request if the prescription is for a schedule II opioid drug. Start Date: 05/27/20 Status: Ordered Medication Dispense Status: Completed Total Allowed Fills: 1 Fills Dispensed: 0 sertraline 100 mg oral tablet = 100 mg, By Mouth, Daily, 0 Refills, Maintenance, 04/13/20 1:13:00 PM EST Start Date: 04/13/20 Status: Ordered Medication Dispense Status: Completed Total Allowed Fills: 1 Fills Dispensed: 0 Vitamin D3 1000 intl units oral tablet 1 tablet = 25 mcg, By Mouth, Daily, 0 Refills, Maintenance, 10/15/24 1:14:00 PM EDT, Partial fill upon patient request if the prescription is for a schedule II opioid drug. Start Date: 10/15/24 Status: Ordered Medication Dispense Status: Completed Total Allowed Fills: 1 Fills Dispensed: 0 Problem List Condition Confirmation Course Effective Dates Status Health St atus Informant Obese class I Confirmed Active Social History Social History Type Response Smoking Status Former smoker, quit more than 30 days ago entered on: 10/15/24 Sex Sex Representation Female (finding) Patient Care team information Care Team Personnel Name: Abelardo Allen RN Position: S RN Member Role: Primary Care Nurse Name: Pete Staton MD Position: Reference Physician Member Role: PCP Address: [address] [place] [address] Telecom: Name: Penelope Choudhury RN Position: S RN Member Role: Primary Care Nurse Care Team Related Persons Name: MORTEZA SMITH Insurance Providers Guarantor name: KRISHNA SMITH Health Plan Information #: 1 Payer: [employer] PPO Payer Identifier: VIVEK Member Number: [id number] Group Number: [id number] Subscriber Identifier: VIVEK Relationship to Subscriber: self Coverage Type: Medicare PPO Coverage Verification Date: IVVEK Telecom: VIVEK Address:
--- NOTE | ~2025-03-31 | XR_ITS ---
EXAMINATION: XR CHEST CLINICAL INFORMATION: R06.02 - Shortness of breath COMPARISON: November 09, 2023. TECHNIQUE: PA and lateral views FINDINGS: Calcification within the left hemithorax likely pleural compartment. Hyperinflated lungs. Pulmonary reticular pattern. Bilateral apical lung scarring. No consolidation, pleural effusion or pneumothorax. Multilevel spondylosis, axial skeleton. Osteopenia versus osteoporosis. Mild S-shaped curvature of the thoracolumbar spine. XR/XR chest 2V IMPRESSION: Chronic interstitial lung disease. Calcified pleural plaques, left hemithorax suggesting prior trauma versus infectious processes versus less likely unilateral asbestos exposure. Electronically signed by: Hong Leal MD 03/31/2025 10:07 AM EDT
--- NOTE | 2025-03-31 09:40 | ECG_ITS ---
Test Reason : PREOP Blood Pressure : */* mmHG Vent. Rate : 81 BPM Atrial Rate : 81 BPM P-R Int : 126 ms QRS Dur : 80 ms QT Int : 358 ms P-R-T Axes : 78 52 48 degrees QTcB Int : 415 ms Normal sinus rhythm Nonspecific ST and T wave abnormality When compared with ECG of 15-Aug-2013 07:07, Nonspecific ST and T wave abnormality Present Referred By: Efrem Means Electronically Signed By: CLIFTON ORTIZ
[2025-03-31 09:54] LABS: MANUAL DIFF FLAG NO
[2025-03-31 10:17] LABS: Hematocrit 35.9 % (37.0-47.0); Hemoglobin 11.9 g/dl (12.0-16.0); Imm Gran Abs Auto 0.03 X10*3/uL (0.00-0.03); Imm Gran Pct Auto 0.3 % (0.0-0.4); Lymphocytes Absolute Auto 1.4 X10*3/uL (1.2-4.9); Mean Corpuscular HGB Conc 33.1 g/dl (31.0-35.0); Mean Corpuscular Hemoglobin 28.7 pg (27.0-33.0); Mean Corpuscular Volume 86.5 fL (80.0-98.0); NRBC Abs Auto 0.000 X10*3/uL (0.0-0.012); NRBC Pct Auto 0.0 /100WBC (0.0-0.2); Platelet Count 222 X10*3/uL (160-400); Red Blood Count 4.15 X10*6/uL (4.20-5.50); White Blood Count 9.0 X10*3/uL (4.8-10.8)
[2025-03-31 10:36] LABS: Resp Syncy Virus RNA Qual PCR NEGATIVE (Negative); SARS COV2 PCR INHOUSE NEGATIVE (Negative)
[2025-03-31 10:57] LABS: Alanine Aminotransferase 17 U/L (0-31); Albumin Level 5.0 g/dL (3.5-5.0); Alkaline Phosphatase 75 U/L (39-117); Anion Gap 14 (12-20); Aspartate Amino Transferase 25 U/L (5-31); Blood Urea Nitrogen 24 mg/dL (9-16); Calcium 10.2 mg/dL (8.4-10.2); Carbon Dioxide 30 mmol/L (22-29); Chloride 102 mmol/L (96-108); Estimated Glomerular Filt Rate 55; Potassium 3.5 mmol/L (3.3-5.1); Sodium 142 mmol/L (135-145); Total Protein 7.4 g/dL (6.5-8.0)
== END 2025-03-31 08:26 | disposition home or self-care (01) ==
LOC: HO.XRAY 08:25
PROVIDERS: PCP Internal Medicine
DX: Z01.818 Encounter for other preprocedural examination (principal); R06.02 Shortness of breath; I10 Essential (primary) hypertension; E11.9 Type 2 diabetes mellitus without complications; K21.9 Gastro-esophageal reflux disease without esophagitis; M81.0 Age-related osteoporosis without current pathological fracture; J06.9 Acute upper respiratory infection, unspecified; J30.9 Allergic rhinitis, unspecified; J45.21 Mild intermittent asthma with (acute) exacerbation
CPT/HCPCS: 71046; 80053; 83036; 84443; 85025; 87637; 93005; 96127; 99212

== ENCOUNTER → 2025-03-31 09:40 | Outpatient (BNV) | payer MEDICARE, SELFPAY | PROVIDERS: PCP Internal Medicine; Visit Provider Internal Medicine | DX: Z01.810 Encounter for preprocedural cardiovascular examination (principal) | CPT/HCPCS: 93010 ==

== ENCOUNTER → 2025-03-31 09:55 | Outpatient (BNV) | payer MEDICARE, SELFPAY | PROVIDERS: PCP Internal Medicine; Visit Provider Radiology Diagnostic Radiology | DX: J84.9 Interstitial pulmonary disease, unspecified (principal); J92.9 Pleural plaque without asbestos | CPT/HCPCS: 71046 ==

== ENCOUNTER 2025-04-17 10:07 | Outpatient (AMB) | payer MEDICARE, SELFPAY ==
--- OUTSIDE RECORDS SUMMARY | 2024-08-06 06:50 | XMS_ITS ---
Author Organization [facility] Address [address] [place] [address] Care Team Providers Care Plating Foreman Name Role Phone Pete Staton MD Primary Care Provider Jorge Luis Sweet [phone] REASON FOR VISIT gerd,hiatal hrenia,screening Encounters Encounter Location Date Provider Diagnosis [facility] Outpatient [address] [place] [phone] 08/06/2024 Jorge Luis Galvan Colon cancer scree paulina Z12.11 ; Colon polyps K63.5 ; Diverticulosis of colon K57.30 ; Chronic GERD K21.9 and Hiatal hernia K44.9 Assessments Encounter Date Diagnosis (ICD Code) Assessment Notes Treatment Notes Treatment Clinical Notes Section Notes 08/06/2024 Colon cancer screening (ICD-10 - Z12.11) 08/06/2024 Colon polyps (ICD-10 - K63.5) 08/06/2024 Diverticulosis of colon (ICD-10 - K57.30) 08/06/2024 Chronic GERD (ICD-10 - K21.9) 08/06/2024 Hiatal hernia (ICD-10 - K44.9) Plan Of Treatment No Information Progress Notes * KRISHNA SMITH ADOB: [birth year] (69 yo F)Acc No.[id number]:08/06/2024 EGD and COL/MAC Patient: Sadaf PARIKH KRISHNA Gallegos Provider: Christiana Galvan MD :1955 A ge:69 Y S ex:Female Date:08/06/2024 Address:[address] [place] [address] [place], [id number] Pcp:Pete Staton MD Subjective: * Chief Complaints: * 1 . Gerd,hiatal hrenia,screening. * Medical History: Objective: * Vitals: Assessment: * Assessment: 1. C olon cancer screening - Z12.11 (Primary) 2 . C olon polyps - K63.5? 3. D iverticulosis of colon - K57.30 4 . C hronic GERD - K21.9? 5. H iatal hernia - K44.9 Plan: * Treatment: * Procedure Codes: 4 5380 COLONOSCOPY AND BIOPSY, 0529F INTRVL 3+YRS PTS CLNSCP DOCD, 0528F RCMND FLW-UP 10 YRS DOCD, [address] UPPER GI ENDOSCOPY, BIOPSY * * The named appointment provid er may or may not be the originator of this progress note, and it is not deemed complete until electronically signed by the appointment provider. Sign off status: Pending * Provider: Christiana Galvan MD Date: 0 08/06/2024 Generated for Demetrius grimes/Mario/Arasmitting on: 06/17/2024 12:20 PM EST
[2025-04-17 10:09] VITALS: BP 160/70; PULSE 107; TEMP 36.3; O2SAT 94; BMI 29.9
--- NOTE | 2025-04-17 10:09 | A.OFFPC_ITS ---
Vital Signs 04/17/25 10:09 04/17/25 10:15 Height 5 ft 2 in Weight 163 lb 4 oz BMI 29.9 BP 160/70 H 160/62 H Blood Pressure Location Lt brachial Lt brachial Position Sitting Sitting Pulse 107 H Pulse Source Pulse Oximeter Temp 97.3 F Temp Source Temporal Artery Scan Pulse Oximetry (%) 94 Oxygen Delivery Method Room Air Intake Visit Reasons: [facility] clearance cataracts Allergies bacitracin (From Neosporin ([id number])) Allergy (Unknown, Verified 04/17/25 10:20) Unknown benzocaine Allergy (Unknown, Verified 04/17/25 10:20) Unknown Iodinated Contrast Media (IV Contrast Dye) Allergy (Unknown, Verified 04/17/25 10:20) Unknown lisinopril Allergy (Unknown, Verified 04/17/25 10:20) Unknown neomycin (From Neosporin ([id number])) Allergy (Unknown, Verified 04/17/25 10:20) Unknown nickel Allergy (Unknown, Verified 04/17/25 10:20) Unknown polymyxin B (From Neosporin ([id number])) Allergy (Unknown, Verified 04/17/25 10:20) Unknown amlodipine Adverse Reaction (Intermediate, Verified 04/17/25 10:20) leg swelling rosuvastatin Adverse Reaction (Intermediate, Verified 04/17/25 10:20) Nausea Medication List - Last Reconciled 04/17/25 by XI Carrasco albuterol sulfate 90 mcg/actuation 2 puffs PO Q4H atorvastatin 10 mg PO BEDTIME azithromycin For 250 mg dose pack: take 500 mg today (day 1), then 250 mg for 4 days (days 2-5) PO cholecalciferol (vitamin D3) 50 mcg PO DAILY 90 days clobetasol 0.05% 1 appl topical DAILY fluticasone furoate-vilanterol 100-25 mcg/dose (Breo Ellipta) 1 inh inhalation DAILY folic acid 1 mg PO DAILY hydrochlorothiazide 25 mg PO DAILY loratadine 10 mg PO DAILY PRN losartan 100 mg PO DAILY 90 days omeprazole 20 mg PO DAILY prednisone 20 mg PO DAILY 3 days sertraline 150 mg (1.5 x 100 mg) PO DAILY Tobacco use date assessed: 03/31/25 Fall risk assessment: 2 + Falls in past year Last assessed Fall Risk: 03/31/25 Dental Screening Dental Screen Date: 03/31/25 Did you have a dental visit in the last 12 months?: No Did you have a dental problem in the last 6 months where you did not have access to dental care?: No Was dental information given to patient?: Patient has dentist HPI [facility] clearance cataracts HPI Details Patient is a 69-year-old female presenting for preop clearance. Patient of Dr. Staton, last seen in office on 03/31/2025 for preop clearance. The patient was not cleared for surgery due to having an active respiratory illn ess during visit. The patient was given a nebulizer treatment in office and was started on Z-Tan along with a 3 day course of prednisone 20 mg. Today she is back to her baseline and ready to proceed with her cataract surgery. The reports go ongoing blurry vision and difficulty seeing. She is really looking forward to proceed with her cataract surgery. Reports that the her sugery for 04/21/2025 was canceled and they are waiting for her to be cleared to book her another appointment. Surgery: Cataract Surgeon/location: Dr. Ramsey at [facility] at [place], [place] Anesthesia: Mac. Past surgical history is significant for a recent wrist surgery with plate insertion for a fracture, bilateral knee replacements, a tubal ligation, and eye surgery at age [age]. She had no issues with anesthesia in the past. She has a history of hypertension with a blood pressure that usually runs around 140 mmHg at home. She takes her blood pressure medication daily. Blood pressure is generally more elevated in office due to anxiety coming into the doctor's office. The patient denies any post surgery hypothermia or clotting disorder and she is not on any blood thinners. Medical history is significant for a type 2 diabetes mellitus, asthma, GERD, cervical spinal stenosis, recurrent asthmatic bronchitis, HTN, splenomegaly, osteoporosis BP 160/62, anxious in the office about not being able to get her surgery done. Denies chest pain, increased shortness of breath (chronic-mild), heart palpitation or dizziness Denies abdominal pain or change in bowel habits Denies any urinary symptoms [facility] Medical History Alcohol dependence Anemia Breast cancer screening by mammogram Splenomegaly Diarrhea LUQ abdominal pain Diverticulosis Impaired glucose tolerance Vela's esophagus Anxiety and depression Psoriasis Osteoporosis Hypercholesterolemia GERD (gastroesophageal reflux disease) Asthma Knee osteoarthritis Hypertension Allergic rhinitis Surgical History History of open reduction and internal fixation (ORIF) procedure History of eye surgery History of tubal ligation History of tonsillectomy History of arthroplasty of right knee History of arthroplasty of left knee Family History Father No problems noted. Mother Ovarian cancer Myocardial infarction Paternal Grandmother Bladder cancer Paternal Aunt Bladder cancer Paternal Uncle Bladder cancer Social History Household Members: Spouse and Children Housing: House Are you a primary child care counselor to a significant other at home: No Do you presently have visiting nurse or other home services: No Alcohol intake: current Alcohol intake frequency: holidays/special occasions only Patient Tobacco Use Status: Former Tobacco user Tobacco use type: Cigarette e-Cigarette/Vaping Use: Never Used Second Hand Smoke Exposure: No Substance Use Type: Marijuana service: No Current occupational status: employed 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 1. Little interest or pleasure in doing things: more than half the days 2. Feeling down, depressed, or hopeless: more than half the days 3. Trouble falling or staying asleep, or sleeping too much: several days 4. Feeling tired or having little energy: nearly every day 5. Poor appetite or overeating: not at all 6. Feeling bad about yourself - or that you are a failure or have let yourself or your family down: several days 7. Trouble concentrating on things, such as reading the newspaper or watching television: not at all 8. Moving or speaking so slowly that other people could have noticed. Or the opposite - being so fidgety or restless that you have been moving around a lot more than usual: not at all 9. Thoughts that you would be better off or of hurting yourself in some way: not at all Total score: 9 Source: Developed by Drs. Jorge Luis Peng, Lusia Ko, Scout Hopkins and colleagues, with an educational rosa isela from [employer]. Thrive Questionnaire Date Thrive assessed: 12/31/24 I am a: Patient What is your living situation today?: I have a steady place to live Within the past 12 months, did the food you bought not last and you didn't have the money to get more?: Never true Within the past 12 months, did you worry whether your food would run out before you got money to buy more?: Never true Do you have trouble paying for medicines?: No Do you have trouble getting transportation to medical appointments?: No Do you have trouble paying your heating and electricity bill?: No Do you have trouble taking care of your child, family member or friend?: No Do you have trouble with day-to-day activities such as bathing, preparing meals, shopping, managing finances, etc.?: No Are you currently unemployed and looking for a job?: Yes Are you interested in more education?: No Please select the resources that you would like help with: None Currently or been in a relationship where the following occur: No concerns reported THRIVE Score: 0 AUDIT C Alcohol Use Questionnaire (AUDIT-C) 1. How often do you have a drink containing alcohol?: Monthly or less 2. How many drinks containing alcohol do you have on a typical day when you are drinking?: 3 or 4 3. How often do you have six or more drinks on one occasion?: Never Total Score: 2 LETY-7 AMB Questionnaire LETY-7 Date LETY - 7 assessed: 09/05/24 Feeling nervous, anxious, or on edge: 1 = Several days Not being able to stop or control worryin = More than half the days Worrying too much about different things: 2 = More than half the days Trouble relaxin = Not at all Being so restless that it is hard to sit still: 0 = Not at all Becoming easily annoyed or irritable: 1 = Several days Feeling afraid as if something awful might happen: 0 = Not at all Total LETY-7 score (0-4 normal; 5-9 mild; 10-14 moderate; 15-21 severe): 6 Source: Developed by Luisa Strickland, Scout Hopkins and colleagues, with an educational rosa isela from [employer]. Review of Systems Const Denies body aches, Denies chills, Denies fever(s), Denies headache(s) and Denies poor appetite Eyes Reports blurry vision and Reports change in vision (decrease in vision) ENT Denies dysphagia, Denies dizziness, Denies headache(s) and Denies odynophagia Card Denies chest pain, Denies syncope, Denies edema, Denies irregular heart rhythm, Denies lightheadedness and Reports dyspnea (Mild) Resp Reports dyspnea (Mild) and Denies wheezing GI Denies abdominal pain, Denies constipation, Denies dysphagia, Denies diarrhea, Denies nausea, Denies odynophagia and Denies vomiting Reports no additional complaints Musc Reports no additional complaints, Denies abnormal gait and Reports myalgias Skin/Breast Reports system reviewed and no additional complaints, except as documented Neuro Denies Abnormal speech present, Denies abnormal gait, Denies dizziness, Denies syncope and Denies headache(s) Psych Reports no additional complaints David/Lymph Denies easy bleeding and Denies easy bruising Aller/Immun Denies wheezing Physical exam (Primary Care) Vital Signs: Last Vital Signs Temp 97.3 F 04/17/25 10:09 Pulse 107 H 04/17/25 10:09 BP 160/70 H 04/17/25 10:09 Pulse Ox 94 04/17/25 10:09 Oxygen Delivery Method Room Air 04/17/25 10:09 BMI result Body Mass Index 29.9 Tobacco/Smoking Status: Tobacco use Status Tobacco use date assessed 03/31/25 04/17/25 10:17 Patient Tobacco Use Status Former Tobacco user 04/17/25 10:17 Tobacco use type Cigarette 04/17/25 10:17 e-Cigarette/Vaping Use Never Used 04/17/25 10:17 PHQ-9: PHQ-9 Score PHQ-9: Total score 9 04/17/25 10:23 Thrive Assessment: Date of Thrive Assessment Date Thrive assessed 12/31/24 04/17/25 10:17 Currently or been in a relationship where the following occur: No concerns reported Const General: healthy appearing, no acute distress, alert and awake Nutritional Appearance: well nourished Orientation/consciousness: oriented to person, oriented to place and oriented to time HENMT Ears: TM's normal bilaterally General nose exam: Normal nasal mucous membranes and turbinates present Eyes Conjunctivae: conjunctivae normal Sclerae: sclerae normal Pupils: Equal, round and reactive pupils present Neck Neck: Yes no lymphadenopathy and Yes no JVD Thyroid: Thyroid normal Carotids: no bruits Resp Effort & Inspection: not tachypneic Auscultation: clear to auscultation bilaterally, no crackles, no rales, no rhonchi and diminished lung sounds bilateral in the lower lung senior Cardio Rate: regular rate Rhythm: regular rhythm Heart sounds: S1 normal heart sound present, S2 normal heart sound present, no murmurs and normal S1 and S2 GI Palpation (GI): Soft to palpation, nontender, no hepatomegaly and no splenomegaly Auscultation: normal bowel sounds General: Yes no CVA tenderness Back/Spine/Pelvis Back: no CVA tenderness Skin General skin exam: no rashes or lesions noted and dry skin Neuro General: oriented to person, oriented to place and oriented to time Cranial nerves: Yes Equal, round and reactive pupils present Speech: No Abnormal speech present Gait exam (Neuro): Normal gait present Motor exam (neuro): no tremor noted Extrem Right upper extremity: full ROM Left upper extremity: full ROM Right lower extremity: full ROM; no edema Left lower extremity: full ROM; no edema Psych Mental Status: mental status grossly normal Speech and movement: Normal speech and movement present Affect: normal affect Attitude: cooperative Thought process: Normal thought process present Coding Level of Care Code Est Pt Level 4 (90669) Diagnoses Preoperative clearance Z01.818 Mild intermittent asthma without complication J45.20 Asthma severity: mild Asthma persistence: intermittent Asthma complication type: uncomplicated Primary hypertension I10 Hypertension type: primary hypertension Gastroesophageal reflux disease, unspecified whether esophagitis present K21.9 Esophagitis presence: esophagitis presence not specified Vela's esophagus without dysplasia K22.70 Vela's esophagus type: without dysplasia Type 2 diabetes mellitus with other specified complication, without long-term current use of insulin E11.69 Diabetes mellitus type: type 2 Diabetes mellitus terminal press operator insulin use: without terminal press operator use Diabetes mellitus complication status: with other specified complication Anxiety and depression F41.9; F32.9 Time Spent (min) 34 Assessment & Plan Assessment & Plan (1) Preoperative clearance: Code(s): Z01.818 - Encounter for other preprocedural examination Category: Medical Plan: Plan: Reviewed recent labs and EKG Regarding preop clearance, the patient is at acceptable risk for proposed surgery. Reviewed with the patient that no surgery is completely free of risk and that this examination is to assist the surgeon in reviewing informed consent. (2) Asthma: Code(s): J45.909 - Unspecified asthma, uncomplicated Category: Medical Qualifiers: Asthma severity: mild Asthma persistence: intermittent Asthma complication type: uncomplicated Qualified Code(s): J45.20 - Mild intermittent asthma, uncomplicated Plan: Ongoing mild shortness of breath. Continue Breo Ellipta 1 inhalation daily, albuterol sulfate 90 mcg/actuation 2 puffs q.4 hours p.r.n.. (3) Hypertension: Code(s): I10 - Essential (primary) hypertension Category: Medical Qualifiers: Hypertension type: primary hypertension Qualified Code(s): I10 - Essential (primary) hypertension Plan: The patient's blood pressure was elevated at 160/62 mmHg, reports medication compliance. Had 1 cup of coffee so far. Increase anxiety in office worried about being cleared for her surgery. Reinforced low-salt diet. Continue hydrochlorothiazide 25 mg daily, losartan 100 mg daily (4) GERD (gastroesophageal reflux disease): Code(s): K21.9 - Gastro-esophageal reflux disease without esophagitis Category: Medical Qualifiers: Esophagitis presence: esophagitis presence not specified Qualified Code(s): K21.9 - Gastro-esophageal reflux disease without esophagitis Plan: Do not eat meals or drink carbonated beverages within 3 hr of bedtime Decrease the amount of fried, fatty, and spicy foods to decrease gastric acid production Raise the head of the bed using 4 to 6-inch blocks, especially if nocturnal symptoms are present Lose weight if indicated; avoid tight-fitting clothing, especially around the waist Avoid foods that relax the Lower esophageal sphincter (chocolate, peppermint, high-fat foods etc.,) Continue omeprazole 20 mg daily (5) Vela's esophagus: Code(s): K22.70 - Vela's esophagus without dysplasia Category: Medical Qualifiers: Vela's esophagus type: without dysplasia Qualified Code(s): K22.70 - Vela's esophagus without dysplasia Plan: Same as above (6) Diabetes mellitus: Code(s): E11.9 - Type 2 diabetes mellitus without complications Category: Medical Qualifiers: Diabetes mellitus type: type 2 Diabetes mellitus terminal press operator insulin use: without usp use Diabetes mellitus complication status: with other specified complication Qualified Code(s): E11.69 - Type 2 diabetes mellitus with other specified complication Plan: A1c 5.8% on recent labs. Reinforced low sugar/carbohydrate diet and activity as tolerated (7) Anxiety and depression: Code(s): F41.9 - Anxiety disorder, unspecified; F32.9 - Major depressive disorder, single episode, unspecified Category: Medical Plan: Encouraged CBT Continue sertraline 150 mg daily Denies SI/HI
[2025-04-17 10:15] VITALS: BP 160/62
--- OUTSIDE RECORDS SUMMARY | 2025-04-17 12:21 | XMS_ITS | Patient Health Record ---
Author Organization [facility] Address [address] [place] [address] Care Team Providers Care Registered Nurse Supervisor Name Role Phone Pete Staton MD Primary Care Provider Jorge Luis Sweet [phone] Allergies Allergen (clinical drug ingredient) Drug/Non Drug Allergy documented on EMR Reaction Allergy Type Onset Date Status Perfume Perfume Unknown Allergy Active nickel Nickel Unknown Allergy Active Benzocaine Unknown Drug Allergy Active animals (uncoded) Unknown Allergy Ac tive Results Component Value Reference Range Notes Pathology (Not yet reviewed by provider) Interpretation: Performing Lab:[facility], [address] [place] [id number] Notes/Report: Reason For Referral No Information Medications [...] Problem Screening for malignant neoplasm of colon ([id number]) Encounter for screening for malignant neoplasm of colon (Z12.11) Active confirmed Problem Hiatal hernia (00565060) Hiatal hernia (K44.9) Active confirmed Problem Gastroesophageal reflux disease (818799723) GERD without esophagitis (K21.9) Active confirmed Problem Left upper quadrant pain (119729113) LUQ abdominal pain (R10.12) Active confirmed Vital Signs Blood pressure diastolic 00 mm Hg 04/22/2024 Height 62 in 04/22/2024 Blood pressure systolic 00 mm Hg 04/22/2024 Weight 166 lbs 04/22/2024 BMI 30.36 kg/m2 04/22/2024 Encounters Encounter Location Date Provider Diagnosis [facility] [address] [place], [place] [id number] 08/06/2024 Jorge Luis Galvan Colon cancer screeni ng Z12.11 ; Colon polyps K63.5 ; Diverticulosis of colon K57.30 ; Chronic GERD K21.9 and Hiatal hernia K44.9 [facility] [address] [place] [address] 04/22/2024 Jorge Luis Galvan GERD without esophagitis [...] Insured Coverage Start Date Coverage End Date [facility] [id number] [place] [address] [id number] LUIS TIFFANIE Self - patient is the [...] HH Asthma Denies [place],DM,CVA,renal disease 08/2013-hospitalized at [facility] f or --neg [place]--saw Dr. Sweet--has been told of need [...]
== END 2025-04-17 10:33 | disposition home or self-care (01) ==
LOC: HO.HMCH 10:07
PROVIDERS: PCP Internal Medicine
DX: E11.69 Type 2 diabetes mellitus with other specified complication (principal); Z01.818 Encounter for other preprocedural examination; J45.20 Mild intermittent asthma, uncomplicated; I10 Essential (primary) hypertension; K21.9 Gastro-esophageal reflux disease without esophagitis; K22.70 Barrett's esophagus without dysplasia; F41.9 Anxiety disorder, unspecified; F32.9 Major depressive disorder, single episode, unspecified

== ENCOUNTER → 2025-04-17 10:07 | Outpatient (BNVA) | payer MEDICARE, SELFPAY | PROVIDERS: PCP Internal Medicine | DX: Z01.818 Encounter for other preprocedural examination (principal); E11.69 Type 2 diabetes mellitus with other specified complication; I10 Essential (primary) hypertension; J45.20 Mild intermittent asthma, uncomplicated; K21.9 Gastro-esophageal reflux disease without esophagitis; K22.70 Barrett's esophagus without dysplasia; F41.9 Anxiety disorder, unspecified; F32.9 Major depressive disorder, single episode, unspecified; Z96.653 Presence of artificial knee joint, bilateral | CPT/HCPCS: 96127; 99212 ==